=== PATIENT | male | born 1950 | race Two or more races ===

== ENCOUNTER 2020-04-14 01:00 | Inpatient (IN) | payer OTHER ==
[~2020-04-14] VITALS: Ht 172.7 cm; Wt 67.6 kg
[2020-04-14 01:05] VITALS: BP 115/76
--- NOTE | 2020-04-14 01:05 | NUR ---
ED Nurse Note: pt [facility] [address] from [facility]. Per TAMIA report pt c/o abd pain and fever for 1 day. Pt is AAOx1, nods yes/no. Breathing even and unlabored on RA sating 97-100%. Afebrile on arrival. Vital signs stable. Pt's bilateral lower extremeties contracted, abdomen appears distended. Closed tracheostomy.
--- NOTE | 2020-04-14 01:08 | Emergency Room Report ---
History of Present Illness General Chief Complaint: Flu Like Symptoms Source: Patient, EMS Present Illness HPI Patient is a 69-year-old male sent in for increased headache and generalized body aches and abdominal discomfort. Patient was noted to have fever at the facility. Was sent in from [facility]. Patient's roommate had apparently had recently developed a fever. Patient was sent in for further evaluation. Allergies: Coded Allergies: No Known Allergies (Unverified , 04/14/20) Patient History Past Medical History: see triage record Reviewed Nursing Documentation: PMH: Agreed; PSxH: Agreed Review of Systems All Other Systems: negative except mentioned in HPI Physical Exam Sp02 EP Interpretation: reviewed, normal General Appearance: alert, Chronically Ill Head: atraumatic ENT: normal ENT inspection, hearing grossly normal, normal voice Neck: normal inspection, full range of motion, supple, no bony tend Respiratory: normal inspection, lungs clear, normal breath sounds, no respiratory distress, no retraction, no wheezing Cardiovascular #1: regular rate, rhythm, no edema Gastrointestinal: normal inspection, normal bowel sounds, non tender, soft, no guarding, no hernia Genitourinary: no CVA tenderness Musculoskeletal: normal inspection, back normal, normal range of motion Neurologic: motor weakness, responsive, speech normal, aphasia Medical Decision Making Diagnostic Impression: Primary Impression: Suspected 2019 novel coronavirus infection Additional Impression: Acute febrile illness ER Course Patient presented for increased fever. Differential diagnosis includes not limited to pneumonia, coronavirus infection, hypoxia, influenza among others. Because of complexity of patient's case laboratory tests and imaging studies were ordered. Laboratory testing was ordered including specimen for coronavirus testing. Patient was noted to have roommate who is positive for coronavirus at the facility. Chest x-ray showed diffuse patchy infiltrates. Patient was noted to have some suspected coronavirus infection and patient will be admitted to the hospital for further evaluation and treatment. Dr. Zain Mac was contacted for inpatient management Labs Test 04/14/20 01:20 White Blood Count 9.3 K/UL (4.8-10.8) Red Blood Count 5.06 M/UL (4.70-6.10) Hemoglobin 15.2 G/DL (14.2-18.0) Hematocrit 45.5 % (42.0-52.0) Mean Corpuscular Volume 90 FL (80-99) Mean Corpuscular Hemoglobin 30.0 PG (27.0-31.0) Mean Corpuscular Hemoglobin Concent 33.5 G/DL (32.0-36.0) Red Cell Distribution Width 13.9 % (11.6-14.8) Platelet Count 399 K/UL (150-450) Mean Platelet Volume 6.6 FL (6.5-10.1) Neutrophils (%) (Auto) 50.3 % (45.0-75.0) Lymphocytes (%) (Auto) 36.3 % (20.0-45.0) Monocytes (%) (Auto) 10.8 % (1.0-10.0) Eosinophils (%) (Auto) 0.3 % (0.0-3.0) Basophils (%) (Auto) 2.4 % (0.0-2.0) Sodium Level 141 MMOL/L (136-145) Potassium Level 3.7 MMOL/L (3.5-5.1) Chloride Level 105 MMOL/L (98-107) Carbon Dioxide Level 30 MMOL/L (21-32) Anion Gap 6 mmol/L (5-15) Blood Urea Nitrogen 24 mg/dL (7-18) Creatinine 1.0 MG/DL (0.55-1.30) Estimat Glomerular Filtration Rate > 60 mL/min (>60) Glucose Level 102 MG/DL (74-106) Lactic Acid Level 1.40 mmol/L (0.4-2.0) Calcium Level 9.0 MG/DL (8.5-10.1) Phosphorus Level 3.2 MG/DL (2.5-4.9) Magnesium Level 2.1 MG/DL (1.8-2.4) Total Bilirubin 0.3 MG/DL (0.2-1.0) Aspartate Amino Transf (AST/SGOT) 27 U/L (15-37) Alanine Aminotransferase (ALT/SGPT) 23 U/L (12-78) Alkaline Phosphatase 150 U/L (46-116) Total Creatine Kinase 54 U/L (26-308) Creatine Kinase MB 0.7 NG/ML (0.0-3.6) Creatine Kinase MB Relative Index 1.2 Troponin I 0.000 ng/mL (0.000-0.056) Pro-B-Type Natriuretic Peptide 158 pg/mL (0-125) Total Protein 7.7 G/DL (6.4-8.2) Albumin 3.7 G/DL (3.4-5.0) Globulin 4.0 g/dL Albumin/Globulin Ratio 0.9 (1.0-2.7) Status: unchanged Disposition: ADMITTED INPATIENT Condition: Stable John Flores MD Apr 14, 2020 01:08
[2020-04-14] MEDS ORDERED: Cefepime 1gm vial ONE (04:17)
[2020-04-14 05:39] LABS: BASOPHILS % (AUTO) 2.4 % (0.0-2.0); EOSINOPHILS % (AUTO) 0.3 % (0.0-3.0); HEMATOCRIT 45.5 % (42.0-52.0); HEMOGLOBIN 15.2 G/DL (14.2-18.0); LYMPHOCYTES % (AUTO) 36.3 % (20.0-45.0); MEAN CORPUSCULAR VOLUME 90 FL (80-99); MONOCYTES % (AUTO) 10.8 % (1.0-10.0); NEUTROPHILS % (AUTO) 50.3 % (45.0-75.0); PLATELET COUNT 399 K/UL (150-450); RED BLOOD COUNT 5.06 M/UL (4.70-6.10); RED CELL DISTRIBUTION WIDTH 13.9 % (11.6-14.8); WHITE BLOOD COUNT 9.3 K/UL (4.8-10.8)
[2020-04-14 05:40] LABS: ALANINE AMINOTRANSFERASE 23 U/L (12-78); ALBUMIN 3.7 G/DL (3.4-5.0); ALBUMIN/GLOBULIN RATIO 0.9 (1.0-2.7); ALKALINE PHOSPHATASE 150 U/L (46-116); ANION GAP 6 mmol/L (5-15); ASPARTATE AMINO TRANSFERASE 27 U/L (15-37); BILIRUBIN,TOTAL 0.3 MG/DL (0.2-1.0); BLOOD UREA NITROGEN 24 mg/dL (7-18); CARBON DIOXIDE 30 MMOL/L (21-32); CHLORIDE 105 MMOL/L (98-107); CKMB 0.7 NG/ML (0.0-3.6); CREATINE KINASE 54 U/L (26-308); PHOSPHORUS 3.2 MG/DL (2.5-4.9); POTASSIUM 3.7 MMOL/L (3.5-5.1); SODIUM 141 MMOL/L (136-145)
[2020-04-14] MEDS ORDERED: TYLENOL EXTRA500 MG ORAL (06:14)
[2020-04-14] MEDS ORDERED: KEPPRA LIQ100 MG/1 M ORAL (06:14)
[2020-04-14] MEDS ORDERED: BISACODYL5 MG ORAL (06:14)
[2020-04-14] MEDS ORDERED: OMEPRAZOLE20 M2 ORAL (06:14)
[2020-04-14] MEDS ORDERED: METOPROLOL TART25 MG ORAL (06:14)
[2020-04-14] MEDS ORDERED: DOCUSATE SODIU100 MG ORAL (06:14)
[2020-04-14] MEDS ORDERED: ECONAZOLE NITRA15 GM TOPIC (06:14)
--- NOTE | 2020-04-14 07:04 | NUR ---
HAND-OFF: Report given to VELASQUEZ Andrews and VELASQUEZ Renee.
--- NOTE | 2020-04-14 07:50 | NUR ---
ED Nurse Note: Report given to VELASQUEZ Sargent on 2E.
--- NOTE | 2020-04-14 08:30 | NUR ---
NURSE NOTES: pt recieved from Juliana Naik. Pt abdomen noted pulsating and with scars. Pt nods that he is ok, does not speak. viitals as follows 97.6, 93hr, 20 resp, 112/71, 100% on RA. Monitor applied
--- NOTE | 2020-04-14 08:30 | NUR ---
TRANSFER TO FLOOR: Patient transferred to as ordered, per ED RN. Report given to Ani RN 2 East tele. Belongings sent with patient. Transfered on tele monitor with SCHOOL CURRICULUM DEVELOPER. Pt on 3 L NC, able to nod yes or no to nurse when asked questions. No signs of respiratory distress noted.
--- NOTE | 2020-04-14 09:56 | NUR ---
NURSE NOTES: Please note per Dr. Mares, DC all home meds, follow diet suggestion of ST after eval.
--- NOTE | 2020-04-14 10:08 | NUR ---
Speech Pathology Note (Bedside Dysphagia Evaluation) Admission date: 04/14/2020 around Admission DDX: COVID 19, Pneumonia, sepsis Room mate positive for COVID at [facility] Brief Note: Mr. Betancur is a 69 year old male who is a resident of [facility] home was found to have fever with flu symptoms. According to transfer summary from there vital signs are followed. The temp is 101.2, Pulse 113, RR 20, BP 115/79, Spo2 98 on room air. He is on mechanical soft diet and thin liquid at his facility. The overnight vital signs are all stable, and labs were grossly unremarkable. I do not have other information except medication review from [facility]. Findings: Mr. Betancur is alert. He was unable to state his name when I asked in Slovenian/Sami. He has tracheostomy scar. The pinhole was noted at the scar site. This is is too small for significant air leak for phonation. Oral exam revealed clear mucosa. Missing teeth is noted. Given him approximately 120cc iced water, and 50cc of apple sauce he tolerated without overt s.s of aspiration. Interpretation: 1. Grossly functional swallow 2. Hx of tracheostomy unclear etiology at this time. 3. COVID 19 Plan: 1. Pureed and thin liquid diet for now 2.3. I discussed with RN/Radiology department for possible videofluoroscopy swallow per MD order -May Hold off video for now due to COVID positive to minimize exposure Kolby Awad Addendum: 04/14/20 at 1034 by KOLBY AWAD IRONWORKER FOREMAN I discussed with radiology environmental studies department chair about video swallow. We will not perform Video swallow for COVID patient at this time.
[2020-04-14 12:00] VITALS: BP 131/78
[2020-04-14] MEDS ORDERED: Cefepime HCl 1 GM in D5W 55 ML IVPB SCH (12:00)
--- NOTE | 2020-04-14 12:03 | Consultation ---
History of Present Illness General Date patient seen: Apr 14, 2020 Time patient seen: 11:30 Chief Complaint: Flu Like Symptoms Present Illness Allergies: Coded Allergies: No Known Allergies (Unverified , 04/14/20) Medication History Scheduled Bisacodyl* (Dulcolax*), 10 MG ORAL DAILY, (Reported) Docusate Sodium* (Docusate Sodium*), 100 MG ORAL TWICE A DAY, (Reported) Econazole Nitrate (Econazole Nitrate), 1 APPLIC TOPIC DAILY, (Reported) Levetiracetam (Keppra), 5 ML ORAL TWICE A DAY, (Reported) Metoprolol Tartrate* (Metoprolol Tartrate*), 12.5 MG ORAL EVERY 12 HOURS, (Reported) Omeprazole (Omeprazole), 20 MG ORAL DAILY, (Reported) Scheduled PRN Acetaminophen* (Tylenol Extra Strength*), 500 MG ORAL Q6H PRN for Mild Pain/Temp > 100.5, (Reported) Patient History Healthcare decision maker Resuscitation status Advanced Directive on File Physical Exam Last 24 Hour Vital Signs Date Time Temp Pulse Resp B/P (MAP) Pulse Ox O2 Delivery O2 Flow Rate FiO2 04/14/20 08:30 99.2 93 22 109/62 95 Nasal Cannula 3.0 04/14/20 01:05 73 18 Room Air 04/14/20 01:05 98.0 73 18 115/76 98 Room Air 04/14/20 01:03 97.2 96 18 114/70 (85) 94 Room Air Intake and Output 04/13/20 04/14/20 19:00 07:00 Intake Total 50 ml Balance 50 ml Intake Oral 50 ml Laboratory Tests Test 04/14/20 01:20 White Blood Count 9.3 K/UL (4.8-10.8) Red Blood Count 5.06 M/UL (4.70-6.10) Hemoglobin 15.2 G/DL (14.2-18.0) Hematocrit 45.5 % (42.0-52.0) Mean Corpuscular Volume 90 FL (80-99) Mean Corpuscular Hemoglobin 30.0 PG (27.0-31.0) Mean Corpuscular Hemoglobin Concent 33.5 G/DL (32.0-36.0) Red Cell Distribution Width 13.9 % (11.6-14.8) Platelet Count 399 K/UL (150-450) Mean Platelet Volume 6.6 FL (6.5-10.1) Neutrophils (%) (Auto) 50.3 % (45.0-75.0) Lymphocytes (%) (Auto) 36.3 % (20.0-45.0) Monocytes (%) (Auto) 10.8 % (1.0-10.0) H Eosinophils (%) (Auto) 0.3 % (0.0-3.0) Basophils (%) (Auto) 2.4 % (0.0-2.0) H Sodium Level 141 MMOL/L (136-145) Potassium Level 3.7 MMOL/L (3.5-5.1) Chloride Level 105 MMOL/L (98-107) Carbon Dioxide Level 30 MMOL/L (21-32) Anion Gap 6 mmol/L (5-15) Blood Urea Nitrogen 24 mg/dL (7-18) H Creatinine 1.0 MG/DL (0.55-1.30) Estimat Glomerular Filtration Rate > 60 mL/min (>60) Glucose Level 102 MG/DL (74-106) Lactic Acid Level 1.40 mmol/L (0.4-2.0) Calcium Level 9.0 MG/DL (8.5-10.1) Phosphorus Level 3.2 MG/DL (2.5-4.9) Magnesium Level 2.1 MG/DL (1.8-2.4) Total Bilirubin 0.3 MG/DL (0.2-1.0) Aspartate Amino Transf (AST/SGOT) 27 U/L (15-37) Alanine Aminotransferase (ALT/SGPT) 23 U/L (12-78) Alkaline Phosphatase 150 U/L (46-116) H Total Creatine Kinase 54 U/L (26-308) Creatine Kinase MB 0.7 NG/ML (0.0-3.6) Creatine Kinase MB Relative Index 1.2 Troponin I 0.000 ng/mL (0.000-0.056) Pro-B-Type Natriuretic Peptide 158 pg/mL (0-125) H Total Protein 7.7 G/DL (6.4-8.2) Albumin 3.7 G/DL (3.4-5.0) Globulin 4.0 g/dL Albumin/Globulin Ratio 0.9 (1.0-2.7) L Microbiology Date/Time Source Procedure Growth Status 04/14/20 07:30 Nasopharynx SARS-CoV-2 RdRp Gene Assay - Final Complete 04/14/20 01:02 Nasal Nares - Final Complete 04/14/20 01:02 Nasal Nares - Final Complete Height (Feet): 5 Height (Inches): 10.00 Weight (Pounds): 150 Medications Current Medications Medications (Trade) Dose Ordered Sig/[place] Route PRN Reason Start Time Stop Time Status Last Admin Dose Admin Acetaminophen (Tylenol) 650 mg Q4H PRN ORAL temp > 100.4 04/14/20 09:30 05/14/20 09:29 Acetaminophen (Tylenol) 650 mg Q4H PRN ORAL pain 04/14/20 09:45 05/14/20 09:44 Cefepime HCl 1 gm/ Dextrose 55 ml @ 110 mls/hr ONCE ONCE IVPB 04/14/20 12:00 04/14/20 12:29 UNV Sodium Chloride 1,000 ml @ 60 mls/hr [id number] IV 04/14/20 09:30 05/14/20 09:29 Brett Shore Apr 14, 2020 12:03
--- NOTE | 2020-04-14 13:06 | NUR ---
CASE MANAGEMENT:REVIEW BIBA FROM [facility] CC: FLU LIKE SYMPTOMS PMH: CLOSED TRACH SITE SI: COVID INFECTION 97.1 96 18 114/70 94% ON RA BUN+24 IS:IV ROCEPHIN IV CEFEPIME IVF@60/HR CXR BLOOD CX : TO TELEMETRY
[2020-04-14] MEDS ORDERED: Omnipaque-300 100ml vial INJ PRN (14:45)
[2020-04-14 16:00] VITALS: BP 112/71
[2020-04-14 16:29] LABS: APPEARANCE,URINE SLIGHTLY CLOUDY; BILIRUBIN, URINE NEGATIVE (NEGATIVE); COLOR,URINE AMBER; GLUCOSE, URINE (UA) NEGATIVE (NEGATIVE); KETONES,URINE 1+ (NEGATIVE); LEUKOCYTE ESTERASE ,URINE NEGATIVE (NEGATIVE); NITRITE,URINE NEGATIVE (NEGATIVE); PH,URINE 5 (4.5-8.0); PROTEIN,URINE 1+ (NEGATIVE); UROBILINOGEN,URINE NORMAL MG/DL (0.0-1.0)
--- NOTE | 2020-04-14 17:30 | Consultation ---
DATE OF CONSULTATION: 04/14/2020 PULMONARY CONSULTATION CONSULTING PHYSICIAN: Radhames Jc MD REFERRING PHYSICIAN: Zain Mares MD HISTORY OF PRESENT ILLNESS: This is a 69-year-old male who was sent in from a nursing facility with headache and myalgias. Patient also reported abdominal discomfort. He was noted to be febrile at the facility. Patient was not hypoxic and there was no fever documented at [facility]. At this time, patient is unable to provide any further history. PAST MEDICAL HISTORY: Notable for half-way resident. PAST SURGICAL HISTORY: None reported. ALLERGIES: None reported. REVIEW OF SYSTEMS: Unreliable. PHYSICAL EXAMINATION: GENERAL: Reveals a 69-year-old male. HEENT: Unremarkable. LUNGS: Clear breath sounds bilaterally. ABDOMEN: Soft. EXTREMITIES: There is no edema. NEUROLOGIC: Nonfocal. VITAL SIGNS: Blood pressure is 110/60, heart rate is 74, respirations 20, O2 saturation 99% on room air. LABORATORY DATA: Lab testing shows normal CBC and BMP. Alkaline phosphatase 150. Troponin negative. IMAGING STUDIES: Unable to review. IMPRESSION: 1. COVID-19 pneumonia. 2. Normoxemia. 3. long-term resident. DISCUSSION: At this time, patient is doing very well on room air. I will hold off on additional therapy, specifically for COVID. I note that he has tested positive for COVID-19 rapid gene assay. Defer remdesivir to ID. Hold off on Decadron. We will follow carefully. Radhames Jc M.D. DR: TONO JOB#: [id number] CC:
--- NOTE | 2020-04-14 18:40 | NUR ---
NURSE HAND-OFF REPORT: Important Events on Shift:[Pt stable through shift, no skin issues noted, bilateral heel Optifoam placed prophylactically. please note that pt has poor appetite and did not eat much of his dinner. No complaint of abdominal pain, Per Dr. Cosme, abdomen is hernia related. ] Patient Status: [in bed resting, stable] Diet: [pure soft moist thin liquids] Pending Orders: [] Pending Results/Labs:[The chest Xray results have not resulted, consider asking for another image or for radiologist to review existing image] Pending MD notification:[Please confirm with Dr. Mares that he wants to DC Metoprolol, omeprazole, and Keppra.] Latest Vital Signs: Temperature 97.6 , Pulse 103 , B/P 112 /71 , Respiratory Rate 20 , O2 SAT 100 , Nasal Cannula, O2 Flow Rate 3.0 . Vital Sign Comment: [Slightly tachy otherwise stable] EKG Rhythm: Sinus Tachycardia Rhythm change?: N MD Notified?: - MD Response: Latest Martin Fall Score: 55 Fall Risk: High Risk Safety Measures: Call light Within Reach, Bed Alarm Zone 1, Side Rails Side Rails x2, Bed position Low and Locked. Fall Precautions: Yellow Socks Yellow Gown Door Sign Report given to [Pending RN assignment]. Addendum: 04/14/20 at 1922 by Rosetta Lantigua RN Report given to Rick ENG
--- NOTE | 2020-04-14 19:00 | Consultation ---
DATE OF CONSULTATION: 04/14/2020 INFECTIOUS DISEASES CONSULTATION CONSULTING PHYSICIAN: Narendra Garcia MD PRIMARY ATTENDING PHYSICIAN: Zain Mares MD REASON FOR CONSULTATION: COVID-19 with risks. HISTORY OF PRESENT ILLNESS: This is a 69-year-old white male [facility]. The patient had fever of 101.2. He had headache and abdominal pain. The patient is poor historian. PAST MEDICAL HISTORY: He has history of COPD, encephalopathy, CHF, dysphagia, and hypertension. ALLERGIES: No known drug allergies. MEDICATIONS: Tylenol and sodium chloride. SOCIAL HISTORY: group home resident. Single. Next-of-kin is the child. REVIEW OF SYSTEMS: Very limited. PHYSICAL EXAMINATION: VITAL SIGNS: Temperature 99.2, pulse 93, and blood pressure 109/62. GENERAL APPEARANCE: No acute distress. HEAD AND NECK: [place] conjunctivae. He seems to have a covered tracheostomy site. HEART: Normal rate. LUNGS: Clear. ABDOMEN: Soft. EXTREMITIES: No edema. He has muscle atrophy and contractures in leg. NEUROLOGIC: He is awake, alert, and verbal. LABORATORY AND DIAGNOSTIC DATA: WBC 9.3, hemoglobin 15.2, hematocrit 45.5, and platelet is 399,000. Sodium 141, potassium 3.7, chloride 105, bicarb 30, BUN 24, creatinine 1, and glucose 102. COVID-19 test was positive. Influenza A and B are negative. IMPRESSION: COVID-19 disease, mild or early disease. The patient does not need oxygen. He had fever in [facility]. He has history of COPD, encephalopathy, dysphagia, and hypertension. RECOMMENDATION: We will follow up the cultures. We will start the patient on ceftriaxone. At the end of my exam, I thank Dr. Mares for involving me in the care of this patient. Narendra Garcia M.D. DR: Caitlyn JOB#: [id number] CC:
--- NOTE | 2020-04-14 19:13 | Diagnostic Imaging Report ---
Indication: Shortness of breath Technique: One view of the chest Comparison: none Findings: The aorta is elongated tortuous and ectatic. The lungs and pleural spaces are clear. The heart size is normal. There are surgical clips in the upper abdomen Impression: No acute process
--- NOTE | 2020-04-14 19:30 | NUR ---
NURSE NOTES: Report received from VELASQUEZ Sargent. Patient is awake on bed, alert and oriented x 1. operator bearer systems is in place, shows sinus tachycardia with no chest pain reported. On cardiac pureed moist, thin liquids, instructed and amenable. IV site is on right AC g-20 running 1/2 NS @ 60 cc/hour that is patent and intact. Safety measures are in place, bed in lowest and locked position, side rails up x 2, call light button and bedsdie table within reach, instructed to call for any assistance needed. Will continue plan of care.
[2020-04-14 20:00] VITALS: BP 116/66
--- NOTE | 2020-04-14 21:15 | General Progress Note ---
Subjective Allergies: Coded Allergies: No Known Allergies (Unverified , 04/14/20) Objective Last 24 Hour Vital Signs Date Time Temp Pulse Resp B/P (MAP) Pulse Ox O2 Delivery O2 Flow Rate FiO2 04/14/20 20:00 114 04/14/20 16:00 103 04/14/20 16:00 97.6 93 20 112/71 (85) 100 04/14/20 12:00 102 04/14/20 12:00 97.5 111 20 131/78 (95) 100 04/14/20 10:38 Room Air 04/14/20 08:30 99.2 93 22 109/62 95 Nasal Cannula 3.0 04/14/20 01:05 73 18 Room Air 04/14/20 01:05 98.0 73 18 115/76 98 Room Air 04/14/20 01:03 97.2 96 18 114/70 (85) 94 Room Air Intake and Output 04/13/20 04/14/20 19:00 07:00 Intake Total 50 ml Balance 50 ml Intake Oral 50 ml Laboratory Tests 04/14/20 01:20: White Blood Count 9.3, Red Blood Count 5.06, Hemoglobin 15.2, Hematocrit 45.5, Mean Corpuscular Volume 90, Mean Corpuscular Hemoglobin 30.0, Mean Corpuscular Hemoglobin Concent 33.5, Red Cell Distribution Width 13.9, Platelet Count 399, Mean Platelet Volume 6.6, Neutrophils (%) (Auto) 50.3, Lymphocytes (%) (Auto) 36.3, Monocytes (%) (Auto) 10.8H, Eosinophils (%) (Auto) 0.3, Basophils (%) (Auto) 2.4H, Sodium Level 141, Potassium Level 3.7, Chloride Level 105, Carbon Dioxide Level 30, Anion Gap 6, Blood Urea Nitrogen 24H, Creatinine 1.0, Estimat Glomerular Filtration Rate > 60, Glucose Level 102, Lactic Acid Level 1.40, Calcium Level 9.0, Phosphorus Level 3.2, Magnesium Level 2.1, Total Bilirubin 0.3, Aspartate Amino Transf (AST/SGOT) 27, Alanine Aminotransferase (ALT/SGPT) 23, Alkaline Phosphatase 150H, Total Creatine Kinase 54, Creatine Kinase MB 0.7, Creatine Kinase MB Relative Index 1.2, Troponin I 0.000, Pro-B-Type Natriuretic Peptide 158H, Total Protein 7.7, Albumin 3.7, Globulin 4.0, Albumin/Globulin Ratio 0.9L 04/14/20 15:45: Urine Color Edwige, Urine Appearance Slightly cloudy, Urine pH 5, Urine Specific [place] 1.025, Urine Protein 1+H, Urine Glucose (UA) Negative, Urine Ketones 1+H , Urine Blood 4+H, Urine Nitrite Negative, Urine Bilirubin Negative, Urine Ictotest Negative, Urine Urobilinogen Normal, Urine Leukocyte Esterase Negative, Urine RBC 30-40H, Urine WBC 0-2, Urine Squamous Epithelial Cells ManyH, Urine Bacteria ModerateH, Urine Mucus ManyH Height (Feet): 5 Height (Inches): 8.00 Weight (Pounds): 149 Assessment/Plan Assessment/Plan: GI CONSULT Dictated Thank you MD Marlee Maravilla Payman MD Apr 14, 2020 21:15
--- NOTE | 2020-04-14 22:15 | History and Physical Report ---
DATE OF ADMISSION: 04/14/2020 HISTORY OF PRESENT ILLNESS: Patient comes from a longterm with a outbreak of COVID. Patient has increased headache, body ache, weakness, loss of taste, and loss of appetite. Roommate was also positive for COVID from the same longterm. Patient has shortness of breath and some cough. Denies nausea, vomiting, or diarrhea. Has poor appetite. PAST MEDICAL HISTORY: Significant for GERD as well as constipation, hypertension, seizure disorder, psychosis. PAST SURGICAL HISTORY: None. ALLERGIES: No known allergies. MEDICATIONS: Docusate, bisacodyl, Keppra, metoprolol, omeprazole. FAMILY HISTORY: Noncontributory. SOCIAL HISTORY: Has history of smoking. No history of alcohol or illicit drugs. Comes from a longterm. REVIEW OF SYSTEMS: HEENT: Denies headaches. RESPIRATORY: Reports shortness of breath and cough for a couple of days. CARDIOVASCULAR: Denies chest pain. GASTROINTESTINAL: Denies nausea, vomiting, or diarrhea. Does have poor appetite. Has loss of taste. EXTREMITIES: Denies pain in lower extremities. CENTRAL NERVOUS SYSTEM: Denies change in speech pattern. Feels very weak. PHYSICAL EXAMINATION: VITAL SIGNS: Temperature is 98, pulse 72, blood pressure 115/76. HEENT: PERRLA. CHEST: Clear to auscultation CARDIOVASCULAR: Regular rate and rhythm. No murmurs or extra sounds. GASTROINTESTINAL: Soft, nontender, nondistended. No organomegaly. EXTREMITIES: No edema. Moves all four extremities. NEUROLOGIC: Sensory intact to light touch. Reflexes in both sides. LABORATORY DATA: WBC of 9.3, hemoglobin 15.2, platelets 399. Sodium 141, potassium 3.7, BUN of 24, creatinine 1. ASSESSMENT AND PLAN: COVID positive pneumonia. No fever at the longterm. I have consulted Dr. Camacho, Dr. Radhames Jc, Dr. Narendra Garcia, Dr. Whalen for abdominal pain management as well as for the treatment of COVID positive pneumonia as well as for the management of depression and psychosis. Patient has also had some abdominal pain for 1 day. Zain Mares M.D. DR: TAYA JOB#: [id number] CC:
--- NOTE | 2020-04-14 22:30 | Consultation ---
DATE OF CONSULTATION: 04/14/2020 GASTROENTEROLOGY CONSULTATION CONSULTING PHYSICIAN: Екатерина Whalen MD CHIEF COMPLAINT: I was asked to see this patient by Dr. Zain Mares for evaluation of abdominal discomfort. HISTORY OF PRESENT ILLNESS: The patient is a 69-year-old white man from a senior living who was brought in for fever and COVID positive evaluation. The patient had complained of some abdominal discomfort earlier and had some abdominal distention per nursing staff. He is however tolerating his oral diet without any nausea or vomiting. There is no other history available and this patient is a poor historian. PAST MEDICAL HISTORY: Otherwise unavailable. FAMILY HISTORY: Unavailable. SOCIAL HISTORY: Patient is from a senior living. ALLERGIES: None reported. MEDICATIONS: Noted. PHYSICAL EXAMINATION: GENERAL: Debilitated man, seen in his room. HEENT: Normocephalic and atraumatic. Sclerae anicteric. Oropharynx clear. NECK: Supple. CHEST: Clear to auscultation. CARDIOVASCULAR: Revealed a regular rate. ABDOMEN: Soft and nontender. There is epigastric surgical scar and some wound related hernia, but without any evidence of incarceration. EXTREMITIES: Revealed no edema and some contractures in the left upper extremity. LABORATORY DATA: Noted. ASSESSMENT: This patient presents with coronavirus infection with fever. He had complained of some abdominal discomfort earlier, which can be seen with coronavirus infections. At this time, he denies any abdominal pain and he can be followed conservatively. He has some mild elevation in the alkaline phosphate level, which can be worked up there with proper imaging studies of the abdomen. However, this is not urgent and can wait until patient's condition is overall improved. RECOMMENDATIONS: Per above discussion and per orders written in the chart. Thank you for asking me to participate in the care of this patient. Екатерина Whalen M.D. DR: JEANMARIE JOB#: [id number] CC:
--- NOTE | 2020-04-14 23:16 | Psychiatry Consultation ---
Psychiatry Consultation Psychiatry Consultation Chief Complaint: Flu Like Symptoms History of Present Illness: The patient presents with anxiety, agitation, paranoid ideation, disorientation behavior. PAST PSYCHIATRIC HISTORY: Schizophrenia. PAST MEDICAL HISTORY: As above. ALLERGIES: No known drug allergies. SUBSTANCE ABUSE HISTORY: No known history of illicit drug use or alcohol. MENTAL STATUS EXAMINATION: The patient is alert and oriented times self. Mood is anxious. Affect is blunted, congruent with mood. Thought process is concrete. Thought content, there is no suicidal or homicidal ideation. Cognition is impaired. Insight and judgment is impaired. ASSESSMENT: [place] I Acute toxic encephalopathy. Psychotic disorder. [place] II Deferred. [place] III As above. [place] IV Low. [place] V 20. PLAN: 1. We will start the patient on Haldol IM. 2. Discussed with the nurse. Allergies: Coded Allergies: No Known Allergies (Unverified , 04/14/20) Medication History Scheduled Acetaminophen* (Acetaminophen 325MG Tablet*), 650 MG ORAL DAILY, (Reported) Cholecalciferol (Vitamin D3) (Vitamin D3*), 5,000 UNIT PO DAILY, (Reported) Cranberry Fruit (Cranberry), 900 MG PO BID, (Reported) Docusate Sodium* (Docusate Sodium*), 100 MG ORAL Q12HR, (Reported) Econazole Nitrate (Econazole Nitrate), 1 APPLIC TOPIC BID, (Reported) Levetiracetam (Keppra), 5 ML ORAL Q12HR, (Reported) Metoprolol Tartrate* (Metoprolol Tartrate*), 12.5 MG ORAL BID, (Reported) Multivitamin With Minerals (Multivitamins With Minerals*), 1 TAB ORAL DAILY, (Reported) Omeprazole (Omeprazole), 20 MG ORAL ACBREAKFAST, (Reported) Scheduled PRN Acetaminophen* (Tylenol Extra Strength*), 1,000 MG ORAL Q6H PRN for Moderate Pain (Pain Scale 4-6), (Reported) Acetaminophen* (Acetaminophen 325MG Tablet*), 650 MG ORAL Q6H PRN for Mild Pain (Pain Scale 1-3), (Reported) Bisacodyl (Bisacodyl), 10 MG RC Q24HR PRN for Constipation, (Reported) Magnesium Hydroxide* (Milk Of Magnesia*), 30 ML ORAL QHS PRN for Constipation, (Reported) Na Phos,M-B/Na Phos,Di-Ba* (Fleet Enema*), 133 ML RECTAL EVERY OTHER DAY PRN for Constipation, (Reported) Discontinued Medications Bisacodyl* (Dulcolax*), 10 MG ORAL DAILY, (Reported) Discontinued Reason: Prescription changed Objective Data Height (Feet): 5 Height (Inches): 8.00 Weight (Pounds): 149 Davion Camacho MD Apr 14, 2020 23:16
[2020-04-15] VITALS: BP 114/72
[2020-04-15 04:00] VITALS: BP 106/75
--- NOTE | 2020-04-15 07:18 | NUR ---
NURSE NOTES: Patient was seen in bed asleep with no signs of acute distress, the patient had SCDs on bilaterally, and was receiving 1/2 NS @ 60cc/hr. The bed was placed in the lowest position and locked, the bed alarm was set to zone 1, the side rails were placed x3 and call light was within reach.
--- NOTE | 2020-04-15 07:30 | NUR ---
NURSE HAND-OFF REPORT: Important Events on Shift: Patient has been resting well the whole shift. No SOB nor desaturation noted the whole shift. Patient Status: Patient is awake on bed in stable condition, plan of care endorsed. Diet: Regular, soft easy chew Pending Orders: none Pending Results/Labs:none Pending MD notification:none Latest Vital Signs: Temperature 98.2 , Pulse 101 , B/P 106 /75 , Respiratory Rate 24 , O2 SAT 94 , Room Air, O2 Flow Rate 3.0 . Vital Sign Comment:stable EKG Rhythm: Sinus Bradycardia Rhythm change?: N MD Notified?: - MD Response: Latest Martin Fall Score: 55 Fall Risk: High Risk Safety Measures: Call light Within Reach, Bed Alarm Zone 1, Side Rails Side Rails x2, Bed position Low and Locked. Fall Precautions: Yellow Socks Yellow Gown Door Sign Patient Fall Education Report given to VELASQUEZ Carreno.
[2020-04-15 08:00] VITALS: BP 120/75
[2020-04-15] MEDS: cefTRIAXone 1 GM in D5W 55 ML IVPB SCH (08:28)
--- NOTE | 2020-04-15 10:54 | Infectious Diseases Prog Note ---
Assessment/Plan Assessment/Plan IMPRESSION: COVID19 disease, mild or early disease. COPD, Encephalopathy, Dysphagia, Hypertension. RECOMMENDATION: We will follow up the cultures. Continue ceftriaxone. Subjective ROS Limited/Unobtainable: Yes Constitutional: Denies: fever Allergies: Coded Allergies: No Known Allergies (Unverified , 04/14/20) Objective Last 24 Hour Vital Signs Date Time Temp Pulse Resp B/P (MAP) Pulse Ox O2 Delivery O2 Flow Rate FiO2 04/15/20 09:00 Room Air 04/15/20 08:00 97.9 89 22 120/75 (90) 96 04/15/20 08:00 92 04/15/20 04:00 98.2 101 24 106/75 (85) 94 04/15/20 04:00 93 04/15/20 00:00 98.1 101 24 114/72 (86) 95 04/15/20 00:00 103 04/14/20 21:00 Room Air 04/14/20 20:00 114 04/14/20 20:00 97.2 108 20 116/66 (83) 98 04/14/20 16:00 103 04/14/20 16:00 97.6 93 20 112/71 (85) 100 04/14/20 12:00 102 04/14/20 12:00 97.5 111 20 131/78 (95) 100 Height (Feet): 5 Height (Inches): 8.00 Weight (Pounds): 149 General Appearance: no acute distress HEENT: mucous membranes moist Respiratory/Chest: lungs clear, other - room air oxygen Cardiovascular: normal rate Abdomen: soft, non tender Extremities: no edema Neurologic/Psychiatric: alert, responsive Microbiology Date/Time Source Procedure Growth Status 04/14/20 07:30 Nasopharynx SARS-CoV-2 RdRp Gene Assay - Final Complete 04/14/20 01:20 Blood Blood Culture - Preliminary NO GROWTH AFTER 24 HOURS Resulted 04/14/20 01:02 Nasal Nares - Final Complete 04/14/20 01:02 Nasal Nares - Final Complete 04/14/20 00:05 Blood Blood Culture - Preliminary NO GROWTH AFTER 24 HOURS Resulted Laboratory Tests Test 04/14/20 15:45 Urine Color Edwige Urine Appearance Slightly cloudy Urine pH 5 (4.5-8.0) Urine Specific [place] 1.025 (1.005-1.035) Urine Protein 1+ (NEGATIVE) H Urine Glucose (UA) Negative (NEGATIVE) Urine Ketones 1+ (NEGATIVE) H Urine Blood 4+ (NEGATIVE) H Urine Nitrite Negative (NEGATIVE) Urine Bilirubin Negative (NEGATIVE) Urine Ictotest Negative (NEGATIVE) Urine Urobilinogen Normal MG/DL (0.0-1.0) Urine Leukocyte Esterase Negative (NEGATIVE) Urine RBC 30-40 /HPF (0 - 0) H Urine WBC 0-2 /HPF (0 - 0) Urine Squamous Epithelial Cells Many /LPF (NONE/OCC) H Urine Bacteria Moderate /HPF (NONE) H Urine Mucus Many /LPF (NONE/OCC) H Current Medications Medications (Trade) Dose Ordered Sig/Aurora Route PRN Reason Start Time Stop Time Status Last Admin Dose Admin Acetaminophen (Tylenol) 650 mg Q4H PRN ORAL temp > 100.4 04/14/20 09:30 05/14/20 09:29 Acetaminophen (Tylenol) 650 mg Q4H PRN ORAL pain 04/14/20 09:45 05/14/20 09:44 Ceftriaxone Sodium 1 gm/ Dextrose 55 ml @ 110 mls/hr Q24H IVPB 04/15/20 09:00 04/22/20 08:59 04/15/20 08:28 Sodium Chloride 1,000 ml @ 60 mls/hr [id number] IV 04/14/20 09:30 05/14/20 09:29 04/14/20 12:23 Narendra Garcia MD Apr 15, 2020 10:54
--- NOTE | 2020-04-15 11:01 | Pulmonology Progress Note ---
Subjective ROS Limited/Unobtainable: Yes Interval Events: None new Constitutional: Reports: no symptoms; Denies: fever HEENT: Repors: no symptoms Respiratory: Reports: no symptoms Cardiovascular: Reports: no symptoms Gastrointestinal/Abdominal: Reports: no symptoms Genitourinary: Reports: no symptoms Neurologic: Reports: no symptoms Allergies: Coded Allergies: No Known Allergies (Unverified , 04/14/20) Objective Last 24 Hour Vital Signs Date Time Temp Pulse Resp B/P (MAP) Pulse Ox O2 Delivery O2 Flow Rate FiO2 04/15/20 09:00 Room Air 04/15/20 08:00 97.9 89 22 120/75 (90) 96 04/15/20 08:00 92 04/15/20 04:00 98.2 101 24 106/75 (85) 94 04/15/20 04:00 93 04/15/20 00:00 98.1 101 24 114/72 (86) 95 04/15/20 00:00 103 04/14/20 21:00 Room Air 04/14/20 20:00 114 04/14/20 20:00 97.2 108 20 116/66 (83) 98 04/14/20 16:00 103 04/14/20 16:00 97.6 93 20 112/71 (85) 100 04/14/20 12:00 102 04/14/20 12:00 97.5 111 20 131/78 (95) 100 Intake and Output 04/14/20 04/15/20 19:00 07:00 Intake Total 180 ml Output Total 150 ml Balance 30 ml Intake Oral 180 ml Output Urine Total 150 ml # Voids 2 General Appearance: no acute distress HEENT: normocephalic Respiratory: chest wall non-tender, lungs clear Cardiovascular: normal peripheral pulses Abdomen: normal bowel sounds Extremities: no cyanosis Microbiology Date/Time Source Procedure Growth Status 04/14/20 07:30 Nasopharynx SARS-CoV-2 RdRp Gene Assay - Final Complete 04/14/20 01:20 Blood Blood Culture - Preliminary NO GROWTH AFTER 24 HOURS Resulted 04/14/20 01:02 Nasal Nares - Final Complete 04/14/20 01:02 Nasal Nares - Final Complete 04/14/20 00:05 Blood Blood Culture - Preliminary NO GROWTH AFTER 24 HOURS Resulted Laboratory Tests 04/14/20 15:45: Urine Color [place], Urine Appearance Slightly cloudy, Urine pH 5, Urine Specific [place] 1.025, Urine Protein 1+H, Urine Glucose (UA) Negative, Urine Ketones 1+H , Urine Blood 4+H, Urine Nitrite Negative, Urine Bilirubin Negative, Urine Ictotest Negative, Urine Urobilinogen Normal, Urine Leukocyte Esterase Negative, Urine RBC 30-40H, Urine WBC 0-2, Urine Squamous Epithelial Cells ManyH, Urine Bacteria ModerateH, Urine Mucus ManyH Current Medications Medications (Trade) Dose Ordered Sig/[place]ora Route PRN Reason Start Time Stop Time Status Last Admin Dose Admin Acetaminophen (Tylenol) 650 mg Q4H PRN ORAL temp > 100.4 04/14/20 09:30 05/14/20 09:29 Acetaminophen (Tylenol) 650 mg Q4H PRN ORAL pain 04/14/20 09:45 05/14/20 09:44 Ceftriaxone Sodium 1 gm/ Dextrose 55 ml @ 110 mls/hr Q24H IVPB 04/15/20 09:00 04/22/20 08:59 04/15/20 08:28 Sodium Chloride 1,000 ml @ 60 mls/hr [id number] IV 04/14/20 09:30 05/14/20 09:29 04/14/20 12:23 Assessment/Plan Assessment/Plan IMPRESSION: 1. COVID-19 pneumonia. 2. Normoxemia. 3. alf resident. DISCUSSION: At this time, patient is doing very well on room air. I will hold off on additional therapy, specifically for COVID. OK to dc I will follow carefully. Kaushal Theodore Omar Syed MD Apr 15, 2020 11:01
--- NOTE | 2020-04-15 11:54 | NUR ---
CASE MANAGEMENT:REVIEW 04/15/20 SI: COVID PNA 97.9 103 24 106/75 94% ON RA IS: IV ROCEPHIN Q24 IVF@60/HR : TELEMETRY STATUS DCP; FROM [facility]
[2020-04-15 12:00] VITALS: BP 115/73
--- NOTE | 2020-04-15 14:34 | NUR ---
NURSE NOTES:WOUND CARE NOTES:Pt presented with open trachea. No secretions noted from Trachea. Peristomal area cleansed with soap and water, gently dried,and covered with Optifoam drsg. Sacrum is pink and blanchable. Bilat Foot deformitynoted . Both heels are boggy but blanchable. An area of non-Blanchable erythema noted to dorsal L Foot.(L01.5cm x (W02.5cm. No other areas of skin concerns noted. Tx.Plan: Keep Trachea cover d with Optifoam drsg or Gauze secured with Paper Tape and change PRN if soiled or wet> Apply Moisture Barrier Paste to Sacrum. Cover with Optifoam drsg. Change every 3 days and prn. Apply Cavilon Skin Barrier to dorsal L Foot and Bilat heels. Cover each site with Optifoam drsg. Change every 3 days and prn. Reposition at loeast every 2hours or as tolerated. Off-load heels with Pillow.
[2020-04-15 16:00] VITALS: BP 110/71
--- NOTE | 2020-04-15 18:51 | NUR ---
NURSE HAND-OFF REPORT: Important Events on Shift:[IV Antibiotics and IV fluids] Patient Status: [Stable, full code] Diet: [Cardiac diet puree moist] Pending Orders: [N/A] Pending Results/Labs:[MRSA/ VRE] Pending MD notification:[N/A] Latest Vital Signs: Temperature 97.5 , Pulse 93 , B/P 110 /71 , Respiratory Rate 22 , O2 SAT 95 , Room Air, O2 Flow Rate 3.0 . Vital Sign Comment: [] EKG Rhythm: Sinus Rhythm Rhythm change?: N MD Notified?: - MD Response: Latest Martin Fall Score: 55 Fall Risk: High Risk Safety Measures: Call light Within Reach, Bed Alarm Zone 1, Side Rails Side Rails x2, Bed position Low and Locked. Fall Precautions: Yellow Socks Yellow Gown Door Sign Patient Fall Education Report given to [VELASQUEZ eZlaya].
--- NOTE | 2020-04-15 19:18 | NUR ---
NURSE NOTES: Pt received from VELASQUEZ Brunson. Pt is resting comfortably in bed and shows no signs of pain. Pt is bedbound and contracted; pt is A/Ox1. Pt is on cardiac monitoring ST and asymptomatic; aware. Pt is breathing unlabored on RA and asymptomatic. Pt has RAC 20G running 1/2NS patent with skin dry and intact. Pt requires turning q2hr. Bed is locked in lowest position with call light within reach. Will continue to monitor.
[2020-04-15 20:00] VITALS: BP 107/68
[2020-04-15] MEDS ORDERED: MULTIVITAMINS1 EAC8 ORAL (20:19)
[2020-04-15] MEDS ORDERED: MILK OF MA400 MG/51 ORAL (20:19)
[2020-04-15] MEDS ORDERED: BISACODYL10 M1 RC (20:19)
[2020-04-15] MEDS ORDERED: VITAMIN D325 MC1 PO (20:19)
[2020-04-15] MEDS ORDERED: FLEET ENEMA133 ML RECTAL (20:19)
[2020-04-15] MEDS ORDERED: CRANBERRY450 M5 PO (20:19)
[2020-04-15] MEDS ORDERED: ACETAMINOPHEN325 M1 ORAL ×2 (20:19)
[2020-04-15] MEDS ORDERED: Haloperidol 5mg/ml Inj IM PRN (21:00)
--- NOTE | 2020-04-15 21:09 | General Progress Note ---
Subjective ROS Limited/Unobtainable: Yes Allergies: Coded Allergies: No Known Allergies (Unverified , 04/14/20) Objective Last 24 Hour Vital Signs Date Time Temp Pulse Resp B/P (MAP) Pulse Ox O2 Delivery O2 Flow Rate FiO2 04/15/20 16:00 97.5 96 22 110/71 (84) 95 04/15/20 16:00 93 04/15/20 12:00 89 04/15/20 12:00 97.7 87 20 115/73 (87) 95 04/15/20 09:00 Room Air 04/15/20 08:00 97.9 89 22 120/75 (90) 96 04/15/20 08:00 92 04/15/20 04:00 98.2 101 24 106/75 (85) 94 04/15/20 04:00 93 04/15/20 00:00 98.1 101 24 114/72 (86) 95 04/15/20 00:00 103 Intake and Output 04/14/20 04/15/20 19:00 07:00 Intake Total 240 ml Output Total 150 ml Balance 90 ml Intake Oral 180 ml IV Total 60 ml Output Urine Total 150 ml # Voids 2 Height (Feet): 5 Height (Inches): 8.00 Weight (Pounds): 149 Assessment/Plan Problem List: (1) Acute febrile illness ICD Codes: R50.9 - Fever, unspecified SNOMED: 821024191 (2) Suspected 2019 novel coronavirus infection ICD Codes: Z20.828 - Contact with and (suspected) exposure to other viral communicable diseases SNOMED: 155237288 Status: progressing Assessment/Plan: afebrile nac covid positive pna resp insuff prn supportive rx Zain Mares MD Apr 15, 2020 21:09
--- NOTE | 2020-04-15 23:27 | General Progress Note ---
Subjective Allergies: Coded Allergies: No Known Allergies (Unverified , 04/14/20) Subjective Above note d/w RN no events overnight Objective Last 24 Hour Vital Signs Date Time Temp Pulse Resp B/P (MAP) Pulse Ox O2 Delivery O2 Flow Rate FiO2 04/15/20 21:00 Room Air 04/15/20 20:00 99.2 109 18 107/68 (81) 94 04/15/20 16:00 97.5 96 22 110/71 (84) 95 04/15/20 16:00 93 04/15/20 12:00 89 04/15/20 12:00 97.7 87 20 115/73 (87) 95 04/15/20 09:00 Room Air 04/15/20 08:00 97.9 89 22 120/75 (90) 96 04/15/20 08:00 92 04/15/20 04:00 98.2 101 24 106/75 (85) 94 04/15/20 04:00 93 04/15/20 00:00 98.1 101 24 114/72 (86) 95 04/15/20 00:00 103 Intake and Output 04/14/20 04/15/20 19:00 07:00 Intake Total 240 ml Output Total 150 ml Balance 90 ml Intake Oral 180 ml IV Total 60 ml Output Urine Total 150 ml # Voids 2 Height (Feet): 5 Height (Inches): 8.00 Weight (Pounds): 149 Objective WDWN NCAT supple CTA RR Abd soft NT no edema Assessment/Plan Status: progressing Assessment/Plan: Assessment COVID PNA OBS mild elevated LFT, presumed COVID related resolved abd pain Recommendations - supportive care - push po - d/c planning Екатерина Whalen MD Apr 15, 2020 23:27
--- NOTE | 2020-04-15 23:30 | Consultation ---
DATE OF CONSULTATION: 04/15/2020 CONSULTING PHYSICIAN: Davion Camacho M.D. HISTORY OF PRESENT ILLNESS: This is a 69-year-old male, who is well known to me from half-way. The patient was admitted for medical stabilization. He has multiple medical history, GERD, seizure, hypertension, and psychotic disorder. He COVID-19. The patient presents with anxiety, agitation, paranoid ideation, disorientation behavior. PAST PSYCHIATRIC HISTORY: Schizophrenia. PAST MEDICAL HISTORY: As above. ALLERGIES: No known drug allergies. SUBSTANCE ABUSE HISTORY: No known history of illicit drug use or alcohol. MENTAL STATUS EXAMINATION: The patient is alert and oriented times self. Mood is anxious. Affect is blunted, congruent with mood. Thought process is concrete. Thought content, there is no suicidal or homicidal ideation. Cognition is impaired. Insight and judgment is impaired. ASSESSMENT: [place] I Acute toxic encephalopathy. Psychotic disorder. [place] II Deferred. [place] III As above. [place] IV Low. [place] V 20. PLAN: 1. We will start the patient on Haldol IM. 2. Discussed with the nurse. Davion Camacho M.D. DR: LUCAS JOB#: [id number] CC:
[2020-04-16] VITALS: BP 118/88
[2020-04-16 04:00] VITALS: BP 142/58
--- NOTE | 2020-04-16 07:22 | NUR ---
NURSE HAND-OFF REPORT: Important Events on Shift:Pt stable and denies any pain or SOB Patient Status: Stable Diet: Cardiac pureed moist Pending Orders: Pending Results/Labs: Pending MD notification: Latest Vital Signs: Temperature 98.8 , Pulse 90 , B/P 142 /58 , Respiratory Rate 20 , O2 SAT 93 , Room Air, O2 Flow Rate 3.0 . Vital Sign Comment: VSS EKG Rhythm: Sinus Rhythm Rhythm change?: N MD Notified?: - MD Response: Latest Martin Fall Score: 55 Fall Risk: High Risk Safety Measures: Call light Within Reach, Bed Alarm Zone 1, Side Rails Side Rails x2, Bed position Low and Locked. Fall Precautions: Yellow Socks Yellow Gown Door Sign Patient Fall Education Report given to VELASQUEZ Brunson.
--- NOTE | 2020-04-16 07:46 | NUR ---
NURSE NOTES: Report was received from VELASQUEZ Zelaya. The patient was seen in bed asleep in low fowlers position with no acute signs of distress. The patients bed was placed in the lowest position and locked, the bed alarm is set to zone 1, the side rails were placed x3 and call light within reach.
[2020-04-16 08:00] VITALS: BP 115/75
--- NOTE | 2020-04-16 08:54 | NUR ---
CASE MANAGEMENT:REVIEW 04/16/20 SI: COVID PNA. E COLI UTI 98.8 109 20 142/58 93% ON RA IS: IV ROCEPHIN Q24 IVF@60/HR : TELEMETRY STATUS DCP; FROM [facility]
[2020-04-16] MEDS: cefTRIAXone 1 GM in D5W 55 ML IVPB SCH (09:25)
--- NOTE | 2020-04-16 11:10 | NUR ---
NURSE NOTES: Patient received from 214-2 TELE, to 406-2. Patient non-verbal, AOx1,calm. Respirations even/unlabored on RA. IV 1/2 NS at 60ml/hr to RAC, site asymptomatic. Condom cath in place, francisco javier/clear urine in drainage bag. Closed tracheostomy site, with optifoam intact. Abdomen distended, firm. LUE and BLE contracted. Sacral optifoam removed, skin assessed, intact, mild pink, skin care provided, triad cream applied with new optifoam. Bilateral SCDs on. Bed in lowest position,will continue to monitor. Addendum: 04/16/20 at 1441 by Mary Kay Leslie RN Report received from Boy ENG.
--- NOTE | 2020-04-16 11:13 | NUR ---
NURSE NOTES: Patient transferred to VELASQUEZ Muñiz. Patient was stable with no acute signs of distress and on room air. The patients belongings list was verified and acknowledged. The patients bed was set to lowest position, side rails were placed x2, bed alarm was set to zone 1 and call light was within reach.
--- NOTE | 2020-04-16 11:39 | Infectious Diseases Prog Note ---
Assessment/Plan Assessment/Plan IMPRESSION: COVID19 disease, mild or early disease. COPD, Encephalopathy, Dysphagia, Hypertension. UTI RECOMMENDATION: We will follow up the cultures. Change ceftriaxone to Nitrofurantoin Subjective ROS Limited/Unobtainable: Yes Constitutional: Denies: fever Allergies: Coded Allergies: No Known Allergies (Unverified , 04/14/20) Objective Last 24 Hour Vital Signs Date Time Temp Pulse Resp B/P (MAP) Pulse Ox O2 Delivery O2 Flow Rate FiO2 04/16/20 09:00 Room Air 04/16/20 08:00 97.9 101 20 115/75 (88) 95 04/16/20 08:00 94 04/16/20 04:00 98.8 109 20 142/58 (86) 93 04/16/20 04:00 90 04/16/20 00:00 99.3 61 21 118/88 (98) 94 04/16/20 00:00 88 04/15/20 21:00 Room Air 04/15/20 20:00 99.2 109 18 107/68 (81) 94 04/15/20 20:00 112 04/15/20 16:00 97.5 96 22 110/71 (84) 95 04/15/20 16:00 93 04/15/20 12:00 89 04/15/20 12:00 97.7 87 20 115/73 (87) 95 Height (Feet): 5 Height (Inches): 8.00 Weight (Pounds): 149 General Appearance: no acute distress HEENT: mucous membranes moist Respiratory/Chest: lungs clear Cardiovascular: normal rate Abdomen: soft, non tender Extremities: no edema Neurologic/Psychiatric: other - sleeping Microbiology Date/Time Source Procedure Growth Status 04/14/20 15:45 Urine,Clean Catch Urine Culture - Final Escherichia Coli - Esbl Complete 04/14/20 07:30 Nasopharynx SARS-CoV-2 RdRp Gene Assay - Final Complete 04/14/20 01:20 Blood Blood Culture - Preliminary NO GROWTH AFTER 24 HOURS Resulted 04/14/20 01:02 Nasal Nares - Final Complete 04/14/20 01:02 Nasal Nares - Final Complete 04/14/20 00:10 Rectum VRE Culture - Final NO VANCOMYCIN RESISTANT ENTEROCOCCUS ... Complete 04/14/20 00:10 Nasal Nares MRSA Culture - Final NO METHICILLIN RESISTANT STAPH AUREUS... Complete 04/14/20 00:10 Nasopharynx Coronavirus COVID-19 PCR ([facility]) - Final Complete 04/14/20 00:05 Blood Blood Culture - Preliminary NO GROWTH AFTER 24 HOURS Resulted Current Medications Medications (Trade) Dose Ordered Sig/Aurora Route PRN Reason Start Time Stop Time Status Last Admin Dose Admin Acetaminophen (Tylenol) 650 mg Q4H PRN ORAL temp > 100.4 04/14/20 09:30 05/14/20 09:29 Acetaminophen (Tylenol) 650 mg Q4H PRN ORAL pain 04/14/20 09:45 05/14/20 09:44 Ceftriaxone Sodium 1 gm/ Dextrose 55 ml @ 110 mls/hr Q24H IVPB 04/15/20 09:00 04/22/20 08:59 04/16/20 09:25 Haloperidol Lactate (Haldol) 5 mg Q6H PRN IM Agitation 04/15/20 21:00 05/30/20 20:59 Sodium Chloride 1,000 ml @ 60 mls/hr [id number] IV 04/14/20 09:30 05/14/20 09:29 04/15/20 18:06 Narendra Garcia MD Apr 16, 2020 11:39
[2020-04-16 12:00] VITALS: BP 112/61
--- NOTE | 2020-04-16 12:55 | Cardiology Report ---
APPROVED REPORT EKG Measurement Heart [id number] <Conclusion> Normal sinus rhythm Left axis deviation Low voltage QRS Inferior infarct, age undetermined Abnormal ECG
--- NOTE | 2020-04-16 14:05 | NUR ---
NURSE NOTES: Patient generalized skin, warm, temperature assessed 102.0. Medicated with Tylenol PRN as ordered. Dr. Shore notified during rounds at bedside at this time. Will reassess.
--- NOTE | 2020-04-16 14:31 | Pulmonology Progress Note ---
Subjective ROS Limited/Unobtainable: Yes Interval Events: None new Constitutional: Denies: fever HEENT: Repors: no symptoms Respiratory: Reports: no symptoms Cardiovascular: Reports: no symptoms Gastrointestinal/Abdominal: Reports: no symptoms Genitourinary: Reports: no symptoms Neurologic: Reports: no symptoms Allergies: Coded Allergies: No Known Allergies (Unverified , 04/14/20) Objective Last 24 Hour Vital Signs Date Time Temp Pulse Resp B/P (MAP) Pulse Ox O2 Delivery O2 Flow Rate FiO2 04/16/20 14:00 102.0 04/16/20 12:00 98.6 102 20 112/61 (78) 95 04/16/20 09:00 Room Air 04/16/20 08:00 97.9 101 20 115/75 (88) 95 04/16/20 08:00 94 04/16/20 04:00 98.8 109 20 142/58 (86) 93 04/16/20 04:00 90 04/16/20 00:00 99.3 61 21 118/88 (98) 94 04/16/20 00:00 88 04/15/20 21:00 Room Air 04/15/20 20:00 99.2 109 18 107/68 (81) 94 04/15/20 20:00 112 04/15/20 16:00 97.5 96 22 110/71 (84) 95 04/15/20 16:00 93 Intake and Output 04/15/20 04/16/20 19:00 07:00 Intake Total 240 ml 240 ml Output Total 300 ml 500 ml Balance -60 ml -260 ml Intake Oral 240 ml IV Total 240 ml Output Urine Total 300 ml 500 ml # Voids 2 Objective 04/16/2020 Temp 102, RN gave Tylenol, recheck temp General Appearance: no acute distress HEENT: normocephalic Respiratory: chest wall non-tender, lungs clear Cardiovascular: normal peripheral pulses Abdomen: normal bowel sounds Extremities: no cyanosis Microbiology Date/Time Source Procedure Growth Status 04/14/20 15:45 Urine,Clean Catch Urine Culture - Final Escherichia Coli - Esbl Complete 04/14/20 07:30 Nasopharynx SARS-CoV-2 RdRp Gene Assay - Final Complete 04/14/20 01:20 Blood Blood Culture - Preliminary NO GROWTH AFTER 24 HOURS Resulted 04/14/20 01:02 Nasal Nares - Final Complete 04/14/20 01:02 Nasal Nares - Final Complete 04/14/20 00:10 Rectum VRE Culture - Final NO VANCOMYCIN RESISTANT ENTEROCOCCUS ... Complete 04/14/20 00:10 Nasal Nares MRSA Culture - Final NO METHICILLIN RESISTANT STAPH AUREUS... Complete 04/14/20 00:10 Nasopharynx Coronavirus COVID-19 PCR ([facility]) - Final Complete 04/14/20 00:05 Blood Blood Culture - Preliminary NO GROWTH AFTER 24 HOURS Resulted Current Medications Medications (Trade) Dose Ordered Sig/Aurora Route PRN Reason Start Time Stop Time Status Last Admin Dose Admin Acetaminophen (Tylenol) 650 mg Q4H PRN ORAL temp > 100.4 04/14/20 09:30 05/14/20 09:29 04/16/20 14:05 Acetaminophen (Tylenol) 650 mg Q4H PRN ORAL pain 04/14/20 09:45 05/14/20 09:44 Haloperidol Lactate (Haldol) 5 mg Q6H PRN IM Agitation 04/15/20 21:00 05/30/20 20:59 Nitrofurantoin (Macrobid) 100 mg EVERY 12 HOURS ORAL 04/16/20 12:30 04/23/20 12:29 04/16/20 13:36 Sodium Chloride 1,000 ml @ 60 mls/hr [id number] IV 04/14/20 09:30 05/14/20 09:29 04/15/20 18:06 Assessment/Plan Assessment/Plan 1. COVID-19 pneumonia. - doing well on RA - hold off additional therapy specifically for COVID-19 - plan dc 2. Normoxemia. - 93% on RA 3. [facility] resident. 4. UTI - s/p ceftriaxone, now on nitrofurantoin per ID The care for this patient was discussed with my supervising physician Seen and examined by Dr. Jc as well Time spent for this case was approximately 31 minutes Brett Shore Apr 16, 2020 14:31
[2020-04-16 16:00] VITALS: BP 100/57
--- NOTE | 2020-04-16 19:20 | NUR ---
NURSE HAND-OFF: Important Events on Shift:Transfer from [facility] at 1110, FEBRILE 102.0, TYLENOL GIVEN, 99.7 Patient Status: stable Diet: Cardiac Pureed Moist Thin Liquids (FEED) Pending Orders: none Pending Results/Labs:none Pending MD notification:none Latest Vital Signs: Temperature 99.7 , Pulse 104 , B/P 100 /57 , Respiratory Rate 20 , O2 SAT 95 , Room Air, O2 Flow Rate 3.0 . Vital Sign Comment: Monitor TEMP Latest Martin Fall Score: 55 Fall Risk: High Risk Safety Measures: Call light Within Reach, Bed Alarm Zone 1, Side Rails Side Rails x2, Bed position Low and Locked. Fall Precautions: Yellow Socks Yellow Gown Door Sign Patient Fall Education Report given to Tatyana ENG.
[2020-04-16 20:00] VITALS: BP 100/59
--- NOTE | 2020-04-16 20:00 | NUR ---
NURSE NOTES: RECEIVED PATIENT LYING IN BED, AWAKE, ALERT/ORIENTED TO PERSON, CONFUSED, REALITY ORIENTATION PROVIDED DURING ASSESSMENT, ORIENTATED PATIENT TO ROOM/ENVIRONMENT. ALL NEEDS ANTICIPATED AND MET BY NURSING STAFF. NO SIGNS AND SYMPTOMS OF ACUTE CARDIO RESPIRATORY DISTRESS/SHORTNESS OF BREATH, NO EDEMA NOTED. BILATERAL LOWER EXTREMITIES STIFF/FINGERS ON BILATERAL HANDS CONTRACTED. INCONTINENT OF STOOL, CARE PROVIDED, REPOSITIONED FOR COMFORT/PRESSURE RELIEF, TOLERATED WELL. SIDE RAILS UP X3/BED IN LOWEST POSITION FOR SAFETY, FREQUENT ROUNDING FOR SAFETY/NEEDS. CONTINUE WITH CURRENT PLAN OF CARE.
--- NOTE | 2020-04-16 21:41 | General Progress Note ---
Subjective ROS Limited/Unobtainable: Yes Allergies: Coded Allergies: No Known Allergies (Unverified , 04/14/20) Objective Last 24 Hour Vital Signs Date Time Temp Pulse Resp B/P (MAP) Pulse Ox O2 Delivery O2 Flow Rate FiO2 04/16/20 18:45 99.7 04/16/20 16:00 101.7 104 20 100/57 (71) 95 04/16/20 14:35 101.7 04/16/20 14:00 102.0 04/16/20 12:00 98.6 102 20 112/61 (78) 95 04/16/20 09:00 Room Air 04/16/20 08:00 97.9 101 20 115/75 (88) 95 04/16/20 08:00 94 04/16/20 04:00 98.8 109 20 142/58 (86) 93 04/16/20 04:00 90 04/16/20 00:00 99.3 61 21 118/88 (98) 94 04/16/20 00:00 88 Intake and Output 04/15/20 04/16/20 19:00 07:00 Intake Total 240 ml 240 ml Output Total 300 ml 500 ml Balance -60 ml -260 ml Intake Oral 240 ml IV Total 240 ml Output Urine Total 300 ml 500 ml # Voids 2 Height (Feet): 5 Height (Inches): 8.00 Weight (Pounds): 149 Assessment/Plan Problem List: (1) Acute febrile illness ICD Codes: R50.9 - Fever, unspecified SNOMED: 464689984 (2) Suspected 2019 novel coronavirus infection ICD Codes: Z20.828 - Contact with and (suspected) exposure to other viral communicable diseases SNOMED: 811975796 Status: progressing Assessment/Plan: poor appetitive malnutrtion abx per id covid positive pna resp insuff Zain Mares MD Apr 16, 2020 21:40
--- NOTE | 2020-04-16 23:44 | General Progress Note ---
Subjective Allergies: Coded Allergies: No Known Allergies (Unverified , 04/14/20) Subjective Above note d/w RN no events overnight Objective Last 24 Hour Vital Signs Date Time Temp Pulse Resp B/P (MAP) Pulse Ox O2 Delivery O2 Flow Rate FiO2 04/16/20 21:00 Room Air 04/16/20 20:00 98.3 89 18 100/59 (73) 96 04/16/20 18:45 99.7 04/16/20 16:00 101.7 104 20 100/57 (71) 95 04/16/20 14:35 101.7 04/16/20 14:00 102.0 04/16/20 12:00 98.6 102 20 112/61 (78) 95 04/16/20 09:00 Room Air 04/16/20 08:00 97.9 101 20 115/75 (88) 95 04/16/20 08:00 94 04/16/20 04:00 98.8 109 20 142/58 (86) 93 04/16/20 04:00 90 04/16/20 00:00 99.3 61 21 118/88 (98) 94 04/16/20 00:00 88 Intake and Output 04/15/20 04/16/20 19:00 07:00 Intake Total 240 ml 240 ml Output Total 300 ml 500 ml Balance -60 ml -260 ml Intake Oral 240 ml IV Total 240 ml Output Urine Total 300 ml 500 ml # Voids 2 Height (Feet): 5 Height (Inches): 8.00 Weight (Pounds): 149 Objective WDWN NAD NCAT supple CTA RR abd soft NT no edema Assessment/Plan Status: progressing Assessment/Plan: Assessment COVID PNA OBS mild elevated LFT, presumed COVID related resolved abd pain Recommendations - supportive care - push po - d/c planning Екатерина Whalen MD Apr 16, 2020 23:44
[2020-04-17] VITALS: BP 99/60
[2020-04-17 04:00] VITALS: BP 117/62
--- NOTE | 2020-04-17 06:51 | General Progress Note ---
Subjective ROS Limited/Unobtainable: No Allergies: Coded Allergies: No Known Allergies (Unverified , 04/14/20) Objective Last 24 Hour Vital Signs Date Time Temp Pulse Resp B/P (MAP) Pulse Ox O2 Delivery O2 Flow Rate FiO2 04/17/20 04:00 98.4 98 18 117/62 (80) 96 04/17/20 00:00 98.5 77 18 99/60 (73) 96 04/16/20 21:00 Room Air 04/16/20 20:00 98.3 89 18 100/59 (73) 96 04/16/20 18:45 99.7 04/16/20 16:00 101.7 104 20 100/57 (71) 95 04/16/20 14:35 101.7 04/16/20 14:00 102.0 04/16/20 12:00 98.6 102 20 112/61 (78) 95 04/16/20 09:00 Room Air 04/16/20 08:00 97.9 101 20 115/75 (88) 95 04/16/20 08:00 94 Intake and Output 04/16/20 04/17/20 19:00 07:00 Intake Total 1020 ml 600 ml Output Total 450 ml Balance 1020 ml 150 ml Intake Oral 480 ml IV Total 540 ml 600 ml Output Urine Total 450 ml # Voids 2 1 # Bowel Movements 1 Height (Feet): 5 Height (Inches): 8.00 Weight (Pounds): 149 General Appearance: no apparent distress EENT: PERRL/EOMI Neck: supple Cardiovascular: normal rate Respiratory/Chest: decreased breath sounds Abdomen: normal bowel sounds, non tender, soft Extremities: non-tender Assessment/Plan Status: progressing Assessment/Plan: Assessment/Plan Status: progressing Assessment/Plan: Assessment COVID PNA OBS mild elevated LFT, presumed COVID related resolved abd pain Recommendations - supportive care - push po - d/c planning Juan C Man MD Apr 17, 2020 06:51
--- NOTE | 2020-04-17 07:30 | NUR ---
NURSE NOTES: Patient is in bed awake. Nonverbal. Stable. No visible signs of distress noted. Breathing is even and unlabored. Patient appears comfortable. All safety measures provided. Patient is in bed in locked and lowest position with call light within reach and bed alarm on. Will continue to monitor.
[2020-04-17 08:00] VITALS: BP 115/75
--- NOTE | 2020-04-17 08:00 | NUR ---
NURSE HAND-OFF: Important Events on Shift:[NOTED WITH LOOSE STOOLS, FREQUENT INCONTINENT CARE] Patient Status: [STABLE] Diet: [CARDIAC PUREED MOIST-1:1 FEEDER] Pending Orders: [N/A] Pending Results/Labs:[N/A] Pending MD notification:[] Latest Vital Signs: Temperature 98.4 , Pulse 98 , B/P 117 /62 , Respiratory Rate 18 , O2 SAT 96 , Room Air, O2 Flow Rate 3.0 . Vital Sign Comment: [STABLE, AFEBRILE] Latest Martin Fall Score: 55 Fall Risk: High Risk Safety Measures: Call light Within Reach, Bed Alarm Zone 1, Side Rails Side Rails x2, Bed position Low and Locked. Fall Precautions: Yellow Socks Yellow Gown Door Sign Patient Fall Education Report given to [VELASQUEZ POWERS].
[2020-04-17] MEDS ORDERED: 1/2 NS 1000ml IV ONE (09:07)
[2020-04-17] MEDS ORDERED: Tubing IV Secondary IV ONE (09:07)
--- NOTE | 2020-04-17 09:24 | Pulmonology Progress Note ---
Subjective ROS Limited/Unobtainable: Yes Interval Events: none new reported Constitutional: Denies: fever HEENT: Repors: no symptoms Respiratory: Reports: no symptoms Cardiovascular: Reports: no symptoms Gastrointestinal/Abdominal: Reports: no symptoms Genitourinary: Reports: no symptoms Neurologic: Reports: no symptoms Allergies: Coded Allergies: No Known Allergies (Unverified , 04/14/20) Objective Last 24 Hour Vital Signs Date Time Temp Pulse Resp B/P (MAP) Pulse Ox O2 Delivery O2 Flow Rate FiO2 04/17/20 04:00 98.4 98 18 117/62 (80) 96 04/17/20 00:00 98.5 77 18 99/60 (73) 96 04/16/20 21:00 Room Air 04/16/20 20:00 98.3 89 18 100/59 (73) 96 04/16/20 18:45 99.7 04/16/20 16:00 101.7 104 20 100/57 (71) 95 04/16/20 14:35 101.7 04/16/20 14:00 102.0 04/16/20 12:00 98.6 102 20 112/61 (78) 95 Intake and Output 04/16/20 04/17/20 19:00 07:00 Intake Total 1020 ml 600 ml Output Total 450 ml Balance 1020 ml 150 ml Intake Oral 480 ml IV Total 540 ml 600 ml Output Urine Total 450 ml # Voids 2 1 # Bowel Movements 1 Objective 04/17/2020 nonverbal 04/16/2020 Temp 102, RN gave Tylenol, recheck temp General Appearance: no acute distress HEENT: normocephalic Respiratory: chest wall non-tender, lungs clear Cardiovascular: normal peripheral pulses Abdomen: normal bowel sounds Extremities: no cyanosis Microbiology Date/Time Source Procedure Growth Status 04/16/20 06:30 Stool Clostridium difficile Toxin Assay - Final Complete 04/14/20 15:45 Urine,Clean Catch Urine Culture - Final Escherichia Coli - Esbl Complete Current Medications Medications (Trade) Dose Ordered Sig/Aurora Route PRN Reason Start Time Stop Time Status Last Admin Dose Admin Acetaminophen (Tylenol) 650 mg Q4H PRN ORAL temp > 100.4 04/14/20 09:30 05/14/20 09:29 04/16/20 14:05 Acetaminophen (Tylenol) 650 mg Q4H PRN ORAL pain 04/14/20 09:45 05/14/20 09:44 Haloperidol Lactate (Haldol) 5 mg Q6H PRN IM Agitation 04/15/20 21:00 05/30/20 20:59 Nitrofurantoin (Macrobid) 100 mg EVERY 12 HOURS ORAL 04/16/20 12:30 04/23/20 12:29 04/17/20 08:42 Sodium Chloride 1,000 ml @ 60 mls/hr [id number] IV 04/14/20 09:30 05/14/20 09:29 04/17/20 03:23 Assessment/Plan Assessment/Plan 1. COVID-19 pneumonia. - doing well on RA - hold off additional therapy specifically for COVID-19 - plan dc 2. Normoxemia. - 96% on RA 3. longterm resident. 4. UTI - s/p ceftriaxone, now on nitrofurantoin per ID The care for this patient was discussed with my supervising physician Seen and examined by Dr. Jc as well Time spent for this case was approximately 31 minutes Brett Shore Apr 17, 2020 09:24
[2020-04-17 12:00] VITALS: BP 134/67
--- NOTE | 2020-04-17 14:57 | NUR ---
CASE MANAGEMENT:REVIEW SI;COVID PNEUMONIA 98.5 98 20 99/60 96% ON RA IS;MACROBID PO Q12 IVF NS @ 60 ML/HR MED SURG STATUS DCP;FROM [facility]
[2020-04-17 16:00] VITALS: BP 119/72
--- NOTE | 2020-04-17 17:03 | General Progress Note ---
Subjective ROS Limited/Unobtainable: Yes Allergies: Coded Allergies: No Known Allergies (Unverified , 04/14/20) Objective Last 24 Hour Vital Signs Date Time Temp Pulse Resp B/P (MAP) Pulse Ox O2 Delivery O2 Flow Rate FiO2 04/17/20 16:00 98.2 85 15 119/72 (88) 97 04/17/20 12:00 97.3 70 20 134/67 (89) 96 04/17/20 09:00 Room Air 04/17/20 08:00 97.3 82 18 115/75 (88) 97 04/17/20 04:00 98.4 98 18 117/62 (80) 96 04/17/20 00:00 98.5 77 18 99/60 (73) 96 04/16/20 21:00 Room Air 04/16/20 20:00 98.3 89 18 100/59 (73) 96 04/16/20 18:45 99.7 Intake and Output 04/16/20 04/17/20 19:00 07:00 Intake Total 1020 ml 600 ml Output Total 450 ml Balance 1020 ml 150 ml Intake Oral 480 ml IV Total 540 ml 600 ml Output Urine Total 450 ml # Voids 2 1 # Bowel Movements 1 Height (Feet): 5 Height (Inches): 8.00 Weight (Pounds): 149 Assessment/Plan Problem List: (1) Acute febrile illness ICD Codes: R50.9 - Fever, unspecified SNOMED: 633409364 (2) Suspected 2019 novel coronavirus infection ICD Codes: Z20.828 - Contact with and (suspected) exposure to other viral communicable diseases SNOMED: 364496636 Status: progressing Assessment/Plan: afebrile no acute events vitals stable improving covid positive pna resp Zain Boston MD Apr 17, 2020 17:03
--- NOTE | 2020-04-17 18:30 | NUR ---
NURSE NOTES: Patient had bm, patient cleaned and linen changed.
--- NOTE | 2020-04-17 18:48 | NUR ---
NURSE HAND-OFF: Important Events on Shift: bm x2, IV hydration Patient Status: stable Diet: cardiac pureed Pending Orders: n/a Pending Results/Labs:n/a Pending MD notification:n/a Latest Vital Signs: Temperature 98.2 , Pulse 85 , B/P 119 /72 , Respiratory Rate 15 , O2 SAT 97 , Room Air, O2 Flow Rate 3.0 . Vital Sign Comment: n/a Latest Martin Fall Score: 55 Fall Risk: High Risk Safety Measures: Call light Within Reach, Bed Alarm Zone 1, Side Rails Side Rails x2, Bed position Low and Locked. Fall Precautions: Yellow Socks Yellow Gown Door Sign Patient Fall Education .
--- NOTE | 2020-04-17 19:24 | NUR ---
HAND-OFF: Report given to Atiya RN.
[2020-04-17 20:00] VITALS: BP 117/75
--- NOTE | 2020-04-17 22:59 | NUR ---
NURSE NOTES: RECEIVED PATIENT FROM VELASQUEZ POWERS. PATIENT IS AWAKE, CALM, RESTING IN BED, AAOX0, NON-VERBAL, OPEN EYES SPONTANEOUSLY, RESPONSE TO EXTERNAL STIMULUS. PATIENT IS ON ROOM AIR, NO ACUTE DISTRESS NOTED. NO SEIZURE NOTED. VSS. AFEBRILE. PIV ON RIGHT AC INTACT AND PATENT, RUNNING 1/2 NS AT 60ML/HR. PREVIOUS TRACH SITE COVERED WITH OPTIFOAM, CLEAN AND DRY, NO DRAINAGE. CONDOM CATH IN PLACE, DRAINING WELL, JACKIE URINE COLOR NOTED. FALL RISK AND SEIZURE PRECAUTIONS IMPLEMENTED. COMMUNICATED WITH STAFF TO PERFORM FREQUENT ROUNDING. YELLOW SOCKS, YELLOW GOWN AND YELLOW ARMBAND IN PLACE. FALL RISK SIGN PRESENT. BED IS LOCKED AND LOW, BED ALARMS ACTIVE, SIDE RAILS UPX2 AND PADDED, CALL LIGHT IS WITHIN REACH. WILL CONTINUE TO MONITOR.
[2020-04-18] VITALS: BP 109/63
[2020-04-18 04:00] VITALS: BP 114/74
--- NOTE | 2020-04-18 06:42 | NUR ---
NURSE HAND-OFF: Important Events on Shift: Multiple loose stools, notified Dr. Mares. Still having non-productive cough. New IV inserted. Patient Status: Stable Diet: Cardiac, pureed moist Pending Orders: N/A Pending Results/Labs: N/A Pending MD notification: N/A Latest Vital Signs: Temperature 97.7 , Pulse 68 , B/P 114 /74 , Respiratory Rate 21 , O2 SAT 93 , Room Air, O2 Flow Rate 3.0 . Vital Sign Comment: Stable Latest Martin Fall Score: 55 Fall Risk: High Risk Safety Measures: Call light Within Reach, Bed Alarm Zone 1, Side Rails Side Rails x2, Bed position Low and Locked. Fall Precautions: Yellow Socks Yellow Gown Door Sign Patient Fall Education
--- NOTE | 2020-04-18 07:14 | NUR ---
HAND-OFF: Report given to VELASQUEZ Chavez. Patient is stable. Endorsed POC.
--- NOTE | 2020-04-18 07:43 | NUR ---
NURSE NOTES: Patient awake; on room air, no sing of distress and shortness of breath; patient had tracheostomy noted; no sing of chest pain; IV Right For-Arm 1/2NS 60cc running; Condom cath in place, drains dark/francisco javier urine; IV Right For-Arm 22G 1/2NS 60cc running; per PM nurse, patient had 5 times loose stool and MD Mares notified; MD Mares refered PM nurse to communicate MD Demarco Garcia, however PM nurse didn't communicated PM Demarco Garcia, will communicate MD Garcia; side rails up x2, side rails padded for seizure percussion, breaks engaged, bed at lowest position; call light within reach; will keep monitoring.
[2020-04-18 08:00] VITALS: BP 103/60
--- NOTE | 2020-04-18 08:38 | General Progress Note ---
Subjective ROS Limited/Unobtainable: No Allergies: Coded Allergies: No Known Allergies (Unverified , 04/14/20) Objective Last 24 Hour Vital Signs Date Time Temp Pulse Resp B/P (MAP) Pulse Ox O2 Delivery O2 Flow Rate FiO2 04/18/20 04:00 97.7 68 21 114/74 (87) 93 04/18/20 00:00 97.9 63 22 109/63 (78) 94 04/17/20 21:00 Room Air 04/17/20 20:00 98.1 72 22 117/75 (89) 96 04/17/20 16:00 98.2 85 15 119/72 (88) 97 04/17/20 12:00 97.3 70 20 134/67 (89) 96 04/17/20 09:00 Room Air Intake and Output 04/17/20 04/18/20 19:00 07:00 Intake Total 540 ml 660 ml Output Total 600 ml 350 ml Balance -60 ml 310 ml Intake Oral 480 ml 240 ml IV Total 60 ml 420 ml Output Urine Total 600 ml 350 ml # Voids 1 # Bowel Movements 2 6 Height (Feet): 5 Height (Inches): 8.00 Weight (Pounds): 149 General Appearance: no apparent distress EENT: PERRL/EOMI Neck: supple Cardiovascular: normal rate Respiratory/Chest: decreased breath sounds Abdomen: normal bowel sounds, non tender, soft Extremities: non-tender Assessment/Plan Status: progressing Assessment/Plan: Assessment/Plan Status: progressing Assessment/Plan: Assessment COVID PNA OBS mild elevated LFT, presumed COVID related resolved abd pain Recommendations - supportive care - push po - d/c planning Juan C Man MD Apr 18, 2020 08:38
--- NOTE | 2020-04-18 09:16 | Pulmonology Progress Note ---
Subjective ROS Limited/Unobtainable: Yes Interval Events: none new reported Constitutional: Denies: fever HEENT: Repors: no symptoms Respiratory: Reports: no symptoms Cardiovascular: Reports: no symptoms Gastrointestinal/Abdominal: Reports: no symptoms Genitourinary: Reports: no symptoms Neurologic: Reports: no symptoms Allergies: Coded Allergies: No Known Allergies (Unverified , 04/14/20) Objective Last 24 Hour Vital Signs Date Time Temp Pulse Resp B/P (MAP) Pulse Ox O2 Delivery O2 Flow Rate FiO2 04/18/20 04:00 97.7 68 21 114/74 (87) 93 04/18/20 00:00 97.9 63 22 109/63 (78) 94 04/17/20 21:00 Room Air 04/17/20 20:00 98.1 72 22 117/75 (89) 96 04/17/20 16:00 98.2 85 15 119/72 (88) 97 04/17/20 12:00 97.3 70 20 134/67 (89) 96 Intake and Output 04/17/20 04/18/20 19:00 07:00 Intake Total 540 ml 660 ml Output Total 600 ml 350 ml Balance -60 ml 310 ml Intake Oral 480 ml 240 ml IV Total 60 ml 420 ml Output Urine Total 600 ml 350 ml # Voids 1 # Bowel Movements 2 6 Objective 04/18/2020 pt sleeping; x5 loose stools pr PM RN. Dr. Mares and Dr. Garcia aware. C. diff neg 04/17/2020 nonverbal 04/16/2020 Temp 102, RN gave Tylenol, recheck temp General Appearance: no acute distress HEENT: normocephalic Respiratory: chest wall non-tender, decreased breath sounds, other - intermittent non productive cough Cardiovascular: normal peripheral pulses Abdomen: normal bowel sounds Genitourinary: other - condom cath Extremities: no cyanosis Microbiology Date/Time Source Procedure Growth Status 04/16/20 06:30 Stool Clostridium difficile Toxin Assay - Final Complete Current Medications Medications (Trade) Dose Ordered Sig/Aurora Route PRN Reason Start Time Stop Time Status Last Admin Dose Admin Acetaminophen (Tylenol) 650 mg Q4H PRN ORAL temp > 100.4 04/14/20 09:30 05/14/20 09:29 04/16/20 14:05 Acetaminophen (Tylenol) 650 mg Q4H PRN ORAL pain 04/14/20 09:45 05/14/20 09:44 Haloperidol Lactate (Haldol) 5 mg Q6H PRN IM Agitation 04/15/20 21:00 05/30/20 20:59 Nitrofurantoin (Macrobid) 100 mg EVERY 12 HOURS ORAL 04/16/20 12:30 04/23/20 12:29 04/17/20 21:26 Sodium Chloride 1,000 ml @ 60 mls/hr [id number] IV 04/14/20 09:30 05/14/20 09:29 04/17/20 21:26 Assessment/Plan Assessment/Plan 1. COVID-19 pneumonia. - doing well on RA - hold off additional therapy specifically for COVID-19 - plan dc 2. Normoxemia. - 95% on RA 3. intermediate resident. 4. UTI - s/p ceftriaxone, now on nitrofurantoin per ID 5. Diarrhea - x5 loose stools overnight per PM RN - Dr. Mares and Dr. Garcia aware. C. diff neg - No new labs since 04/14/2020 The care for this patient was discussed with my supervising physician Seen and examined by Dr. Jc as well The history of Maria Ines Betancur has been reviewed and management options for him have been examined and discussed by Radhames Jc. I have personally examined and interviewed the patient. Time spent for this case was approximately 31 minutes Brett Shore Apr 18, 2020 09:16 Radhames Jc MD Apr 18, 2020 16:50
[2020-04-18 12:00] VITALS: BP 90/60
--- NOTE | 2020-04-18 15:24 | Infectious Diseases Prog Note ---
Assessment/Plan Assessment/Plan IMPRESSION: COVID19 disease, mild or early disease. COPD, Encephalopathy, Dysphagia, Hypertension. UTI Diarrhea, C. difficile negative RECOMMENDATION: We will follow up the cultures. Continue Nitrofurantoin Subjective ROS Limited/Unobtainable: Yes Constitutional: Reports: fever, other - T=100.2 in am Gastrointestinal/Abdominal: Reports: diarrhea Allergies: Coded Allergies: No Known Allergies (Unverified , 04/14/20) Objective Last 24 Hour Vital Signs Date Time Temp Pulse Resp B/P (MAP) Pulse Ox O2 Delivery O2 Flow Rate FiO2 04/18/20 12:00 98.8 78 18 90/60 (70) 95 04/18/20 09:57 99.0 04/18/20 09:00 Room Air 04/18/20 08:00 100.2 90 18 103/60 (74) 95 04/18/20 04:00 97.7 68 21 114/74 (87) 93 04/18/20 00:00 97.9 63 22 109/63 (78) 94 04/17/20 21:00 Room Air 04/17/20 20:00 98.1 72 22 117/75 (89) 96 04/17/20 16:00 98.2 85 15 119/72 (88) 97 Height (Feet): 5 Height (Inches): 8.00 Weight (Pounds): 149 HEENT: mucous membranes moist Respiratory/Chest: lungs clear Cardiovascular: normal rate Abdomen: soft, non tender Extremities: no edema Microbiology Date/Time Source Procedure Growth Status 04/16/20 06:30 Stool Clostridium difficile Toxin Assay - Final Complete Current Medications Medications (Trade) Dose Ordered Sig/Aurora Route PRN Reason Start Time Stop Time Status Last Admin Dose Admin Acetaminophen (Tylenol) 650 mg Q4H PRN ORAL temp > 100.4 04/14/20 09:30 05/14/20 09:29 04/18/20 09:27 Acetaminophen (Tylenol) 650 mg Q4H PRN ORAL pain 04/14/20 09:45 05/14/20 09:44 Haloperidol Lactate (Haldol) 5 mg Q6H PRN IM Agitation 04/15/20 21:00 05/30/20 20:59 Nitrofurantoin (Macrobid) 100 mg EVERY 12 HOURS ORAL 04/16/20 12:30 04/23/20 12:29 12/6/20 09:26 Sodium Chloride 1,000 ml @ 60 mls/hr [id number] IV 04/14/20 09:30 05/14/20 09:29 04/18/20 13:10 Narendra Garcia MD Apr 18, 2020 15:24
[2020-04-18 16:00] VITALS: BP 104/63
--- NOTE | 2020-04-18 19:16 | NUR ---
NURSE NOTES: Report received from Kathy Alvarenga RN. Patient is awake, alert; on room air, no signs of distress nor shortness of breath; patient had previous tracheostomy, dressing cdi. IV R forearm 22 g 1/2NS 60 ml/h running; Condom cath in place, drains francisco javier urine; Bed is locked in lowest position, side rails up x2, seizure precautions, side rails padded,fall precautions, call light within reach; will continue monitoring patient.
[2020-04-18 20:00] VITALS: BP 107/70
--- NOTE | 2020-04-18 21:33 | General Progress Note ---
Subjective ROS Limited/Unobtainable: Yes Allergies: Coded Allergies: No Known Allergies (Unverified , 04/14/20) Objective Last 24 Hour Vital Signs Date Time Temp Pulse Resp B/P (MAP) Pulse Ox O2 Delivery O2 Flow Rate FiO2 04/18/20 16:00 98.6 67 18 104/63 (77) 95 04/18/20 12:00 98.8 78 18 90/60 (70) 95 04/18/20 09:57 99.0 04/18/20 09:00 Room Air 04/18/20 08:00 100.2 90 18 103/60 (74) 95 04/18/20 04:00 97.7 68 21 114/74 (87) 93 04/18/20 00:00 97.9 63 22 109/63 (78) 94 Intake and Output 04/17/20 04/18/20 19:00 07:00 Intake Total 540 ml 720 ml Output Total 600 ml 350 ml Balance -60 ml 370 ml Intake Oral 480 ml 240 ml IV Total 60 ml 480 ml Output Urine Total 600 ml 350 ml # Voids 1 # Bowel Movements 2 6 Height (Feet): 5 Height (Inches): 8.00 Weight (Pounds): 149 Assessment/Plan Problem List: (1) Acute febrile illness ICD Codes: R50.9 - Fever, unspecified SNOMED: 139795027 (2) Suspected 2019 novel coronavirus infection ICD Codes: Z20.828 - Contact with and (suspected) exposure to other viral communicable diseases SNOMED: 319009847 Status: progressing Assessment/Plan: prn supportive rx improving covid positive pna resp Zain Boston MD Apr 18, 2020 21:33
[2020-04-19] VITALS: BP 98/57
[2020-04-19 03:58] VITALS: BP 110/62
--- NOTE | 2020-04-19 07:19 | NUR ---
NURSE HAND-OFF: Important Events on Shift: initiated wound care eval protocol suspected dti on l lateral malleolus, right anterior foot, wound care process plan initiated small bm soft, weak , non-productive cough. Patient Status: Stable Diet: Cardiac, pureed moist, feed pt, aspiration precautions Pending Orders: cbc bmp Pending Results/Labs: cbc bmp Pending MD notification: sores- feet, redness buttocks bilat, blanchable possible dti- uncertain Latest Vital Signs: Temperature 97.7 , Pulse 68 , B/P 114 /74 , Respiratory Rate 21 , O2 SAT 93 , Room Air, O2 Flow Rate 3.0 . Vital Sign Comment: Stable Latest Martin Fall Score: 55 Fall Risk: High Risk Safety Measures: Call light Within Reach, Bed Alarm Zone 1, Side Rails Side Rails x2, Bed position Low and Locked. Fall Precautions: Yellow Socks Yellow Gown Door Sign Patient Fall Education Report given to Binta ENG
[2020-04-19 07:39] LABS: ALANINE AMINOTRANSFERASE 37 U/L (12-78); ALBUMIN 2.9 G/DL (3.4-5.0); ALBUMIN/GLOBULIN RATIO 0.8 (1.0-2.7); ALKALINE PHOSPHATASE 96 U/L (46-116); ANION GAP 9 mmol/L (5-15); ASPARTATE AMINO TRANSFERASE 38 U/L (15-37); BILIRUBIN,TOTAL 0.4 MG/DL (0.2-1.0); BLOOD UREA NITROGEN 8 mg/dL (7-18); CALCIUM 7.8 MG/DL (8.5-10.1); CARBON DIOXIDE 27 MMOL/L (21-32); CHLORIDE 101 MMOL/L (98-107); CREATININE 0.6 MG/DL (0.55-1.30); SODIUM 137 MMOL/L (136-145)
[2020-04-19 07:54] LABS: BASOPHILS % (AUTO) 0.5 % (0.0-2.0); HEMATOCRIT 39.4 % (42.0-52.0); HEMOGLOBIN 13.8 G/DL (14.2-18.0); LYMPHOCYTES % (AUTO) 30.7 % (20.0-45.0); MEAN CORPUSCULAR VOLUME 86 FL (80-99); MONOCYTES % (AUTO) 7.4 % (1.0-10.0); NEUTROPHILS % (AUTO) 61.5 % (45.0-75.0); PLATELET COUNT 289 K/UL (150-450); RED BLOOD COUNT 4.59 M/UL (4.70-6.10); RED CELL DISTRIBUTION WIDTH 13.5 % (11.6-14.8); WHITE BLOOD COUNT 4.7 K/UL (4.8-10.8)
[2020-04-19 08:00] VITALS: BP 105/61
--- NOTE | 2020-04-19 08:20 | Pulmonology Progress Note ---
Subjective ROS Limited/Unobtainable: Yes Interval Events: none new reported Constitutional: Denies: fever HEENT: Repors: no symptoms Respiratory: Reports: no symptoms Cardiovascular: Reports: no symptoms Gastrointestinal/Abdominal: Reports: no symptoms Genitourinary: Reports: no symptoms Neurologic: Reports: no symptoms Allergies: Coded Allergies: No Known Allergies (Unverified , 04/14/20) Objective Last 24 Hour Vital Signs Date Time Temp Pulse Resp B/P (MAP) Pulse Ox O2 Delivery O2 Flow Rate FiO2 04/19/20 03:58 98.2 87 18 110/62 (78) 95 04/19/20 00:00 98.5 97 19 98/57 (71) 96 04/18/20 21:00 Room Air 04/18/20 20:00 98.1 93 18 107/70 (82) 95 04/18/20 16:00 98.6 67 18 104/63 (77) 95 04/18/20 12:00 98.8 78 18 90/60 (70) 95 04/18/20 09:57 99.0 04/18/20 09:00 Room Air Intake and Output 04/18/20 04/19/20 19:00 07:00 Intake Total 1140 ml 600 ml Output Total 800 ml 350 ml Balance 340 ml 250 ml Intake Oral 480 ml IV Total 660 ml 600 ml Output Urine Total 800 ml 350 ml # Voids 1 # Bowel Movements 2 2 Objective 04/19/2020 pt asleep; x1 soft stool per RN 04/18/2020 pt sleeping; x5 loose stools pr PM RN. Dr. Mares and Dr. Garcia aware. C. diff neg 04/17/2020 nonverbal 04/16/2020 Temp 102, RN gave Tylenol, recheck temp General Appearance: no acute distress HEENT: normocephalic Respiratory: chest wall non-tender, decreased breath sounds, other - intermittent non productive cough Cardiovascular: normal peripheral pulses Abdomen: normal bowel sounds Genitourinary: other - condom cath Extremities: no cyanosis Laboratory Tests 04/19/20 03:00: White Blood Count 4.7L, Red Blood Count 4.59L, Hemoglobin 13.8L, Hematocrit 39.4L, Mean Corpuscular Volume 86, Mean Corpuscular Hemoglobin 30.1, Mean Corpuscular Hemoglobin Concent 35.1, Red Cell Distribution Width 13.5, Platelet Count 289, Mean Platelet Volume 5.1L, Neutrophils (%) (Auto) 61.5, Lymphocytes (%) (Auto) 30.7, Monocytes (%) (Auto) 7.4, Eosinophils (%) (Auto) 0.0, Basophils (%) (Auto) 0.5, Sodium Level 137, Potassium Level 3.0L, Chloride Level 101, Carbon Dioxide Level 27, Anion Gap 9, Blood Urea Nitrogen 8, Creatinine 0.6, Estimat Glomerular Filtration Rate > 60, Glucose Level 75, Calcium Level 7.8L, Total Bilirubin 0.4, Aspartate Amino Transf (AST/SGOT) 38H, Alanine Aminotransferase (ALT/SGPT) 37, Alkaline Phosphatase 96, Total Protein 6.6, Albumin 2.9L, Globulin 3.7, Albumin/Globulin Ratio 0.8L Current Medications Medications (Trade) Dose Ordered Sig/Aurora Route PRN Reason Start Time Stop Time Status Last Admin Dose Admin Acetaminophen (Tylenol) 650 mg Q4H PRN ORAL temp > 100.4 04/14/20 09:30 05/14/20 09:29 04/18/20 09:27 Acetaminophen (Tylenol) 650 mg Q4H PRN ORAL pain 04/14/20 09:45 05/14/20 09:44 Haloperidol Lactate (Haldol) 5 mg Q6H PRN IM Agitation 04/15/20 21:00 05/30/20 20:59 Nitrofurantoin (Macrobid) 100 mg EVERY 12 HOURS ORAL 04/16/20 12:30 04/23/20 12:29 04/18/20 20:31 Sodium Chloride 1,000 ml @ 60 mls/hr [id number] IV 04/14/20 09:30 05/14/20 09:29 04/19/20 05:18 Assessment/Plan Assessment/Plan 1. COVID-19 pneumonia. - doing well on RA - hold off additional therapy specifically for COVID-19 - plan dc 2. Normoxemia. - 93% on RA 3. senior care resident. 4. UTI - s/p ceftriaxone, now on nitrofurantoin per ID 5. Diarrhea - 04/18/2020 x5 loose stools overnight per PM RN- now improving 04/19/2020 - Dr. Mares and Dr. Rahban aware. C. diff neg - 04/19/2020 K 3.0, cont monitor K, defer management to primary MD The care for this patient was discussed with my supervising physician Seen and examined by Dr. Jc as well Time spent for this case was approximately 31 minutes Brett Shore Apr 19, 2020 08:20
--- NOTE | 2020-04-19 08:29 | NUR ---
NURSE NOTES: received patient from VELASQUEZ Shukla. patient in bed, alert to name. verbally responsive. no respiratory distress noted on room air. no facial grimacing. IV on RFA running 1/2ns@60. condom cath draining. no hematuria. old trach site noted. contact and droplet isolation d/t +COVID. bed in the lowest position and locked. call light within reach,alarm on. will continue to provide plan of care.
--- NOTE | 2020-04-19 11:49 | NUR ---
NURSE NOTES: Dr.Masoud Mohr cleared patient for discharge. no antibiotic needed upon discharge. order noted and carried out.
[2020-04-19 12:00] VITALS: BP 101/60
--- NOTE | 2020-04-19 12:16 | Infectious Diseases Prog Note ---
Assessment/Plan Assessment/Plan IMPRESSION: COVID19 disease, mild or early disease. COPD, Encephalopathy, Dysphagia, Hypertension. UTI Diarrhea, C. difficile negative RECOMMENDATION: Agree with discharge to SNF Continue Nitrofurantoin X 2 days Subjective ROS Limited/Unobtainable: Yes Constitutional: Denies: fever Allergies: Coded Allergies: No Known Allergies (Unverified , 04/14/20) Objective Last 24 Hour Vital Signs Date Time Temp Pulse Resp B/P (MAP) Pulse Ox O2 Delivery O2 Flow Rate FiO2 04/19/20 12:00 98.4 94 18 101/60 (74) 93 04/19/20 09:00 Room Air 04/19/20 08:00 98.4 94 18 105/61 (76) 99 04/19/20 03:58 98.2 87 18 110/62 (78) 95 04/19/20 00:00 98.5 97 19 98/57 (71) 96 04/18/20 21:00 Room Air 04/18/20 20:00 98.1 93 18 107/70 (82) 95 04/18/20 16:00 98.6 67 18 104/63 (77) 95 Height (Feet): 5 Height (Inches): 8.00 Weight (Pounds): 149 General Appearance: no acute distress HEENT: mucous membranes moist Respiratory/Chest: lungs clear Cardiovascular: normal rate Abdomen: soft, non tender Extremities: no edema Neurologic/Psychiatric: other - sleeping Laboratory Tests Test 04/19/20 03:00 White Blood Count 4.7 K/UL (4.8-10.8) L Red Blood Count 4.59 M/UL (4.70-6.10) L Hemoglobin 13.8 G/DL (14.2-18.0) L Hematocrit 39.4 % (42.0-52.0) L Mean Corpuscular Volume 86 FL (80-99) Mean Corpuscular Hemoglobin 30.1 PG (27.0-31.0) Mean Corpuscular Hemoglobin Concent 35.1 G/DL (32.0-36.0) Red Cell Distribution Width 13.5 % (11.6-14.8) Platelet Count 289 K/UL (150-450) Mean Platelet Volume 5.1 FL (6.5-10.1) L Neutrophils (%) (Auto) 61.5 % (45.0-75.0) Lymphocytes (%) (Auto) 30.7 % (20.0-45.0) Monocytes (%) (Auto) 7.4 % (1.0-10.0) Eosinophils (%) (Auto) 0.0 % (0.0-3.0) Basophils (%) (Auto) 0.5 % (0.0-2.0) Sodium Level 137 MMOL/L (136-145) Potassium Level 3.0 MMOL/L (3.5-5.1) L Chloride Level 101 MMOL/L (98-107) Carbon Dioxide Level 27 MMOL/L (21-32) Anion Gap 9 mmol/L (5-15) Blood Urea Nitrogen 8 mg/dL (7-18) Creatinine 0.6 MG/DL (0.55-1.30) Estimat Glomerular Filtration Rate > 60 mL/min (>60) Glucose Level 75 MG/DL (74-106) Calcium Level 7.8 MG/DL (8.5-10.1) L Total Bilirubin 0.4 MG/DL (0.2-1.0) Aspartate Amino Transf (AST/SGOT) 38 U/L (15-37) H Alanine Aminotransferase (ALT/SGPT) 37 U/L (12-78) Alkaline Phosphatase 96 U/L (46-116) Total Protein 6.6 G/DL (6.4-8.2) Albumin 2.9 G/DL (3.4-5.0) L Globulin 3.7 g/dL Albumin/Globulin Ratio 0.8 (1.0-2.7) L Current Medications Medications (Trade) Dose Ordered Sig/Aurora Route PRN Reason Start Time Stop Time Status Last Admin Dose Admin Acetaminophen (Tylenol) 650 mg Q4H PRN ORAL temp > 100.4 04/14/20 09:30 05/14/20 09:29 04/18/20 09:27 Acetaminophen (Tylenol) 650 mg Q4H PRN ORAL pain 04/14/20 09:45 05/14/20 09:44 Haloperidol Lactate (Haldol) 5 mg Q6H PRN IM Agitation 04/15/20 21:00 05/30/20 20:59 Nitrofurantoin (Macrobid) 100 mg EVERY 12 HOURS ORAL 04/16/20 12:30 04/23/20 12:29 12/7/20 09:22 Sodium Chloride 1,000 ml @ 60 mls/hr [id number] IV 04/14/20 09:30 05/14/20 09:29 04/19/20 05:18 Narendra Garcia MD Apr 19, 2020 12:16
--- NOTE | 2020-04-19 12:41 | NUR ---
RD ASSESSMENT & RECOMMENDATIONS SEE CARE ACTIVITY FOR COMPLETE ASSESSMENT DAILY ESTIMATED NEEDS: Needs based on Pulmonary/ 67.6kg 25-30 kcals/kg total kcals 1-1.5 g protein/kg 67-100 g total protein 25-30 mL/kg total fluid mLs NUTRITION DIAGNOSIS: Swallowing difficult R/T dysphagia as evidenced by pt on pureed moist texture w/ NTL as per QUALITY CONTROL INSPECTOR HEADING rec. CURRENT DIET:CARDIAC, pureed moist w/ NTL PO DIET RECOMMENDATIONS: REGULAR/ texture per QUALITY CONTROL INSPECTOR HEADING ADDITIONAL RECOMMENDATIONS: * Calibrated bedscale wt * Ensure Enlive BID w/ variable intake * Monitor lytes, replete as needed (low K)
--- NOTE | 2020-04-19 13:33 | NUR ---
*-*DISCHARGE PLANNED*-* PATIENT HAS BEEN ACCEPTED AND WILL BE DISCHARGED BACK TO: [facility] P:[phone] FOR NURSE TO NURSE REPORT ROOM# B [facility] TRANSPORTATION SET FOR 2:45PM S/W JAKI [phone] WILL CALL CALL "CALL THE CAR" TRANSPORTATION FOR ETA
--- NOTE | 2020-04-19 14:22 | NUR ---
NURSE NOTES: given patient report to [facility]. Spoke to VELASQUEZ Henderson. no family info to inform discharge.
--- NOTE | 2020-04-19 15:55 | NUR ---
NURSE NOTES: patient was discharged to [facility] via ambulance [facility] with stable condition. alert to name. non verbal. no respiratory distress noted on room air. no facial grimacing during care. checked and counted belongings. give dc packet and belongings to ambulance personnel. patient was not able to sign on document. removed IV and ID band. wound pictures were taken and uploaded. provided hygiene and wound care upon discharge. vs stable.
--- NOTE | 2020-04-19 21:18 | General Progress Note ---
Subjective Allergies: Coded Allergies: No Known Allergies (Unverified , 04/14/20) Subjective Above noted no events overnight called by RN re low K KCL supplementation ordered Objective Last 24 Hour Vital Signs Date Time Temp Pulse Resp B/P (MAP) Pulse Ox O2 Delivery O2 Flow Rate FiO2 04/19/20 12:00 98.4 94 18 101/60 (74) 93 04/19/20 09:00 Room Air 04/19/20 08:00 98.4 94 18 105/61 (76) 99 04/19/20 03:58 98.2 87 18 110/62 (78) 95 04/19/20 00:00 98.5 97 19 98/57 (71) 96 Intake and Output 04/18/20 04/19/20 19:00 07:00 Intake Total 1140 ml 600 ml Output Total 800 ml 350 ml Balance 340 ml 250 ml Intake Oral 480 ml IV Total 660 ml 600 ml Output Urine Total 800 ml 350 ml # Voids 1 # Bowel Movements 2 2 Laboratory Tests 04/19/20 03:00: White Blood Count 4.7L, Red Blood Count 4.59L, Hemoglobin 13.8L, Hematocrit 39.4L, Mean Corpuscular Volume 86, Mean Corpuscular Hemoglobin 30.1, Mean Corpuscular Hemoglobin Concent 35.1, Red Cell Distribution Width 13.5, Platelet Count 289, Mean Platelet Volume 5.1L, Neutrophils (%) (Auto) 61.5, Lymphocytes (%) (Auto) 30.7, Monocytes (%) (Auto) 7.4, Eosinophils (%) (Auto) 0.0, Basophils (%) (Auto) 0.5, Sodium Level 137, Potassium Level 3.0L, Chloride Level 101, Carbon Dioxide Level 27, Anion Gap 9, Blood Urea Nitrogen 8, Creatinine 0.6, Estimat Glomerular Filtration Rate > 60, Glucose Level 75, Calcium Level 7.8L, Total Bilirubin 0.4, Aspartate Amino Transf (AST/SGOT) 38H, Alanine Aminotransferase (ALT/SGPT) 37, Alkaline Phosphatase 96, Total Protein 6.6, Albumin 2.9L, Globulin 3.7, Albumin/Globulin Ratio 0.8L Height (Feet): 5 Height (Inches): 8.00 Weight (Pounds): 149 Objective WDWN NCAT supple CTA RR Abd soft NT no edema Assessment/Plan Status: progressing Assessment/Plan: Assessment COVID PNA OBS mild elevated LFT, presumed COVID related resolved abd pain hypokalemia Recommendations - supportive care - push po - KCL replacement - d/c planning Екатерина Whalen MD Apr 19, 2020 21:18
--- NOTE | 2020-04-20 15:46 | NUR ---
INSURANCE DC INSTRUCTIONS/CLINICALS (04/18-04/19) FAXED TO [facility] [phone] PH [phone]
--- NOTE | 2020-04-21 13:37 | Discharge Summary ---
Discharge Summary Discharge Summary _ Discharge summary DATE OF ADMISSION: 04/14/2020 DATE OF DISCHARGE: [] 04/19/2020 Dr. Quiles DISCHARGED BY: REASON FOR ADMISSION: [] 69 years old male resident of detention facility with past medical history of hypertension, congestive heart failure, peptic ulcer GERD COPD seizure disorder was sent for evaluation due to generalized body aches and abdominal discomfort. Patient was noted to have fever at the facility. Patient roommate also recently developed fever. Patient was sent for further evaluation. In emergency department patient had no fever initially laboratory work-up revealed no leukocytosis stable hemoglobin hematocrit and platelet count stable electrolytes troponin negative proBNP 158. Urinalysis revealed no pyuria moderate bacteria +1 protein chest x-ray demonstrated no acute cardiopulmonary pathology. Rapid COVID-19 was detected. In emergency department patient received empiric antibiotic and admitted for further management. CONSULTANTS: rater associate neurologist pulmonary Dr. Jc ID specialist Dr. Coley) GI specialist Dr. Sheppard customer operations manager cnc machine operator/oncologist surgery psychiatrist Dr. Jaci Manjarrez HOSPITAL COURSE: [] Patient admitted to medical surgical floor isolation room. Pulse oximetry remained stable on room air. Patient did develop fevers on 12 4 for 1 day. Fevers resolved. Blood cultures were negative. Influenza screen was negative. Covid by PCR came back positive. Rapid COVID-19 was negative. Was positive. Initially urine culture revealed E. coli ESBL with colony count 30-30 and stool for C. difficile was negative. No need for remdesivir and Potassium was replaced. Renal parameters electrolytes are closely monitor electrolytes further corrected as needed nephrotoxic's were avoided. Creatinine remained stable. Aspiration precaution maintained. Oral fluids were approved. Patient noted to have mildly elevated LFT presumed Covid related trended down. Abdominal pain resolved. Psychiatry seen and evaluated patient palpated started patient on Haldol. Patient clinically stabilized and was ready for transfer back to detention facility for continuation of care FINAL DIAGNOSES: COVID-19 infection mild/early disease UTI Diarrhea, stool C. difficile negative Encephalopathy Dysphagia Hypertension Mildly elevated LFT presumed Covid related Abdominal pain resolved Acute toxic encephalopathy DISCHARGE MEDICATIONS: See Medication Reconciliation list. DISCHARGE INSTRUCTIONS: [] Patient was discharged to the detention facility. Follow up with medical doctor at the facility. I have been assigned to dictate discharge summary for this account. I was not involved in the patient's management. Tammie Etienne ELECTRICAL PARTS RECONDITIONER Apr 21, 2020 13:37
--- NOTE | 2020-04-21 15:35 | NUR ---
INSURANCE DC SUMMARY FAXED TO [facility] [phone]
== END 2020-04-19 15:59 | DRG 137 ==
LOC: EDBD 01:00 → EMR 01:26 → EDBEDREQ 07:05 → 2E 07:26 → 4E 04-16 10:49
DX: U07.1 COVID-19 (principal); J12.89 Other viral pneumonia; G92 Toxic encephalopathy; N39.0 Urinary tract infection, site not specified; R19.7 Diarrhea, unspecified; I10 Essential (primary) hypertension; R13.10 Dysphagia, unspecified; F29 Unspecified psychosis not due to a substance or known physiological condition
CPT/HCPCS: 36415; 71045; 80053; 81001; 82550; 82553; 83605; 83735; 83880; 84100; 84484; 85025; 86710; 87040; 87081; 87086; 87181; 87324; 93005; 99285; J8499; U0002

== ENCOUNTER 2020-04-26 14:57 | Inpatient (IN) | payer OTHER ==
[~2020-04-26] VITALS: Ht 172.7 cm; Wt 59.0 kg
[~2020-04-26 14:57] MED LIST: ACETAMINOPHEN325 M1 ORAL; BISACODYL10 M1 RC; BISACODYL5 MG ORAL; CRANBERRY450 M5 PO; DOCUSATE SODIU100 MG ORAL; ECONAZOLE NITRA15 GM TOPIC; FLEET ENEMA133 ML RECTAL; KEPPRA LIQ100 MG/1 M ORAL; METOPROLOL TART25 MG ORAL; MILK OF MA400 MG/51 ORAL; MULTIVITAMINS1 EAC8 ORAL; OMEPRAZOLE20 M2 ORAL; TYLENOL EXTRA500 MG ORAL; VITAMIN D325 MC1 PO
[2020-04-26 15:13] VITALS: BP 128/72
--- NOTE | 2020-04-26 15:21 | Emergency Room Report ---
History of Present Illness General Chief Complaint: Seizure Present Illness HPI Patient is a 69-year-old male with history of seizure disorder presents for increased seizure activity. Patient recently tested positive for coronavirus infection. Had decreased oxygen saturation when checked by EMS. He was started on nonrebreather initially. He was noted to have decreased level of consciousness. Apparently had decreased oral intake. Patient is chronically debilitated history is markedly limited by patient's mental status. Patient was sent in from convalescent home. Allergies: Coded Allergies: No Known Allergies (Unverified , 04/14/20) COVID-19 Screening Contact w/high risk pt: Yes Experienced COVID-19 symptoms?: Yes COVID-19 Testing performed ENVIRONMENTAL HEALTH NURSE: Yes COVID-19 Screening: Positive COVID-19 COVID-19 Testing Source: snf Patient History Past Medical History: see triage record Reviewed Nursing Documentation: PMH: Agreed; PSxH: Agreed Nursing Documentation-PMH Hx Cardiac Problems: Yes - HF Hx Hypertension: Yes Hx COPD: Yes Hx Gastrointestinal Problems: Yes - dysphagia, peptic ulcer, gerd Hx Neurological Problems: Yes - encephalopathy, Hx Seizures: Yes Review of Systems All Other Systems: negative except mentioned in HPI Physical Exam Vital Signs Date Time Temp Pulse Resp B/P (MAP) Pulse Ox O2 Delivery O2 Flow Rate FiO2 04/26/20 14:54 97.9 120 16 128/72 (90) 92 Nasal Cannula 2.0 04/26/20 15:13 94 Sp02 EP Interpretation: reviewed, normal General Appearance: non-toxic, Chronically Ill Head: atraumatic ENT: dry mucus membranes Neck: normal inspection, supple, no bony tend, limited range of motion Respiratory: normal inspection, no respiratory distress, no retraction, no wheezing Cardiovascular #1: regular rate, rhythm Gastrointestinal: normal inspection, normal bowel sounds, non tender, soft, no guarding, no hernia Genitourinary: no CVA tenderness Musculoskeletal: normal inspection, back normal, normal range of motion Neurologic: alert, motor weakness, aphasia Psychiatric: normal inspection, depressed affect Skin: no rash Medical Decision Making Diagnostic Impression: Primary Impression: Acute febrile illness Additional Impressions: Coronavirus infection Seizure disorder ER Course Patient presented for coronavirus infection. Differential diagnosis include was not limited to pneumonia, electrolyte abnormality, breakthrough seizure, subtherapeutic anticonvulsant level among others. Because of complexity of patient's case laboratory tests and imaging studies were ordered. Patient was chronically debilitated and unable to provide any significant history at this time. Patient does not appear to be actively seizing. Had some increased cough. Was started on cannula by paramedics. He had some prior history of COPD and has previous tracheostomy.Patient was given IV fluids. He was loaded with IV Keppra. Dr. Zain Mac was contacted for inpatient management Labs Test 04/26/20 15:30 04/26/20 16:35 White Blood Count 11.2 K/UL (4.8-10.8) Red Blood Count 4.31 M/UL (4.70-6.10) Hemoglobin 13.0 G/DL (14.2-18.0) Hematocrit 36.9 % (42.0-52.0) Mean Corpuscular Volume 85 FL (80-99) Mean Corpuscular Hemoglobin 30.1 PG (27.0-31.0) Mean Corpuscular Hemoglobin Concent 35.3 G/DL (32.0-36.0) Red Cell Distribution Width 14.2 % (11.6-14.8) Platelet Count 839 K/UL (150-450) Mean Platelet Volume 5.3 FL (6.5-10.1) Neutrophils (%) (Auto) % (45.0-75.0) Lymphocytes (%) (Auto) % (20.0-45.0) Monocytes (%) (Auto) % (1.0-10.0) Eosinophils (%) (Auto) % (0.0-3.0) Basophils (%) (Auto) % (0.0-2.0) Sodium Level 143 MMOL/L (136-145) Potassium Level 3.7 MMOL/L (3.5-5.1) Chloride Level 106 MMOL/L (98-107) Carbon Dioxide Level 29 MMOL/L (21-32) Anion Gap 8 mmol/L (5-15) Blood Urea Nitrogen 27 mg/dL (7-18) Creatinine 0.9 MG/DL (0.55-1.30) Estimat Glomerular Filtration Rate > 60 mL/min (>60) Glucose Level 121 MG/DL (74-106) Calcium Level 8.7 MG/DL (8.5-10.1) Magnesium Level 2.3 MG/DL (1.8-2.4) Ferritin 563 NG/ML (8-388) Total Bilirubin 1.1 MG/DL (0.2-1.0) Direct Bilirubin 0.4 MG/DL (0.0-0.3) Aspartate Amino Transf (AST/SGOT) 33 U/L (15-37) Alanine Aminotransferase (ALT/SGPT) 24 U/L (12-78) Alkaline Phosphatase 83 U/L (46-116) Lactate Dehydrogenase 235 U/L (81-234) Total Creatine Kinase 30 U/L (26-308) Creatine Kinase MB < 0.5 NG/ML (0.0-3.6) Creatine Kinase MB Relative Index 1.6 Troponin I 0.000 ng/mL (0.000-0.056) C-Reactive Protein, Quantitative > 70.0 mg/dL (0.00-0.90) Total Protein 7.4 G/DL (6.4-8.2) Albumin 2.3 G/DL (3.4-5.0) Globulin 5.1 g/dL Albumin/Globulin Ratio 0.5 (1.0-2.7) Lipase 62 U/L (73-393) EKG Diagnostic Results Rate: tachycardiac Rhythm: NSR ST Segments: other - 100 Last Vital Signs Date Time Temp Pulse Resp B/P (MAP) Pulse Ox O2 Delivery O2 Flow Rate FiO2 04/26/20 15:13 97.9 16 128/72 92 Nasal Cannula 4.0 94 04/26/20 15:13 120 Status: unchanged Disposition: ADMITTED INPATIENT Condition: Stable John Flores MD Apr 26, 2020 15:21
[2020-04-26 16:17] LABS: HEMATOCRIT 36.9 % (42.0-52.0); MEAN CORPUSCULAR VOLUME 85 FL (80-99); PLATELET COUNT 839 K/UL (150-450); RED BLOOD COUNT 4.31 M/UL (4.70-6.10); RED CELL DISTRIBUTION WIDTH 14.2 % (11.6-14.8); WHITE BLOOD COUNT 11.2 K/UL (4.8-10.8)
[2020-04-26 16:28] LABS: ANION GAP 8 mmol/L (5-15); BLOOD UREA NITROGEN 27 mg/dL (7-18); CALCIUM 8.7 MG/DL (8.5-10.1); CARBON DIOXIDE 29 MMOL/L (21-32); CHLORIDE 106 MMOL/L (98-107); CREATININE 0.9 MG/DL (0.55-1.30); POTASSIUM 3.7 MMOL/L (3.5-5.1); SODIUM 143 MMOL/L (136-145)
--- NOTE | 2020-04-26 16:29 | Diagnostic Imaging Report ---
Indication: Shortness of breath Technique: One view of the chest Comparison: 04/14/2020 Findings: There is hazy infiltrate at the right lung base. There is dense consolidation of the left retrocardiac region. The heart size is upper limits of normal. Impression: Bilateral basilar infiltrates
[2020-04-26 16:43] LABS: ALANINE AMINOTRANSFERASE 24 U/L (12-78); ALBUMIN 2.3 G/DL (3.4-5.0); ALBUMIN/GLOBULIN RATIO 0.5 (1.0-2.7); ALKALINE PHOSPHATASE 83 U/L (46-116); ASPARTATE AMINO TRANSFERASE 33 U/L (15-37); BILIRUBIN,TOTAL 1.1 MG/DL (0.2-1.0); CKMB < 0.5 NG/ML (0.0-3.6); CREATINE KINASE 30 U/L (26-308); FERRITIN 563 NG/ML (8-388); LACTATE DEHYDROGENASE 235 U/L (81-234)
[2020-04-26 16:46] LABS: BILIRUBIN,DIRECT 0.4 MG/DL (0.0-0.3)
[2020-04-26 17:03] LABS: INR 1.1 (0.9-1.1)
[2020-04-26 19:10] VITALS: BP 112/62
[2020-04-26] MEDS ORDERED: levETIRAcetam 1,000mg/NS100ml 100 ML IVPB ONE ×2 (19:19→19:30)
[2020-04-26 21:01] LABS: APPEARANCE,URINE CLEAR; BILIRUBIN, URINE 1+ (NEGATIVE); COLOR,URINE YELLOW; GLUCOSE, URINE (UA) NEGATIVE (NEGATIVE); KETONES,URINE NEGATIVE (NEGATIVE); NITRITE,URINE NEGATIVE (NEGATIVE); PROTEIN,URINE NEGATIVE (NEGATIVE)
[2020-04-26 21:02] LABS: LEUKOCYTE ESTERASE ,URINE 1+ (NEGATIVE); UROBILINOGEN,URINE 4 MG/DL (0.0-1.0)
[2020-04-26 21:45] VITALS: BP 106/65
[2020-04-26] MEDS ORDERED: Acetaminophen 650 MG SUPP RECTAL ONE ×2 (22:58→23:00)
[2020-04-26 23:28] VITALS: BP 106/62
[2020-04-27] VITALS (21 sets, daily range): BP systolic 84–134; BP diastolic 51–80
[2020-04-27] MEDS ORDERED: Enoxaparin 60mg Inj SUBQ ONE (02:30)
[2020-04-27] MEDS ORDERED: Lidocaine 1% Plain 30 ml INJ ONE (04:28)
[2020-04-27] MEDS ORDERED: DOPamine 400mg/250ml 250 ML IV ONE (04:30)
--- NOTE | 2020-04-27 04:55 | Emergency Room Report ---
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 COVID-19 Screening: Positive COVID-19 COVID-19 Testing Source: snf Nursing Documentation-PMH Hx Cardiac Problems: Yes - HF Hx Hypertension: Yes Hx COPD: Yes Hx Gastrointestinal Problems: Yes - dysphagia, peptic ulcer, gerd Hx Neurological Problems: Yes - encephalopathy, Hx Seizures: Yes Physical Exam Vital Signs Date Time Temp Pulse Resp B/P (MAP) Pulse Ox O2 Delivery O2 Flow Rate FiO2 04/26/20 14:54 97.9 120 16 128/72 (90) 92 Nasal Cannula 2.0 04/26/20 15:13 94 Procedures Critical Care Time Critical Care Time Critical care is mandated in this patient who presented with septic shock from Covid infection. Patient require my urgent intervention to attenuate the risks of metabolic collapse which may lead to cardiovascular collapse and . Critical care time is 35 minutes excluding any reportable procedure. Critical care time included evaluation, multiple reevaluation, looking at old charts, interpreting laboratory and diagnostic data, discussing case with patient and family and consultants, and charting. Central Line Central Line : Consent: Emergent Central Line Lumen: triple Maximal Sterile Barrier Tech: yes cap, yes mask, yes sterile gown, yes sterile gloves, yes large sterile sheet, yes hand hygiene, yes chlorhexidine prep Central Line Postion: femoral (R) Anesthesia: Lidocaine cc's of anesthesia: 10 US Guided Line?: No Vessel visualized with U/S: Right Femoral Vein Complications: none Central Line Post Position: sutured, good blood return Attempts: One Patient Tolerated: Well Complications: None Medical Decision Making Diagnostic Impression: Primary Impression: Acute febrile illness Additional Impressions: Coronavirus infection Seizure disorder Septic shock ER Course This patient signed out to me. He presents with seizure and has Covid. His oxygenation and respiratory status has been stable. However, his blood pressure slowly drift down to systolic in the 80s. It did not respond to fluid boluses. I discussed the case with Dr. Cardona who is covering for Dr. Mares. He recommended patient to be on dopamine. I place a central line in the patient and started dopamine. Patient will be upgraded to ICU. Last Vital Signs Date Time Temp Pulse Resp B/P (MAP) Pulse Ox O2 Delivery O2 Flow Rate FiO2 04/27/20 02:29 101.2 76 16 90/53 98 Nasal Cannula 4.0 94 Disposition: ADMITTED INPATIENT Condition: Critical Referrals: Zain Mares MD (PCP) James Gracia MD Apr 27, 2020 04:55
--- NOTE | 2020-04-27 04:56 | Emergency Room Report ---
Sepsis Event Note Evaluation Current Stage of Sepsis: Septic Shock Possible Source: Pulmonary Focused Exam Allergies: Coded Allergies: No Known Allergies (Unverified , 04/14/20) Date Exam Occurred: Apr 27, 2020 Time Exam Occurred: 04:56 Laboratory Studies Laboratory Tests Test 04/26/20 15:30 04/26/20 16:35 04/26/20 19:18 White Blood Count 11.2 K/UL (4.8-10.8) H Red Blood Count 4.31 M/UL (4.70-6.10) L Hemoglobin 13.0 G/DL (14.2-18.0) L Hematocrit 36.9 % (42.0-52.0) L Mean Corpuscular Volume 85 FL (80-99) Mean Corpuscular Hemoglobin 30.1 PG (27.0-31.0) Mean Corpuscular Hemoglobin Concent 35.3 G/DL (32.0-36.0) Red Cell Distribution Width 14.2 % (11.6-14.8) Platelet Count 839 K/UL (150-450) H Mean Platelet Volume 5.3 FL (6.5-10.1) L Neutrophils (%) (Auto) % (45.0-75.0) Lymphocytes (%) (Auto) % (20.0-45.0) Monocytes (%) (Auto) % (1.0-10.0) Eosinophils (%) (Auto) % (0.0-3.0) Basophils (%) (Auto) % (0.0-2.0) Differential Total Cells Counted 100 Neutrophils % (Manual) 84 % (45-75) H Lymphocytes % (Manual) 9 % (20-45) L Monocytes % (Manual) 5 % (1-10) Eosinophils % (Manual) 0 % (0-3) Basophils % (Manual) 0 % (0-2) Band Neutrophils 2 % (0-8) Platelet Estimate Increased H Platelet Morphology Normal Red Blood Cell Morphology Normal Prothrombin Time 11.9 SEC (9.30-11.50) H Prothromb Time International Ratio 1.1 (0.9-1.1) Activated Partial Thromboplast Time 30 SEC (23-33) D-Dimer 1.06 mg/L FEU (0.00-0.49) H Sodium Level 143 MMOL/L (136-145) Potassium Level 3.7 MMOL/L (3.5-5.1) Chloride Level 106 MMOL/L (98-107) Carbon Dioxide Level 29 MMOL/L (21-32) Anion Gap 8 mmol/L (5-15) Blood Urea Nitrogen 27 mg/dL (7-18) H Creatinine 0.9 MG/DL (0.55-1.30) Estimat Glomerular Filtration Rate > 60 mL/min (>60) Glucose Level 121 MG/DL (74-106) H Lactic Acid Level 3.00 mmol/L (0.4-2.0) H 1.70 mmol/L (0.66-2.22) Calcium Level 8.7 MG/DL (8.5-10.1) Magnesium Level 2.3 MG/DL (1.8-2.4) Ferritin 563 NG/ML (8-388) H Total Bilirubin 1.1 MG/DL (0.2-1.0) H Direct Bilirubin 0.4 MG/DL (0.0-0.3) H Aspartate Amino Transf (AST/SGOT) 33 U/L (15-37) Alanine Aminotransferase (ALT/SGPT) 24 U/L (12-78) Alkaline Phosphatase 83 U/L (46-116) Lactate Dehydrogenase 235 U/L (81-234) H Total Creatine Kinase 30 U/L (26-308) Creatine Kinase MB < 0.5 NG/ML (0.0-3.6) Creatine Kinase MB Relative Index 1.6 Troponin I 0.000 ng/mL (0.000-0.056) C-Reactive Protein, Quantitative > 70.0 mg/dL (0.00-0.90) H Pro-B-Type Natriuretic Peptide Pending Total Protein 7.4 G/DL (6.4-8.2) Albumin 2.3 G/DL (3.4-5.0) L Globulin 5.1 g/dL Albumin/Globulin Ratio 0.5 (1.0-2.7) L Lipase 62 U/L (73-393) L Urine Color Yellow Urine Appearance Clear Urine pH 7.0 (4.5-8.0) Urine Specific [place] 1.005 (1.005-1.035) Urine Protein Negative (NEGATIVE) Urine Glucose (UA) Negative (NEGATIVE) Urine Ketones Negative (NEGATIVE) Urine Blood Negative (NEGATIVE) Urine Nitrite Negative (NEGATIVE) Urine Bilirubin 1+ (NEGATIVE) H Urine Ictotest Negative (NEGATIVE) Urine Urobilinogen 4 MG/DL (0.0-1.0) H Urine Leukocyte Esterase 1+ (NEGATIVE) H Urine RBC 0 /HPF (0 - 0) Urine WBC 0-2 /HPF (0 - 0) Urine Squamous Epithelial Cells None /LPF (NONE/OCC) Urine Bacteria Few /HPF (NONE) Vital Signs Last 24 Hour Vital Signs Date Time Temp Pulse Resp B/P (MAP) Pulse Ox O2 Delivery O2 Flow Rate FiO2 04/27/20 02:29 101.2 76 16 90/53 98 Nasal Cannula 4.0 94 04/27/20 01:30 101.2 77 16 84/51 98 Nasal Cannula 4.0 94 04/26/20 23:31 101.2 04/26/20 23:28 102.4 95 16 106/62 98 Nasal Cannula 4.0 94 04/26/20 21:45 97.9 97 16 106/65 92 Nasal Cannula 4.0 94 04/26/20 19:10 97.9 93 16 112/62 98 Nasal Cannula 4.0 94 04/26/20 15:13 97.9 16 128/72 92 Nasal Cannula 4.0 94 04/26/20 15:13 120 16 Nasal Cannula 4.0 94 04/26/20 14:54 97.9 120 16 128/72 (90) 92 Nasal Cannula 2.0 Respiratory Exam: Clear Cardiovascular Exam: RRR Capillary Refill: Less Than 2 Seconds Peripheral Pulse: Strong Pulse Location: Femoral Skin Exam: Normal Turgor James Gracia MD Apr 27, 2020 04:56
[2020-04-27] MEDS ORDERED: dexAMETHasone 10mg/ml Inj IV ONE (05:00)
[2020-04-27] MEDS: DOPamine 400mg/250ml 250 ML IV SCH (05:27)
--- NOTE | 2020-04-27 10:38 | Consultation ---
Consult Note Consult Note Asked to evaluate the patient at the request of Dr. Mac for hypotension and fluid and electrolyte management Patient seen in emergency room room 7 Patient on dopamine for low blood pressure Chief Complaint: Seizure Patient is a 69-year-old male with history of seizure disorder presents for increased seizure activity. Patient recently tested positive for coronavirus infection. Had decreased oxygen saturation when checked by EMS. He was started on nonrebreather initially. He was noted to have decreased level of consciousness. Apparently had decreased oral intake. Patient is chronically debilitated history is markedly limited by patient's mental status. Patient was sent in from convalescent home. 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 GENERAL APPEARANCE: Seems to be thin, underweight. HEAD AND NECK: Getting oxygen by nasal cannula. HEART: Normal rate. The patient has right femoral line placed in the ER. LUNGS: Clear. ABDOMEN: Soft. EXTREMITIES: No edema. Has footdrop. NEUROLOGIC: He is awake, speaks a few words. LABORATORY AND DIAGNOSTIC DATA: WBC 11.1, hemoglobin 13, hematocrit 36.9, and platelets 839. Sodium 143, potassium 3.7, chloride 106, bicarb 29, BUN 27, creatinine 0.9, glucose is 129. Total bilirubin 1.1. Lactic acid was 3 in the beginning of admission. That came down to 1.7. Chest x-ray, bilateral basilar infiltrates. . Assessment/Plan Imp: Acute febrile illness most likely benton virus infection Hypotension ( Shock) ,on dopamine Seizure disorder Sugg: Fluid challenge Monitor renal parameters Monitor electrolytes Per consultants Per orders Abhilash Clark MD Apr 27, 2020 10:37
[2020-04-27] MEDS ORDERED: NovoLOG Insulin Flexpen SUBQ STA (11:42)
[2020-04-27] MEDS ORDERED: cefTRIAXone 1 GM in NS 55 ML IVPB SCH (11:45)
--- NOTE | 2020-04-27 12:57 | Cardiac Electrophysiology PN ---
Subjective Subjective [id number] Objective Last 24 Hour Vital Signs Date Time Temp Pulse Resp B/P (MAP) Pulse Ox O2 Delivery O2 Flow Rate FiO2 04/27/20 11:00 122/68 04/27/20 11:00 77 18 122/68 100 Nasal Cannula 4.0 04/27/20 10:00 68 16 120/64 99 Nasal Cannula 4.0 04/27/20 10:00 120/64 04/27/20 09:00 112/70 04/27/20 09:00 101.2 87 20 112/70 98 Nasal Cannula 4.0 04/27/20 08:00 75 20 117/66 98 Nasal Cannula 4.0 04/27/20 08:00 117/66 04/27/20 07:00 101.2 79 16 109/59 98 Nasal Cannula 4.0 94 04/27/20 07:00 114/74 04/27/20 06:00 101.2 80 16 105/56 98 Nasal Cannula 4.0 94 04/27/20 05:57 90/50 04/27/20 05:42 111/58 04/27/20 05:27 87/54 04/27/20 04:00 101.2 70 16 96/60 98 Nasal Cannula 4.0 94 04/27/20 02:29 101.2 76 16 90/53 98 Nasal Cannula 4.0 94 04/27/20 01:30 101.2 77 16 84/51 98 Nasal Cannula 4.0 94 04/26/20 23:31 101.2 04/26/20 23:28 102.4 95 16 106/62 98 Nasal Cannula 4.0 94 04/26/20 21:45 97.9 97 16 106/65 92 Nasal Cannula 4.0 94 04/26/20 19:10 97.9 93 16 112/62 98 Nasal Cannula 4.0 94 04/26/20 15:13 97.9 16 128/72 92 Nasal Cannula 4.0 94 04/26/20 15:13 120 16 Nasal Cannula 4.0 94 04/26/20 14:54 97.9 120 16 128/72 (90) 92 Nasal Cannula 2.0 Intake and Output 04/26/20 04/27/20 19:00 07:00 Intake Total 0 ml 1000 ml Output Total 200 ml Balance 0 ml 800 ml Intake Oral 0 ml IV Total 1000 ml Output Urine Total 200 ml # Voids 2 Laboratory Tests Test 04/26/20 15:30 04/26/20 16:35 04/26/20 19:18 White Blood Count 11.2 K/UL (4.8-10.8) H Red Blood Count 4.31 M/UL (4.70-6.10) L Hemoglobin 13.0 G/DL (14.2-18.0) L Hematocrit 36.9 % (42.0-52.0) L Mean Corpuscular Volume 85 FL (80-99) Mean Corpuscular Hemoglobin 30.1 PG (27.0-31.0) Mean Corpuscular Hemoglobin Concent 35.3 G/DL (32.0-36.0) Red Cell Distribution Width 14.2 % (11.6-14.8) Platelet Count 839 K/UL (150-450) H Mean Platelet Volume 5.3 FL (6.5-10.1) L Neutrophils (%) (Auto) % (45.0-75.0) Lymphocytes (%) (Auto) % (20.0-45.0) Monocytes (%) (Auto) % (1.0-10.0) Eosinophils (%) (Auto) % (0.0-3.0) Basophils (%) (Auto) % (0.0-2.0) Differential Total Cells Counted 100 Neutrophils % (Manual) 84 % (45-75) H Lymphocytes % (Manual) 9 % (20-45) L Monocytes % (Manual) 5 % (1-10) Eosinophils % (Manual) 0 % (0-3) Basophils % (Manual) 0 % (0-2) Band Neutrophils 2 % (0-8) Platelet Estimate Increased H Platelet Morphology Normal Red Blood Cell Morphology Normal Prothrombin Time 11.9 SEC (9.30-11.50) H Prothromb Time International Ratio 1.1 (0.9-1.1) Activated Partial Thromboplast Time 30 SEC (23-33) D-Dimer 1.06 mg/L FEU (0.00-0.49) H Sodium Level 143 MMOL/L (136-145) Potassium Level 3.7 MMOL/L (3.5-5.1) Chloride Level 106 MMOL/L (98-107) Carbon Dioxide Level 29 MMOL/L (21-32) Anion Gap 8 mmol/L (5-15) Blood Urea Nitrogen 27 mg/dL (7-18) H Creatinine 0.9 MG/DL (0.55-1.30) Estimat Glomerular Filtration Rate > 60 mL/min (>60) Glucose Level 121 MG/DL (74-106) H Lactic Acid Level 3.00 mmol/L (0.4-2.0) H 1.70 mmol/L (0.66-2.22) Calcium Level 8.7 MG/DL (8.5-10.1) Magnesium Level 2.3 MG/DL (1.8-2.4) Ferritin 563 NG/ML (8-388) H Total Bilirubin 1.1 MG/DL (0.2-1.0) H Direct Bilirubin 0.4 MG/DL (0.0-0.3) H Aspartate Amino Transf (AST/SGOT) 33 U/L (15-37) Alanine Aminotransferase (ALT/SGPT) 24 U/L (12-78) Alkaline Phosphatase 83 U/L (46-116) Lactate Dehydrogenase 235 U/L (81-234) H Total Creatine Kinase 30 U/L (26-308) Creatine Kinase MB < 0.5 NG/ML (0.0-3.6) Creatine Kinase MB Relative Index 1.6 Troponin I 0.000 ng/mL (0.000-0.056) C-Reactive Protein, Quantitative > 70.0 mg/dL (0.00-0.90) H Pro-B-Type Natriuretic Peptide Pending Total Protein 7.4 G/DL (6.4-8.2) Albumin 2.3 G/DL (3.4-5.0) L Globulin 5.1 g/dL Albumin/Globulin Ratio 0.5 (1.0-2.7) L Lipase 62 U/L (73-393) L Urine Color Yellow Urine Appearance Clear Urine pH 7.0 (4.5-8.0) Urine Specific [place] 1.005 (1.005-1.035) Urine Protein Negative (NEGATIVE) Urine Glucose (UA) Negative (NEGATIVE) Urine Ketones Negative (NEGATIVE) Urine Blood Negative (NEGATIVE) Urine Nitrite Negative (NEGATIVE) Urine Bilirubin 1+ (NEGATIVE) H Urine Ictotest Negative (NEGATIVE) Urine Urobilinogen 4 MG/DL (0.0-1.0) H Urine Leukocyte Esterase 1+ (NEGATIVE) H Urine RBC 0 /HPF (0 - 0) Urine WBC 0-2 /HPF (0 - 0) Urine Squamous Epithelial Cells None /LPF (NONE/OCC) Urine Bacteria Few /HPF (NONE) Shady Sorto MD Apr 27, 2020 12:57
[2020-04-27] MEDS ORDERED: Varibar Nectar 240ml MC PRN (15:00)
[2020-04-27] MEDS ORDERED: Varibar Thin Liquid powder 148gm MC PRN (15:00)
[2020-04-27] MEDS ORDERED: Varibar Pudding 230ml MC PRN (15:00)
[2020-04-27] MEDS ORDERED: Varibar Honey 250ml MC PRN (15:00)
--- NOTE | 2020-04-27 15:15 | Consultation ---
DATE OF CONSULTATION: 04/27/2020 INFECTIOUS DISEASE CONSULT PRIMARY ATTENDING PHYSICIAN: Zain Mares MD REASON FOR CONSULT: Septic shock, pneumonia, early COVID-19 disease. HISTORY OF PRESENT ILLNESS: This is a 69-year-old male admitted yesterday from a senior care facility because of seizure activity, decrease in oxygen saturation, had altered mental level of consciousness, had fever up to 102.4, was hypotensive and started on dopamine. The patient had a recent history of admission with COVID-19. PAST MEDICAL HISTORY: COVID-19 disease. The patient was in hospital between April 14, 2020 and April 19, 2020. Has COPD, hypertension, dysphagia, CHF, encephalopathy. ALLERGIES: No known drug allergies. MEDICATIONS: Getting Keppra, Colace, Protonix, dopamine. Got a dose of dexamethasone and Tylenol. SOCIAL HISTORY: Single, originally from [facility]. No recent history of alcohol, drug abuse, or smoking. [facility] resident. REVIEW OF SYSTEMS: Limited. PHYSICAL EXAMINATION: VITAL SIGNS: Temperature 101.2, pulse 77, blood pressure is 122/68. GENERAL APPEARANCE: Seems to be thin, underweight. HEAD AND NECK: Getting oxygen by nasal cannula. HEART: Normal rate. The patient has right femoral line placed in the ER. LUNGS: Clear. ABDOMEN: Soft. EXTREMITIES: No edema. Has footdrop. NEUROLOGIC: He is awake, speaks a few words. LABORATORY AND DIAGNOSTIC DATA: WBC 11.1, hemoglobin 13, hematocrit 36.9, and platelets 839. Sodium 143, potassium 3.7, chloride 106, bicarb 29, BUN 27, creatinine 0.9, glucose is 129. Total bilirubin 1.1. Lactic acid was 3 in the beginning of admission. That came down to 1.7. Chest x-ray, bilateral basilar infiltrates. IMPRESSION: Sepsis with septic shock, seems to have pneumonia, may have aspiration pneumonia or viral pneumonia secondary to COVID-19 disease. Has history of COPD, seizure disorder, lactic acidosis, encephalopathy. RECOMMENDATIONS: We will give a dose of ceftriaxone. We will follow up the culture. Continue dexamethasone tomorrow. If he remain hypoxemic, we will consider remdesivir. At the end of my exam, I thank Dr. Mares for involving me in the care of this patient. Narendra Garcia M.D. DR: BIR JOB#: [id number] CC:
--- NOTE | 2020-04-27 15:30 | Consultation ---
DATE OF CONSULTATION: 04/27/2020 PULMONARY CONSULTATION HISTORY OF PRESENT ILLNESS: This is a 69-year-old male who was discharged from this hospital recently after being found to be COVID-19 positive. He was observed in this hospital. As he remained asymptomatic, he was discharged. He now re-presents to the hospital at this time after having seizures. The patient has a known history of seizure disorder. He was also hypoxic. He was placed on a non-rebreather mask. Over the night, the patient has been monitored carefully and currently is on nasal oxygen at 4 L, saturating 100%. He remains confused. PAST HISTORY: Recent COVID-19 pneumonia, hypertension, COPD, chronic dysphagia, peptic ulcer disease, GERD, chronic encephalopathy. CURRENT MEDICATIONS: Rocephin, Keppra. The patient received a single dose of Decadron and has been started on dopamine infusion as well. REVIEW OF SYSTEMS: Not obtainable. SURGERIES: Not known. PHYSICAL EXAMINATION: GENERAL: A 69-year-old male. HEENT: Unremarkable. LUNGS: Decreased breath sounds bilaterally. HEART: Normal heart sounds. ABDOMEN: Soft. EXTREMITIES: There is no edema. VITAL SIGNS: Blood pressure is 120/60, heart rate is 77, respirations 18, O2 sat 99% on 4 L of oxygen. LABORATORY DATA: Lab testing shows hemoglobin 11.2, white count 13. Creatinine is 0.9. Coags are negative. D-dimer 1.0. Urinalysis negative. IMAGING STUDIES: The patient underwent an x-ray of his chest, which showed bilateral infiltrates. IMPRESSION: 1. COVID-19 pneumonia diagnosed approximately on 04/14/2020. 2. Seizure disorder. 3. Hypotension. DISCUSSION: Agree with admission and care. The patient will benefit from antiepileptics, which he has been started on. He has received fluid boluses and has received dopamine. A central line has also been placed. The patient will be placed in ICU for ongoing hypotension, which over time has improved. We will follow carefully. The etiology of hypotension is unclear. Appropriate to start steroids and broad-spectrum antibiotics. Radhames Jc M.D. DR: SALVATORE JOB#: [id number] CC:
--- NOTE | 2020-04-27 16:15 | Consultation ---
DATE OF CONSULTATION: 04/27/2020 CARDIOLOGY CONSULTATION REFERRING PHYSICIAN: Zain Mares MD REASON FOR CONSULTATION: Septic shock. HISTORY OF PRESENT ILLNESS: The patient is a 69-year-old gentleman with history of hypertension and seizure disorder, who was brought to the hospital for increased seizure activity. The patient was tested positive for coronavirus and decreased oxygen saturation when checked by paramedics. The patient was started on nonrebreather oxygen. Also noted to have decreased level of consciousness. The patient is chronically debilitated. The patient was sent from a convalescent home. The patient subsequently became hypotensive with blood pressure in the 70s and started on dopamine overnight per my order. A central line was also placed by the emergency room physician. REVIEW OF SYSTEMS: Negative other than what is mentioned in history of present illness. PAST MEDICAL HISTORY: As mentioned above. FAMILY HISTORY: Noncontributory. PHYSICAL EXAMINATION: VITAL SIGNS: Blood pressure is 122/68 on dopamine, pulse 77, respirations 18, temperature was 101.2. HEAD AND NECK: No JVD. LUNGS: Coarse rhonchi. CARDIOVASCULAR: Regular S1 and S2. Mildly tachycardic. ABDOMEN: Soft. EXTREMITIES: 1+ pitting edema. LABORATORY AND DIAGNOSTIC DATA: Labs show white count of 11.2, hemoglobin 13, hematocrit 37, and platelet count 839. Sodium 142, potassium 3.7, BUN of 27, creatinine of 0.9, glucose of 121. Troponin is negative. ASSESSMENT AND PLAN: 1. Hypotension, likely due to septic shock. The patient is already on dopamine through a central line. The patient is also already on IV antibiotic. 2. COVID pneumonia, on dexamethasone and ceftriaxone. 3. Seizure disorder and altered level of consciousness. The patient is on Keppra. Echocardiogram was also ordered for further evaluation. Thank you very much for allowing me to participate in the care of this patient. Please do not hesitate to contact me for any questions regarding my evaluation. Shady Sorto M.D. DR: ANAM JOB#: [id number] CC:
[2020-04-27 16:40] LABS: HEMATOCRIT 38.1 % (42.0-52.0); HEMOGLOBIN 12.9 G/DL (14.2-18.0); MEAN CORPUSCULAR VOLUME 88 FL (80-99); PLATELET COUNT 878 K/UL (150-450); RED BLOOD COUNT 4.35 M/UL (4.70-6.10); RED CELL DISTRIBUTION WIDTH 13.7 % (11.6-14.8); WHITE BLOOD COUNT 15.7 K/UL (4.8-10.8)
[2020-04-27 16:41] LABS: BASOPHILS % (AUTO) 0.6 % (0.0-2.0); LYMPHOCYTES % (AUTO) 5.9 % (20.0-45.0); MONOCYTES % (AUTO) 2.5 % (1.0-10.0)
[2020-04-27 18:10] LABS: ALANINE AMINOTRANSFERASE 22 U/L (12-78); ALBUMIN 2.5 G/DL (3.4-5.0); ALBUMIN/GLOBULIN RATIO 0.5 (1.0-2.7); ALKALINE PHOSPHATASE 78 U/L (46-116); ANION GAP 10 mmol/L (5-15); ASPARTATE AMINO TRANSFERASE 45 U/L (15-37); BILIRUBIN,TOTAL 1.1 MG/DL (0.2-1.0); BLOOD UREA NITROGEN 9 mg/dL (7-18); CALCIUM 8.7 MG/DL (8.5-10.1); CARBON DIOXIDE 27 MMOL/L (21-32); CHLORIDE 104 MMOL/L (98-107); CREATININE 0.4 MG/DL (0.55-1.30); PHOSPHORUS 2.1 MG/DL (2.5-4.9); POTASSIUM 3.7 MMOL/L (3.5-5.1); SODIUM 141 MMOL/L (136-145)
[2020-04-27] MEDS: levETIRAcetam 500mg/5ml Liquid ORAL SCH (20:51)
--- NOTE | 2020-04-27 23:00 | History and Physical Report ---
DATE OF ADMISSION: 04/26/2020 HISTORY OF PRESENT ILLNESS: The patient came in because of hypotension via 911, also had 2 episodes of seizures, could be also chills. The patient is COVID positive pneumonia, is admitted for hypoxia due to COVID positive pneumonia, also had 2 episodes of seizure. The patient is on pressors, is going to be admitted to the ICU, however, the patient is still in the ER since there are no ICU beds. Cannot get any history from the patient. PAST MEDICAL HISTORY: COVID positive pneumonia, GERD, and seizure. PAST SURGICAL HISTORY: None known. ALLERGIES: None known. MEDICATIONS: Protonix 40 mg daily. FAMILY HISTORY: Noncontributory. SOCIAL HISTORY: No history of alcohol or illicit drugs. Has a history of smoking. Comes from a correction. REVIEW OF SYSTEMS: Again, unable to obtain, poor historian. PHYSICAL EXAMINATION: VITAL SIGNS: Temperature 97.2, pulse 78, blood pressure was 98/70. HEENT: PERRLA. CHEST: Bibasilar rhonchi. CARDIOVASCULAR: Non-tachycardic. GASTROINTESTINAL: Soft, nontender, nondistended. No organomegaly. EXTREMITIES: No edema. NEUROLOGICAL: Has generalized weakness. Cannot follow the neurological commands. ASSESSMENT AND PLAN: COVID positive pneumonia, the patient is on pressors, septic shock, pneumonia, hypoxia, possible seizures versus chills. I have consulted , Dr. Narendra Garcia, Dr. Martinez to help with the above-mentioned abnormal findings and abnormalities. Antibiotics per Dr. Palmer, who has also been consulted. Follow the patient closely and Dr. Clark has also been consulted for fluid management and septic shock management and the patient is very ill. Zain Mares M.D. DR: PIERRE JOB#: [id number] CC:
[2020-04-28] VITALS (26 sets, daily range): BP systolic 88–130; BP diastolic 55–77
[2020-04-28] MEDS: DOPamine 400mg/250ml 250 ML IV SCH (00:20)
[2020-04-28] MEDS: Docusate 100mg cap ORAL SCH ×3 (08:27→20:47)
[2020-04-28] MEDS: dexAMETHasone 10mg/ml Inj IV SCH (09:46)
[2020-04-28] MEDS: levETIRAcetam 500mg/5ml Liquid ORAL SCH (09:46)
--- NOTE | 2020-04-28 10:53 | Infectious Diseases Prog Note ---
Assessment/Plan Assessment/Plan IMPRESSION: Sepsis with septic shock, pneumonia with COVID19 Hypoxemia COPD, Seizure disorder, Lactic acidosis, Encephalopathy. RECOMMENDATIONS: Continue ceftriaxone & Dexamethasone. Add Azithromycin We will follow up the culture. Case was D/W pharmacy Remdesivir is not available now Subjective ROS Limited/Unobtainable: Yes Respiratory: Reports: dry cough Cardiovascular: Reports: other - hypotesnsine on Dopamine Allergies: Coded Allergies: No Known Allergies (Unverified , 04/14/20) Objective Last 24 Hour Vital Signs Date Time Temp Pulse Resp B/P (MAP) Pulse Ox O2 Delivery O2 Flow Rate FiO2 04/28/20 07:50 98.9 68 30 112/80 99 Nasal Cannula 4.0 04/28/20 07:25 96/61 04/28/20 06:00 98.0 72 22 128/70 98 Nasal Cannula 4.0 94 04/28/20 05:00 98.0 76 20 121/72 97 Nasal Cannula 4.0 94 04/28/20 04:00 98.0 82 24 112/67 96 Nasal Cannula 4.0 94 04/28/20 03:00 98.2 68 21 127/73 99 Nasal Cannula 4.0 94 04/28/20 02:00 98.3 72 22 123/75 99 Nasal Cannula 4.0 94 04/28/20 01:00 98.1 71 21 128/75 98 Nasal Cannula 4.0 94 04/28/20 00:20 80/55 04/28/20 00:00 98.0 70 23 124/68 98 Nasal Cannula 4.0 94 04/27/20 23:00 98.4 71 23 128/77 99 Nasal Cannula 4.0 94 04/27/20 22:27 78/55 04/27/20 22:00 98.4 73 24 123/77 99 Nasal Cannula 4.0 94 04/27/20 21:00 98.4 71 21 128/75 98 Nasal Cannula 4.0 94 04/27/20 20:00 98.4 74 25 121/73 97 Nasal Cannula 4.0 94 04/27/20 19:00 98.6 75 20 125/76 98 Nasal Cannula 4.0 04/27/20 19:00 125/76 04/27/20 18:00 128/73 04/27/20 18:00 98.2 86 16 128/73 99 Nasal Cannula 4.0 04/27/20 17:00 127/75 04/27/20 17:00 97.9 75 18 127/75 96 Nasal Cannula 4.0 04/27/20 16:00 98.2 85 16 127/80 99 Nasal Cannula 4.0 04/27/20 16:00 127/80 04/27/20 15:00 97.5 73 20 118/68 100 Nasal Cannula 4.0 04/27/20 15:00 118/68 04/27/20 14:00 97.5 82 16 124/70 97 Nasal Cannula 4.0 04/27/20 14:00 124/70 04/27/20 13:00 97.5 67 20 114/79 100 Nasal Cannula 4.0 04/27/20 13:00 114/79 04/27/20 12:00 97.5 80 19 134/77 97 Nasal Cannula 4.0 04/27/20 12:00 134/77 04/27/20 11:00 122/68 04/27/20 11:00 77 18 122/68 100 Nasal Cannula 4.0 Height (Feet): 5 Height (Inches): 8.00 Weight (Pounds): 130 HEENT: mucous membranes moist Respiratory/Chest: other - oxygen by nasal cannula Abdomen: soft, non tender Extremities: no edema Neurologic/Psychiatric: alert, responsive Microbiology Date/Time Source Procedure Growth Status 04/26/20 15:30 Nasopharynx Coronavirus COVID-19 PCR ([facility]) - Final Complete Laboratory Tests Test 04/27/20 16:00 04/28/20 04:54 04/28/20 07:23 White Blood Count 15.7 K/UL (4.8-10.8) H Red Blood Count 4.35 M/UL (4.70-6.10) L Hemoglobin 12.9 G/DL (14.2-18.0) L Hematocrit 38.1 % (42.0-52.0) L Mean Corpuscular Volume 88 FL (80-99) Mean Corpuscular Hemoglobin 29.7 PG (27.0-31.0) Mean Corpuscular Hemoglobin Concent 33.9 G/DL (32.0-36.0) Red Cell Distribution Width 13.7 % (11.6-14.8) Platelet Count 878 K/UL (150-450) H Mean Platelet Volume 5.8 FL (6.5-10.1) L Neutrophils (%) (Auto) 91.0 % (45.0-75.0) H Lymphocytes (%) (Auto) 5.9 % (20.0-45.0) L Monocytes (%) (Auto) 2.5 % (1.0-10.0) Eosinophils (%) (Auto) 0.0 % (0.0-3.0) Basophils (%) (Auto) 0.6 % (0.0-2.0) Sodium Level 141 MMOL/L (136-145) Potassium Level 3.7 MMOL/L (3.5-5.1) Chloride Level 104 MMOL/L (98-107) Carbon Dioxide Level 27 MMOL/L (21-32) Anion Gap 10 mmol/L (5-15) Blood Urea Nitrogen 9 mg/dL (7-18) Creatinine 0.4 MG/DL (0.55-1.30) #L Estimat Glomerular Filtration Rate > 60 mL/min (>60) Glucose Level 149 MG/DL (74-106) H Uric Acid 2.5 MG/DL (2.6-7.2) L Calcium Level 8.7 MG/DL (8.5-10.1) Phosphorus Level 2.1 MG/DL (2.5-4.9) L Magnesium Level 2.2 MG/DL (1.8-2.4) Total Bilirubin 1.1 MG/DL (0.2-1.0) H Direct Bilirubin 0.0 MG/DL (0.0-0.3) Aspartate Amino Transf (AST/SGOT) 45 U/L (15-37) H Alanine Aminotransferase (ALT/SGPT) 22 U/L (12-78) Alkaline Phosphatase 78 U/L (46-116) Total Protein 7.5 G/DL (6.4-8.2) Albumin 2.5 G/DL (3.4-5.0) L Globulin 5.0 g/dL Albumin/Globulin Ratio 0.5 (1.0-2.7) L Thyroid Stimulating Hormone (TSH) 0.234 uiU/mL (0.358-3.740) Troponin I 0.001 ng/mL (0.000-0.056) POC Whole Blood Glucose 165 MG/DL (74-106) H Current Medications Medications (Trade) Dose Ordered Sig/[place] Route PRN Reason Start Time Stop Time Status Last Admin Dose Admin Acetaminophen (Tylenol) 500 mg Q4HR PRN ORAL Pain Scale (3-5) 04/27/20 00:15 05/27/20 00:14 Barium Sulfate (Varibar Honey) 250 ml NOW PRN MC RAD 04/27/20 15:00 04/30/20 14:50 Barium Sulfate (Varibar [place]) 240 ml NOW PRN MC RAD 04/27/20 15:00 04/30/20 14:50 Barium Sulfate (Varibar Pudding) 230 ml NOW PRN MC RAD 04/27/20 15:00 04/30/20 14:50 Barium Sulfate (Varibar Thin Liquid powder) 148 gm NOW PRN MC RAD 04/27/20 15:00 04/30/20 14:50 Ceftriaxone Sodium 1 gm/ Dextrose 55 ml @ 110 mls/hr Q24H IVPB 04/28/20 10:45 05/05/20 10:44 UNV Dexamethasone Sodium Phosphate (Decadron 10mg/ ml Inj) 6 mg DAILY IV 04/28/20 09:00 05/06/20 09:01 04/28/20 09:46 Docusate Sodium (Colace) 100 mg Q12HR ORAL 04/27/20 21:00 05/27/20 20:59 Dopamine HCl/ Dextrose 250 ml @ 0 mls/hr Q24H IV 04/27/20 05:00 04/30/20 04:59 04/28/20 00:20 Levetiracetam (Keppra) 500 mg Q12HR ORAL 04/27/20 21:00 05/27/20 20:59 04/28/20 09:46 Pantoprazole (Protonix) 40 mg DAILY ORAL 04/27/20 11:30 05/27/20 11:29 04/27/20 11:33 Narendra Garcia MD Apr 28, 2020 10:53
--- NOTE | 2020-04-28 11:09 | Pulmonology Progress Note ---
Subjective ROS Limited/Unobtainable: Yes Interval Events: Awake and responsive Constitutional: Reports: no symptoms HEENT: Repors: no symptoms Respiratory: Reports: no symptoms Cardiovascular: Reports: no symptoms Gastrointestinal/Abdominal: Reports: no symptoms Genitourinary: Reports: no symptoms Neurologic: Reports: no symptoms Allergies: Coded Allergies: No Known Allergies (Unverified , 04/14/20) Objective Last 24 Hour Vital Signs Date Time Temp Pulse Resp B/P (MAP) Pulse Ox O2 Delivery O2 Flow Rate FiO2 04/28/20 07:50 98.9 68 30 112/80 99 Nasal Cannula 4.0 04/28/20 07:25 96/61 04/28/20 06:00 98.0 72 22 128/70 98 Nasal Cannula 4.0 94 04/28/20 05:00 98.0 76 20 121/72 97 Nasal Cannula 4.0 94 04/28/20 04:00 98.0 82 24 112/67 96 Nasal Cannula 4.0 94 04/28/20 03:00 98.2 68 21 127/73 99 Nasal Cannula 4.0 94 04/28/20 02:00 98.3 72 22 123/75 99 Nasal Cannula 4.0 94 04/28/20 01:00 98.1 71 21 128/75 98 Nasal Cannula 4.0 94 04/28/20 00:20 80/55 04/28/20 00:00 98.0 70 23 124/68 98 Nasal Cannula 4.0 94 04/27/20 23:00 98.4 71 23 128/77 99 Nasal Cannula 4.0 94 04/27/20 22:27 78/55 04/27/20 22:00 98.4 73 24 123/77 99 Nasal Cannula 4.0 94 04/27/20 21:00 98.4 71 21 128/75 98 Nasal Cannula 4.0 94 04/27/20 20:00 98.4 74 25 121/73 97 Nasal Cannula 4.0 94 04/27/20 19:00 98.6 75 20 125/76 98 Nasal Cannula 4.0 04/27/20 19:00 125/76 04/27/20 18:00 128/73 04/27/20 18:00 98.2 86 16 128/73 99 Nasal Cannula 4.0 04/27/20 17:00 127/75 12/15/20 17:00 97.9 75 18 127/75 96 Nasal Cannula 4.0 04/27/20 16:00 98.2 85 16 127/80 99 Nasal Cannula 4.0 04/27/20 16:00 127/80 04/27/20 15:00 97.5 73 20 118/68 100 Nasal Cannula 4.0 04/27/20 15:00 118/68 04/27/20 14:00 97.5 82 16 124/70 97 Nasal Cannula 4.0 04/27/20 14:00 124/70 04/27/20 13:00 97.5 67 20 114/79 100 Nasal Cannula 4.0 04/27/20 13:00 114/79 04/27/20 12:00 97.5 80 19 134/77 97 Nasal Cannula 4.0 04/27/20 12:00 134/77 Intake and Output 04/27/20 04/28/20 19:00 07:00 Intake Total 55 ml Balance 55 ml IV Total 55 ml General Appearance: no acute distress HEENT: normocephalic Respiratory: chest wall non-tender, lungs clear Cardiovascular: normal peripheral pulses Abdomen: normal bowel sounds Microbiology Date/Time Source Procedure Growth Status 04/26/20 15:30 Nasopharynx Coronavirus COVID-19 PCR ([facility]) - Final Complete Laboratory Tests 04/27/20 16:00: White Blood Count 15.7H, Red Blood Count 4.35L, Hemoglobin 12.9L, Hematocrit 38.1L, Mean Corpuscular Volume 88, Mean Corpuscular Hemoglobin 29.7, Mean Corpuscular Hemoglobin Concent 33.9, Red Cell Distribution Width 13.7, Platelet Count 878H, Mean Platelet Volume 5.8L, Neutrophils (%) (Auto) 91.0H, Lymphocytes (%) (Auto) 5.9L, Monocytes (%) (Auto) 2.5, Eosinophils (%) (Auto) 0.0, Basophils (%) (Auto) 0.6, Sodium Level 141, Potassium Level 3.7, Chloride Level 104, Carbon Dioxide Level 27, Anion Gap 10, Blood Urea Nitrogen 9, Creatinine 0.4#L, Estimat Glomerular Filtration Rate > 60, Glucose Level 149H, Uric Acid 2.5L, Calcium Level 8.7, Phosphorus Level 2.1L, Magnesium Level 2.2, Total Bilirubin 1.1H, Direct Bilirubin 0.0, Aspartate Amino Transf (AST/SGOT) 45H, Alanine Aminotransferase (ALT/SGPT) 22, Alkaline Phosphatase 78, Total Protein 7.5, Albumin 2.5L, Globulin 5.0, Albumin/Globulin Ratio 0.5L, Thyroid Stimulating Hormone (TSH) 0.234L 04/28/20 04:54: Troponin I 0.001 04/28/20 07:23: POC Whole Blood Glucose 165H Current Medications Medications (Trade) Dose Ordered Sig/[place] Route PRN Reason Start Time Stop Time Status Last Admin Dose Admin Acetaminophen (Tylenol) 500 mg Q4HR PRN ORAL Pain Scale (3-5) 04/27/20 00:15 05/27/20 00:14 Azithromycin (Zithromax) 250 mg DAILY ORAL 04/29/20 09:00 05/06/20 08:59 Azithromycin (Zithromax) 500 mg ONCE ORAL 04/28/20 13:00 04/28/20 17:00 Barium Sulfate (Varibar Honey) 250 ml NOW PRN MC RAD 04/27/20 15:00 04/30/20 14:50 Barium Sulfate (Varibar [place]) 240 ml NOW PRN MC RAD 04/27/20 15:00 04/30/20 14:50 Barium Sulfate (Varibar Pudding) 230 ml NOW PRN MC RAD 04/27/20 15:00 04/30/20 14:50 Barium Sulfate (Varibar Thin Liquid powder) 148 gm NOW PRN MC RAD 04/27/20 15:00 04/30/20 14:50 Ceftriaxone Sodium 1 gm/ Dextrose 55 ml @ 110 mls/hr Q24H IVPB 04/28/20 12:00 05/05/20 11:59 Dexamethasone Sodium Phosphate (Decadron 10mg/ ml Inj) 6 mg DAILY IV 04/28/20 09:00 05/06/20 09:01 04/28/20 09:46 Docusate Sodium (Colace) 100 mg Q12HR ORAL 04/27/20 21:00 05/27/20 20:59 Dopamine HCl/ Dextrose 250 ml @ 0 mls/hr Q24H IV 04/27/20 05:00 04/30/20 04:59 04/28/20 00:20 Levetiracetam (Keppra) 500 mg Q12HR ORAL 04/27/20 21:00 05/27/20 20:59 04/28/20 09:46 Pantoprazole (Protonix) 40 mg DAILY ORAL 04/27/20 11:30 05/27/20 11:29 04/27/20 11:33 Assessment/Plan Assessment/Plan IMPRESSION: 1. COVID-19 pneumonia diagnosed approximately on 04/14/2020. 2. Seizure disorder. 3. Hypotension. DISCUSSION: Agree with admission and care. The patient will benefit from antiepileptics, which he has been started on. He has received fluid boluses and has received dopamine. A central line has also been placed. The patient will be placed in ICU for ongoing hypotension, which over time has improved. I will follow carefully. The etiology of hypotension is unclear. Appropriate to start steroids and broad-spectrum antibiotics. Kaushal Theodore Omar Syed MD Apr 28, 2020 11:09
[2020-04-28 12:21] LABS: HEMATOCRIT 40.8 % (42.0-52.0); HEMOGLOBIN 13.8 G/DL (14.2-18.0); MEAN CORPUSCULAR VOLUME 89 FL (80-99); PLATELET COUNT 842 K/UL (150-450); RED BLOOD COUNT 4.59 M/UL (4.70-6.10); RED CELL DISTRIBUTION WIDTH 13.9 % (11.6-14.8); WHITE BLOOD COUNT 18.4 K/UL (4.8-10.8)
[2020-04-28] MEDS: cefTRIAXone 1 GM in D5W 55 ML IVPB SCH (12:22)
[2020-04-28 12:26] LABS: ALANINE AMINOTRANSFERASE 17 U/L (12-78); ALBUMIN 2.4 G/DL (3.4-5.0); ALBUMIN/GLOBULIN RATIO 0.5 (1.0-2.7); ALKALINE PHOSPHATASE 80 U/L (46-116); ANION GAP 10 mmol/L (5-15); ASPARTATE AMINO TRANSFERASE 23 U/L (15-37); BILIRUBIN,TOTAL 0.7 MG/DL (0.2-1.0); BLOOD UREA NITROGEN 16 mg/dL (7-18); CALCIUM 8.7 MG/DL (8.5-10.1); CARBON DIOXIDE 30 MMOL/L (21-32); CHLORIDE 102 MMOL/L (98-107); CREATININE 0.7 MG/DL (0.55-1.30); POTASSIUM 3.2 MMOL/L (3.5-5.1); SODIUM 142 MMOL/L (136-145)
--- NOTE | 2020-04-28 12:49 | Cardiac Electrophysiology PN ---
Assessment/Plan Assessment/Plan 1.Septic shock. The patient is already on dopamine through a central line. The patient is also already on IV antibiotic. ECho Nl EF 2. COVID pneumonia, on dexamethasone and ceftriaxone and 4 liter NC. 3. Seizure disorder and altered level of consciousness. The patient is on Keppra. 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 Subjective In Covid isolation on 4 liter NC and Dopamine 6 mcg an Abx Objective Last 24 Hour Vital Signs Date Time Temp Pulse Resp B/P (MAP) Pulse Ox O2 Delivery O2 Flow Rate FiO2 04/28/20 07:50 98.9 68 30 112/80 99 Nasal Cannula 4.0 04/28/20 07:25 96/61 04/28/20 06:00 98.0 72 22 128/70 98 Nasal Cannula 4.0 94 04/28/20 05:00 98.0 76 20 121/72 97 Nasal Cannula 4.0 94 04/28/20 04:00 98.0 82 24 112/67 96 Nasal Cannula 4.0 94 04/28/20 03:00 98.2 68 21 127/73 99 Nasal Cannula 4.0 94 04/28/20 02:00 98.3 72 22 123/75 99 Nasal Cannula 4.0 94 04/28/20 01:00 98.1 71 21 128/75 98 Nasal Cannula 4.0 94 04/28/20 00:20 80/55 04/28/20 00:00 98.0 70 23 124/68 98 Nasal Cannula 4.0 94 04/27/20 23:00 98.4 71 23 128/77 99 Nasal Cannula 4.0 94 04/27/20 22:27 78/55 04/27/20 22:00 98.4 73 24 123/77 99 Nasal Cannula 4.0 94 04/27/20 21:00 98.4 71 21 128/75 98 Nasal Cannula 4.0 94 04/27/20 20:00 98.4 74 25 121/73 97 Nasal Cannula 4.0 94 04/27/20 19:00 98.6 75 20 125/76 98 Nasal Cannula 4.0 04/27/20 19:00 125/76 04/27/20 18:00 128/73 04/27/20 18:00 98.2 86 16 128/73 99 Nasal Cannula 4.0 04/27/20 17:00 127/75 04/27/20 17:00 97.9 75 18 127/75 96 Nasal Cannula 4.0 04/27/20 16:00 98.2 85 16 127/80 99 Nasal Cannula 4.0 04/27/20 16:00 127/80 04/27/20 15:00 97.5 73 20 118/68 100 Nasal Cannula 4.0 04/27/20 15:00 118/68 04/27/20 14:00 97.5 82 16 124/70 97 Nasal Cannula 4.0 04/27/20 14:00 124/70 04/27/20 13:00 97.5 67 20 114/79 100 Nasal Cannula 4.0 04/27/20 13:00 114/79 Intake and Output 04/27/20 04/28/20 19:00 07:00 Intake Total 55 ml Balance 55 ml IV Total 55 ml Laboratory Tests Test 04/27/20 16:00 04/28/20 04:54 04/28/20 07:23 White Blood Count 15.7 K/UL (4.8-10.8) H 18.4 K/UL (4.8-10.8) H Red Blood Count 4.35 M/UL (4.70-6.10) L 4.59 M/UL (4.70-6.10) L Hemoglobin 12.9 G/DL (14.2-18.0) L 13.8 G/DL (14.2-18.0) L Hematocrit 38.1 % (42.0-52.0) L 40.8 % (42.0-52.0) L Mean Corpuscular Volume 88 FL (80-99) 89 FL (80-99) Mean Corpuscular Hemoglobin 29.7 PG (27.0-31.0) 30.0 PG (27.0-31.0) Mean Corpuscular Hemoglobin Concent 33.9 G/DL (32.0-36.0) 33.8 G/DL (32.0-36.0) Red Cell Distribution Width 13.7 % (11.6-14.8) 13.9 % (11.6-14.8) Platelet Count 878 K/UL (150-450) H 842 K/UL (150-450) H Mean Platelet Volume 5.8 FL (6.5-10.1) L 4.7 FL (6.5-10.1) L Neutrophils (%) (Auto) 91.0 % (45.0-75.0) H % (45.0-75.0) Lymphocytes (%) (Auto) 5.9 % (20.0-45.0) L % (20.0-45.0) Monocytes (%) (Auto) 2.5 % (1.0-10.0) % (1.0-10.0) Eosinophils (%) (Auto) 0.0 % (0.0-3.0) % (0.0-3.0) Basophils (%) (Auto) 0.6 % (0.0-2.0) % (0.0-2.0) Sodium Level 141 MMOL/L (136-145) 142 MMOL/L (136-145) Potassium Level 3.7 MMOL/L (3.5-5.1) 3.2 MMOL/L (3.5-5.1) L Chloride Level 104 MMOL/L (98-107) 102 MMOL/L (98-107) Carbon Dioxide Level 27 MMOL/L (21-32) 30 MMOL/L (21-32) Anion Gap 10 mmol/L (5-15) 10 mmol/L (5-15) Blood Urea Nitrogen 9 mg/dL (7-18) 16 mg/dL (7-18) Creatinine 0.4 MG/DL (0.55-1.30) #L 0.7 MG/DL (0.55-1.30) # Estimat Glomerular Filtration Rate > 60 mL/min (>60) > 60 mL/min (>60) Glucose Level 149 MG/DL (74-106) H 160 MG/DL (74-106) H Uric Acid 2.5 MG/DL (2.6-7.2) L Calcium Level 8.7 MG/DL (8.5-10.1) 8.7 MG/DL (8.5-10.1) Phosphorus Level 2.1 MG/DL (2.5-4.9) L Magnesium Level 2.2 MG/DL (1.8-2.4) Total Bilirubin 1.1 MG/DL (0.2-1.0) H 0.7 MG/DL (0.2-1.0) Direct Bilirubin 0.0 MG/DL (0.0-0.3) Aspartate Amino Transf (AST/SGOT) 45 U/L (15-37) H 23 U/L (15-37) Alanine Aminotransferase (ALT/SGPT) 22 U/L (12-78) 17 U/L (12-78) Alkaline Phosphatase 78 U/L (46-116) 80 U/L (46-116) Total Protein 7.5 G/DL (6.4-8.2) 7.4 G/DL (6.4-8.2) Albumin 2.5 G/DL (3.4-5.0) L 2.4 G/DL (3.4-5.0) L Globulin 5.0 g/dL 5.0 g/dL Albumin/Globulin Ratio 0.5 (1.0-2.7) L 0.5 (1.0-2.7) L Thyroid Stimulating Hormone (TSH) 0.234 uiU/mL (0.358-3.740) Neutrophils % (Manual) Pending Lymphocytes % (Manual) Pending Platelet Estimate Pending Platelet Morphology Pending Troponin I 0.001 ng/mL (0.000-0.056) POC Whole Blood Glucose 165 MG/DL (74-106) H Microbiology Date/Time Source Procedure Growth Status 04/26/20 15:30 Nasopharynx Coronavirus COVID-19 PCR ([facility]) - Final Complete Objective HEAD AND NECK: No JVD. LUNGS: Coarse rhonchi. CARDIOVASCULAR: Regular S1 and S2. Mildly tachycardic. ABDOMEN: Soft. EXTREMITIES: 1+ pitting edema. Shady Sorto MD Apr 28, 2020 12:49
[2020-04-28] MEDS ORDERED: Azithromycin 250mg tab ORAL SCH (13:00)
[2020-04-28] MEDS: D5NS 1,000 ML IV SCH (15:30)
--- NOTE | 2020-04-28 15:43 | Nephrology Progress Note ---
Assessment/Plan Problem List: (1) Septic shock (2) Acute febrile illness (3) Suspected 2019 novel coronavirus infection (4) Seizure disorder (5) Electrolyte imbalance Assessment Acute febrile illness most likely [place] virus infection Hypotension ( Shock) ,on dopamine Seizure disorder Plan April 28: Keppra changed to IV. POA is held until speech therapy evaluation. Potassium phosphate IV. Ordered. Discussed with Beth ENG. Remains stable from renal standpoint of view. Albumin 5% 500 cc challenge ordered. Fluid challenge Monitor renal parameters Monitor electrolytes Per consultants Per orders Subjective ROS Limited/Unobtainable: No Constitutional: Reports: malaise Objective Objective Last 24 Hour Vital Signs Date Time Temp Pulse Resp B/P (MAP) Pulse Ox O2 Delivery O2 Flow Rate FiO2 04/28/20 14:00 75 14 88/55 (66) 94 04/28/20 13:45 72 15 90/56 (67) 93 04/28/20 13:30 73 10 110/67 (81) 94 04/28/20 13:15 74 15 115/75 (88) 92 04/28/20 13:00 74 20 130/75 (93) 95 04/28/20 12:00 71 04/28/20 12:00 Nasal Cannula 4.0 04/28/20 12:00 98.6 74 20 126/76 (93) 94 04/28/20 11:00 72 18 125/72 (89) 94 04/28/20 10:00 69 19 113/69 (84) 92 04/28/20 09:00 71 22 127/77 (94) 93 04/28/20 09:00 Nasal Cannula 4.0 04/28/20 08:04 98.0 92 32 112/56 (74) 84 04/28/20 07:50 98.9 68 30 112/80 99 Nasal Cannula 4.0 04/28/20 07:25 96/61 04/28/20 06:00 98.0 72 22 128/70 98 Nasal Cannula 4.0 94 04/28/20 05:00 98.0 76 20 121/72 97 Nasal Cannula 4.0 94 04/28/20 04:00 98.0 82 24 112/67 96 Nasal Cannula 4.0 94 04/28/20 03:00 98.2 68 21 127/73 99 Nasal Cannula 4.0 94 04/28/20 02:00 98.3 72 22 123/75 99 Nasal Cannula 4.0 94 04/28/20 01:00 98.1 71 21 128/75 98 Nasal Cannula 4.0 94 04/28/20 00:20 80/55 04/28/20 00:00 98.0 70 23 124/68 98 Nasal Cannula 4.0 94 04/27/20 23:00 98.4 71 23 128/77 99 Nasal Cannula 4.0 94 04/27/20 22:27 78/55 04/27/20 22:00 98.4 73 24 123/77 99 Nasal Cannula 4.0 94 04/27/20 21:00 98.4 71 21 128/75 98 Nasal Cannula 4.0 94 04/27/20 20:00 98.4 74 25 121/73 97 Nasal Cannula 4.0 94 04/27/20 19:00 98.6 75 20 125/76 98 Nasal Cannula 4.0 04/27/20 19:00 125/76 04/27/20 18:00 128/73 04/27/20 18:00 98.2 86 16 128/73 99 Nasal Cannula 4.0 04/27/20 17:00 127/75 04/27/20 17:00 97.9 75 18 127/75 96 Nasal Cannula 4.0 04/27/20 16:00 98.2 85 16 127/80 99 Nasal Cannula 4.0 04/27/20 16:00 127/80 Intake and Output 04/27/20 04/28/20 19:00 07:00 Intake Total 55 ml Balance 55 ml IV Total 55 ml Current Medications Medications (Trade) Dose Ordered Sig/[place] Route PRN Reason Start Time Stop Time Status Last Admin Dose Admin Acetaminophen (Tylenol) 500 mg Q4HR PRN ORAL Pain Scale (3-5) 04/27/20 00:15 05/27/20 00:14 Azithromycin (Zithromax) 250 mg DAILY ORAL 04/29/20 09:00 05/06/20 08:59 Azithromycin (Zithromax) 500 mg ONCE ORAL 04/28/20 13:00 04/28/20 17:00 Barium Sulfate (Varibar Honey) 250 ml NOW PRN MC RAD 04/27/20 15:00 04/30/20 14:50 Barium Sulfate (Varibar [place]) 240 ml NOW PRN MC RAD 04/27/20 15:00 12/18/20 14:50 Barium Sulfate (Varibar Pudding) 230 ml NOW PRN RAD 04/27/20 15:00 04/30/20 14:50 Barium Sulfate (Varibar Thin Liquid powder) 148 gm NOW PRN RAD 04/27/20 15:00 04/30/20 14:50 Ceftriaxone Sodium 1 gm/ Dextrose 55 ml @ 110 mls/hr Q24H IVPB 04/28/20 12:00 05/05/20 11:59 04/28/20 12:22 Dexamethasone Sodium Phosphate (Decadron 10mg/ ml Inj) 6 mg DAILY IV 04/28/20 09:00 05/06/20 09:01 04/28/20 09:46 Dextrose/Sodium Chloride 1,000 ml @ 75 mls/hr [id number] IV 04/28/20 15:15 05/28/20 15:14 04/28/20 15:30 Docusate Sodium (Colace) 100 mg Q12HR ORAL 04/27/20 21:00 05/27/20 20:59 Dopamine HCl/ Dextrose 250 ml @ 0 mls/hr Q24H IV 04/27/20 05:00 04/30/20 04:59 04/28/20 00:20 Levetiracetam (Keppra) 500 mg Q12HR ORAL 04/27/20 21:00 05/27/20 20:59 04/28/20 09:46 Pantoprazole (Protonix) 40 mg DAILY ORAL 04/27/20 11:30 05/27/20 11:29 04/27/20 11:33 Laboratory Tests 04/27/20 16:00: White Blood Count 15.7H, Red Blood Count 4.35L, Hemoglobin 12.9L, Hematocrit 38.1L, Mean Corpuscular Volume 88, Mean Corpuscular Hemoglobin 29.7, Mean C orpuscular Hemoglobin Concent 33.9, Red Cell Distribution Width 13.7, Platelet Count 878H, Mean Platelet Volume 5.8L, Neutrophils (%) (Auto) 91.0H, Lymphocytes (%) (Auto) 5.9L, Monocytes (%) (Auto) 2.5, Eosinophils (%) (Auto) 0.0, Basophils (%) (Auto) 0.6, Sodium Level 141, Potassium Level 3.7, Chloride Level 104, Carbon Dioxide Level 27, Anion Gap 10, Blood Urea Nitrogen 9, Creatinine 0.4#L, Estimat Glomerular Filtration Rate > 60, Glucose Level 149H, Uric Acid 2.5L, Calcium Level 8.7, Phosphorus Level 2.1L, Magnesium Level 2.2, Total Bilirubin 1.1H, Direct Bilirubin 0.0, Aspartate Amino Transf (AST/SGOT) 45H, Alanine Aminotransferase (ALT/SGPT) 22, Alkaline Phosphatase 78, Total Protein 7.5, Albumin 2.5L, Globulin 5.0, Albumin/Globulin Ratio 0.5L, Thyroid Stimulating Hormone (TSH) 0.234L 04/28/20 04:54: White Blood Count 18.4H, Red Blood Count 4.59L, Hemoglobin 13.8L, Hematocrit 40.8L, Mean Corpuscular Volume 89, Mean Corpuscular Hemoglobin 30.0, Mean Corpuscular Hemoglobin Concent 33.8, Red Cell Distribution Width 13.9, Platelet Count 842H, Mean Platelet Volume 4.7L, Neutrophils (%) (Auto) , Lymphocytes (%) (Auto) , Monocytes (%) (Auto) , Eosinophils (%) (Auto) , Basophils (%) (Auto) , Sodium Level 142, Potassium Level 3.2L, Chloride Level 102, Carbon Dioxide Level 30, Anion Gap 10, Blood Urea Nitrogen 16, Creatinine 0.7#, Estimat Glomerular Filtration Rate > 60, Glucose Level 160H, Calcium Level 8.7, Total Bilirubin 0.7, Aspartate Amino Transf (AST/SGOT) 23, Alanine Aminotransferase (ALT/SGPT) 17, Alkaline Phosphatase 80, Total Protein 7.4, Albumin 2.4L, Globulin 5.0, Albumin/Globulin Ratio 0.5L, Differential Total Cells Counted 100, Neutrophils % (Manual) 86H, Lymphocytes % (Manual) 8L, Monocytes % (Manual) 6, Eosinophils % (Manual) 0, Basophils % (Manual) 0, Band Neutrophils 0, Platelet Estimate IncreasedH, Platelet Morphology Normal, Red Blood Cell Morphology Normal, Troponin I 0.001 04/28/20 07:23: POC Whole Blood Glucose 165H Height (Feet): 5 Height (Inches): 8.00 Weight (Pounds): 130 General Appearance: lethargic Cardiovascular: normal rate Respiratory/Chest: decreased breath sounds Abdomen: distended Abhilash Clark MD Apr 28, 2020 15:43
[2020-04-28] MEDS ORDERED: levETIRAcetam 500mg/NS100ml 100 ML IVPB SCH (15:44)
[2020-04-28] MEDS ORDERED: Potassium Phosphate 20 MM in NS 275 ML IV ONE (17:00)
[2020-04-28] MEDS: levETIRAcetam 500mg/NS100ml 100 ML IVPB SCH (20:38)
--- NOTE | 2020-04-28 21:36 | General Progress Note ---
Subjective ROS Limited/Unobtainable: Yes Allergies: Coded Allergies: No Known Allergies (Unverified , 04/14/20) Objective Last 24 Hour Vital Signs Date Time Temp Pulse Resp B/P (MAP) Pulse Ox O2 Delivery O2 Flow Rate FiO2 04/28/20 19:00 72 8 109/63 (78) 97 04/28/20 18:15 112/68 04/28/20 18:00 116/68 04/28/20 18:00 77 14 112/68 (83) 98 04/28/20 17:00 117/68 04/28/20 17:00 74 14 121/70 (87) 100 04/28/20 16:00 78 04/28/20 16:00 98.4 04/28/20 16:00 Nasal Cannula 4.0 04/28/20 16:00 75 19 114/64 (81) 100 04/28/20 16:00 114/64 04/28/20 15:00 76 22 121/70 (87) 100 04/28/20 15:00 104/64 04/28/20 14:00 75 14 88/55 (66) 94 04/28/20 14:00 88/55 04/28/20 13:45 72 15 90/56 (67) 93 04/28/20 13:30 73 10 110/67 (81) 94 04/28/20 13:30 115/75 04/28/20 13:15 74 15 115/75 (88) 92 04/28/20 13:00 74 20 130/75 (93) 95 04/28/20 13:00 130/75 04/28/20 12:00 71 04/28/20 12:00 Nasal Cannula 4.0 04/28/20 12:00 126/76 04/28/20 12:00 98.6 74 20 126/76 (93) 94 04/28/20 11:00 125/72 04/28/20 11:00 72 18 125/72 (89) 94 04/28/20 10:00 69 19 113/69 (84) 92 04/28/20 10:00 113/69 04/28/20 09:00 127/77 04/28/20 09:00 71 22 127/77 (94) 93 04/28/20 09:00 Nasal Cannula 4.0 04/28/20 08:04 98.0 92 32 112/56 (74) 84 04/28/20 08:00 189/86 04/28/20 07:50 98.9 68 30 112/80 99 Nasal Cannula 4.0 04/28/20 07:25 96/61 04/28/20 06:00 98.0 72 22 128/70 98 Nasal Cannula 4.0 94 04/28/20 05:00 98.0 76 20 121/72 97 Nasal Cannula 4.0 94 04/28/20 04:00 98.0 82 24 112/67 96 Nasal Cannula 4.0 94 04/28/20 03:00 98.2 68 21 127/73 99 Nasal Cannula 4.0 94 04/28/20 02:00 98.3 72 22 123/75 99 Nasal Cannula 4.0 94 04/28/20 01:00 98.1 71 21 128/75 98 Nasal Cannula 4.0 94 04/28/20 00:20 80/55 04/28/20 00:00 98.0 70 23 124/68 98 Nasal Cannula 4.0 94 04/27/20 23:00 98.4 71 23 128/77 99 Nasal Cannula 4.0 94 04/27/20 22:27 78/55 04/27/20 22:00 98.4 73 24 123/77 99 Nasal Cannula 4.0 94 Intake and Output 04/27/20 04/28/20 19:00 07:00 Intake Total 55 ml Balance 55 ml IV Total 55 ml Laboratory Tests 04/28/20 04:54: White Blood Count 18.4H, Red Blood Count 4.59L, Hemoglobin 13.8L, Hematocrit 40.8L, Mean Corpuscular Volume 89, Mean Corpuscular Hemoglobin 30.0, Mean Corpuscular Hemoglobin Concent 33.8, Red Cell Distribution Width 13.9, Platelet Count 842H, Mean Platelet Volume 4.7L, Neutrophils (%) (Auto) , Lymphocytes (%) (Auto) , Monocytes (%) (Auto) , Eosinophils (%) (Auto) , Basophils (%) (Auto) , Differential Total Cells Counted 100, Neutrophils % (Manual) 86H, Lymphocytes % (Manual) 8L, Monocytes % (Manual) 6, Eosinophils % (Manual) 0, Basophils % (Manual) 0, Band Neutrophils 0, Platelet Estimate IncreasedH, Platelet Morphology Normal, Red Blood Cell Morphology Normal, Sodium Level 142, Potassium Level 3.2L, Chloride Level 102, Carbon Dioxide Level 30, Anion Gap 10, Blood Urea Nitrogen 16, Creatinine 0.7#, Estimat Glomerular Filtration Rate > 60, Glucose Level 160H, Calcium Level 8.7, Total Bilirubin 0.7, Aspartate Amino Transf (AST/SGOT) 23, Alanine Aminotransferase (ALT/SGPT) 17, Alkaline Phosphatase 80, Troponin I 0.001, Total Protein 7.4, Albumin 2.4L, Globulin 5.0, Albumin/Globulin Ratio 0.5L 04/28/20 07:23: POC Whole Blood Glucose 165H Height (Feet): 5 Height (Inches): 8.00 Weight (Pounds): 130 Assessment/Plan Problem List: (1) Coronavirus infection ICD Codes: B34.2 - Coronavirus infection, unspecified SNOMED: 156421762 (2) Septic shock ICD Codes: A41.9 - Sepsis, unspecified organism; R65.21 - Severe sepsis with septic shock SNOMED: 38114876 (3) Seizure disorder ICD Codes: G40.909 - Epilepsy, unspecified, not intractable, without status epilepticus SNOMED: 135714247 (4) Electrolyte imbalance ICD Codes: E87.8 - Other disorders of electrolyte and fluid balance, not elsewhere classified SNOMED: 510756351 Status: unchanged Assessment/Plan: covid positive pna resp insuff lyte abnormality septic shock not improving Zain Mares MD Apr 28, 2020 21:36
[2020-04-29] VITALS (25 sets, daily range): BP systolic 87–120; BP diastolic 35–77
[2020-04-29] MEDS: D5NS 1,000 ML IV SCH ×2 (04:35→19:10)
[2020-04-29] MEDS: DOPamine 400mg/250ml 250 ML IV SCH (05:00)
[2020-04-29 05:31] LABS: HEMATOCRIT 33.5 % (42.0-52.0); HEMOGLOBIN 11.4 G/DL (14.2-18.0); MEAN CORPUSCULAR VOLUME 88 FL (80-99); PLATELET COUNT 753 K/UL (150-450); RED BLOOD COUNT 3.79 M/UL (4.70-6.10); RED CELL DISTRIBUTION WIDTH 13.9 % (11.6-14.8)
[2020-04-29 05:41] LABS: ALANINE AMINOTRANSFERASE 18 U/L (12-78); ALBUMIN 2.5 G/DL (3.4-5.0); ALBUMIN/GLOBULIN RATIO 0.7 (1.0-2.7); ALKALINE PHOSPHATASE 69 U/L (46-116); ANION GAP 6 mmol/L (5-15); ASPARTATE AMINO TRANSFERASE 18 U/L (15-37); BILIRUBIN,TOTAL 0.5 MG/DL (0.2-1.0); BLOOD UREA NITROGEN 18 mg/dL (7-18); CALCIUM 7.7 MG/DL (8.5-10.1); CARBON DIOXIDE 29 MMOL/L (21-32); CHLORIDE 109 MMOL/L (98-107); CREATININE 0.7 MG/DL (0.55-1.30); PHOSPHORUS 2.1 MG/DL (2.5-4.9); POTASSIUM 2.9 MMOL/L (3.5-5.1); SODIUM 144 MMOL/L (136-145)
--- NOTE | 2020-04-29 08:00 | Infectious Diseases Prog Note ---
Assessment/Plan Assessment/Plan IMPRESSION: Sepsis with septic shock,resolving pneumonia with COVID19 Hypoxemia COPD, Seizure disorder, Lactic acidosis, Encephalopathy. RECOMMENDATIONS: Continue ceftriaxone & Dexamethasone. Continue Azithromycin We will follow up the culture. Subjective ROS Limited/Unobtainable: Yes Constitutional: Reports: other - doing better Respiratory: Reports: other - has good )2 saturation; Denies: shortness of breath Cardiovascular: Reports: other - off of Dopamine Allergies: Coded Allergies: No Known Allergies (Unverified , 04/14/20) Objective Last 24 Hour Vital Signs Date Time Temp Pulse Resp B/P (MAP) Pulse Ox O2 Delivery O2 Flow Rate FiO2 04/29/20 07:00 58 20 100/56 (71) 99 04/29/20 06:00 61 20 96/52 (67) 99 04/29/20 05:00 60 17 98/56 (70) 97 04/29/20 05:00 108/69 04/29/20 04:45 62 22 93/50 (64) 98 04/29/20 04:00 61 04/29/20 04:00 98.2 61 15 94/60 (71) 98 04/29/20 04:00 Nasal Cannula 4.0 04/29/20 03:00 61 21 93/55 (68) 95 04/29/20 02:00 61 18 97/57 (70) 99 04/29/20 01:00 72 21 97/35 (55) 98 04/29/20 00:00 98.0 63 21 98/57 (71) 98 04/29/20 00:00 63 04/29/20 00:00 Nasal Cannula 4.0 04/28/20 23:00 67 17 99/59 (72) 100 04/28/20 22:00 69 24 100/60 (73) 97 04/28/20 21:00 71 23 105/60 (75) 99 04/28/20 20:00 Nasal Cannula 4.0 04/28/20 20:00 70 04/28/20 20:00 98.2 69 22 108/62 (77) 100 04/28/20 19:00 72 8 109/63 (78) 97 04/28/20 18:15 112/68 04/28/20 18:00 116/68 04/28/20 18:00 77 14 112/68 (83) 98 04/28/20 17:00 117/68 04/28/20 17:00 74 14 121/70 (87) 100 04/28/20 16:00 78 04/28/20 16:00 98.4 04/28/20 16:00 Nasal Cannula 4.0 04/28/20 16:00 75 19 114/64 (81) 100 04/28/20 16:00 114/64 04/28/20 15:00 76 22 121/70 (87) 100 04/28/20 15:00 104/64 04/28/20 14:00 75 14 88/55 (66) 94 04/28/20 14:00 88/55 04/28/20 13:45 72 15 90/56 (67) 93 04/28/20 13:30 73 10 110/67 (81) 94 04/28/20 13:30 115/75 04/28/20 13:15 74 15 115/75 (88) 92 04/28/20 13:00 74 20 130/75 (93) 95 04/28/20 13:00 130/75 04/28/20 12:00 71 04/28/20 12:00 Nasal Cannula 4.0 04/28/20 12:00 126/76 04/28/20 12:00 98.6 74 20 126/76 (93) 94 04/28/20 11:00 125/72 04/28/20 11:00 72 18 125/72 (89) 94 04/28/20 10:00 69 19 113/69 (84) 92 04/28/20 10:00 113/69 04/28/20 09:00 127/77 04/28/20 09:00 71 22 127/77 (94) 93 04/28/20 09:00 Nasal Cannula 4.0 04/28/20 08:04 98.0 92 32 112/56 (74) 84 04/28/20 08:00 189/86 Height (Feet): 5 Height (Inches): 8.00 Weight (Pounds): 130 HEENT: mucous membranes moist Respiratory/Chest: other - oxygen by nasal cannula Cardiovascular: bradycardia Abdomen: soft, non tender Extremities: no edema Neurologic/Psychiatric: alert, responsive Microbiology Date/Time Source Procedure Growth Status 04/26/20 15:45 Blood Blood Culture - Preliminary NO GROWTH AFTER 48 HOURS Resulted 04/26/20 15:30 Nasopharynx Coronavirus COVID-19 PCR ([facility]) - Final Complete 04/26/20 15:30 Blood Blood Culture - Preliminary NO GROWTH AFTER 48 HOURS Resulted Laboratory Tests Test 04/29/20 04:20 White Blood Count 13.0 K/UL (4.8-10.8) H Red Blood Count 3.79 M/UL (4.70-6.10) L Hemoglobin 11.4 G/DL (14.2-18.0) L Hematocrit 33.5 % (42.0-52.0) L Mean Corpuscular Volume 88 FL (80-99) Mean Corpuscular Hemoglobin 30.2 PG (27.0-31.0) Mean Corpuscular Hemoglobin Concent 34.1 G/DL (32.0-36.0) Red Cell Distribution Width 13.9 % (11.6-14.8) Platelet Count 753 K/UL (150-450) H Mean Platelet Volume 5.3 FL (6.5-10.1) L Neutrophils (%) (Auto) % (45.0-75.0) Lymphocytes (%) (Auto) % (20.0-45.0) Monocytes (%) (Auto) % (1.0-10.0) Eosinophils (%) (Auto) % (0.0-3.0) Basophils (%) (Auto) % (0.0-2.0) Sodium Level 144 MMOL/L (136-145) Potassium Level 2.9 MMOL/L (3.5-5.1) L Chloride Level 109 MMOL/L (98-107) H Carbon Dioxide Level 29 MMOL/L (21-32) Anion Gap 6 mmol/L (5-15) Blood Urea Nitrogen 18 mg/dL (7-18) Creatinine 0.7 MG/DL (0.55-1.30) Estimat Glomerular Filtration Rate > 60 mL/min (>60) Glucose Level 147 MG/DL (74-106) H Uric Acid 3.0 MG/DL (2.6-7.2) Calcium Level 7.7 MG/DL (8.5-10.1) L Phosphorus Level 2.1 MG/DL (2.5-4.9) L Magnesium Level 2.2 MG/DL (1.8-2.4) Total Bilirubin 0.5 MG/DL (0.2-1.0) Aspartate Amino Transf (AST/SGOT) 18 U/L (15-37) Alanine Aminotransferase (ALT/SGPT) 18 U/L (12-78) Alkaline Phosphatase 69 U/L (46-116) C-Reactive Protein, Quantitative 8.5 mg/dL (0.00-0.90) H Total Protein 6.1 G/DL (6.4-8.2) L Albumin 2.5 G/DL (3.4-5.0) L Globulin 3.6 g/dL Albumin/Globulin Ratio 0.7 (1.0-2.7) L Current Medications Medications (Trade) Dose Ordered Sig/[place] Route PRN Reason Start Time Stop Time Status Last Admin Dose Admin Acetaminophen (Tylenol) 500 mg Q4HR PRN ORAL Pain Scale (3-5) 04/27/20 00:15 05/27/20 00:14 Azithromycin (Zithromax) 250 mg DAILY ORAL 04/29/20 09:00 05/06/20 08:59 Barium Sulfate (Varibar Honey) 250 ml NOW PRN MC RAD 04/27/20 15:00 04/30/20 14:50 Barium Sulfate (Varibar [place]) 240 ml NOW PRN MC RAD 04/27/20 15:00 04/30/20 14:50 Barium Sulfate (Varibar Pudding) 230 ml NOW PRN MC RAD 04/27/20 15:00 04/30/20 14:50 Barium Sulfate (Varibar Thin Liquid powder) 148 gm NOW PRN MC RAD 04/27/20 15:00 04/30/20 14:50 Ceftriaxone Sodium 1 gm/ Dextrose 55 ml @ 110 mls/hr Q24H IVPB 04/28/20 12:00 05/05/20 11:59 04/28/20 12:22 Chlorhexidine Gluconate (Anjali-Hex 2%) 1 applic DAILY@2000 TOPIC 04/29/20 20:00 07/28/20 19:59 Dexamethasone Sodium Phosphate (Decadron 10mg/ ml Inj) 6 mg DAILY IV 04/28/20 09:00 05/06/20 09:01 04/28/20 09:46 Dextrose/Sodium Chloride 1,000 ml @ 75 mls/hr [id number] IV 04/28/20 15:15 05/28/20 15:14 04/29/20 04:35 Docusate Sodium (Colace) 100 mg Q12HR ORAL 04/27/20 21:00 05/27/20 20:59 Dopamine HCl/ Dextrose 250 ml @ 0 mls/hr Q24H IV 04/27/20 05:00 04/30/20 04:59 04/28/20 00:20 Levetiracetam 100 ml @ 400 mls/hr Q12HR IVPB 04/28/20 21:00 07/27/20 20:59 04/28/20 20:38 Pantoprazole (Protonix) 40 mg DAILY ORAL 04/27/20 11:30 05/27/20 11:29 04/27/20 11:33 Narendra Garcia MD Apr 29, 2020 08:00
[2020-04-29] MEDS ORDERED: Azithromycin 250mg tab ORAL SCH (09:00)
[2020-04-29] MEDS: Docusate 100mg cap ORAL SCH ×2 (09:00→21:00)
[2020-04-29] MEDS: dexAMETHasone 10mg/ml Inj IV SCH (09:50)
[2020-04-29] MEDS: levETIRAcetam 500mg/NS100ml 100 ML IVPB SCH ×2 (09:50→21:17)
[2020-04-29] MEDS: Azithromycin 250 MG in D5W 275 ML IV SCH (09:50)
[2020-04-29] MEDS: cefTRIAXone 1 GM in D5W 55 ML IVPB SCH (11:10)
--- NOTE | 2020-04-29 12:58 | Pulmonology Progress Note ---
Subjective ROS Limited/Unobtainable: Yes Interval Events: Awake and responsive Constitutional: Reports: other - doing better HEENT: Repors: no symptoms Respiratory: Reports: no symptoms Cardiovascular: Reports: no symptoms Gastrointestinal/Abdominal: Reports: no symptoms Genitourinary: Reports: no symptoms Neurologic: Reports: no symptoms Allergies: Coded Allergies: No Known Allergies (Unverified , 04/14/20) Objective Last 24 Hour Vital Signs Date Time Temp Pulse Resp B/P (MAP) Pulse Ox O2 Delivery O2 Flow Rate FiO2 04/29/20 12:00 63 04/29/20 12:00 62 14 103/58 (73) 100 04/29/20 11:00 61 15 109/60 (76) 100 04/29/20 10:00 60 18 104/59 (74) 100 04/29/20 09:00 58 18 104/59 (74) 99 04/29/20 08:00 98.4 61 23 100/56 (71) 99 04/29/20 08:00 Nasal Cannula 2.0 04/29/20 08:00 60 04/29/20 07:00 58 20 100/56 (71) 99 04/29/20 06:00 61 20 96/52 (67) 99 04/29/20 05:00 60 17 98/56 (70) 97 04/29/20 05:00 108/69 04/29/20 04:45 62 22 93/50 (64) 98 04/29/20 04:00 61 04/29/20 04:00 98.2 61 15 94/60 (71) 98 04/29/20 04:00 Nasal Cannula 4.0 04/29/20 03:00 61 21 93/55 (68) 95 04/29/20 02:00 61 18 97/57 (70) 99 04/29/20 01:00 72 21 97/35 (55) 98 04/29/20 00:00 98.0 63 21 98/57 (71) 98 04/29/20 00:00 63 04/29/20 00:00 Nasal Cannula 4.0 04/28/20 23:00 67 17 99/59 (72) 100 04/28/20 22:00 69 24 100/60 (73) 97 04/28/20 21:00 71 23 105/60 (75) 99 04/28/20 20:00 Nasal Cannula 4.0 04/28/20 20:00 70 04/28/20 20:00 98.2 69 22 108/62 (77) 100 04/28/20 19:00 72 8 109/63 (78) 97 04/28/20 18:15 112/68 04/28/20 18:00 116/68 04/28/20 18:00 77 14 112/68 (83) 98 04/28/20 17:00 117/68 04/28/20 17:00 74 14 121/70 (87) 100 04/28/20 16:00 78 04/28/20 16:00 98.4 04/28/20 16:00 Nasal Cannula 4.0 04/28/20 16:00 75 19 114/64 (81) 100 04/28/20 16:00 114/64 04/28/20 15:00 76 22 121/70 (87) 100 04/28/20 15:00 104/64 04/28/20 14:00 75 14 88/55 (66) 94 04/28/20 14:00 88/55 04/28/20 13:45 72 15 90/56 (67) 93 04/28/20 13:30 73 10 110/67 (81) 94 04/28/20 13:30 115/75 04/28/20 13:15 74 15 115/75 (88) 92 04/28/20 13:00 74 20 130/75 (93) 95 04/28/20 13:00 130/75 Intake and Output 04/28/20 04/29/20 19:00 07:00 Intake Total 921.909 ml 825 ml Output Total 75 ml 490 ml Balance 846.909 ml 335 ml IV Total 921.909 ml 825 ml Output Urine Total 75 ml 490 ml # Voids 1 General Appearance: no acute distress HEENT: normocephalic Respiratory: chest wall non-tender, lungs clear Cardiovascular: normal peripheral pulses Abdomen: normal bowel sounds Microbiology Date/Time Source Procedure Growth Status 04/26/20 15:45 Blood Blood Culture - Preliminary NO GROWTH AFTER 48 HOURS Resulted 04/26/20 15:30 Nasopharynx Coronavirus COVID-19 PCR ([facility]) - Final Complete 04/26/20 15:30 Blood Blood Culture - Preliminary NO GROWTH AFTER 48 HOURS Resulted Laboratory Tests 04/29/20 04:20: White Blood Count 13.0H, Red Blood Count 3.79L, Hemoglobin 11.4L, Hematocrit 33.5L, Mean Corpuscular Volume 88, Mean Corpuscular Hemoglobin 30.2, Mean Corpuscular Hemoglobin Concent 34.1, Red Cell Distribution Width 13.9, Platelet Count 753H, Mean Platelet Volume 5.3L, Neutrophils (%) (Auto) , Lymphocytes (%) (Auto) , Monocytes (%) (Auto) , Eosinophils (%) (Auto) , Basophils (%) (Auto) , Sodium Level 144, Potassium Level 2.9L, Chloride Level 109H, Carbon Dioxide Level 29, Anion Gap 6, Blood Urea Nitrogen 18, Creatinine 0.7, Estimat Glomerular Filtration Rate > 60, Glucose Level 147H, Uric Acid 3.0, Calcium Level 7.7L, Phosphorus Level 2.1L, Magnesium Level 2.2, Total Bilirubin 0.5, Aspartate Amino Transf (AST/SGOT) 18, Alanine Aminotransferase (ALT/SGPT) 18, Al kaline Phosphatase 69, C-Reactive Protein, Quantitative 8.5H, Total Protein 6.1L , Albumin 2.5L, Globulin 3.6, Albumin/Globulin Ratio 0.7L Current Medications Medications (Trade) Dose Ordered Sig/[place] Route PRN Reason Start Time Stop Time Status Last Admin Dose Admin Acetaminophen (Tylenol) 500 mg Q4HR PRN ORAL Pain Scale (3-5) 04/27/20 00:15 05/27/20 00:14 Azithromycin 250 mg/Dextrose 275 ml @ 275 mls/hr Q24HRS IV 04/29/20 10:00 05/04/20 09:59 04/29/20 09:50 Barium Sulfate (Varibar Honey) 250 ml NOW PRN MC RAD 04/27/20 15:00 04/30/20 14:50 Barium Sulfate (Varibar [place]) 240 ml NOW PRN RAD 04/27/20 15:00 04/30/20 14:50 Barium Sulfate (Varibar Pudding) 230 ml NOW PRN RAD 04/27/20 15:00 04/30/20 14:50 Barium Sulfate (Varibar Thin Liquid powder) 148 gm NOW PRN RAD 04/27/20 15:00 04/30/20 14:50 Ceftriaxone Sodium 1 gm/ Dextrose 55 ml @ 110 mls/hr Q24H IVPB 04/28/20 12:00 05/05/20 11:59 04/29/20 11:10 Chlorhexidine Gluconate (Anjali-Hex 2%) 1 applic DAILY@2000 TOPIC 04/29/20 20:00 07/28/20 19:59 Dexamethasone Sodium Phosphate (Decadron 10mg/ ml Inj) 6 mg DAILY IV 04/28/20 09:00 05/06/20 09:01 04/29/20 09:50 Dextrose/Sodium Chloride 1,000 ml @ 75 mls/hr [id number] IV 04/28/20 15:15 05/28/20 15:14 04/29/20 04:35 Docusate Sodium (Colace) 100 mg Q12HR ORAL 04/27/20 21:00 05/27/20 20:59 Dopamine HCl/ Dextrose 250 ml @ 0 mls/hr Q24H IV 04/27/20 05:00 04/30/20 04:59 04/28/20 00:20 Levetiracetam 100 ml @ 400 mls/hr Q12HR IVPB 04/28/20 21:00 07/27/20 20:59 04/29/20 09:50 Pantoprazole (Protonix) 40 mg DAILY ORAL 04/27/20 11:30 05/27/20 11:29 04/27/20 11:33 Potassium Phosphate 20 mm/ Sodium Chloride 281.6667 ml @ 46.944 m... ONCE ONCE IV 04/29/20 13:00 04/29/20 18:59 Assessment/Plan Assessment/Plan IMPRESSION: 1. COVID-19 pneumonia diagnosed approximately on 04/14/2020. 2. Seizure disorder. 3. Hypotension. Now resolved DISCUSSION: Agree with admission and care. The patient will benefit from antiepileptics, which he has been started on. He has received fluid boluses and has received dopamine. Now discontinued. A central line has also been placed. Appropriate to continue steroids Continue broad-spectrum antibiotics. Transfer out of ICU; tele Kaushal Theodore Omar Syed MD Apr 29, 2020 12:58
[2020-04-29] MEDS ORDERED: Potassium Phosphate 20 MM in NS 275 ML IV ONE (13:00)
--- NOTE | 2020-04-29 14:42 | Nephrology Progress Note ---
Assessment/Plan Problem List: (1) Septic shock (2) Acute febrile illness (3) Suspected 2019 novel coronavirus infection (4) Seizure disorder (5) Electrolyte imbalance Assessment Acute febrile illness most likely [place] virus infection Hypotension ( Shock) ,on dopamine Seizure disorder Plan April 29: Patient hemodynamically improved. Urine output improved. Abnormal electrolytes reviewed and addressed. Continue per consultants. April 28: Keppra changed to IV. POA is held until speech therapy evaluation. Potassium phosphate IV. Ordered. Discussed with Beth ENG. Remains stable from renal standpoint of view. Albumin 5% 500 cc challenge ordered. Fluid challenge Monitor renal parameters Monitor electrolytes Per consultants Per orders Subjective ROS Limited/Unobtainable: No Constitutional: Reports: malaise Objective Objective Last 24 Hour Vital Signs Date Time Temp Pulse Resp B/P (MAP) Pulse Ox O2 Delivery O2 Flow Rate FiO2 04/29/20 14:00 61 21 102/59 (73) 100 04/29/20 13:00 61 14 107/60 (76) 100 04/29/20 12:00 63 04/29/20 12:00 62 14 103/58 (73) 100 04/29/20 11:00 61 15 109/60 (76) 100 04/29/20 10:00 60 18 104/59 (74) 100 04/29/20 09:00 58 18 104/59 (74) 99 04/29/20 08:00 98.4 61 23 100/56 (71) 99 04/29/20 08:00 Nasal Cannula 2.0 04/29/20 08:00 60 04/29/20 07:00 58 20 100/56 (71) 99 04/29/20 06:00 61 20 96/52 (67) 99 04/29/20 05:00 60 17 98/56 (70) 97 04/29/20 05:00 108/69 04/29/20 04:45 62 22 93/50 (64) 98 04/29/20 04:00 61 04/29/20 04:00 98.2 61 15 94/60 (71) 98 04/29/20 04:00 Nasal Cannula 4.0 04/29/20 03:00 61 21 93/55 (68) 95 04/29/20 02:00 61 18 97/57 (70) 99 04/29/20 01:00 72 21 97/35 (55) 98 04/29/20 00:00 98.0 63 21 98/57 (71) 98 04/29/20 00:00 63 04/29/20 00:00 Nasal Cannula 4.0 04/28/20 23:00 67 17 99/59 (72) 100 04/28/20 22:00 69 24 100/60 (73) 97 04/28/20 21:00 71 23 105/60 (75) 99 04/28/20 20:00 Nasal Cannula 4.0 04/28/20 20:00 70 04/28/20 20:00 98.2 69 22 108/62 (77) 100 04/28/20 19:00 72 8 109/63 (78) 97 04/28/20 18:15 112/68 04/28/20 18:00 116/68 04/28/20 18:00 77 14 112/68 (83) 98 04/28/20 17:00 117/68 04/28/20 17:00 74 14 121/70 (87) 100 04/28/20 16:00 78 04/28/20 16:00 98.4 04/28/20 16:00 Nasal Cannula 4.0 04/28/20 16:00 75 19 114/64 (81) 100 04/28/20 16:00 114/64 04/28/20 15:00 76 22 121/70 (87) 100 04/28/20 15:00 104/64 Intake and Output 04/28/20 04/29/20 19:00 07:00 Intake Total 921.909 ml 825 ml Output Total 75 ml 490 ml Balance 846.909 ml 335 ml IV Total 921.909 ml 825 ml Output Urine Total 75 ml 490 ml # Voids 1 Current Medications Medications (Trade) Dose Ordered Sig/[place] Route PRN Reason Start Time Stop Time Status Last Admin Dose Admin Acetaminophen (Tylenol) 500 mg Q4HR PRN ORAL Pain Scale (3-5) 04/27/20 00:15 05/27/20 00:14 Azithromycin 250 mg/Dextrose 275 ml @ 275 mls/hr Q24HRS IV 04/29/20 10:00 05/04/20 09:59 04/29/20 09:50 Barium Sulfate (Varibar Honey) 250 ml NOW PRN MC RAD 04/27/20 15:00 04/30/20 14:50 Barium Sulfate (Varibar [place]) 240 ml NOW PRN MC RAD 04/27/20 15:00 04/30/20 14:50 Barium Sulfate (Varibar Pudding) 230 ml NOW PRN MC RAD 04/27/20 15:00 04/30/20 14:50 Barium Sulfate (Varibar Thin Liquid powder) 148 gm NOW PRN MC RAD 04/27/20 15:00 04/30/20 14:50 Ceftriaxone Sodium 1 gm/ Dextrose 55 ml @ 110 mls/hr Q24H IVPB 04/28/20 12:00 05/05/20 11:59 04/29/20 11:10 Chlorhexidine Gluconate (Anjali-Hex 2%) 1 applic DAILY@2000 TOPIC 04/29/20 20:00 07/28/20 19:59 Dexamethasone Sodium Phosphate (Decadron 10mg/ ml Inj) 6 mg DAILY IV 04/28/20 09:00 05/06/20 09:01 04/29/20 09:50 Dextrose/Sodium Chloride 1,000 ml @ 75 mls/hr Q70H70H IV 04/28/20 15:15 05/28/20 15:14 04/29/20 04:35 Docusate Sodium (Colace) 100 mg Q12HR ORAL 04/27/20 21:00 05/27/20 20:59 Dopamine HCl/ Dextrose 250 ml @ 0 mls/hr Q24H IV 04/27/20 05:00 04/30/20 04:59 04/28/20 00:20 Levetiracetam 100 ml @ 400 mls/hr Q12HR IVPB 04/28/20 21:00 07/27/20 20:59 04/29/20 09:50 Pantoprazole (Protonix) 40 mg DAILY ORAL 04/27/20 11:30 05/27/20 11:29 04/27/20 11:33 Potassium Phosphate 20 mm/ Sodium Chloride 281.6667 ml @ 46.944 m... ONCE ONCE IV 04/29/20 13:00 04/29/20 18:59 04/29/20 13:06 Laboratory Tests 04/29/20 04:20: White Blood Count 13.0H, Red Blood Count 3.79L, Hemoglobin 11.4L, Hematocrit 33.5L, Mean Corpuscular Volume 88, Mean Corpuscular Hemoglobin 30.2, Mean Corpuscular Hemoglobin Concent 34.1, Red Cell Distribution Width 13.9, Platelet Count 753H, Mean Platelet Volume 5.3L, Neutrophils (%) (Auto) , Lymphocytes (%) (Auto) , Monocytes (%) (Auto) , Eosinophils (%) (Auto) , Basophils (%) (Auto) , Sodium Level 144, Potassium Level 2.9L, Chloride Level 109H, Carbon Dioxide Level 29, Anion Gap 6, Blood Urea Nitrogen 18, Creatinine 0.7, Estimat Glomeru lar Filtration Rate > 60, Glucose Level 147H, Uric Acid 3.0, Calcium Level 7.7L, Phosphorus Level 2.1L, Magnesium Level 2.2, Total Bilirubin 0.5, Aspartate Amino Transf (AST/SGOT) 18, Alanine Aminotransferase (ALT/SGPT) 18, Alkaline Phosphatase 69, C-Reactive Protein, Quantitative 8.5H, Total Protein 6.1L, Albumin 2.5L, Globulin 3.6, Albumin/Globulin Ratio 0.7L Height (Feet): 5 Height (Inches): 8.00 Weight (Pounds): 130 General Appearance: no apparent distress, lethargic EENT: other - On oxygen by cannula Cardiovascular: normal rate Respiratory/Chest: decreased breath sounds Abdomen: distended Abhilash Clark MD Apr 29, 2020 14:42
--- NOTE | 2020-04-29 16:26 | Cardiac Electrophysiology PN ---
Assessment/Plan Assessment/Plan 1.Septic shock. The patient is already on dopamine through a central line. Already on IV antibiotic. ECho Nl EF 2. COVID pneumonia, on dexamethasone and ceftriaxone and 4 liter NC. 3. Seizure disorder and altered level of consciousness. The patient is on Keppra. [employer] Subjective Subjective In Covid isolation on 4 liter NC and off Dopamine In Sr 50s Objective Last 24 Hour Vital Signs Date Time Temp Pulse Resp B/P (MAP) Pulse Ox O2 Delivery O2 Flow Rate FiO2 04/29/20 15:00 60 18 106/57 (73) 100 04/29/20 14:00 61 21 102/59 (73) 100 04/29/20 13:00 61 14 107/60 (76) 100 04/29/20 12:00 Nasal Cannula 2.0 04/29/20 12:00 63 04/29/20 12:00 62 14 103/58 (73) 100 04/29/20 11:00 61 15 109/60 (76) 100 04/29/20 10:00 60 18 104/59 (74) 100 04/29/20 09:00 58 18 104/59 (74) 99 04/29/20 08:00 98.4 61 23 100/56 (71) 99 04/29/20 08:00 Nasal Cannula 2.0 04/29/20 08:00 60 04/29/20 07:00 58 20 100/56 (71) 99 04/29/20 06:00 61 20 96/52 (67) 99 04/29/20 05:00 60 17 98/56 (70) 97 04/29/20 05:00 108/69 04/29/20 04:45 62 22 93/50 (64) 98 04/29/20 04:00 61 04/29/20 04:00 98.2 61 15 94/60 (71) 98 04/29/20 04:00 Nasal Cannula 4.0 04/29/20 03:00 61 21 93/55 (68) 95 04/29/20 02:00 61 18 97/57 (70) 99 04/29/20 01:00 72 21 97/35 (55) 98 04/29/20 00:00 98.0 63 21 98/57 (71) 98 04/29/20 00:00 63 04/29/20 00:00 Nasal Cannula 4.0 04/28/20 23:00 67 17 99/59 (72) 100 04/28/20 22:00 69 24 100/60 (73) 97 04/28/20 21:00 71 23 105/60 (75) 99 04/28/20 20:00 Nasal Cannula 4.0 04/28/20 20:00 70 04/28/20 20:00 98.2 69 22 108/62 (77) 100 04/28/20 19:00 72 8 109/63 (78) 97 04/28/20 18:15 112/68 04/28/20 18:00 116/68 04/28/20 18:00 77 14 112/68 (83) 98 04/28/20 17:00 117/68 04/28/20 17:00 74 14 121/70 (87) 100 Intake and Output 04/28/20 04/29/20 19:00 07:00 Intake Total 921.909 ml 825 ml Output Total 75 ml 490 ml Balance 846.909 ml 335 ml IV Total 921.909 ml 825 ml Output Urine Total 75 ml 490 ml # Voids 1 Laboratory Tests Test 04/29/20 04:20 White Blood Count 13.0 K/UL (4.8-10.8) H Red Blood Count 3.79 M/UL (4.70-6.10) L Hemoglobin 11.4 G/DL (14.2-18.0) L Hematocrit 33.5 % (42.0-52.0) L Mean Corpuscular Volume 88 FL (80-99) Mean Corpuscular Hemoglobin 30.2 PG (27.0-31.0) Mean Corpuscular Hemoglobin Concent 34.1 G/DL (32.0-36.0) Red Cell Distribution Width 13.9 % (11.6-14.8) Platelet Count 753 K/UL (150-450) H Mean Platelet Volume 5.3 FL (6.5-10.1) L Neutrophils (%) (Auto) % (45.0-75.0) Lymphocytes (%) (Auto) % (20.0-45.0) Monocytes (%) (Auto) % (1.0-10.0) Eosinophils (%) (Auto) % (0.0-3.0) Basophils (%) (Auto) % (0.0-2.0) Sodium Level 144 MMOL/L (136-145) Potassium Level 2.9 MMOL/L (3.5-5.1) L Chloride Level 109 MMOL/L (98-107) H Carbon Dioxide Level 29 MMOL/L (21-32) Anion Gap 6 mmol/L (5-15) Blood Urea Nitrogen 18 mg/dL (7-18) Creatinine 0.7 MG/DL (0.55-1.30) Estimat Glomerular Filtration Rate > 60 mL/min (>60) Glucose Level 147 MG/DL (74-106) H Uric Acid 3.0 MG/DL (2.6-7.2) Calcium Level 7.7 MG/DL (8.5-10.1) L Phosphorus Level 2.1 MG/DL (2.5-4.9) L Magnesium Level 2.2 MG/DL (1.8-2.4) Total Bilirubin 0.5 MG/DL (0.2-1.0) Aspartate Amino Transf (AST/SGOT) 18 U/L (15-37) Alanine Aminotransferase (ALT/SGPT) 18 U/L (12-78) Alkaline Phosphatase 69 U/L (46-116) C-Reactive Protein, Quantitative 8.5 mg/dL (0.00-0.90) H Total Protein 6.1 G/DL (6.4-8.2) L Albumin 2.5 G/DL (3.4-5.0) L Globulin 3.6 g/dL Albumin/Globulin Ratio 0.7 (1.0-2.7) L Objective HEAD AND NECK: No JVD. LUNGS: Coarse rhonchi. CARDIOVASCULAR: Regular S1 and S2. Mildly tachycardic. ABDOMEN: Soft. EXTREMITIES: 1+ pitting edema. Shady Sorto MD Apr 29, 2020 16:26
[2020-04-29] MEDS: Dyna-Hex 2% Top Sol 2oz TOPIC SCH (19:39)
--- NOTE | 2020-04-29 21:26 | General Progress Note ---
Subjective ROS Limited/Unobtainable: Yes Allergies: Coded Allergies: No Known Allergies (Unverified , 04/14/20) Objective Last 24 Hour Vital Signs Date Time Temp Pulse Resp B/P (MAP) Pulse Ox O2 Delivery O2 Flow Rate FiO2 04/29/20 19:00 71 20 106/62 (77) 98 04/29/20 18:00 59 21 111/71 (84) 100 04/29/20 17:00 57 17 104/59 (74) 100 04/29/20 16:00 Nasal Cannula 2.0 04/29/20 16:00 98.5 04/29/20 16:00 63 04/29/20 16:00 62 28 87/56 (66) 98 04/29/20 15:00 60 18 106/57 (73) 100 04/29/20 14:00 61 21 102/59 (73) 100 04/29/20 13:00 61 14 107/60 (76) 100 04/29/20 12:00 Nasal Cannula 2.0 04/29/20 12:00 63 04/29/20 12:00 62 14 103/58 (73) 100 04/29/20 11:00 61 15 109/60 (76) 100 04/29/20 10:00 60 18 104/59 (74) 100 04/29/20 09:00 58 18 104/59 (74) 99 04/29/20 08:00 98.4 61 23 100/56 (71) 99 04/29/20 08:00 Nasal Cannula 2.0 04/29/20 08:00 60 04/29/20 07:00 58 20 100/56 (71) 99 04/29/20 06:00 61 20 96/52 (67) 99 04/29/20 05:00 60 17 98/56 (70) 97 04/29/20 05:00 108/69 04/29/20 04:45 62 22 93/50 (64) 98 04/29/20 04:00 61 04/29/20 04:00 98.2 61 15 94/60 (71) 98 04/29/20 04:00 Nasal Cannula 4.0 04/29/20 03:00 61 21 93/55 (68) 95 04/29/20 02:00 61 18 97/57 (70) 99 04/29/20 01:00 72 21 97/35 (55) 98 04/29/20 00:00 98.0 63 21 98/57 (71) 98 04/29/20 00:00 63 04/29/20 00:00 Nasal Cannula 4.0 04/28/20 23:00 67 17 99/59 (72) 100 04/28/20 22:00 69 24 100/60 (73) 97 Intake and Output 04/28/20 04/29/20 19:00 07:00 Intake Total 921.909 ml 900 ml Output Total 75 ml 490 ml Balance 846.909 ml 410 ml IV Total 921.909 ml 900 ml Output Urine Total 75 ml 490 ml # Voids 1 Laboratory Tests 04/29/20 04:20: White Blood Count 13.0H, Red Blood Count 3.79L, Hemoglobin 11.4L, Hematocrit 33.5L, Mean Corpuscular Volume 88, Mean Corpuscular Hemoglobin 30.2, Mean Corpuscular Hemoglobin Concent 34.1, Red Cell Distribution Width 13.9, Platelet Count 753H, Mean Platelet Volume 5.3L, Neutrophils (%) (Auto) , Lymphocytes (%) (Auto) , Monocytes (%) (Auto) , Eosinophils (%) (Auto) , Basophils (%) (Auto) , Sodium Level 144, Potassium Level 2.9L, Chloride Level 109H, Carbon Dioxide Level 29, Anion Gap 6, Blood Urea Nitrogen 18, Creatinine 0.7, Estimat Glomerular Filtration Rate > 60, Glucose Level 147H, Uric Acid 3.0, Calcium Level 7.7L, Phosphorus Level 2.1L, Magnesium Level 2.2, Total Bilirubin 0.5, Aspartate Amino Transf (AST/SGOT) 18, Alanine Aminotransferase (ALT/SGPT) 18, Alkaline Phosphatase 69, C-Reactive Protein, Quantitative 8.5H, Total Protein 6.1L, Albumin 2.5L, Globulin 3.6, Albumin/Globulin Ratio 0.7L Height (Feet): 5 Height (Inches): 8.00 Weight (Pounds): 130 Assessment/Plan Problem List: (1) Coronavirus infection ICD Codes: B34.2 - Coronavirus infection, unspecified SNOMED: 862573167 (2) Septic shock ICD Codes: A41.9 - Sepsis, unspecified organism; R65.21 - Severe sepsis with septic shock SNOMED: 00123013 (3) Seizure disorder ICD Codes: G40.909 - Epilepsy, unspecified, not intractable, without status epilepticus SNOMED: 800729746 (4) Electrolyte imbalance ICD Codes: E87.8 - Other disorders of electrolyte and fluid balance, not elsewhere classified SNOMED: 156690202 Status: progressing, unchanged Assessment/Plan: covid positive pna resp insuff on nasal canula clinically improvng afebrile Zain Mares MD Apr 29, 2020 21:26
[2020-04-30] VITALS (15 sets, daily range): BP systolic 99–125; BP diastolic 55–71
[2020-04-30 05:42] LABS: BASOPHILS % (AUTO) 1.8 % (0.0-2.0); HEMATOCRIT 34.3 % (42.0-52.0); HEMOGLOBIN 11.8 G/DL (14.2-18.0); LYMPHOCYTES % (AUTO) 7.4 % (20.0-45.0); MEAN CORPUSCULAR VOLUME 89 FL (80-99); MONOCYTES % (AUTO) 8.5 % (1.0-10.0); NEUTROPHILS % (AUTO) 82.3 % (45.0-75.0); PLATELET COUNT 744 K/UL (150-450); RED BLOOD COUNT 3.88 M/UL (4.70-6.10); WHITE BLOOD COUNT 14.2 K/UL (4.8-10.8)
[2020-04-30 06:10] LABS: ALANINE AMINOTRANSFERASE 24 U/L (12-78); ALBUMIN 2.2 G/DL (3.4-5.0); ALBUMIN/GLOBULIN RATIO 0.6 (1.0-2.7); ALKALINE PHOSPHATASE 68 U/L (46-116); ANION GAP 6 mmol/L (5-15); ASPARTATE AMINO TRANSFERASE 25 U/L (15-37); BILIRUBIN,TOTAL 0.4 MG/DL (0.2-1.0); BLOOD UREA NITROGEN 13 mg/dL (7-18); CALCIUM 7.1 MG/DL (8.5-10.1); CARBON DIOXIDE 27 MMOL/L (21-32); CHLORIDE 110 MMOL/L (98-107); CREATININE 0.5 MG/DL (0.55-1.30); PHOSPHORUS 2.5 MG/DL (2.5-4.9); POTASSIUM 3.1 MMOL/L (3.5-5.1); SODIUM 143 MMOL/L (136-145)
[2020-04-30] MEDS: levETIRAcetam 500mg/NS100ml 100 ML IVPB SCH ×2 (08:39→22:00)
[2020-04-30] MEDS: D5NS 1,000 ML IV SCH ×2 (08:39→22:00)
[2020-04-30] MEDS: Docusate 100mg cap ORAL SCH ×2 (08:40→21:00)
[2020-04-30] MEDS: dexAMETHasone 10mg/ml Inj IV SCH (08:45)
--- NOTE | 2020-04-30 09:40 | Pulmonology Progress Note ---
Subjective ROS Limited/Unobtainable: Yes Interval Events: Awake and responsive Constitutional: Reports: other - doing better HEENT: Repors: no symptoms Respiratory: Reports: no symptoms Cardiovascular: Reports: no symptoms Gastrointestinal/Abdominal: Reports: no symptoms Genitourinary: Reports: no symptoms Neurologic: Reports: no symptoms Allergies: Coded Allergies: No Known Allergies (Unverified , 04/14/20) Objective Last 24 Hour Vital Signs Date Time Temp Pulse Resp B/P (MAP) Pulse Ox O2 Delivery O2 Flow Rate FiO2 04/30/20 09:00 60 21 119/68 (85) 100 04/30/20 08:00 97.7 04/30/20 08:00 Nasal Cannula 2.0 04/30/20 08:00 60 04/30/20 08:00 65 21 124/63 (83) 96 04/30/20 07:00 59 17 118/65 (82) 99 04/30/20 06:00 62 20 116/63 (80) 99 04/30/20 05:00 63 21 107/62 (77) 99 04/30/20 04:00 59 04/30/20 04:00 98.4 59 12 112/62 (79) 99 04/30/20 04:00 Nasal Cannula 2.0 04/30/20 03:00 59 11 111/61 (78) 99 04/30/20 02:00 60 19 99/55 (70) 99 04/30/20 01:00 58 15 113/63 (80) 100 04/30/20 00:30 59 19 106/60 (75) 100 04/30/20 00:15 60 17 119/61 (80) 100 04/30/20 00:00 Nasal Cannula 2.0 04/30/20 00:00 98.2 58 18 110/56 (74) 100 04/29/20 23:00 59 15 106/54 (71) 100 04/29/20 22:00 67 20 99/77 (84) 100 04/29/20 21:00 56 18 120/66 (84) 100 04/29/20 20:00 Nasal Cannula 2.0 04/29/20 20:00 57 04/29/20 20:00 98.0 59 19 107/60 (76) 100 04/29/20 19:00 71 20 106/62 (77) 98 04/29/20 18:00 59 21 111/71 (84) 100 04/29/20 17:00 57 17 104/59 (74) 100 04/29/20 16:00 Nasal Cannula 2.0 04/29/20 16:00 98.5 04/29/20 16:00 63 04/29/20 16:00 62 28 87/56 (66) 98 04/29/20 15:00 60 18 106/57 (73) 100 04/29/20 14:00 61 21 102/59 (73) 100 04/29/20 13:00 61 14 107/60 (76) 100 04/29/20 12:00 Nasal Cannula 2.0 04/29/20 12:00 63 04/29/20 12:00 62 14 103/58 (73) 100 04/29/20 11:00 61 15 109/60 (76) 100 04/29/20 10:00 60 18 104/59 (74) 100 Intake and Output 04/29/20 04/30/20 19:00 07:00 Intake Total 1742.776 ml 475 ml Output Total 410 ml 520 ml Balance 1332.776 ml -45 ml IV Total 1742.776 ml 475 ml Output Urine Total 410 ml 520 ml General Appearance: no acute distress HEENT: normocephalic Respiratory: chest wall non-tender, lungs clear Cardiovascular: normal peripheral pulses Abdomen: normal bowel sounds Laboratory Tests 04/30/20 05:00: White Blood Count 14.2H, Red Blood Count 3.88L, Hemoglobin 11.8L, Hematocrit 34.3L, Mean Corpuscular Volume 89, Mean Corpuscular Hemoglobin 30.5, Mean [place] uscular Hemoglobin Concent 34.4, Red Cell Distribution Width 14.0, Platelet Count 744H, Mean Platelet Volume 5.4L, Neutrophils (%) (Auto) 82.3H, Lymphocytes (%) (Auto) 7.4L, Monocytes (%) (Auto) 8.5, Eosinophils (%) (Auto) 0.0, Basophils (%) (Auto) 1.8, Sodium Level 143, Potassium Level 3.1L, Chloride Level 110H, Carbon Dioxide Level 27, Anion Gap 6, Blood Urea Nitrogen 13, Creatinine 0.5L, Estimat Glomerular Filtration Rate > 60, Glucose Level 108H, Calcium Level 7.1L, Phosphorus Level 2.5, Magnesium Level 2.0, Total Bilirubin 0.4, Aspartate Amino Transf (AST/SGOT) 25, Alanine Aminotransferase (ALT/SGPT) 24, Alkaline Phosphatase 68, C-Reactive Protein, Quantitative 4.1H, Pro-B-Type Natriuretic Peptide [Pending], Total Protein 5.8L, Albumin 2.2L, Globulin 3.6, Albumin/Globulin Ratio 0.6L Current Medications Medications (Trade) Dose Ordered Sig/[place] Route PRN Reason Start Time Stop Time Status Last Admin Dose Admin Acetaminophen (Tylenol) 500 mg Q4HR PRN ORAL Pain Scale (3-5) 04/27/20 00:15 05/27/20 00:14 Azithromycin 250 mg/Dextrose 275 ml @ 275 mls/hr Q24HRS IV 04/29/20 10:00 05/04/20 09:59 04/29/20 09:50 Barium Sulfate (Varibar Honey) 250 ml NOW PRN MC RAD 04/27/20 15:00 04/30/20 14:50 Barium Sulfate (Varibar [place]) 240 ml NOW PRN MC RAD 04/27/20 15:00 04/30/20 14:50 Barium Sulfate (Varibar Pudding) 230 ml NOW PRN MC RAD 04/27/20 15:00 04/30/20 14:50 Barium Sulfate (Varibar Thin Liquid powder) 148 gm NOW PRN MC RAD 04/27/20 15:00 04/30/20 14:50 Ceftriaxone Sodium 1 gm/ Dextrose 55 ml @ 110 mls/hr Q24H IVPB 04/28/20 12:00 05/05/20 11:59 04/29/20 11:10 Chlorhexidine Gluconate (Anjali-Hex 2%) 1 applic DAILY@2000 TOPIC 04/29/20 20:00 07/28/20 19:59 04/29/20 19:39 Dexamethasone Sodium Phosphate (Decadron 10mg/ ml Inj) 6 mg DAILY IV 04/28/20 09:00 05/06/20 09:01 04/30/20 08:45 Dextrose/Sodium Chloride 1,000 ml @ 75 mls/hr [id number] IV 04/28/20 15:15 05/28/20 15:14 04/30/20 08:39 Docusate Sodium (Colace) 100 mg Q12HR ORAL 04/27/20 21:00 05/27/20 20:59 Levetiracetam 100 ml @ 400 mls/hr Q12HR IVPB 04/28/20 21:00 07/27/20 20:59 04/30/20 08:39 Pantoprazole (Protonix) 40 mg DAILY ORAL 04/27/20 11:30 05/27/20 11:29 04/27/20 11:33 Potassium Chloride 100 ml @ 50 mls/hr Q2H IVPB 04/30/20 09:00 04/30/20 12:59 04/30/20 09:07 Assessment/Plan Assessment/Plan IMPRESSION: 1. COVID-19 pneumonia diagnosed approximately on 04/14/2020. 2. Seizure disorder. 3. Hypotension. Now resolved DISCUSSION: Agree with admission and care. The patient will benefit from antiepileptics, which he has been started on. He has received fluid boluses and has received dopamine. Now discontinued. A central line has also been placed. Appropriate to continue steroids Continue broad-spectrum antibiotics. Transfer out of ICU; tele Kaushal Theodore Omar Syed MD Apr 30, 2020 09:40
[2020-04-30] MEDS: Azithromycin 250 MG in D5W 275 ML IV SCH (12:02)
--- NOTE | 2020-04-30 12:05 | Nephrology Progress Note ---
Assessment/Plan Problem List: (1) Septic shock (2) Acute febrile illness (3) Suspected 2019 novel coronavirus infection (4) Seizure disorder (5) Electrolyte imbalance Assessment Acute febrile illness most likely bent[place] virus infection Hypotension ( Shock) ,on dopamine Seizure disorder Plan April 30: Patient seen earlier in ICU. Abnormal electrolytes noted and addressed. Due transfer to telemetry. Continue per consultants. April 29: Patient hemodynamically improved. Urine output improved. Abnormal electrolytes reviewed and addressed. Continue per consultants. April 28: Keppra changed to IV. POA is held until speech therapy evaluation. Potassium phosphate IV. Ordered. Discussed with Beth ENG. Remains stable from renal standpoint of view. Albumin 5% 500 cc challenge ordered. Fluid challenge Monitor renal parameters Monitor electrolytes Per consultants Per orders Subjective ROS Limited/Unobtainable: No Constitutional: Reports: malaise Objective Objective Last 24 Hour Vital Signs Date Time Temp Pulse Resp B/P (MAP) Pulse Ox O2 Delivery O2 Flow Rate FiO2 04/30/20 09:00 60 21 119/68 (85) 100 04/30/20 08:00 97.7 04/30/20 08:00 Nasal Cannula 2.0 04/30/20 08:00 60 04/30/20 08:00 65 21 124/63 (83) 96 04/30/20 07:00 59 17 118/65 (82) 99 04/30/20 06:00 62 20 116/63 (80) 99 04/30/20 05:00 63 21 107/62 (77) 99 04/30/20 04:00 59 04/30/20 04:00 98.4 59 12 112/62 (79) 99 04/30/20 04:00 Nasal Cannula 2.0 04/30/20 03:00 59 11 111/61 (78) 99 04/30/20 02:00 60 19 99/55 (70) 99 04/30/20 01:00 58 15 113/63 (80) 100 04/30/20 00:30 59 19 106/60 (75) 100 04/30/20 00:15 60 17 119/61 (80) 100 04/30/20 00:00 Nasal Cannula 2.0 04/30/20 00:00 98.2 58 18 110/56 (74) 100 04/29/20 23:00 59 15 106/54 (71) 100 04/29/20 22:00 67 20 99/77 (84) 100 04/29/20 21:00 56 18 120/66 (84) 100 04/29/20 20:00 Nasal Cannula 2.0 04/29/20 20:00 57 04/29/20 20:00 98.0 59 19 107/60 (76) 100 04/29/20 19:00 71 20 106/62 (77) 98 04/29/20 18:00 59 21 111/71 (84) 100 04/29/20 17:00 57 17 104/59 (74) 100 04/29/20 16:00 Nasal Cannula 2.0 04/29/20 16:00 98.5 04/29/20 16:00 63 04/29/20 16:00 62 28 87/56 (66) 98 04/29/20 15:00 60 18 106/57 (73) 100 04/29/20 14:00 61 21 102/59 (73) 100 04/29/20 13:00 61 14 107/60 (76) 100 Intake and Output 04/29/20 04/30/20 19:00 07:00 Intake Total 1742.776 ml 475 ml Output Total 410 ml 520 ml Balance 1332.776 ml -45 ml IV Total 1742.776 ml 475 ml Output Urine Total 410 ml 520 ml Current Medications Medications (Trade) Dose Ordered Sig/[place] Route PRN Reason Start Time Stop Time Status Last Admin Dose Admin Acetaminophen (Tylenol) 500 mg Q4HR PRN ORAL Pain Scale (3-5) 04/27/20 00:15 05/27/20 00:14 Azithromycin 250 mg/Dextrose 275 ml @ 275 mls/hr Q24HRS IV 04/29/20 10:00 05/04/20 09:59 04/30/20 12:02 Ceftriaxone Sodium 1 gm/ Dextrose 55 ml @ 110 mls/hr Q24H IVPB 04/28/20 12:00 05/05/20 11:59 04/29/20 11:10 Chlorhexidine Gluconate (Anjali-Hex 2%) 1 applic DAILY@2000 TOPIC 04/29/20 20:00 07/28/20 19:59 04/29/20 19:39 Dexamethasone Sodium Phosphate (Decadron 10mg/ ml Inj) 6 mg DAILY IV 04/28/20 09:00 05/06/20 09:01 04/30/20 08:45 Dextrose/Sodium Chloride 1,000 ml @ 75 mls/hr [id number] IV 04/28/20 15:15 05/28/20 15:14 04/30/20 08:39 Docusate Sodium (Colace) 100 mg Q12HR ORAL 04/27/20 21:00 05/27/20 20:59 Levetiracetam 100 ml @ 400 mls/hr Q12HR IVPB 04/28/20 21:00 07/27/20 20:59 04/30/20 08:39 Pantoprazole (Protonix) 40 mg DAILY ORAL 04/27/20 11:30 05/27/20 11:29 04/27/20 11:33 Potassium Chloride 100 ml @ 50 mls/hr Q2H IVPB 04/30/20 09:00 04/30/20 12:59 04/30/20 09:07 Laboratory Tests 04/30/20 05:00: White Blood Count 14.2H, Red Blood Count 3.88L, Hemoglobin 11.8L, Hematocrit 34.3L, Mean Corpuscular Volume 89, Mean Corpuscular Hemoglobin 30.5, Mean Corpuscular Hemoglobin Concent 34.4, Red Cell Distribution Width 14.0, Platelet Count 744H, Mean Platelet Volume 5.4L, Neutrophils (%) (Auto) 82.3H, Lymphocytes (%) (Auto) 7.4L, Monocytes (%) (Auto) 8.5, Eosinophils (%) (Auto) 0.0, Basophils (%) (Auto) 1.8, Sodium Level 143, Potassium Level 3.1L, Chloride Level 110H, Carbon Dioxide Level 27, Anion Gap 6, Blood Urea Nitrogen 13, Creatinine 0.5L, Estimat Glomerular Filtration Rate > 60, Glucose Level 108H, Calcium Level 7.1L, Phosphorus Level 2.5, Magnesium Level 2.0, Total Bilirubin 0.4, Aspartate Amino Transf (AST/SGOT) 25, Alanine Aminotransferase (ALT/SGPT) 24, Alkaline Phosphatase 68, C-Reactive Protein, Quantitative 4.1H, Pro-B-Type Natriuretic Peptide [Pending], Total Protein 5.8L, Albumin 2.2L, Globulin 3.6, Albumin/Globulin Ratio 0.6L Height (Feet): 5 Height (Inches): 8.00 Weight (Pounds): 130 Cardiovascular: normal rate Respiratory/Chest: decreased breath sounds Abdomen: soft, distended Abhilash Clark MD Apr 30, 2020 12:05
--- NOTE | 2020-04-30 12:09 | Infectious Diseases Prog Note ---
Assessment/Plan Assessment/Plan IMPRESSION: Sepsis with septic shock,resolving pneumonia with COVID19 Hypoxemia COPD, Seizure disorder, Lactic acidosis, Encephalopathy. RECOMMENDATIONS: Continue ceftriaxone & Dexamethasone. Continue Azithromycin We will follow up the culture. Subjective ROS Limited/Unobtainable: Yes Constitutional: Reports: other - doing better , transferred from ICU to telemetry Allergies: Coded Allergies: No Known Allergies (Unverified , 04/14/20) Objective Last 24 Hour Vital Signs Date Time Temp Pulse Resp B/P (MAP) Pulse Ox O2 Delivery O2 Flow Rate FiO2 04/30/20 09:00 60 21 119/68 (85) 100 04/30/20 08:00 97.7 04/30/20 08:00 Nasal Cannula 2.0 04/30/20 08:00 60 04/30/20 08:00 65 21 124/63 (83) 96 04/30/20 07:00 59 17 118/65 (82) 99 04/30/20 06:00 62 20 116/63 (80) 99 04/30/20 05:00 63 21 107/62 (77) 99 04/30/20 04:00 59 04/30/20 04:00 98.4 59 12 112/62 (79) 99 04/30/20 04:00 Nasal Cannula 2.0 04/30/20 03:00 59 11 111/61 (78) 99 04/30/20 02:00 60 19 99/55 (70) 99 04/30/20 01:00 58 15 113/63 (80) 100 04/30/20 00:30 59 19 106/60 (75) 100 04/30/20 00:15 60 17 119/61 (80) 100 04/30/20 00:00 Nasal Cannula 2.0 04/30/20 00:00 98.2 58 18 110/56 (74) 100 04/29/20 23:00 59 15 106/54 (71) 100 04/29/20 22:00 67 20 99/77 (84) 100 04/29/20 21:00 56 18 120/66 (84) 100 04/29/20 20:00 Nasal Cannula 2.0 04/29/20 20:00 57 04/29/20 20:00 98.0 59 19 107/60 (76) 100 04/29/20 19:00 71 20 106/62 (77) 98 04/29/20 18:00 59 21 111/71 (84) 100 04/29/20 17:00 57 17 104/59 (74) 100 04/29/20 16:00 Nasal Cannula 2.0 04/29/20 16:00 98.5 04/29/20 16:00 63 04/29/20 16:00 62 28 87/56 (66) 98 04/29/20 15:00 60 18 106/57 (73) 100 04/29/20 14:00 61 21 102/59 (73) 100 04/29/20 13:00 61 14 107/60 (76) 100 Height (Feet): 5 Height (Inches): 8.00 Weight (Pounds): 130 General Appearance: no acute distress HEENT: mucous membranes moist Respiratory/Chest: other - oxygen by nasal cannula Cardiovascular: normal rate Abdomen: soft, non tender Extremities: no edema Neurologic/Psychiatric: alert, responsive Laboratory Tests Test 04/30/20 05:00 White Blood Count 14.2 K/UL (4.8-10.8) H Red Blood Count 3.88 M/UL (4.70-6.10) L Hemoglobin 11.8 G/DL (14.2-18.0) L Hematocrit 34.3 % (42.0-52.0) L Mean Corpuscular Volume 89 FL (80-99) Mean Corpuscular Hemoglobin 30.5 PG (27.0-31.0) Mean Corpuscular Hemoglobin Concent 34.4 G/DL (32.0-36.0) Red Cell Distribution Width 14.0 % (11.6-14.8) Platelet Count 744 K/UL (150-450) H Mean Platelet Volume 5.4 FL (6.5-10.1) L Neutrophils (%) (Auto) 82.3 % (45.0-75.0) H Lymphocytes (%) (Auto) 7.4 % (20.0-45.0) L Monocytes (%) (Auto) 8.5 % (1.0-10.0) Eosinophils (%) (Auto) 0.0 % (0.0-3.0) Basophils (%) (Auto) 1.8 % (0.0-2.0) Sodium Level 143 MMOL/L (136-145) Potassium Level 3.1 MMOL/L (3.5-5.1) L Chloride Level 110 MMOL/L (98-107) H Carbon Dioxide Level 27 MMOL/L (21-32) Anion Gap 6 mmol/L (5-15) Blood Urea Nitrogen 13 mg/dL (7-18) Creatinine 0.5 MG/DL (0.55-1.30) L Estimat Glomerular Filtration Rate > 60 mL/min (>60) Glucose Level 108 MG/DL (74-106) H Calcium Level 7.1 MG/DL (8.5-10.1) L Phosphorus Level 2.5 MG/DL (2.5-4.9) Magnesium Level 2.0 MG/DL (1.8-2.4) Total Bilirubin 0.4 MG/DL (0.2-1.0) Aspartate Amino Transf (AST/SGOT) 25 U/L (15-37) Alanine Aminotransferase (ALT/SGPT) 24 U/L (12-78) Alkaline Phosphatase 68 U/L (46-116) C-Reactive Protein, Quantitative 4.1 mg/dL (0.00-0.90) H Pro-B-Type Natriuretic Peptide Pending Total Protein 5.8 G/DL (6.4-8.2) L Albumin 2.2 G/DL (3.4-5.0) L Globulin 3.6 g/dL Albumin/Globulin Ratio 0.6 (1.0-2.7) L Current Medications Medications (Trade) Dose Ordered Sig/[place] Route PRN Reason Start Time Stop Time Status Last Admin Dose Admin Acetaminophen (Tylenol) 500 mg Q4HR PRN ORAL Pain Scale (3-5) 04/27/20 00:15 05/27/20 00:14 Azithromycin 250 mg/Dextrose 275 ml @ 275 mls/hr Q24HRS IV 04/29/20 10:00 05/04/20 09:59 04/30/20 12:02 Ceftriaxone Sodium 1 gm/ Dextrose 55 ml @ 110 mls/hr Q24H IVPB 04/28/20 12:00 05/05/20 11:59 04/29/20 11:10 Chlorhexidine Gluconate (Anjali-Hex 2%) 1 applic DAILY@2000 TOPIC 04/29/20 20:00 07/28/20 19:59 04/29/20 19:39 Dexamethasone Sodium Phosphate (Decadron 10mg/ ml Inj) 6 mg DAILY IV 04/28/20 09:00 05/06/20 09:01 04/30/20 08:45 Dextrose/Sodium Chloride 1,000 ml @ 75 mls/hr [id number] IV 04/28/20 15:15 05/28/20 15:14 04/30/20 08:39 Docusate Sodium (Colace) 100 mg Q12HR ORAL 04/27/20 21:00 05/27/20 20:59 Levetiracetam 100 ml @ 400 mls/hr Q12HR IVPB 04/28/20 21:00 07/27/20 20:59 04/30/20 08:39 Pantoprazole (Protonix) 40 mg DAILY ORAL 04/27/20 11:30 05/27/20 11:29 04/27/20 11:33 Potassium Chloride 100 ml @ 50 mls/hr Q2H IVPB 04/30/20 09:00 04/30/20 12:59 04/30/20 09:07 Narendra Garcia MD Apr 30, 2020 12:09
[2020-04-30] MEDS: cefTRIAXone 1 GM in D5W 55 ML IVPB SCH (13:45)
--- NOTE | 2020-04-30 13:49 | Cardiac Electrophysiology PN ---
Assessment/Plan Assessment/Plan 1. Septic shock already on dopamine through a central line. Already on IV antibiotic. Echo Nl EF 2. COVID pneumonia, on dexamethasone and ceftriaxone and 2 liter NC. 3. Seizure disorder and altered level of consciousness. The patient is on Keppra. [employer] Subjective Subjective In Covid isolation on 2 liter NC and off Dopamine Transferred out of ICU. In Sr 50s Objective Last 24 Hour Vital Signs Date Time Temp Pulse Resp B/P (MAP) Pulse Ox O2 Delivery O2 Flow Rate FiO2 04/30/20 12:00 62 04/30/20 09:00 60 21 119/68 (85) 100 04/30/20 08:00 97.7 04/30/20 08:00 Nasal Cannula 2.0 04/30/20 08:00 60 04/30/20 08:00 65 21 124/63 (83) 96 04/30/20 07:00 59 17 118/65 (82) 99 04/30/20 06:00 62 20 116/63 (80) 99 04/30/20 05:00 63 21 107/62 (77) 99 04/30/20 04:00 59 04/30/20 04:00 98.4 59 12 112/62 (79) 99 04/30/20 04:00 Nasal Cannula 2.0 04/30/20 03:00 59 11 111/61 (78) 99 04/30/20 02:00 60 19 99/55 (70) 99 04/30/20 01:00 58 15 113/63 (80) 100 04/30/20 00:30 59 19 106/60 (75) 100 04/30/20 00:15 60 17 119/61 (80) 100 04/30/20 00:00 Nasal Cannula 2.0 04/30/20 00:00 98.2 58 18 110/56 (74) 100 04/29/20 23:00 59 15 106/54 (71) 100 04/29/20 22:00 67 20 99/77 (84) 100 04/29/20 21:00 56 18 120/66 (84) 100 04/29/20 20:00 Nasal Cannula 2.0 04/29/20 20:00 57 04/29/20 20:00 98.0 59 19 107/60 (76) 100 04/29/20 19:00 71 20 106/62 (77) 98 04/29/20 18:00 59 21 111/71 (84) 100 04/29/20 17:00 57 17 104/59 (74) 100 04/29/20 16:00 Nasal Cannula 2.0 04/29/20 16:00 98.5 04/29/20 16:00 63 04/29/20 16:00 62 28 87/56 (66) 98 04/29/20 15:00 60 18 106/57 (73) 100 04/29/20 14:00 61 21 102/59 (73) 100 Intake and Output 04/29/20 04/30/20 19:00 07:00 Intake Total 1742.776 ml 475 ml Output Total 410 ml 520 ml Balance 1332.776 ml -45 ml IV Total 1742.776 ml 475 ml Output Urine Total 410 ml 520 ml Laboratory Tests Test 04/30/20 05:00 White Blood Count 14.2 K/UL (4.8-10.8) H Red Blood Count 3.88 M/UL (4.70-6.10) L Hemoglobin 11.8 G/DL (14.2-18.0) L Hematocrit 34.3 % (42.0-52.0) L Mean Corpuscular Volume 89 FL (80-99) Mean Corpuscular Hemoglobin 30.5 PG (27.0-31.0) Mean Corpuscular Hemoglobin Concent 34.4 G/DL (32.0-36.0) Red Cell Distribution Width 14.0 % (11.6-14.8) Platelet Count 744 K/UL (150-450) H Mean Platelet Volume 5.4 FL (6.5-10.1) L Neutrophils (%) (Auto) 82.3 % (45.0-75.0) H Lymphocytes (%) (Auto) 7.4 % (20.0-45.0) L Monocytes (%) (Auto) 8.5 % (1.0-10.0) Eosinophils (%) (Auto) 0.0 % (0.0-3.0) Basophils (%) (Auto) 1.8 % (0.0-2.0) Sodium Level 143 MMOL/L (136-145) Potassium Level 3.1 MMOL/L (3.5-5.1) L Chloride Level 110 MMOL/L (98-107) H Carbon Dioxide Level 27 MMOL/L (21-32) Anion Gap 6 mmol/L (5-15) Blood Urea Nitrogen 13 mg/dL (7-18) Creatinine 0.5 MG/DL (0.55-1.30) L Estimat Glomerular Filtration Rate > 60 mL/min (>60) Glucose Level 108 MG/DL (74-106) H Calcium Level 7.1 MG/DL (8.5-10.1) L Phosphorus Level 2.5 MG/DL (2.5-4.9) Magnesium Level 2.0 MG/DL (1.8-2.4) Total Bilirubin 0.4 MG/DL (0.2-1.0) Aspartate Amino Transf (AST/SGOT) 25 U/L (15-37) Alanine Aminotransferase (ALT/SGPT) 24 U/L (12-78) Alkaline Phosphatase 68 U/L (46-116) C-Reactive Protein, Quantitative 4.1 mg/dL (0.00-0.90) H Pro-B-Type Natriuretic Peptide Pending Total Protein 5.8 G/DL (6.4-8.2) L Albumin 2.2 G/DL (3.4-5.0) L Globulin 3.6 g/dL Albumin/Globulin Ratio 0.6 (1.0-2.7) L Objective HEAD AND NECK: No JVD. LUNGS: Coarse rhonchi. CARDIOVASCULAR: Regular S1 and S2. Mildly tachycardic. ABDOMEN: Soft. EXTREMITIES: 1+ pitting edema. Shady Sorto MD Apr 30, 2020 13:49
--- NOTE | 2020-04-30 15:02 | Diagnostic Imaging Report ---
Indication: Shortness of breath Technique: One view of the chest Comparison: 04/26/2020 Findings: Current exam less heavily exposed. Allowing for differences in technique, suspect interim slight improvement of bilateral basilar infiltrates. There may be a small right pleural effusion. The heart size is normal. Tubing seen in the upper portion of the image is external to the patient, per discussion with nurse Impression: Slightly improved bilateral infiltrates Possible small right pleural effusion
[2020-04-30] MEDS ORDERED: NS 275ml ONE (15:47)
--- NOTE | 2020-04-30 21:26 | General Progress Note ---
Subjective ROS Limited/Unobtainable: Yes Allergies: Coded Allergies: No Known Allergies (Unverified , 04/14/20) Objective Last 24 Hour Vital Signs Date Time Temp Pulse Resp B/P (MAP) Pulse Ox O2 Delivery O2 Flow Rate FiO2 04/30/20 16:00 62 04/30/20 16:00 97.5 64 20 125/61 (82) 98 04/30/20 12:00 62 04/30/20 09:00 60 21 119/68 (85) 100 04/30/20 08:00 97.7 04/30/20 08:00 Nasal Cannula 2.0 04/30/20 08:00 60 04/30/20 08:00 65 21 124/63 (83) 96 04/30/20 07:00 59 17 118/65 (82) 99 04/30/20 06:00 62 20 116/63 (80) 99 04/30/20 05:00 63 21 107/62 (77) 99 04/30/20 04:00 59 04/30/20 04:00 98.4 59 12 112/62 (79) 99 04/30/20 04:00 Nasal Cannula 2.0 04/30/20 03:00 59 11 111/61 (78) 99 04/30/20 02:00 60 19 99/55 (70) 99 04/30/20 01:00 58 15 113/63 (80) 100 04/30/20 00:30 59 19 106/60 (75) 100 04/30/20 00:15 60 17 119/61 (80) 100 04/30/20 00:00 Nasal Cannula 2.0 04/30/20 00:00 98.2 58 18 110/56 (74) 100 04/29/20 23:00 59 15 106/54 (71) 100 04/29/20 22:00 67 20 99/77 (84) 100 Intake and Output 04/29/20 04/30/20 19:00 07:00 Intake Total 1742.776 ml 475 ml Output Total 410 ml 520 ml Balance 1332.776 ml -45 ml IV Total 1742.776 ml 475 ml Output Urine Total 410 ml 520 ml Laboratory Tests 04/30/20 05:00: White Blood Count 14.2H, Red Blood Count 3.88L, Hemoglobin 11.8L, Hematocrit 34.3L, Mean Corpuscular Volume 89, Mean Corpuscular Hemoglobin 30.5, Mean Corpuscular Hemoglobin Concent 34.4, Red Cell Distribution Width 14.0, Platelet Count 744H, Mean Platelet Volume 5.4L, Neutrophils (%) (Auto) 82.3H, Lymphocytes (%) (Auto) 7.4L, Monocytes (%) (Auto) 8.5, Eosinophils (%) (Auto) 0.0, Basophils (%) (Auto) 1.8, Sodium Level 143, Potassium Level 3.1L, Chloride Level 110H, Carbon Dioxide Level 27, Anion Gap 6, Blood Urea Nitrogen 13, Creatinine 0.5L, Estimat Glomerular Filtration Rate > 60, Glucose Level 108H, Calcium Level 7.1L, Phosphorus Level 2.5, Magnesium Level 2.0, Total Bilirubin 0.4, Aspartate Amino Transf (AST/SGOT) 25, Alanine Aminotransferase (ALT/SGPT) 24, Alkaline Phosphatase 68, C-Reactive Protein, Quantitative 4.1H, Pro-B-Type Natriuretic Peptide [Pending], Total Protein 5.8L, Albumin 2.2L, Globulin 3.6, Albumin/Globulin Ratio 0.6L Height (Feet): 5 Height (Inches): 8.00 Weight (Pounds): 130 Assessment/Plan Problem List: (1) Coronavirus infection ICD Codes: B34.2 - Coronavirus infection, unspecified SNOMED: 085513878 (2) Septic shock ICD Codes: A41.9 - Sepsis, unspecified organism; R65.21 - Severe sepsis with septic shock SNOMED: 74544169 (3) Seizure disorder ICD Codes: G40.909 - Epilepsy, unspecified, not intractable, without status epilepticus SNOMED: 950583422 (4) Electrolyte imbalance ICD Codes: E87.8 - Other disorders of electrolyte and fluid balance, not elsewhere classified SNOMED: 038876308 Status: progressing, unchanged Assessment/Plan: covid positive pna resp insuff sepsis off drip clinically improving Zain Mares MD Apr 30, 2020 21:26
[2020-04-30] MEDS: Dyna-Hex 2% Top Sol 2oz TOPIC SCH (21:59)
[2020-05-01] VITALS: BP 100/58
[2020-05-01 04:00] VITALS: BP 113/67
[2020-05-01 08:00] VITALS: BP 100/60
[2020-05-01] MEDS: Docusate 100mg cap ORAL SCH ×3 (08:15→21:00)
[2020-05-01] MEDS: dexAMETHasone 10mg/ml Inj IV SCH (08:15)
[2020-05-01] MEDS: levETIRAcetam 500mg/NS100ml 100 ML IVPB SCH ×2 (08:16→21:42)
[2020-05-01] MEDS: Azithromycin 250 MG in D5W 275 ML IV SCH (09:51)
[2020-05-01] MEDS: D5NS 1,000 ML IV SCH ×2 (09:54)
[2020-05-01 12:00] VITALS: BP 107/68
[2020-05-01] MEDS: cefTRIAXone 1 GM in D5W 55 ML IVPB SCH (12:01)
--- NOTE | 2020-05-01 13:07 | Pulmonology Progress Note ---
Subjective ROS Limited/Unobtainable: Yes Interval Events: Awake and responsive Constitutional: Reports: other - doing better , transferred from ICU to teleme try HEENT: Repors: no symptoms Respiratory: Reports: no symptoms Cardiovascular: Reports: no symptoms Gastrointestinal/Abdominal: Reports: no symptoms Genitourinary: Reports: no symptoms Neurologic: Reports: no symptoms Allergies: Coded Allergies: No Known Allergies (Unverified , 04/14/20) Objective Last 24 Hour Vital Signs Date Time Temp Pulse Resp B/P (MAP) Pulse Ox O2 Delivery O2 Flow Rate FiO2 05/01/20 12:00 97.9 62 20 107/68 (81) 100 05/01/20 09:00 Nasal Cannula 2.0 05/01/20 08:00 66 05/01/20 08:00 97.5 60 20 100/60 (73) 98 05/01/20 04:00 97.7 58 20 113/67 (82) 100 05/01/20 04:00 66 05/01/20 00:00 58 05/01/20 00:00 97.7 70 20 100/58 (72) 95 05/01/20 00:00 62 04/30/20 21:00 Nasal Cannula 4.0 04/30/20 20:00 98.4 63 20 123/71 (88) 100 04/30/20 16:00 62 04/30/20 16:00 97.5 64 20 125/61 (82) 98 Intake and Output 04/30/20 05/01/20 19:00 07:00 Output Total 110 ml Balance -110 ml Output Urine Total 110 ml # Bowel Movements 1 Objective 05/01 saturating well on 2 lpm NC General Appearance: no acute distress HEENT: normocephalic Respiratory: chest wall non-tender, other - coarse rhonchi Cardiovascular: normal peripheral pulses Abdomen: normal bowel sounds Extremities: other - 1+ pitting edema Current Medications Medications (Trade) Dose Ordered Sig/Aurora Route PRN Reason Start Time Stop Time Status Last Admin Dose Admin Acetaminophen (Tylenol) 500 mg Q4HR PRN ORAL Pain Scale (3-5) 04/27/20 00:15 05/27/20 00:14 Azithromycin 250 mg/Dextrose 275 ml @ 275 mls/hr Q24HRS IV 04/29/20 10:00 05/04/20 09:59 05/01/20 09:51 Ceftriaxone Sodium 1 gm/ Dextrose 55 ml @ 110 mls/hr Q24H IVPB 04/28/20 12:00 05/05/20 11:59 05/01/20 12:01 Chlorhexidine Gluconate (Anjali-Hex 2%) 1 applic DAILY@2000 TOPIC 04/29/20 20:00 07/28/20 19:59 04/30/20 21:59 Dexamethasone Sodium Phosphate (Decadron 10mg/ ml Inj) 6 mg DAILY IV 04/28/20 09:00 05/06/20 09:01 05/01/20 08:15 Dextrose/Sodium Chloride 1,000 ml @ 75 mls/hr [id number] IV 04/28/20 15:15 05/28/20 15:14 05/01/20 09:54 Docusate Sodium (Colace) 100 mg Q12HR ORAL 04/27/20 21:00 05/27/20 20:59 Levetiracetam 100 ml @ 400 mls/hr Q12HR IVPB 04/28/20 21:00 07/27/20 20:59 05/01/20 08:16 Pantoprazole (Protonix) 40 mg DAILY ORAL 04/27/20 11:30 05/27/20 11:29 04/27/20 11:33 Assessment/Plan Assessment/Plan 1. COVID-19 pneumonia, diagnosed approximately on 04/14/2020. - CXR 04/30 Slightly improved bilateral infiltrates, possible small right pleural effusion - on Decadron - Cont broad-spectrum antibiotics. 2. Seizure disorder. - on antiepileptics 3. Hypotension. Now resolved DVT ppx - pending venous duplex LE US due to his Covid-19 positive status DISCUSSION: He has received fluid boluses and has received dopamine. Now discontinued. seen in tele NPO per ST eval recommendation The care for this patient was discussed with my supervising physician Time spent for this case was approximately 31 minutes Brett Shore May 01, 2020 13:07 Radhames Jc MD May 01, 2020 16:37
--- NOTE | 2020-05-01 13:28 | Nephrology Progress Note ---
Assessment/Plan Problem List: (1) Septic shock (2) Acute febrile illness (3) Suspected 2019 novel coronavirus infection (4) Seizure disorder (5) Electrolyte imbalance Assessment Acute febrile illness most likely benton virus infection Hypotension ( Shock) ,on dopamine Seizure disorder Plan May 01: No labs drawn today. Stable from renal standpoint of view. We will continue to monitor renal parameters and electrolytes. April 30: Patient seen earlier in ICU. Abnormal electrolytes noted and addressed. Due transfer to telemetry. Continue per consultants. April 29: Patient hemodynamically improved. Urine output improved. Abnormal electrolytes reviewed and addressed. Continue per consultants. April 28: Keppra changed to IV. POA is held until speech therapy evaluation. Potassium phosphate IV. Ordered. Discussed with Beth ENG. Remains stable from renal standpoint of view. Albumin 5% 500 cc challenge ordered. Fluid challenge Monitor renal parameters Monitor electrolytes Per consultants Per orders Subjective ROS Limited/Unobtainable: No Constitutional: Reports: malaise Objective Objective Last 24 Hour Vital Signs Date Time Temp Pulse Resp B/P (MAP) Pulse Ox O2 Delivery O2 Flow Rate FiO2 05/01/20 12:00 97.9 62 20 107/68 (81) 100 05/01/20 09:00 Nasal Cannula 2.0 05/01/20 08:00 66 05/01/20 08:00 97.5 60 20 100/60 (73) 98 05/01/20 04:00 97.7 58 20 113/67 (82) 100 05/01/20 04:00 66 05/01/20 00:00 58 05/01/20 00:00 97.7 70 20 100/58 (72) 95 05/01/20 00:00 62 04/30/20 21:00 Nasal Cannula 4.0 04/30/20 20:00 98.4 63 20 123/71 (88) 100 04/30/20 16:00 62 04/30/20 16:00 97.5 64 20 125/61 (82) 98 Intake and Output 04/30/20 05/01/20 19:00 07:00 Output Total 110 ml Balance -110 ml Output Urine Total 110 ml # Bowel Movements 1 No labs drawn today Height (Feet): 5 Height (Inches): 8.00 Weight (Pounds): 130 General Appearance: no apparent distress Cardiovascular: normal rate Respiratory/Chest: lungs clear Abdomen: soft Objective No change Abhilash Clark MD May 01, 2020 13:28
[2020-05-01] MEDS ORDERED: Varibar Pudding 230ml MC PRN (15:45)
[2020-05-01] MEDS ORDERED: Varibar Thin Liquid powder 148gm MC PRN (15:45)
[2020-05-01] MEDS ORDERED: Varibar Honey 250ml MC PRN (15:45)
[2020-05-01] MEDS ORDERED: Varibar Nectar 240ml MC PRN (15:45)
[2020-05-01 16:00] VITALS: BP 96/59
--- NOTE | 2020-05-01 17:12 | Cardiac Electrophysiology PN ---
Assessment/Plan Assessment/Plan 1. S/P Septic shock. Now off dopamine and on IV antibiotic. Echo Nl EF 2. COVID pneumonia, on dexamethasone and ceftriaxone and 2 liter NC. 3. Seizure disorder and altered level of consciousness. The patient is on Keppra. RUDY RN Subjective Subjective In Covid isolation on 2 liter NC out of ICU. In Sr 50s Objective Last 24 Hour Vital Signs Date Time Temp Pulse Resp B/P (MAP) Pulse Ox O2 Delivery O2 Flow Rate FiO2 05/01/20 16:00 97.9 64 20 96/59 (71) 98 05/01/20 16:00 65 05/01/20 12:00 63 05/01/20 12:00 97.9 62 20 107/68 (81) 100 05/01/20 09:00 Nasal Cannula 2.0 05/01/20 08:00 66 05/01/20 08:00 97.5 60 20 100/60 (73) 98 05/01/20 04:00 97.7 58 20 113/67 (82) 100 05/01/20 04:00 66 05/01/20 00:00 58 05/01/20 00:00 97.7 70 20 100/58 (72) 95 05/01/20 00:00 62 04/30/20 21:00 Nasal Cannula 4.0 04/30/20 20:00 98.4 63 20 123/71 (88) 100 Intake and Output 04/30/20 05/01/20 19:00 07:00 Output Total 110 ml Balance -110 ml Output Urine Total 110 ml # Bowel Movements 1 Objective HEAD AND NECK: No JVD. LUNGS: Coarse rhonchi. CARDIOVASCULAR: Regular S1 and S2. Mildly tachycardic. ABDOMEN: Soft. EXTREMITIES: 1+ pitting edema. Shady Sorto MD May 01, 2020 17:12
[2020-05-01 20:00] VITALS: BP 108/60
--- NOTE | 2020-05-01 21:15 | General Progress Note ---
Subjective ROS Limited/Unobtainable: Yes Allergies: Coded Allergies: No Known Allergies (Unverified , 04/14/20) Objective Last 24 Hour Vital Signs Date Time Temp Pulse Resp B/P (MAP) Pulse Ox O2 Delivery O2 Flow Rate FiO2 05/01/20 16:00 97.9 64 20 96/59 (71) 98 05/01/20 16:00 65 05/01/20 12:00 63 05/01/20 12:00 97.9 62 20 107/68 (81) 100 05/01/20 09:00 Nasal Cannula 2.0 05/01/20 08:00 66 05/01/20 08:00 97.5 60 20 100/60 (73) 98 05/01/20 04:00 97.7 58 20 113/67 (82) 100 05/01/20 04:00 66 05/01/20 00:00 58 05/01/20 00:00 97.7 70 20 100/58 (72) 95 05/01/20 00:00 62 Intake and Output 04/30/20 05/01/20 19:00 07:00 Output Total 110 ml Balance -110 ml Output Urine Total 110 ml # Bowel Movements 1 Height (Feet): 5 Height (Inches): 8.00 Weight (Pounds): 130 Assessment/Plan Problem List: (1) Coronavirus infection ICD Codes: B34.2 - Coronavirus infection, unspecified SNOMED: 306460447 (2) Septic shock ICD Codes: A41.9 - Sepsis, unspecified organism; R65.21 - Severe sepsis with septic shock SNOMED: 26736563 (3) Seizure disorder ICD Codes: G40.909 - Epilepsy, unspecified, not intractable, without status epilepticus SNOMED: 351224961 (4) Electrolyte imbalance ICD Codes: E87.8 - Other disorders of electrolyte and fluid balance, not elsewhere classified SNOMED: 324330117 Status: progressing, unchanged Assessment/Plan: covid positive pna resp insuff sepsis refusing meds afebrile no acute events Zain Mares MD May 01, 2020 21:15
[2020-05-01] MEDS: Dyna-Hex 2% Top Sol 2oz TOPIC SCH (21:43)
[2020-05-02] VITALS: BP 98/66
[2020-05-02 04:00] VITALS: BP 105/67
[2020-05-02 08:00] VITALS: BP 101/72
[2020-05-02 08:03] LABS: BASOPHILS % (AUTO) 0.4 % (0.0-2.0); HEMATOCRIT 38.6 % (42.0-52.0); HEMOGLOBIN 12.9 G/DL (14.2-18.0); MEAN CORPUSCULAR VOLUME 90 FL (80-99); MONOCYTES % (AUTO) 5.5 % (1.0-10.0); NEUTROPHILS % (AUTO) 75.1 % (45.0-75.0); PLATELET COUNT 679 K/UL (150-450); RED BLOOD COUNT 4.27 M/UL (4.70-6.10); RED CELL DISTRIBUTION WIDTH 14.5 % (11.6-14.8); WHITE BLOOD COUNT 15.6 K/UL (4.8-10.8)
[2020-05-02 08:18] LABS: ALANINE AMINOTRANSFERASE 36 U/L (12-78); ALBUMIN 2.3 G/DL (3.4-5.0); ALBUMIN/GLOBULIN RATIO 0.6 (1.0-2.7); ALKALINE PHOSPHATASE 67 U/L (46-116); ANION GAP 6 mmol/L (5-15); ASPARTATE AMINO TRANSFERASE 25 U/L (15-37); BILIRUBIN,TOTAL 0.4 MG/DL (0.2-1.0); BLOOD UREA NITROGEN 10 mg/dL (7-18); CALCIUM 8.2 MG/DL (8.5-10.1); CARBON DIOXIDE 29 MMOL/L (21-32); CHLORIDE 107 MMOL/L (98-107); CREATININE 0.7 MG/DL (0.55-1.30); PHOSPHORUS 2.3 MG/DL (2.5-4.9); POTASSIUM 3.1 MMOL/L (3.5-5.1); SODIUM 142 MMOL/L (136-145)
[2020-05-02] MEDS: Docusate 100mg cap ORAL SCH ×2 (09:00→20:50)
[2020-05-02] MEDS ORDERED: Potassium Phosphate 20 MM in NS 275 ML IV ONE (10:15)
[2020-05-02] MEDS: dexAMETHasone 10mg/ml Inj IV SCH (11:03)
[2020-05-02] MEDS: levETIRAcetam 500mg/NS100ml 100 ML IVPB SCH ×2 (11:04→20:55)
[2020-05-02] MEDS: Azithromycin 250 MG in D5W 275 ML IV SCH (11:05)
[2020-05-02 12:00] VITALS: BP 99/65
[2020-05-02] MEDS: cefTRIAXone 1 GM in D5W 55 ML IVPB SCH (13:26)
[2020-05-02] MEDS: D5NS 1,000 ML IV SCH (13:27)
[2020-05-02] MEDS ORDERED: D5 1/2NS 1000ml IV ONE (14:03)
--- NOTE | 2020-05-02 14:29 | Pulmonology Progress Note ---
Subjective ROS Limited/Unobtainable: Yes Interval Events: Awake and responsive HEENT: Repors: no symptoms Respiratory: Reports: no symptoms Cardiovascular: Reports: no symptoms Gastrointestinal/Abdominal: Reports: no symptoms Genitourinary: Reports: no symptoms Neurologic: Reports: no symptoms Allergies: Coded Allergies: No Known Allergies (Unverified , 04/14/20) Objective Last 24 Hour Vital Signs Date Time Temp Pulse Resp B/P (MAP) Pulse Ox O2 Delivery O2 Flow Rate FiO2 05/02/20 04:00 97.6 62 20 105/67 (80) 100 05/02/20 00:00 97.9 60 20 98/66 (77) 99 05/01/20 21:30 Nasal Cannula 2.0 05/01/20 20:00 97.4 63 20 108/60 (76) 100 05/01/20 16:00 97.9 64 20 96/59 (71) 98 05/01/20 16:00 65 Intake and Output 05/01/20 05/02/20 19:00 07:00 Intake Total 700 ml Output Total 900 ml Balance -900 ml 700 ml IV Total 700 ml Output Urine Total 900 ml # Voids 2 Objective 05/02 saturating 93% on 2 lpm NC 05/01 saturating well on 2 lpm NC General Appearance: no acute distress HEENT: normocephalic Respiratory: chest wall non-tender, other - coarse rhonchi Cardiovascular: normal peripheral pulses Abdomen: normal bowel sounds Extremities: other - 1+ pitting edema Laboratory Tests 05/02/20 06:00: White Blood Count 15.6H, Red Blood Count 4.27L, Hemoglobin 12.9L, Hematocrit 38.6L, Mean Corpuscular Volume 90, Mean Corpuscular Hemoglobin 30.2, Mean Corpuscular Hemoglobin Concent 33.4, Red Cell Distribution Width 14.5, Platelet Count 679H, Mean Platelet Volume 5.7L, Neutrophils (%) (Auto) 75.1H, Lymphocytes (%) (Auto) 19.0L, Monocytes (%) (Auto) 5.5, Eosinophils (%) (Auto) 0.0, Basophils (%) (Auto) 0.4, Sodium Level 142, Potassium Level 3.1L, Chloride Level 107, Carbon Dioxide Level 29, Anion Gap 6, Blood Urea Nitrogen 10, Creatinine 0.7, Estimat Glomerular Filtration Rate > 60, Glucose Level 93, Calcium Level 8.2L, Phosphorus Level 2.3L, Magnesium Level 2.0, Total Bilirubin 0.4, Aspartate Amino Transf (AST/SGOT) 25, Alanine Aminotransferase (ALT/SGPT) 36, Alkaline Phosphatase 67, Total Protein 6.0L, Albumin 2.3L, Globulin 3.7, Albumin/Globulin Ratio 0.6L Current Medications Medications (Trade) Dose Ordered Sig/Aurora Route PRN Reason Start Time Stop Time Status Last Admin Dose Admin Acetaminophen (Tylenol) 500 mg Q4HR PRN ORAL Pain Scale (3-5) 04/27/20 00:15 05/27/20 00:14 Azithromycin 250 mg/Dextrose 275 ml @ 275 mls/hr Q24HRS IV 04/29/20 10:00 05/04/20 09:59 05/02/20 11:05 Barium Sulfate (Varibar Honey) 250 ml NOW PRN RAD 05/01/20 15:45 05/04/20 15:30 Barium Sulfate (Varibar [place]) 240 ml NOW PRN RAD 05/01/20 15:45 05/04/20 15:30 Barium Sulfate (Varibar Pudding) 230 ml NOW PRN RAD 05/01/20 15:45 05/04/20 15:30 Barium Sulfate (Varibar Thin Liquid powder) 148 gm NOW PRN RAD 05/01/20 15:45 05/04/20 15:30 Ceftriaxone Sodium 1 gm/ Dextrose 55 ml @ 110 mls/hr Q24H IVPB 04/28/20 12:00 05/05/20 11:59 05/02/20 13:26 Chlorhexidine Gluconate (Anjali-Hex 2%) 1 applic DAILY@2000 TOPIC 04/29/20 20:00 07/28/20 19:59 05/01/20 21:43 Dexamethasone Sodium Phosphate (Decadron 10mg/ ml Inj) 6 mg DAILY IV 04/28/20 09:00 05/06/20 09:01 05/02/20 11:03 Dextrose/Sodium Chloride 1,000 ml @ 75 mls/hr [id number] IV 04/28/20 15:15 05/28/20 15:14 05/02/20 13:27 Docusate Sodium (Colace) 100 mg Q12HR ORAL 04/27/20 21:00 05/27/20 20:59 Levetiracetam 100 ml @ 400 mls/hr Q12HR IVPB 04/28/20 21:00 07/27/20 20:59 05/02/20 11:04 Pantoprazole (Protonix) 40 mg DAILY ORAL 04/27/20 11:30 05/27/20 11:29 04/27/20 11:33 Potassium Phosphate 20 mm/ Sodium Chloride 281.6667 ml @ 46.944 m... ONCE ONCE IV 05/02/20 10:15 05/02/20 16:14 05/02/20 13:27 Assessment/Plan Assessment/Plan 1. COVID-19 pneumonia, diagnosed approximately on 04/14/2020. - CXR 04/30 Slightly improved bilateral infiltrates, possible small right pleural effusion - on Decadron - Cont broad-spectrum antibiotics. 2. Seizure disorder. - on antiepileptics 3. Hypotension. Now resolved DVT ppx - pending venous duplex LE US due to his Covid-19 positive status DISCUSSION: He has received fluid boluses and has received dopamine. Now discontinued. seen in tele NPO per ST eval recommendation The care for this patient was discussed with my supervising physician Time spent for this case was approximately 31 minutes Brett Shore May 02, 2020 14:29
--- NOTE | 2020-05-02 15:25 | Nephrology Progress Note ---
Assessment/Plan Problem List: (1) Septic shock (2) Acute febrile illness (3) Suspected 2019 novel coronavirus infection (4) Seizure disorder (5) Electrolyte imbalance Assessment Acute febrile illness most likely benton virus infection Hypotension ( Shock) ,on dopamine Seizure disorder Plan May 02: Labs reviewed. Potassium and phosphorus were replaced. Continue per consultants. May 01: No labs drawn today. Stable from renal standpoint of view. We will continue to monitor renal parameters and electrolytes. April 30: Patient seen earlier in ICU. Abnormal electrolytes noted and addressed. Due transfer to telemetry. Continue per consultants. April 29: Patient hemodynamically improved. Urine output improved. Abnormal electrolytes reviewed and addressed. Continue per consultants. April 28: Keppra changed to IV. POA is held until speech therapy evaluation. Potassium phosphate IV. Ordered. Discussed with Beth ENG. Remains stable from renal standpoint of view. Albumin 5% 500 cc challenge ordered. Fluid challenge Monitor renal parameters Monitor electrolytes Per consultants Per orders Subjective Constitutional: Reports: malaise Objective Objective Last 24 Hour Vital Signs Date Time Temp Pulse Resp B/P (MAP) Pulse Ox O2 Delivery O2 Flow Rate FiO2 05/02/20 04:00 97.6 62 20 105/67 (80) 100 05/02/20 00:00 97.9 60 20 98/66 (77) 99 05/01/20 21:30 Nasal Cannula 2.0 05/01/20 20:00 97.4 63 20 108/60 (76) 100 05/01/20 16:00 97.9 64 20 96/59 (71) 98 05/01/20 16:00 65 Intake and Output 05/01/20 05/02/20 19:00 07:00 Intake Total 700 ml Output Total 900 ml Balance -900 ml 700 ml IV Total 700 ml Output Urine Total 900 ml # Voids 2 Current Medications Medications (Trade) Dose Ordered Sig/Aurora Route PRN Reason Start Time Stop Time Status Last Admin Dose Admin Acetaminophen (Tylenol) 500 mg Q4HR PRN ORAL Pain Scale (3-5) 04/27/20 00:15 05/27/20 00:14 Azithromycin 250 mg/Dextrose 275 ml @ 275 mls/hr Q24HRS IV 04/29/20 10:00 05/04/20 09:59 05/02/20 11:05 Barium Sulfate (Varibar Honey) 250 ml NOW PRN MC RAD 05/01/20 15:45 05/04/20 15:30 Barium Sulfate (Varibar [place]) 240 ml NOW PRN RAD 05/01/20 15:45 05/04/20 15:30 Barium Sulfate (Varibar Pudding) 230 ml NOW PRN RAD 05/01/20 15:45 05/04/20 15:30 Barium Sulfate (Varibar Thin Liquid powder) 148 gm NOW PRN RAD 05/01/20 15:45 05/04/20 15:30 Ceftriaxone Sodium 1 gm/ Dextrose 55 ml @ 110 mls/hr Q24H IVPB 04/28/20 12:00 05/05/20 11:59 05/02/20 13:26 Chlorhexidine Gluconate (Anjali-Hex 2%) 1 applic DAILY@2000 TOPIC 04/29/20 20:00 07/28/20 19:59 05/01/20 21:43 Dexamethasone Sodium Phosphate (Decadron 10mg/ ml Inj) 6 mg DAILY IV 04/28/20 09:00 05/06/20 09:01 05/02/20 11:03 Dextrose/Sodium Chloride 1,000 ml @ 75 mls/hr [id number] IV 04/28/20 15:15 05/28/20 15:14 05/02/20 13:27 Docusate Sodium (Colace) 100 mg Q12HR ORAL 04/27/20 21:00 05/27/20 20:59 Levetiracetam 100 ml @ 400 mls/hr Q12HR IVPB 04/28/20 21:00 07/27/20 20:59 05/02/20 11:04 Pantoprazole (Protonix) 40 mg DAILY ORAL 04/27/20 11:30 05/27/20 11:29 04/27/20 11:33 Potassium Phosphate 20 mm/ Sodium Chloride 281.6667 ml @ 46.944 m... ONCE ONCE IV 05/02/20 10:15 05/02/20 16:14 05/02/20 13:27 Laboratory Tests 05/02/20 06:00: White Blood Count 15.6H, Red Blood Count 4.27L, Hemoglobin 12.9L, Hematocrit 38.6L, Mean Corpuscular Volume 90, Mean Corpuscular Hemoglobin 30.2, Mean Corpuscular Hemoglobin Concent 33.4, Red Cell Distribution Width 14.5, Platelet Count 679H, Mean Platelet Volume 5.7L, Neutrophils (%) (Auto) 75.1H, Lymphocytes (%) (Auto) 19.0L, Monocytes (%) (Auto) 5.5, Eosinophils (%) (Auto) 0.0, Basophils (%) (Auto) 0.4, Sodium Level 142, Potassium Level 3.1L, Chloride Level 107, Carbon Dioxide Level 29, Anion Gap 6, Blood Urea Nitrogen 10, Creatinine 0.7, Estimat Glomerular Filtration Rate > 60, Glucose Level 93, Calcium Level 8.2L, Phosphorus Level 2.3L, Magnesium Level 2.0, Total Bilirubin 0.4, Aspartate Amino Transf (AST/SGOT) 25, Alanine Aminotransferase (ALT/SGPT) 36, Alkaline Phosphatase 67, Total Protein 6.0L, Albumin 2.3L, Globulin 3.7, Albumin/Globulin Ratio 0.6L Height (Feet): 5 Height (Inches): 8.00 Weight (Pounds): 130 General Appearance: no apparent distress Cardiovascular: normal rate Respiratory/Chest: decreased breath sounds Abdomen: soft Objective No change Abhilash Clark MD May 02, 2020 15:25
[2020-05-02 16:00] VITALS: BP 91/59
--- NOTE | 2020-05-02 16:13 | Infectious Diseases Prog Note ---
Assessment/Plan Assessment/Plan IMPRESSION: Sepsis with septic shock,resolving pneumonia with COVID19 Hypoxemia COPD, Seizure disorder, Lactic acidosis, Encephalopathy. RECOMMENDATIONS: Continue ceftriaxone, Dexamethasone & Azithromycin Subjective ROS Limited/Unobtainable: Yes Allergies: Coded Allergies: No Known Allergies (Unverified , 04/14/20) Objective Last 24 Hour Vital Signs Date Time Temp Pulse Resp B/P (MAP) Pulse Ox O2 Delivery O2 Flow Rate FiO2 05/02/20 04:00 97.6 62 20 105/67 (80) 100 05/02/20 00:00 97.9 60 20 98/66 (77) 99 05/01/20 21:30 Nasal Cannula 2.0 05/01/20 20:00 97.4 63 20 108/60 (76) 100 Height (Feet): 5 Height (Inches): 8.00 Weight (Pounds): 130 General Appearance: no acute distress HEENT: mucous membranes moist Respiratory/Chest: other - oxygen by nasal cannula Cardiovascular: normal rate Abdomen: soft, non tender Extremities: no edema Neurologic/Psychiatric: other - sleeping Laboratory Tests Test 05/02/20 06:00 White Blood Count 15.6 K/UL (4.8-10.8) H Red Blood Count 4.27 M/UL (4.70-6.10) L Hemoglobin 12.9 G/DL (14.2-18.0) L Hematocrit 38.6 % (42.0-52.0) L Mean Corpuscular Volume 90 FL (80-99) Mean Corpuscular Hemoglobin 30.2 PG (27.0-31.0) Mean Corpuscular Hemoglobin Concent 33.4 G/DL (32.0-36.0) Red Cell Distribution Width 14.5 % (11.6-14.8) Platelet Count 679 K/UL (150-450) H Mean Platelet Volume 5.7 FL (6.5-10.1) L Neutrophils (%) (Auto) 75.1 % (45.0-75.0) H Lymphocytes (%) (Auto) 19.0 % (20.0-45.0) L Monocytes (%) (Auto) 5.5 % (1.0-10.0) Eosinophils (%) (Auto) 0.0 % (0.0-3.0) Basophils (%) (Auto) 0.4 % (0.0-2.0) Sodium Level 142 MMOL/L (136-145) Potassium Level 3.1 MMOL/L (3.5-5.1) L Chloride Level 107 MMOL/L (98-107) Carbon Dioxide Level 29 MMOL/L (21-32) Anion Gap 6 mmol/L (5-15) Blood Urea Nitrogen 10 mg/dL (7-18) Creatinine 0.7 MG/DL (0.55-1.30) Estimat Glomerular Filtration Rate > 60 mL/min (>60) Glucose Level 93 MG/DL (74-106) Calcium Level 8.2 MG/DL (8.5-10.1) L Phosphorus Level 2.3 MG/DL (2.5-4.9) L Magnesium Level 2.0 MG/DL (1.8-2.4) Total Bilirubin 0.4 MG/DL (0.2-1.0) Aspartate Amino Transf (AST/SGOT) 25 U/L (15-37) Alanine Aminotransferase (ALT/SGPT) 36 U/L (12-78) Alkaline Phosphatase 67 U/L (46-116) Total Protein 6.0 G/DL (6.4-8.2) L Albumin 2.3 G/DL (3.4-5.0) L Globulin 3.7 g/dL Albumin/Globulin Ratio 0.6 (1.0-2.7) L Current Medications Medications (Trade) Dose Ordered Sig/Aurora Route PRN Reason Start Time Stop Time Status Last Admin Dose Admin Acetaminophen (Tylenol) 500 mg Q4HR PRN ORAL Pain Scale (3-5) 04/27/20 00:15 05/27/20 00:14 Azithromycin 250 mg/Dextrose 275 ml @ 275 mls/hr Q24HRS IV 04/29/20 10:00 05/04/20 09:59 05/02/20 11:05 Barium Sulfate (Varibar Honey) 250 ml NOW PRN RAD 05/01/20 15:45 05/04/20 15:30 Barium Sulfate (Varibar [place]) 240 ml NOW PRN RAD 05/01/20 15:45 05/04/20 15:30 Barium Sulfate (Varibar Pudding) 230 ml NOW PRN RAD 05/01/20 15:45 05/04/20 15:30 Barium Sulfate (Varibar Thin Liquid powder) 148 gm NOW PRN MC RAD 05/01/20 15:45 05/04/20 15:30 Ceftriaxone Sodium 1 gm/ Dextrose 55 ml @ 110 mls/hr Q24H IVPB 04/28/20 12:00 05/05/20 11:59 05/02/20 13:26 Chlorhexidine Gluconate (Anjali-Hex 2%) 1 applic DAILY@2000 TOPIC 04/29/20 20:00 07/28/20 19:59 05/01/20 21:43 Dexamethasone Sodium Phosphate (Decadron 10mg/ ml Inj) 6 mg DAILY IV 04/28/20 09:00 05/06/20 09:01 05/02/20 11:03 Dextrose/Sodium Chloride 1,000 ml @ 75 mls/hr [id number] IV 04/28/20 15:15 05/28/20 15:14 05/02/20 13:27 Docusate Sodium (Colace) 100 mg Q12HR ORAL 04/27/20 21:00 05/27/20 20:59 Levetiracetam 100 ml @ 400 mls/hr Q12HR IVPB 04/28/20 21:00 07/27/20 20:59 05/02/20 11:04 Pantoprazole (Protonix) 40 mg DAILY ORAL 04/27/20 11:30 05/27/20 11:29 04/27/20 11:33 Potassium Phosphate 20 mm/ Sodium Chloride 281.6667 ml @ 46.944 m... ONCE ONCE IV 05/02/20 10:15 05/02/20 16:14 05/02/20 13:27 Narendra Garcia MD May 02, 2020 16:13
[2020-05-02 20:00] VITALS: BP 106/68
--- NOTE | 2020-05-02 20:18 | General Progress Note ---
Subjective ROS Limited/Unobtainable: Yes Allergies: Coded Allergies: No Known Allergies (Unverified , 04/14/20) Objective Last 24 Hour Vital Signs Date Time Temp Pulse Resp B/P (MAP) Pulse Ox O2 Delivery O2 Flow Rate FiO2 05/02/20 16:00 97.5 61 18 91/59 (70) 94 05/02/20 12:00 97.5 66 20 99/65 (76) 94 05/02/20 09:00 Nasal Cannula 2.0 05/02/20 08:00 97.8 89 20 101/72 (82) 92 05/02/20 04:00 97.6 62 20 105/67 (80) 100 05/02/20 00:00 97.9 60 20 98/66 (77) 99 05/01/20 21:30 Nasal Cannula 2.0 Intake and Output 05/01/20 05/02/20 19:00 07:00 Intake Total 775 ml Output Total 900 ml Balance -900 ml 775 ml IV Total 775 ml Output Urine Total 900 ml # Voids 2 Laboratory Tests 05/02/20 06:00: White Blood Count 15.6H, Red Blood Count 4.27L, Hemoglobin 12.9L, Hematocrit 38.6L, Mean Corpuscular Volume 90, Mean Corpuscular Hemoglobin 30.2, Mean Corpuscular Hemoglobin Concent 33.4, Red Cell Distribution Width 14.5, Platelet Count 679H, Mean Platelet Volume 5.7L, Neutrophils (%) (Auto) 75.1H, Lymphocytes (%) (Auto) 19.0L, Monocytes (%) (Auto) 5.5, Eosinophils (%) (Auto) 0.0, Basophils (%) (Auto) 0.4, Sodium Level 142, Potassium Level 3.1L, Chloride Level 107, Carbon Dioxide Level 29, Anion Gap 6, Blood Urea Nitrogen 10, Creatinine 0.7, Estimat Glomerular Filtration Rate > 60, Glucose Level 93, Calcium Level 8.2L, Phosphorus Level 2.3L, Magnesium Level 2.0, Total Bilirubin 0.4, Aspartate Amino Transf (AST/SGOT) 25, Alanine Aminotransferase (ALT/SGPT) 36, Alkaline Phosphatase 67, Total Protein 6.0L, Albumin 2.3L, Globulin 3.7, Albumin/Globulin Ratio 0.6L Height (Feet): 5 Height (Inches): 8.00 Weight (Pounds): 130 Assessment/Plan Problem List: (1) Coronavirus infection ICD Codes: B34.2 - Coronavirus infection, unspecified SNOMED: 026699644 (2) Septic shock ICD Codes: A41.9 - Sepsis, unspecified organism; R65.21 - Severe sepsis with septic shock SNOMED: 20640537 (3) Seizure disorder ICD Codes: G40.909 - Epilepsy, unspecified, not intractable, without status epilepticus SNOMED: 189266536 (4) Electrolyte imbalance ICD Codes: E87.8 - Other disorders of electrolyte and fluid balance, not elsewhere classified SNOMED: 960523643 Status: progressing, unchanged Assessment/Plan: covid positive pna resp insuff sepsis check lytes afebril no seizure Zain Mares MD May 02, 2020 20:18
[2020-05-02] MEDS: Dyna-Hex 2% Top Sol 2oz TOPIC SCH (20:55)
[2020-05-03] VITALS: BP 98/63
[2020-05-03] MEDS: D5NS 1,000 ML IV SCH ×2 (03:56→16:41)
[2020-05-03 04:00] VITALS: BP 117/68
[2020-05-03 07:48] LABS: BASOPHILS % (AUTO) 0.3 % (0.0-2.0); HEMATOCRIT 37.2 % (42.0-52.0); HEMOGLOBIN 12.6 G/DL (14.2-18.0); LYMPHOCYTES % (AUTO) 16.8 % (20.0-45.0); MEAN CORPUSCULAR VOLUME 89 FL (80-99); MONOCYTES % (AUTO) 5.6 % (1.0-10.0); NEUTROPHILS % (AUTO) 77.3 % (45.0-75.0); PLATELET COUNT 604 K/UL (150-450)
[2020-05-03 07:58] LABS: ALANINE AMINOTRANSFERASE 38 U/L (12-78); ALBUMIN 2.3 G/DL (3.4-5.0); ALBUMIN/GLOBULIN RATIO 0.6 (1.0-2.7); ALKALINE PHOSPHATASE 70 U/L (46-116); ANION GAP 6 mmol/L (5-15); ASPARTATE AMINO TRANSFERASE 25 U/L (15-37); BILIRUBIN,TOTAL 0.4 MG/DL (0.2-1.0); BLOOD UREA NITROGEN 8 mg/dL (7-18); CALCIUM 7.9 MG/DL (8.5-10.1); CARBON DIOXIDE 29 MMOL/L (21-32); CHLORIDE 107 MMOL/L (98-107); CREATININE 0.6 MG/DL (0.55-1.30); PHOSPHORUS 2.7 MG/DL (2.5-4.9); POTASSIUM 3.4 MMOL/L (3.5-5.1); SODIUM 141 MMOL/L (136-145)
[2020-05-03 08:00] VITALS: BP 100/68
[2020-05-03] MEDS: dexAMETHasone 10mg/ml Inj IV SCH (08:52)
[2020-05-03] MEDS: Docusate 100mg cap ORAL SCH ×2 (08:53→21:00)
[2020-05-03] MEDS: levETIRAcetam 500mg/NS100ml 100 ML IVPB SCH ×2 (08:57→21:44)
--- NOTE | 2020-05-03 09:33 | Pulmonology Progress Note ---
Subjective ROS Limited/Unobtainable: Yes Interval Events: Awake and responsive HEENT: Repors: no symptoms Respiratory: Reports: no symptoms Cardiovascular: Reports: no symptoms Gastrointestinal/Abdominal: Reports: no symptoms Genitourinary: Reports: no symptoms Neurologic: Reports: no symptoms Allergies: Coded Allergies: No Known Allergies (Unverified , 04/14/20) Objective Last 24 Hour Vital Signs Date Time Temp Pulse Resp B/P (MAP) Pulse Ox O2 Delivery O2 Flow Rate FiO2 05/03/20 04:00 97.0 68 20 117/68 (84) 93 05/03/20 00:00 96.8 66 22 98/63 (75) 93 05/02/20 21:00 Nasal Cannula 2.0 05/02/20 20:00 97.5 85 23 106/68 (81) 94 05/02/20 16:00 97.5 61 18 91/59 (70) 94 05/02/20 12:00 97.5 66 20 99/65 (76) 94 Intake and Output 05/02/20 05/03/20 19:00 07:00 Intake Total 1164.720 ml 1000 ml Output Total 600 ml 450 ml Balance 564.720 ml 550 ml IV Total 1164.720 ml 1000 ml Output Urine Total 600 ml 450 ml # Voids 1 Objective 05/03 no change; PICC line 05/02 saturating 93% on 2 lpm NC 05/01 saturating well on 2 lpm NC General Appearance: no acute distress HEENT: normocephalic Respiratory: chest wall non-tender, other - coarse rhonchi Cardiovascular: normal peripheral pulses Abdomen: normal bowel sounds Extremities: other - 1+ pitting edema Laboratory Tests 05/03/20 04:10: Sodium Level 141, Potassium Level 3.4L, Chloride Level 107, Carbon Dioxide Level 29, Anion Gap 6, Blood Urea Nitrogen 8, Creatinine 0.6, Estimat Glomerular Filtration Rate > 60, Glucose Level 100, Calcium Level 7.9L, Phosphorus Level 2.7, Magnesium Level 2.1, Total Bilirubin 0.4, Aspartate Amino Transf (AST/SGOT) 25, Alanine Aminotransferase (ALT/SGPT) 38, Alkaline Phosphatase 70, Total Protein 5.9L, Albumin 2.3L, Globulin 3.6, Albumin/Globulin Ratio 0.6L 05/03/20 05:10: White Blood Count 13.0H, Red Blood Count 4.20L, Hemoglobin 12.6L, Hematocrit 37.2L, Mean Corpuscular Volume 89, Mean Corpuscular Hemoglobin 30.1, Mean Corpuscular Hemoglobin Concent 34.0, Red Cell Distribution Width 14.0, Platelet Count 604H, Mean Platelet Volume 5.5L, Neutrophils (%) (Auto) 77.3H, Lymphocytes (%) (Auto) 16.8L, Monocytes (%) (Auto) 5.6, Eosinophils (%) (Auto) 0.0, Basophils (%) (Auto) 0.3 Current Medications Medications (Trade) Dose Ordered Sig/Aurora Route PRN Reason Start Time Stop Time Status Last Admin Dose Admin Acetaminophen (Tylenol) 500 mg Q4HR PRN ORAL Pain Scale (3-5) 04/27/20 00:15 05/27/20 00:14 Azithromycin 250 mg/Dextrose 275 ml @ 275 mls/hr Q24HRS IV 04/29/20 10:00 05/04/20 09:59 05/02/20 11:05 Barium Sulfate (Varibar Honey) 250 ml NOW PRN RAD 05/01/20 15:45 05/04/20 15:30 Barium Sulfate (Varibar [place]) 240 ml NOW PRN RAD 05/01/20 15:45 05/04/20 15:30 Barium Sulfate (Varibar Pudding) 230 ml NOW PRN RAD 05/01/20 15:45 05/04/20 15:30 Barium Sulfate (Varibar Thin Liquid powder) 148 gm NOW PRN RAD 05/01/20 15:45 05/04/20 15:30 Ceftriaxone Sodium 1 gm/ Dextrose 55 ml @ 110 mls/hr Q24H IVPB 04/28/20 12:00 05/05/20 11:59 05/02/20 13:26 Chlorhexidine Gluconate (Anjali-Hex 2%) 1 applic DAILY@2000 TOPIC 04/29/20 20:00 07/28/20 19:59 05/02/20 20:55 Dexamethasone Sodium Phosphate (Decadron 10mg/ ml Inj) 6 mg DAILY IV 04/28/20 09:00 05/06/20 09:01 05/03/20 08:52 Dextrose/Sodium Chloride 1,000 ml @ 75 mls/hr [id number] IV 04/28/20 15:15 05/28/20 15:14 05/03/20 03:56 Docusate Sodium (Colace) 100 mg Q12HR ORAL 04/27/20 21:00 05/27/20 20:59 Levetiracetam 100 ml @ 400 mls/hr Q12HR IVPB 04/28/20 21:00 07/27/20 20:59 05/03/20 08:57 Pantoprazole (Protonix) 40 mg DAILY ORAL 04/27/20 11:30 05/27/20 11:29 04/27/20 11:33 Assessment/Plan Assessment/Plan 1. COVID-19 pneumonia, diagnosed approximately on 04/14/2020. - CXR 04/30 Slightly improved bilateral infiltrates, possible small right pleural effusion - on Decadron - on broad-spectrum antibiotics. - currently saturating at 93% on 2L NC 2. Seizure disorder. - on antiepileptics 3. Hypotension. Now resolved DVT ppx - pending venous duplex LE US due to his Covid-19 positive status DISCUSSION: He has received fluid boluses and has received dopamine. Now discontinued. seen in tele NPO per ST eval recommendation PEG recommended by speech therapy The care for this patient was discussed with my supervising physician Time spent for this case was approximately 31 minutes Brett Shore May 03, 2020 09:33 Radhames Jc MD May 03, 2020 17:47
[2020-05-03] MEDS: Azithromycin 250 MG in D5W 275 ML IV SCH (10:34)
--- NOTE | 2020-05-03 11:26 | Nephrology Progress Note ---
Assessment/Plan Problem List: (1) Septic shock (2) Acute febrile illness (3) Suspected 2019 novel coronavirus infection (4) Seizure disorder (5) Electrolyte imbalance Assessment Acute febrile illness most likely [place] virus infection Hypotension ( Shock) ,on dopamine Seizure disorder Plan May 03: Labs reviewed. Potassium replaced. Continue per consultants. May 02: Labs reviewed. Potassium and phosphorus were replaced. Continue per consultants. May 01: No labs drawn today. Stable from renal standpoint of view. We will continue to monitor renal parameters and electrolytes. April 30: Patient seen earlier in ICU. Abnormal electrolytes noted and addressed. Due transfer to telemetry. Continue per consultants. April 29: Patient hemodynamically improved. Urine output improved. Abnormal electrolytes reviewed and addressed. Continue per consultants. April 28: Keppra changed to IV. POA is held until speech therapy evaluation. Potassium phosphate IV. Ordered. Discussed with Beth ENG. Remains stable from renal standpoint of view. Albumin 5% 500 cc challenge ordered. Fluid challenge Monitor renal parameters Monitor electrolytes Per consultants Per orders Subjective ROS Limited/Unobtainable: No Constitutional: Reports: weakness Objective Objective Last 24 Hour Vital Signs Date Time Temp Pulse Resp B/P (MAP) Pulse Ox O2 Delivery O2 Flow Rate FiO2 05/03/20 09:00 Nasal Cannula 2.0 05/03/20 08:00 97.3 69 20 100/68 (79) 92 05/03/20 04:00 97.0 68 20 117/68 (84) 93 05/03/20 00:00 96.8 66 22 98/63 (75) 93 05/02/20 21:00 Nasal Cannula 2.0 05/02/20 20:00 97.5 85 23 106/68 (81) 94 05/02/20 16:00 97.5 61 18 91/59 (70) 94 05/02/20 12:00 97.5 66 20 99/65 (76) 94 Intake and Output 05/02/20 05/03/20 19:00 07:00 Intake Total 1164.720 ml 1000 ml Output Total 600 ml 450 ml Balance 564.720 ml 550 ml IV Total 1164.720 ml 1000 ml Output Urine Total 600 ml 450 ml # Voids 1 Current Medications Medications (Trade) Dose Ordered Sig/Aurora Route PRN Reason Start Time Stop Time Status Last Admin Dose Admin Acetaminophen (Tylenol) 500 mg Q4HR PRN ORAL Pain Scale (3-5) 04/27/20 00:15 05/27/20 00:14 Azithromycin 250 mg/Dextrose 275 ml @ 275 mls/hr Q24HRS IV 04/29/20 10:00 05/04/20 09:59 05/03/20 10:34 Barium Sulfate (Varibar Honey) 250 ml NOW PRN RAD 05/01/20 15:45 05/04/20 15:30 Barium Sulfate (Varibar [place]) 240 ml NOW PRN RAD 05/01/20 15:45 05/04/20 15:30 Barium Sulfate (Varibar Pudding) 230 ml NOW PRN RAD 05/01/20 15:45 05/04/20 15:30 Barium Sulfate (Varibar Thin Liquid powder) 148 gm NOW PRN RAD 05/01/20 15:45 05/04/20 15:30 Ceftriaxone Sodium 1 gm/ Dextrose 55 ml @ 110 mls/hr Q24H IVPB 04/28/20 12:00 05/05/20 11:59 05/02/20 13:26 Chlorhexidine Gluconate (Anjali-Hex 2%) 1 applic DAILY@2000 TOPIC 04/29/20 20:00 07/28/20 19:59 05/02/20 20:55 Dexamethasone Sodium Phosphate (Decadron 10mg/ ml Inj) 6 mg DAILY IV 04/28/20 09:00 05/06/20 09:01 05/03/20 08:52 Dextrose/Sodium Chloride 1,000 ml @ 75 mls/hr [id number] IV 04/28/20 15:15 05/28/20 15:14 05/03/20 03:56 Docusate Sodium (Colace) 100 mg Q12HR ORAL 04/27/20 21:00 05/27/20 20:59 Levetiracetam 100 ml @ 400 mls/hr Q12HR IVPB 04/28/20 21:00 07/27/20 20:59 05/03/20 08:57 Pantoprazole (Protonix) 40 mg DAILY ORAL 04/27/20 11:30 05/27/20 11:29 04/27/20 11:33 Laboratory Tests 05/03/20 04:10: Sodium Level 141, Potassium Level 3.4L, Chloride Level 107, Carbon Dioxide Level 29, Anion Gap 6, Blood Urea Nitrogen 8, Creatinine 0.6, Estimat Glomerular Filtration Rate > 60, Glucose Level 100, Calcium Level 7.9L, Phosphorus Level 2.7, Magnesium Level 2.1, Total Bilirubin 0.4, Aspartate Amino Transf (AST/SGOT) 25, Alanine Aminotransferase (ALT/SGPT) 38, Alkaline Phosphatase 70, Total Protein 5.9L, Albumin 2.3L, Globulin 3.6, Albumin/Globulin Ratio 0.6L 05/03/20 05:10: White Blood Count 13.0H, Red Blood Count 4.20L, Hemoglobin 12.6L, Hematocrit 37.2L, Mean Corpuscular Volume 89, Mean Corpuscular Hemoglobin 30.1, Mean Corpuscular Hemoglobin Concent 34.0, Red Cell Distribution Width 14.0, Platelet Count 604H, Mean Platelet Volume 5.5L, Neutrophils (%) (Auto) 77.3H, Lymphocytes (%) (Auto) 16.8L, Monocytes (%) (Auto) 5.6, Eosinophils (%) (Auto) 0.0, Basophils (%) (Auto) 0.3 Height (Feet): 5 Height (Inches): 8.00 Weight (Pounds): 130 General Appearance: no apparent distress, lethargic Cardiovascular: normal rate Respiratory/Chest: decreased breath sounds Abdomen: distended Objective No change Abhilash Clark MD May 03, 2020 11:26
--- NOTE | 2020-05-03 11:59 | General Progress Note ---
Subjective ROS Limited/Unobtainable: Yes Allergies: Coded Allergies: No Known Allergies (Unverified , 04/14/20) Objective Last 24 Hour Vital Signs Date Time Temp Pulse Resp B/P (MAP) Pulse Ox O2 Delivery O2 Flow Rate FiO2 05/03/20 09:00 Nasal Cannula 2.0 05/03/20 08:00 97.3 69 20 100/68 (79) 92 05/03/20 04:00 97.0 68 20 117/68 (84) 93 05/03/20 00:00 96.8 66 22 98/63 (75) 93 05/02/20 21:00 Nasal Cannula 2.0 05/02/20 20:00 97.5 85 23 106/68 (81) 94 05/02/20 16:00 97.5 61 18 91/59 (70) 94 05/02/20 12:00 97.5 66 20 99/65 (76) 94 Intake and Output 05/02/20 05/03/20 19:00 07:00 Intake Total 1164.720 ml 1000 ml Output Total 600 ml 450 ml Balance 564.720 ml 550 ml IV Total 1164.720 ml 1000 ml Output Urine Total 600 ml 450 ml # Voids 1 Laboratory Tests 05/03/20 04:10: Sodium Level 141, Potassium Level 3.4L, Chloride Level 107, Carbon Dioxide Level 29, Anion Gap 6, Blood Urea Nitrogen 8, Creatinine 0.6, Estimat Glomerular Filtration Rate > 60, Glucose Level 100, Calcium Level 7.9L, Phosphorus Level 2.7, Magnesium Level 2.1, Total Bilirubin 0.4, Aspartate Amino Transf (AST/SGOT) 25, Alanine Aminotransferase (ALT/SGPT) 38, Alkaline Phosphatase 70, Total Protein 5.9L, Albumin 2.3L, Globulin 3.6, Albumin/Globulin Ratio 0.6L 05/03/20 05:10: White Blood Count 13.0H, Red Blood Count 4.20L, Hemoglobin 12.6L, Hematocrit 37.2L, Mean Corpuscular Volume 89, Mean Corpuscular Hemoglobin 30.1, Mean Corpuscular Hemoglobin Concent 34.0, Red Cell Distribution Width 14.0, Platelet Count 604H, Mean Platelet Volume 5.5L, Neutrophils (%) (Auto) 77.3H, Lymphocytes (%) (Auto) 16.8L, Monocytes (%) (Auto) 5.6, Eosinophils (%) (Auto) 0.0, Basophils (%) (Auto) 0.3 Height (Feet): 5 Height (Inches): 8.00 Weight (Pounds): 130 Assessment/Plan Problem List: (1) Coronavirus infection ICD Codes: B34.2 - Coronavirus infection, unspecified SNOMED: 378245377 (2) Septic shock ICD Codes: A41.9 - Sepsis, unspecified organism; R65.21 - Severe sepsis with septic shock SNOMED: 37280663 (3) Seizure disorder ICD Codes: G40.909 - Epilepsy, unspecified, not intractable, without status epilepticus SNOMED: 777522677 (4) Electrolyte imbalance ICD Codes: E87.8 - Other disorders of electrolyte and fluid balance, not elsewhere classified SNOMED: 851663693 Status: progressing, unchanged Assessment/Plan: covid positive pna resp insuff sepsis resp insuff supportive rx Zain Mares MD May 03, 2020 11:59
[2020-05-03 12:00] VITALS: BP 108/65
[2020-05-03] MEDS: cefTRIAXone 1 GM in D5W 55 ML IVPB SCH (12:00)
--- NOTE | 2020-05-03 12:04 | Cardiac Electrophysiology PN ---
Assessment/Plan Assessment/Plan 1. S/P Septic shock. On IV antibiotic. Echo Nl EF 2. COVID pneumonia, on dexamethasone and ceftriaxone and 2 liter NC. 3. Seizure disorder and altered level of consciousness on Keppra. RUDY RN Subjective Subjective In Covid isolation on 2 liter NC off tele now Objective Last 24 Hour Vital Signs Date Time Temp Pulse Resp B/P (MAP) Pulse Ox O2 Delivery O2 Flow Rate FiO2 05/03/20 09:00 Nasal Cannula 2.0 05/03/20 08:00 97.3 69 20 100/68 (79) 92 05/03/20 04:00 97.0 68 20 117/68 (84) 93 05/03/20 00:00 96.8 66 22 98/63 (75) 93 05/02/20 21:00 Nasal Cannula 2.0 05/02/20 20:00 97.5 85 23 106/68 (81) 94 05/02/20 16:00 97.5 61 18 91/59 (70) 94 Intake and Output 05/02/20 05/03/20 19:00 07:00 Intake Total 1164.720 ml 1000 ml Output Total 600 ml 450 ml Balance 564.720 ml 550 ml IV Total 1164.720 ml 1000 ml Output Urine Total 600 ml 450 ml # Voids 1 Laboratory Tests Test 05/03/20 04:10 05/03/20 05:10 Sodium Level 141 MMOL/L (136-145) Potassium Level 3.4 MMOL/L (3.5-5.1) L Chloride Level 107 MMOL/L (98-107) Carbon Dioxide Level 29 MMOL/L (21-32) Anion Gap 6 mmol/L (5-15) Blood Urea Nitrogen 8 mg/dL (7-18) Creatinine 0.6 MG/DL (0.55-1.30) Estimat Glomerular Filtration Rate > 60 mL/min (>60) Glucose Level 100 MG/DL (74-106) Calcium Level 7.9 MG/DL (8.5-10.1) L Phosphorus Level 2.7 MG/DL (2.5-4.9) Magnesium Level 2.1 MG/DL (1.8-2.4) Total Bilirubin 0.4 MG/DL (0.2-1.0) Aspartate Amino Transf (AST/SGOT) 25 U/L (15-37) Alanine Aminotransferase (ALT/SGPT) 38 U/L (12-78) Alkaline Phosphatase 70 U/L (46-116) Total Protein 5.9 G/DL (6.4-8.2) L Albumin 2.3 G/DL (3.4-5.0) L Globulin 3.6 g/dL Albumin/Globulin Ratio 0.6 (1.0-2.7) L White Blood Count 13.0 K/UL (4.8-10.8) H Red Blood Count 4.20 M/UL (4.70-6.10) L Hemoglobin 12.6 G/DL (14.2-18.0) L Hematocrit 37.2 % (42.0-52.0) L Mean Corpuscular Volume 89 FL (80-99) Mean Corpuscular Hemoglobin 30.1 PG (27.0-31.0) Mean Corpuscular Hemoglobin Concent 34.0 G/DL (32.0-36.0) Red Cell Distribution Width 14.0 % (11.6-14.8) Platelet Count 604 K/UL (150-450) H Mean Platelet Volume 5.5 FL (6.5-10.1) L Neutrophils (%) (Auto) 77.3 % (45.0-75.0) H Lymphocytes (%) (Auto) 16.8 % (20.0-45.0) L Monocytes (%) (Auto) 5.6 % (1.0-10.0) Eosinophils (%) (Auto) 0.0 % (0.0-3.0) Basophils (%) (Auto) 0.3 % (0.0-2.0) Objective HEAD AND NECK: No JVD. LUNGS: Coarse rhonchi. CARDIOVASCULAR: Regular S1 and S2. Mildly tachycardic. ABDOMEN: Soft. EXTREMITIES: 1+ pitting edema. Shady Sorto MD May 03, 2020 12:04
--- NOTE | 2020-05-03 12:29 | Infectious Diseases Prog Note ---
Assessment/Plan Assessment/Plan IMPRESSION: Sepsis with septic shock,resolving pneumonia with COVID19 Hypoxemia COPD, Seizure disorder, Lactic acidosis, Encephalopathy. RECOMMENDATIONS: Continue ceftriaxone, Dexamethasone May discontinue Azithromycin Subjective ROS Limited/Unobtainable: Yes Allergies: Coded Allergies: No Known Allergies (Unverified , 04/14/20) Objective Last 24 Hour Vital Signs Date Time Temp Pulse Resp B/P (MAP) Pulse Ox O2 Delivery O2 Flow Rate FiO2 05/03/20 09:00 Nasal Cannula 2.0 05/03/20 08:00 97.3 69 20 100/68 (79) 92 05/03/20 04:00 97.0 68 20 117/68 (84) 93 05/03/20 00:00 96.8 66 22 98/63 (75) 93 05/02/20 21:00 Nasal Cannula 2.0 05/02/20 20:00 97.5 85 23 106/68 (81) 94 05/02/20 16:00 97.5 61 18 91/59 (70) 94 Height (Feet): 5 Height (Inches): 8.00 Weight (Pounds): 130 General Appearance: no acute distress HEENT: mucous membranes moist Respiratory/Chest: other - oxygen by nasal cannula Cardiovascular: normal rate Abdomen: soft, non tender Extremities: no edema Neurologic/Psychiatric: other - sleeping Laboratory Tests Test 05/03/20 04:10 05/03/20 05:10 Sodium Level 141 MMOL/L (136-145) Potassium Level 3.4 MMOL/L (3.5-5.1) L Chloride Level 107 MMOL/L (98-107) Carbon Dioxide Level 29 MMOL/L (21-32) Anion Gap 6 mmol/L (5-15) Blood Urea Nitrogen 8 mg/dL (7-18) Creatinine 0.6 MG/DL (0.55-1.30) Estimat Glomerular Filtration Rate > 60 mL/min (>60) Glucose Level 100 MG/DL (74-106) Calcium Level 7.9 MG/DL (8.5-10.1) L Phosphorus Level 2.7 MG/DL (2.5-4.9) Magnesium Level 2.1 MG/DL (1.8-2.4) Total Bilirubin 0.4 MG/DL (0.2-1.0) Aspartate Amino Transf (AST/SGOT) 25 U/L (15-37) Alanine Aminotransferase (ALT/SGPT) 38 U/L (12-78) Alkaline Phosphatase 70 U/L (46-116) Total Protein 5.9 G/DL (6.4-8.2) L Albumin 2.3 G/DL (3.4-5.0) L Globulin 3.6 g/dL Albumin/Globulin Ratio 0.6 (1.0-2.7) L White Blood Count 13.0 K/UL (4.8-10.8) H Red Blood Count 4.20 M/UL (4.70-6.10) L Hemoglobin 12.6 G/DL (14.2-18.0) L Hematocrit 37.2 % (42.0-52.0) L Mean Corpuscular Volume 89 FL (80-99) Mean Corpuscular Hemoglobin 30.1 PG (27.0-31.0) Mean Corpuscular Hemoglobin Concent 34.0 G/DL (32.0-36.0) Red Cell Distribution Width 14.0 % (11.6-14.8) Platelet Count 604 K/UL (150-450) H Mean Platelet Volume 5.5 FL (6.5-10.1) L Neutrophils (%) (Auto) 77.3 % (45.0-75.0) H Lymphocytes (%) (Auto) 16.8 % (20.0-45.0) L Monocytes (%) (Auto) 5.6 % (1.0-10.0) Eosinophils (%) (Auto) 0.0 % (0.0-3.0) Basophils (%) (Auto) 0.3 % (0.0-2.0) Current Medications Medications (Trade) Dose Ordered Sig/Aurora Route PRN Reason Start Time Stop Time Status Last Admin Dose Admin Acetaminophen (Tylenol) 500 mg Q4HR PRN ORAL Pain Scale (3-5) 04/27/20 00:15 05/27/20 00:14 Azithromycin 250 mg/Dextrose 275 ml @ 275 mls/hr Q24HRS IV 04/29/20 10:00 05/04/20 09:59 05/03/20 10:34 Barium Sulfate (Varibar Honey) 250 ml NOW PRN MC RAD 05/01/20 15:45 05/04/20 15:30 Barium Sulfate (Varibar [place]) 240 ml NOW PRN RAD 05/01/20 15:45 05/04/20 15:30 Barium Sulfate (Varibar Pudding) 230 ml NOW PRN RAD 05/01/20 15:45 05/04/20 15:30 Barium Sulfate (Varibar Thin Liquid powder) 148 gm NOW PRN MC RAD 05/01/20 15:45 05/04/20 15:30 Ceftriaxone Sodium 1 gm/ Dextrose 55 ml @ 110 mls/hr Q24H IVPB 04/28/20 12:00 05/05/20 11:59 05/02/20 13:26 Chlorhexidine Gluconate (Anjali-Hex 2%) 1 applic DAILY@2000 TOPIC 04/29/20 20:00 07/28/20 19:59 05/02/20 20:55 Dexamethasone Sodium Phosphate (Decadron 10mg/ ml Inj) 6 mg DAILY IV 04/28/20 09:00 05/06/20 09:01 05/03/20 08:52 Dextrose/Sodium Chloride 1,000 ml @ 75 mls/hr [id number] IV 04/28/20 15:15 05/28/20 15:14 05/03/20 03:56 Docusate Sodium (Colace) 100 mg Q12HR ORAL 04/27/20 21:00 05/27/20 20:59 Levetiracetam 100 ml @ 400 mls/hr Q12HR IVPB 04/28/20 21:00 07/27/20 20:59 05/03/20 08:57 Pantoprazole (Protonix) 40 mg DAILY ORAL 04/27/20 11:30 05/27/20 11:29 04/27/20 11:33 Potassium Chloride 100 ml @ 50 mls/hr ONCE ONCE IVPB 05/03/20 12:00 05/03/20 13:59 Narendra Garcia MD May 03, 2020 12:29
[2020-05-03 16:00] VITALS: BP 100/69
[2020-05-03] MEDS ORDERED: Tubing IV Secondary IV ONE (17:05)
[2020-05-03] MEDS ORDERED: D5NS 1000ml IV ONE (17:05)
[2020-05-03 20:00] VITALS: BP 98/65
[2020-05-03] MEDS: Dyna-Hex 2% Top Sol 2oz TOPIC SCH (21:44)
[2020-05-04] VITALS: BP 99/65
[2020-05-04 04:00] VITALS: BP 122/83
[2020-05-04] MEDS: D5NS 1,000 ML IV SCH ×3 (05:15→21:10)
[2020-05-04 08:00] VITALS: BP 91/58
[2020-05-04] MEDS: Docusate 100mg cap ORAL SCH ×2 (09:00→21:00)
--- NOTE | 2020-05-04 09:11 | Pulmonology Progress Note ---
Subjective ROS Limited/Unobtainable: Yes Interval Events: none major reported per nursing HEENT: Repors: no symptoms Respiratory: Reports: no symptoms Cardiovascular: Reports: no symptoms Gastrointestinal/Abdominal: Reports: no symptoms Genitourinary: Reports: no symptoms Neurologic: Reports: no symptoms Allergies: Coded Allergies: No Known Allergies (Unverified , 04/14/20) Objective Last 24 Hour Vital Signs Date Time Temp Pulse Resp B/P (MAP) Pulse Ox O2 Delivery O2 Flow Rate FiO2 05/04/20 08:00 98.1 63 18 91/58 (69) 91 05/04/20 04:00 97.6 73 20 122/83 (96) 100 05/04/20 00:00 98.6 85 22 99/65 (76) 93 05/03/20 21:00 Nasal Cannula 2.0 05/03/20 20:00 98.3 70 22 98/65 (76) 96 05/03/20 16:00 98.4 74 20 100/69 (79) 94 05/03/20 12:00 98.6 72 20 108/65 (79) 94 Intake and Output 05/03/20 05/04/20 19:00 07:00 Intake Total 1410 ml 925 ml Output Total 1400 ml 700 ml Balance 10 ml 225 ml IV Total 1410 ml 925 ml Output Urine Total 1400 ml 700 ml # Bowel Movements 1 Objective 05/04 saturations stable with 2L NC 05/03 no change; PICC line 05/02 saturating 93% on 2 lpm NC 05/01 saturating well on 2 lpm NC General Appearance: no acute distress HEENT: normocephalic Respiratory: chest wall non-tender, other - coarse rhonchi Cardiovascular: normal peripheral pulses Abdomen: normal bowel sounds Extremities: other - 1+ pitting edema Current Medications Medications (Trade) Dose Ordered Sig/Aurora Route PRN Reason Start Time Stop Time Status Last Admin Dose Admin Acetaminophen (Tylenol) 500 mg Q4HR PRN ORAL Pain Scale (3-5) 04/27/20 00:15 05/27/20 00:14 Barium Sulfate (Varibar Honey) 250 ml NOW PRN MC RAD 05/01/20 15:45 05/04/20 15:30 Barium Sulfate (Varibar [place]) 240 ml NOW PRN MC RAD 05/01/20 15:45 05/04/20 15:30 Barium Sulfate (Varibar Pudding) 230 ml NOW PRN MC RAD 05/01/20 15:45 05/04/20 15:30 Barium Sulfate (Varibar Thin Liquid powder) 148 gm NOW PRN MC RAD 05/01/20 15:45 05/04/20 15:30 Ceftriaxone Sodium 1 gm/ Dextrose 55 ml @ 110 mls/hr Q24H IVPB 04/28/20 12:00 05/05/20 11:59 05/03/20 12:00 Chlorhexidine Gluconate (Anjali-Hex 2%) 1 applic DAILY@2000 TOPIC 04/29/20 20:00 07/28/20 19:59 05/03/20 21:44 Dexamethasone Sodium Phosphate (Decadron 10mg/ ml Inj) 6 mg DAILY IV 04/28/20 09:00 05/06/20 09:01 05/03/20 08:52 Dextrose/Sodium Chloride 1,000 ml @ 75 mls/hr [id number] IV 04/28/20 15:15 05/28/20 15:14 05/04/20 05:15 Docusate Sodium (Colace) 100 mg Q12HR ORAL 04/27/20 21:00 05/27/20 20:59 Levetiracetam 100 ml @ 400 mls/hr Q12HR IVPB 04/28/20 21:00 07/27/20 20:59 05/03/20 21:44 Pantoprazole (Protonix) 40 mg DAILY ORAL 04/27/20 11:30 05/27/20 11:29 04/27/20 11:33 Assessment/Plan Assessment/Plan 1. COVID-19 pneumonia, diagnosed approximately on 04/14/2020. - CXR 04/30 Slightly improved bilateral infiltrates, possible small right pleural effusion - on Decadron - on ceftriaxone per ID - now off azithromycin per ID - currently saturating well on 2L NC 2. Seizure disorder. - on antiepileptics 3. Hypotension. Now resolved DVT ppx - pending venous duplex LE US due to his Covid-19 positive status DISCUSSION: He has received fluid boluses and has received dopamine. Now discontinued. seen in tele NPO per ST danisha recommendation PEG recommended by speech therapy The care for this patient was discussed with my supervising physician Time spent for this case was approximately 31 minutes Brett Shore May 04, 2020 09:11 Radhames Jc MD May 04, 2020 15:35
[2020-05-04] MEDS: levETIRAcetam 500mg/NS100ml 100 ML IVPB SCH ×2 (09:31→21:09)
[2020-05-04] MEDS: dexAMETHasone 10mg/ml Inj IV SCH (09:31)
--- NOTE | 2020-05-04 11:28 | Cardiac Electrophysiology PN ---
Assessment/Plan Assessment/Plan 1. S/P Septic shock.BP still in 90s. On IV antibiotic. Echo Nl EF 2. COVID pneumonia, on dexamethasone and ceftriaxone and 2 liter NC. 3. Seizure disorder and altered level of consciousness on Keppra. 4. NPO as failed swallow eval on iv fluid DW RN Subjective Subjective In Covid isolation on 2 liter NC off tele now. Failed swallow eval. on D5 NS. BP 90s Objective Last 24 Hour Vital Signs Date Time Temp Pulse Resp B/P (MAP) Pulse Ox O2 Delivery O2 Flow Rate FiO2 05/04/20 08:00 98.1 63 18 91/58 (69) 91 05/04/20 04:00 97.6 73 20 122/83 (96) 100 05/04/20 00:00 98.6 85 22 99/65 (76) 93 05/03/20 21:00 Nasal Cannula 2.0 05/03/20 20:00 98.3 70 22 98/65 (76) 96 05/03/20 16:00 98.4 74 20 100/69 (79) 94 05/03/20 12:00 98.6 72 20 108/65 (79) 94 Intake and Output 05/03/20 05/04/20 19:00 07:00 Intake Total 1410 ml 925 ml Output Total 1400 ml 700 ml Balance 10 ml 225 ml IV Total 1410 ml 925 ml Output Urine Total 1400 ml 700 ml # Bowel Movements 1 Objective HEAD AND NECK: No JVD. LUNGS: Coarse rhonchi. CARDIOVASCULAR: Regular S1 and S2. Mildly tachycardic. ABDOMEN: Soft. EXTREMITIES: 1+ pitting edema. Shady Sorto MD May 04, 2020 11:28
[2020-05-04 12:00] VITALS: BP 110/69
[2020-05-04] MEDS: cefTRIAXone 1 GM in D5W 55 ML IVPB SCH (12:02)
--- NOTE | 2020-05-04 13:03 | Infectious Diseases Prog Note ---
Assessment/Plan Assessment/Plan IMPRESSION: Sepsis with septic shock,resolving pneumonia with COVID19 Hypoxemia COPD, Seizure disorder, Lactic acidosis, Encephalopathy. RECOMMENDATIONS: Discontinue ceftriaxone, continue Dexamethasone Subjective ROS Limited/Unobtainable: Yes Constitutional: Denies: fever Allergies: Coded Allergies: No Known Allergies (Unverified , 04/14/20) Objective Last 24 Hour Vital Signs Date Time Temp Pulse Resp B/P (MAP) Pulse Ox O2 Delivery O2 Flow Rate FiO2 05/04/20 08:00 98.1 63 18 91/58 (69) 91 05/04/20 04:00 97.6 73 20 122/83 (96) 100 05/04/20 00:00 98.6 85 22 99/65 (76) 93 05/03/20 21:00 Nasal Cannula 2.0 05/03/20 20:00 98.3 70 22 98/65 (76) 96 05/03/20 16:00 98.4 74 20 100/69 (79) 94 Height (Feet): 5 Height (Inches): 8.00 Weight (Pounds): 130 General Appearance: no acute distress HEENT: mucous membranes moist Respiratory/Chest: other - oxygen by nasal cannula Cardiovascular: normal rate Abdomen: soft, non tender Extremities: no edema Neurologic/Psychiatric: other - drowsy Current Medications Medications (Trade) Dose Ordered Sig/Aurora Route PRN Reason Start Time Stop Time Status Last Admin Dose Admin Acetaminophen (Tylenol) 500 mg Q4HR PRN ORAL Pain Scale (3-5) 04/27/20 00:15 05/27/20 00:14 Barium Sulfate (Varibar Honey) 250 ml NOW PRN RAD 05/01/20 15:45 05/04/20 15:30 Barium Sulfate (Varibar [place]) 240 ml NOW PRN MC RAD 05/01/20 15:45 05/04/20 15:30 Barium Sulfate (Varibar Pudding) 230 ml NOW PRN RAD 05/01/20 15:45 05/04/20 15:30 Barium Sulfate (Varibar Thin Liquid powder) 148 gm NOW PRN RAD 05/01/20 15:45 05/04/20 15:30 Ceftriaxone Sodium 1 gm/ Dextrose 55 ml @ 110 mls/hr Q24H IVPB 04/28/20 12:00 05/11/20 23:59 05/04/20 12:02 Chlorhexidine Gluconate (Anjali-Hex 2%) 1 applic DAILY@2000 TOPIC 04/29/20 20:00 07/28/20 19:59 05/03/20 21:44 Dexamethasone Sodium Phosphate (Decadron 10mg/ ml Inj) 6 mg DAILY IV 04/28/20 09:00 05/06/20 09:01 05/04/20 09:31 Dextrose/Sodium Chloride 1,000 ml @ 75 mls/hr [id number] IV 04/28/20 15:15 05/28/20 15:14 05/04/20 05:15 Docusate Sodium (Colace) 100 mg Q12HR ORAL 04/27/20 21:00 05/27/20 20:59 Levetiracetam 100 ml @ 400 mls/hr Q12HR IVPB 04/28/20 21:00 07/27/20 20:59 05/04/20 09:31 Pantoprazole (Protonix) 40 mg DAILY ORAL 04/27/20 11:30 05/27/20 11:29 04/27/20 11:33 Narendra Garcia MD May 04, 2020 13:03
--- NOTE | 2020-05-04 13:24 | Nephrology Progress Note ---
Assessment/Plan Problem List: (1) Septic shock (2) Acute febrile illness (3) Suspected 2019 novel coronavirus infection (4) Seizure disorder (5) Electrolyte imbalance Assessment Acute febrile illness most likely bent[place] virus infection Hypotension ( Shock) ,on dopamine Seizure disorder Plan May 04: No labs drawn today. Stable from renal standpoint of view. Medication list reviewed. Started on midodrine for low blood pressure. Patient on tube feeding. May 03: Labs reviewed. Potassium replaced. Continue per consultants. May 02: Labs reviewed. Potassium and phosphorus were replaced. Continue per consultants. May 01: No labs drawn today. Stable from renal standpoint of view. We will continue to monitor renal parameters and electrolytes. April 30: Patient seen earlier in ICU. Abnormal electrolytes noted and addressed. Due transfer to telemetry. Continue per consultants. April 29: Patient hemodynamically improved. Urine output improved. Abnormal electrolytes reviewed and addressed. Continue per consultants. April 28: Keppra changed to IV. POA is held until speech therapy evaluation. Potassium phosphate IV. Ordered. Discussed with Beth ENG. Remains stable from renal standpoint of view. Albumin 5% 500 cc challenge ordered. Fluid challenge Monitor renal parameters Monitor electrolytes Per consultants Per orders Subjective ROS Limited/Unobtainable: No Constitutional: Reports: malaise Objective Objective Last 24 Hour Vital Signs Date Time Temp Pulse Resp B/P (MAP) Pulse Ox O2 Delivery O2 Flow Rate FiO2 05/04/20 08:00 98.1 63 18 91/58 (69) 91 05/04/20 04:00 97.6 73 20 122/83 (96) 100 05/04/20 00:00 98.6 85 22 99/65 (76) 93 05/03/20 21:00 Nasal Cannula 2.0 05/03/20 20:00 98.3 70 22 98/65 (76) 96 05/03/20 16:00 98.4 74 20 100/69 (79) 94 Intake and Output 05/03/20 05/04/20 19:00 07:00 Intake Total 1410 ml 925 ml Output Total 1400 ml 700 ml Balance 10 ml 225 ml IV Total 1410 ml 925 ml Output Urine Total 1400 ml 700 ml # Bowel Movements 1 No labs drawn today Height (Feet): 5 Height (Inches): 8.00 Weight (Pounds): 130 Cardiovascular: normal rate Respiratory/Chest: decreased breath sounds Abdomen: distended Objective No change Abhilash Clark MD May 04, 2020 13:24
--- NOTE | 2020-05-04 13:45 | Consultation ---
DATE OF CONSULTATION: 05/04/2020 GASTROENTEROLOGY CONSULTATION CONSULTING PHYSICIAN: Juan C Man MD. CHIEF COMPLAINT: Dysphagia. HISTORY OF PRESENT ILLNESS: Most of history per chart. A 69-year-old male admitted to the hospital with mainly diagnosis of seizure, was found to have COVID. This hospital admission has been complicated. Now, he has failed a swallow evaluation and GI consult requested for possible feeding. PAST MEDICAL HISTORY: 1. History of seizure disorder. 2. Hypertension. 3. New diagnosis of COVID. 4. History of COPD. 5. CHF. 6. GERD. ALLERGIES: No known drug allergies. MEDICATIONS: Please see medication reconciliation list. SOCIAL HISTORY: There is no history of tobacco, alcohol, or drug abuse. FAMILY HISTORY: Noncontributory. REVIEW OF SYSTEMS: Limited. PHYSICAL EXAMINATION: VITAL SIGNS: Temperature is 98.1, pulse 60, respirations 18, blood pressure 91/58. HEENT: Normocephalic and atraumatic. Sclerae are anicteric. NECK: Supple. No evidence of obvious lymphadenopathy. CARDIOVASCULAR: Regular rate and rhythm. Plus S1-S2. LUNGS: Decreased breath sounds bilaterally based on the supine exam. ABDOMEN: Soft, nontender. No rebound. No guarding. No peritoneal sign. EXTREMITIES: No cyanosis, no clubbing, no edema. LABORATORY DATA: White count is 13, hemoglobin 12, hematocrit 37, platelet count 604,000. ASSESSMENT AND PLAN: This is a 69-year-old male with COVID positive pneumonia, seizure disorder, history of swallow evaluation, has been NPO for a few days now. Plan for now is to place an NG tube and start NG tube feeding. Consider doing PEG down the road if the patient needs it. Repeat labs for tomorrow. COVID care by financial representative and ID. Juan C Man M.D. DR: JESSICA JOB#: [id number] CC:
[2020-05-04] MEDS: Midodrine 10mg tab GT SCH ×2 (14:00→22:00)
[2020-05-04 16:00] VITALS: BP 121/78
[2020-05-04 20:00] VITALS: BP 93/60
[2020-05-04] MEDS: Dyna-Hex 2% Top Sol 2oz TOPIC SCH (21:09)
--- NOTE | 2020-05-04 21:48 | General Progress Note ---
Subjective ROS Limited/Unobtainable: Yes Allergies: Coded Allergies: No Known Allergies (Unverified , 04/14/20) Objective Last 24 Hour Vital Signs Date Time Temp Pulse Resp B/P (MAP) Pulse Ox O2 Delivery O2 Flow Rate FiO2 05/04/20 20:00 97.6 79 20 93/60 (71) 94 05/04/20 16:00 97.7 67 18 121/78 (92) 99 05/04/20 12:00 97.0 60 18 110/69 (83) 100 05/04/20 09:00 Nasal Cannula 2.0 05/04/20 08:00 98.1 63 18 91/58 (69) 91 05/04/20 04:00 97.6 73 20 122/83 (96) 100 05/04/20 00:00 98.6 85 22 99/65 (76) 93 Intake and Output 05/03/20 05/04/20 19:00 07:00 Intake Total 1410 ml 1000 ml Output Total 1400 ml 700 ml Balance 10 ml 300 ml IV Total 1410 ml 1000 ml Output Urine Total 1400 ml 700 ml # Bowel Movements 1 Height (Feet): 5 Height (Inches): 8.00 Weight (Pounds): 130 Assessment/Plan Problem List: (1) Coronavirus infection ICD Codes: B34.2 - Coronavirus infection, unspecified SNOMED: 014560016 (2) Septic shock ICD Codes: A41.9 - Sepsis, unspecified organism; R65.21 - Severe sepsis with septic shock SNOMED: 31959574 (3) Seizure disorder ICD Codes: G40.909 - Epilepsy, unspecified, not intractable, without status epilepticus SNOMED: 305481319 (4) Electrolyte imbalance ICD Codes: E87.8 - Other disorders of electrolyte and fluid balance, not elsewhere classified SNOMED: 192769542 Status: progressing, unchanged Assessment/Plan: covid positive pna malnutrtion afebrile no seizure sepsis resp insuff supportive rx Zain Mares MD May 04, 2020 21:48
[2020-05-05] VITALS: BP 98/64
[2020-05-05 04:00] VITALS: BP 113/67
[2020-05-05] MEDS: Midodrine 10mg tab GT SCH ×3 (06:00→22:00)
[2020-05-05] MEDS ORDERED: fentaNYL 100 mcg/2 mL IV PRN (07:15)
[2020-05-05] MEDS ORDERED: DiphenhydrAMINE 50mg/ml Inj IVP PRN (07:15)
[2020-05-05] MEDS ORDERED: Midazolam 2mg/2ml Inj IVP PRN (07:15)
[2020-05-05] MEDS ORDERED: Atropine Inj 1mg/10ml Syr IVP PRN (07:15)
--- NOTE | 2020-05-05 07:15 | Anethesia Preoperative Eval ---
Anesthesia Pre-op PMH/ROS General Date of Evaluation: May 05, 2020 Time of Evaluation: 07:12 Anesthesiologist: yordan ASA Score: ASA 4 Mallampati Score Class I : Soft palate, uvula, fauces, pillars visible Class II: Soft palate, uvula, fauces visible Class III: Soft palate, base of uvula visible Class IV: Only hard plate visible Surgeon: moy Diagnosis: dysphagia Surgical Procedure: egd/peg placement Allergies: Coded Allergies: No Known Allergies (Unverified , 04/14/20) Medications: see eMAR Patient NPO?: Yes Past Medical History Cardiovascular: Reports: HTN, other - chf Pulmonary: Reports: COPD, other - hypoxia, covid-19 detected, Gastrointestinal/Genitourinary: Reports: other - dysphagia, pud Neurologic/Psychiatric: Reports: other - seizures, encephalopathy, dysphasia Hematology/Immune: Reports: other - ptic shock Anesthesia Pre-op Phys. Exam Physician Exam Last Vital Signs Date Time Temp Pulse Resp B/P (MAP) Pulse Ox O2 Delivery O2 Flow Rate FiO2 05/05/20 04:00 96.8 63 20 113/67 (82) 96 05/04/20 21:00 Nasal Cannula 2.0 04/28/20 06:00 94 Anesthesia Pre-op A/P Labs Chemistry Test 05/05/20 04:00 Sodium Level Pending Potassium Level Pending Chloride Level Pending Carbon Dioxide Level Pending Blood Urea Nitrogen Pending Creatinine Pending Estimat Glomerular Filtration Rate Pending Glucose Level Pending Calcium Level Pending Phosphorus Level Pending Magnesium Level Pending Total Bilirubin Pending Aspartate Amino Transf (AST/SGOT) Pending Alanine Aminotransferase (ALT/SGPT) Pending Alkaline Phosphatase Pending Total Protein Pending Albumin Pending Globulin Pending Risk Assessment & Plan Assessment: [email or web address] Plan: Lilian Adams MD May 05, 2020 07:15
[2020-05-05 07:16] LABS: ALANINE AMINOTRANSFERASE 44 U/L (12-78); ALBUMIN 2.4 G/DL (3.4-5.0); ALBUMIN/GLOBULIN RATIO 0.7 (1.0-2.7); ALKALINE PHOSPHATASE 81 U/L (46-116); ANION GAP 4 mmol/L (5-15); ASPARTATE AMINO TRANSFERASE 28 U/L (15-37); BILIRUBIN,TOTAL 0.5 MG/DL (0.2-1.0); BLOOD UREA NITROGEN 13 mg/dL (7-18); CARBON DIOXIDE 29 MMOL/L (21-32); CHLORIDE 107 MMOL/L (98-107); CREATININE 0.6 MG/DL (0.55-1.30); PHOSPHORUS 2.5 MG/DL (2.5-4.9); POTASSIUM 3.4 MMOL/L (3.5-5.1); SODIUM 140 MMOL/L (136-145)
[2020-05-05 08:00] VITALS: BP 114/70
--- NOTE | 2020-05-05 08:26 | General Progress Note ---
Subjective ROS Limited/Unobtainable: No Allergies: Coded Allergies: No Known Allergies (Unverified , 04/14/20) Objective Last 24 Hour Vital Signs Date Time Temp Pulse Resp B/P (MAP) Pulse Ox O2 Delivery O2 Flow Rate FiO2 05/05/20 04:00 96.8 63 20 113/67 (82) 96 05/05/20 00:00 96.8 68 20 98/64 (75) 94 05/04/20 21:00 Nasal Cannula 2.0 05/04/20 20:00 97.6 79 20 93/60 (71) 94 05/04/20 16:00 97.7 67 18 121/78 (92) 99 05/04/20 12:00 97.0 60 18 110/69 (83) 100 05/04/20 09:00 Nasal Cannula 2.0 Intake and Output 05/04/20 05/05/20 19:00 07:00 Intake Total 905 ml 925 ml Output Total 1700 ml 200 ml Balance -795 ml 725 ml IV Total 905 ml 925 ml Output Urine Total 1700 ml 200 ml Laboratory Tests 05/05/20 04:00: Sodium Level 140, Potassium Level 3.4L, Chloride Level 107, Carbon Dioxide Level 29, Anion Gap 4L, Blood Urea Nitrogen 13, Creatinine 0.6, Estimat Glomerular Filtration Rate > 60, Glucose Level 86, Calcium Level 8.0L, Phosphorus Level 2.5, Magnesium Level 2.1, Total Bilirubin 0.5, Aspartate Amino Transf (AST/SGOT) 28, Alanine Aminotransferase (ALT/SGPT) 44, Alkaline Phosphatase 81, Total Prot ein 5.9L, Albumin 2.4L, Globulin 3.5, Albumin/Globulin Ratio 0.7L Height (Feet): 5 Height (Inches): 8.00 Weight (Pounds): 130 General Appearance: no apparent distress EENT: PERRL/EOMI Neck: supple Cardiovascular: normal rate Respiratory/Chest: decreased breath sounds Abdomen: normal bowel sounds, non tender, soft Extremities: non-tender Assessment/Plan Status: progressing, unchanged Assessment/Plan: 1. History of seizure disorder. 2. Hypertension. 3. New diagnosis of COVID. 4. History of COPD. 5. CHF. 6. GERD. needs enteral feeding unable to get hold of family for PEG plan NGT placement and NGTF Juan C Man MD May 05, 2020 08:26
[2020-05-05] MEDS: levETIRAcetam 500mg/NS100ml 100 ML IVPB SCH ×2 (08:48→23:19)
[2020-05-05] MEDS: dexAMETHasone 10mg/ml Inj IV SCH (08:48)
[2020-05-05] MEDS: Docusate 100mg cap ORAL SCH ×2 (08:49→21:00)
--- NOTE | 2020-05-05 09:38 | Pulmonology Progress Note ---
Subjective ROS Limited/Unobtainable: Yes Interval Events: NGT placement today Constitutional: Denies: fever HEENT: Repors: no symptoms Respiratory: Reports: no symptoms Cardiovascular: Reports: no symptoms Gastrointestinal/Abdominal: Reports: no symptoms Genitourinary: Reports: no symptoms Neurologic: Reports: no symptoms Allergies: Coded Allergies: No Known Allergies (Unverified , 04/14/20) Objective Last 24 Hour Vital Signs Date Time Temp Pulse Resp B/P (MAP) Pulse Ox O2 Delivery O2 Flow Rate FiO2 05/05/20 04:00 96.8 63 20 113/67 (82) 96 05/05/20 00:00 96.8 68 20 98/64 (75) 94 05/04/20 21:00 Nasal Cannula 2.0 05/04/20 20:00 97.6 79 20 93/60 (71) 94 05/04/20 16:00 97.7 67 18 121/78 (92) 99 05/04/20 12:00 97.0 60 18 110/69 (83) 100 Intake and Output 05/04/20 05/05/20 19:00 07:00 Intake Total 905 ml 925 ml Output Total 1700 ml 200 ml Balance -795 ml 725 ml IV Total 905 ml 925 ml Output Urine Total 1700 ml 200 ml Objective 05/05 no change 05/04 saturations stable with 2L NC 05/03 no change; PICC line 05/02 saturating 93% on 2 lpm NC 05/01 saturating well on 2 lpm NC General Appearance: no acute distress HEENT: normocephalic Respiratory: chest wall non-tender, other - coarse rhonchi Cardiovascular: normal peripheral pulses Abdomen: normal bowel sounds Extremities: other - 1+ pitting edema Laboratory Tests 05/05/20 04:00: Sodium Level 140, Potassium Level 3.4L, Chloride Level 107, Carbon Dioxide Level 29, Anion Gap 4L, Blood Urea Nitrogen 13, Creatinine 0.6, Estimat Glomerular Filtration Rate > 60, Glucose Level 86, Calcium Level 8.0L, Phosphorus Level 2.5, Magnesium Level 2.1, Total Bilirubin 0.5, Aspartate Amino Transf (AST/SGOT) 28, Alanine Aminotransferase (ALT/SGPT) 44, Alkaline Phosphatase 81, Total Protein 5.9L, Albumin 2.4L, Globulin 3.5, Albumin/Globulin Ratio 0.7L Current Medications Medications (Trade) Dose Ordered Sig/Aurora Route PRN Reason Start Time Stop Time Status Last Admin Dose Admin Acetaminophen (Tylenol) 500 mg Q4HR PRN ORAL Pain Scale (3-5) 04/27/20 00:15 05/27/20 00:14 Acetaminophen (Tylenol) 650 mg Q4H PRN ORAL Mild Pain (Pain Scale 1-3) 05/05/20 07:15 05/05/20 14:00 Al Hydroxide/Mg Hydroxide (Mylanta) 15 ml Q1H PRN ORAL gi upset 05/05/20 07:15 05/05/20 14:00 Atropine Sulfate (Atropine) 0.5 mg Q5M PRN IVP bpm less than 45 05/05/20 07:15 05/05/20 14:00 Chlorhexidine Gluconate (Anjali-Hex 2%) 1 applic DAILY@2000 TOPIC 04/29/20 20:00 07/28/20 19:59 05/04/20 21:09 Dexamethasone Sodium Phosphate (Decadron 10mg/ ml Inj) 6 mg DAILY IV 04/28/20 09:00 05/06/20 09:01 05/05/20 08:48 Dextrose/Sodium Chloride 1,000 ml @ 75 mls/hr [id number] IV 05/04/20 14:30 06/03/20 14:29 05/04/20 21:10 Diphenhydramine HCl (Benadryl) 25 mg Q15M PRN IVP Itching 05/05/20 07:15 05/05/20 14:00 Docusate Sodium (Colace) 100 mg Q12HR ORAL 04/27/20 21:00 05/27/20 20:59 Famotidine (Pepcid) 20 mg BID GT 05/04/20 18:00 08/02/20 17:59 Fentanyl Citrate (Sublimaze 100 mcg/2 mL) 25 mcg Q10M PRN IV Moderate Pain (Pain Scale 4-6) 05/05/20 07:15 05/05/20 14:00 Hydralazine HCl (Apresoline) 5 mg Q30M PRN IV SBP>160 /DBP>90 05/05/20 07:15 05/05/20 14:00 Levetiracetam 100 ml @ 400 mls/hr Q12HR IVPB 12/16/20 21:00 07/27/20 20:59 05/05/20 08:48 Midazolam HCl (Versed 2mg/2ml vial) 1 mg Q15M PRN IVP For Anxiety 05/05/20 07:15 05/05/20 14:00 Midodrine (Pro-Amatine) 10 mg Q8HR GT 05/04/20 14:00 08/02/20 13:59 Ondansetron HCl (Zofran) 4 mg Q1H PRN IVP Nausea & Vomiting 05/05/20 07:15 05/05/20 14:00 Assessment/Plan Assessment/Plan 1. COVID-19 pneumonia, diagnosed approximately on 04/14/2020. - CXR 04/30 Slightly improved bilateral infiltrates, possible small right pleural effusion - on Decadron - now off ceftriaxone and azithromycin per ID - currently saturating well on 2L NC 2. Seizure disorder. - on antiepileptics 3. Hypotension. Now resolved DVT ppx - pending venous duplex LE US due to his Covid-19 positive status DISCUSSION: He has received fluid boluses and has received dopamine. Now discontinued. seen in tele PEG recommended by speech therapy NGT placement and feeding today as family unable to be reached The care for this patient was discussed with my supervising physician Time spent for this case was approximately 31 minutes Brett Shore May 05, 2020 09:38
--- NOTE | 2020-05-05 11:21 | Diagnostic Imaging Report ---
Indication: Post nasogastric tube placement Technique: Supine view of the abdomen Comparison: none Findings: There is a nasogastric tube in place, tip of which projects at the level gastric fundus, but the proximal sidehole projects at the level of the distal esophagus. The bowel gas pattern is unremarkable. Numerous surgical clips are seen in the upper abdomen. There is an inferior vena cava filter in place. There is moderate rectal distention by feces. There is a right groin central venous catheter Impression: High position of nasogastric tube, proximal sidehole in the distal esophagus. Recommend advancement. Patient's nurse notified at the time of interpretation Possible mild rectal fecal impaction Other findings as noted
[2020-05-05 12:00] VITALS: BP 116/68
--- NOTE | 2020-05-05 12:30 | Infectious Diseases Prog Note ---
Assessment/Plan Assessment/Plan antibiotics : none A 1. COVID 19 pneumonia on 2 liters, 99 % saturation 2. COPD, 3. Seizure disorder P 1. continue dexamethasone day 9 2. continue isolation Subjective Constitutional: Denies: fever, chills Respiratory: Denies: shortness of breath, dry cough Gastrointestinal/Abdominal: Denies: nausea, vomiting, diarrhea Musculoskeletal: Denies: pain Allergies: Coded Allergies: No Known Allergies (Unverified , 04/14/20) Objective Last 24 Hour Vital Signs Date Time Temp Pulse Resp B/P (MAP) Pulse Ox O2 Delivery O2 Flow Rate FiO2 05/05/20 12:00 97.0 75 18 116/68 (84) 94 05/05/20 09:00 Nasal Cannula 2.0 05/05/20 08:00 97.3 63 19 114/70 (85) 95 05/05/20 04:00 96.8 63 20 113/67 (82) 96 05/05/20 00:00 96.8 68 20 98/64 (75) 94 05/04/20 21:00 Nasal Cannula 2.0 05/04/20 20:00 97.6 79 20 93/60 (71) 94 05/04/20 16:00 97.7 67 18 121/78 (92) 99 Height (Feet): 5 Height (Inches): 8.00 Weight (Pounds): 130 Laboratory Tests Test 05/05/20 04:00 Sodium Level 140 MMOL/L (136-145) Potassium Level 3.4 MMOL/L (3.5-5.1) L Chloride Level 107 MMOL/L (98-107) Carbon Dioxide Level 29 MMOL/L (21-32) Anion Gap 4 mmol/L (5-15) L Blood Urea Nitrogen 13 mg/dL (7-18) Creatinine 0.6 MG/DL (0.55-1.30) Estimat Glomerular Filtration Rate > 60 mL/min (>60) Glucose Level 86 MG/DL (74-106) Calcium Level 8.0 MG/DL (8.5-10.1) L Phosphorus Level 2.5 MG/DL (2.5-4.9) Magnesium Level 2.1 MG/DL (1.8-2.4) Total Bilirubin 0.5 MG/DL (0.2-1.0) Aspartate Amino Transf (AST/SGOT) 28 U/L (15-37) Alanine Aminotransferase (ALT/SGPT) 44 U/L (12-78) Alkaline Phosphatase 81 U/L (46-116) Total Protein 5.9 G/DL (6.4-8.2) L Albumin 2.4 G/DL (3.4-5.0) L Globulin 3.5 g/dL Albumin/Globulin Ratio 0.7 (1.0-2.7) L Current Medications Medications (Trade) Dose Ordered Sig/Aurora Route PRN Reason Start Time Stop Time Status Last Admin Dose Admin Acetaminophen (Tylenol) 500 mg Q4HR PRN ORAL Pain Scale (3-5) 04/27/20 00:15 05/27/20 00:14 Acetaminophen (Tylenol) 650 mg Q4H PRN ORAL Mild Pain (Pain Scale 1-3) 05/05/20 07:15 05/05/20 14:00 Al Hydroxide/Mg Hydroxide (Mylanta) 15 ml Q1H PRN ORAL gi upset 05/05/20 07:15 05/05/20 14:00 Atropine Sulfate (Atropine) 0.5 mg Q5M PRN IVP bpm less than 45 05/05/20 07:15 05/05/20 14:00 Chlorhexidine Gluconate (Anjali-Hex 2%) 1 applic DAILY@2000 TOPIC 04/29/20 20:00 07/28/20 19:59 05/04/20 21:09 Dexamethasone Sodium Phosphate (Decadron 10mg/ ml Inj) 6 mg DAILY IV 04/28/20 09:00 05/06/20 09:01 05/05/20 08:48 Dextrose/Sodium Chloride 1,000 ml @ 75 mls/hr [id number] IV 05/04/20 14:30 06/03/20 14:29 05/04/20 21:10 Diphenhydramine HCl (Benadryl) 25 mg Q15M PRN IVP Itching 05/05/20 07:15 05/05/20 14:00 Docusate Sodium (Colace) 100 mg Q12HR ORAL 04/27/20 21:00 05/27/20 20:59 Famotidine (Pepcid) 20 mg BID GT 05/04/20 18:00 08/02/20 17:59 Fentanyl Citrate (Sublimaze 100 mcg/2 mL) 25 mcg Q10M PRN IV Moderate Pain (Pain Scale 4-6) 05/05/20 07:15 05/05/20 14:00 Hydralazine HCl (Apresoline) 5 mg Q30M PRN IV SBP>160 /DBP>90 05/05/20 07:15 05/05/20 14:00 Levetiracetam 100 ml @ 400 mls/hr Q12HR IVPB 04/28/20 21:00 07/27/20 20:59 05/05/20 08:48 Midazolam HCl (Versed 2mg/2ml vial) 1 mg Q15M PRN IVP For Anxiety 05/05/20 07:15 05/05/20 14:00 Midodrine (Pro-Amatine) 10 mg Q8HR GT 05/04/20 14:00 08/02/20 13:59 Ondansetron HCl (Zofran) 4 mg Q1H PRN IVP Nausea & Vomiting 05/05/20 07:15 05/05/20 14:00 Lizette Mcmullen MD May 05, 2020 12:30
--- NOTE | 2020-05-05 12:32 | Nephrology Progress Note ---
Assessment/Plan Problem List: (1) Septic shock (2) Acute febrile illness (3) Suspected 2019 novel coronavirus infection (4) Seizure disorder (5) Electrolyte imbalance Assessment Acute febrile illness most likely benton virus infection Hypotension ( Shock) ,on dopamine Seizure disorder Plan May 05: Labs reviewed. Stable renal parameters. Continue per consultants. May 04: No labs drawn today. Stable from renal standpoint of view. Medication list reviewed. Started on midodrine for low blood pressure. Patient on tube feeding. May 03: Labs reviewed. Potassium replaced. Continue per consultants. May 02: Labs reviewed. Potassium and phosphorus were replaced. Continue per consultants. May 01: No labs drawn today. Stable from renal standpoint of view. We will continue to monitor renal parameters and electrolytes. April 30: Patient seen earlier in ICU. Abnormal electrolytes noted and addressed. Due transfer to telemetry. Continue per consultants. April 29: Patient hemodynamically improved. Urine output improved. Abnormal electrolytes reviewed and addressed. Continue per consultants. April 28: Keppra changed to IV. POA is held until speech therapy evaluation. Potassium phosphate IV. Ordered. Discussed with Beth ENG. Remains stable from renal standpoint of view. Albumin 5% 500 cc challenge ordered. Fluid challenge Monitor renal parameters Monitor electrolytes Per consultants Per orders Subjective ROS Limited/Unobtainable: No Constitutional: Reports: malaise Objective Objective Last 24 Hour Vital Signs Date Time Temp Pulse Resp B/P (MAP) Pulse Ox O2 Delivery O2 Flow Rate FiO2 05/05/20 12:00 97.0 75 18 116/68 (84) 94 05/05/20 09:00 Nasal Cannula 2.0 05/05/20 08:00 97.3 63 19 114/70 (85) 95 05/05/20 04:00 96.8 63 20 113/67 (82) 96 05/05/20 00:00 96.8 68 20 98/64 (75) 94 05/04/20 21:00 Nasal Cannula 2.0 05/04/20 20:00 97.6 79 20 93/60 (71) 94 05/04/20 16:00 97.7 67 18 121/78 (92) 99 Intake and Output 05/04/20 05/05/20 19:00 07:00 Intake Total 905 ml 925 ml Output Total 1700 ml 200 ml Balance -795 ml 725 ml IV Total 905 ml 925 ml Output Urine Total 1700 ml 200 ml Laboratory Tests 05/05/20 04:00: Sodium Level 140, Potassium Level 3.4L, Chloride Level 107, Carbon Dioxide Level 29, Anion Gap 4L, Blood Urea Nitrogen 13, Creatinine 0.6, Estimat Glomerular Filtration Rate > 60, Glucose Level 86, Calcium Level 8.0L, Phosphorus Level 2.5, Magnesium Level 2.1, Total Bilirubin 0.5, Aspartate Amino Transf (AST/SGOT) 28, Alanine Aminotransferase (ALT/SGPT) 44, Alkaline Phosphatase 81, Total Protein 5.9L, Albumin 2.4L, Globulin 3.5, Albumin/Globulin Ratio 0.7L Height (Feet): 5 Height (Inches): 8.00 Weight (Pounds): 130 General Appearance: no apparent distress Cardiovascular: normal rate Respiratory/Chest: decreased breath sounds Abdomen: soft Objective No change Abhilash Clark MD May 05, 2020 12:32
--- NOTE | 2020-05-05 13:37 | Cardiac Electrophysiology PN ---
Assessment/Plan Assessment/Plan 1. S/P Septic shoc. On IV antibiotic. Echo Nl EF 2. COVID pneumonia, on dexamethasone and ceftriaxone and 2 liter NC. 3. Seizure disorder and altered level of consciousness on Keppra. 4. NPO as failed swallow eval on iv fluid DW RN Subjective Subjective In Covid isolation on 2 liter NC. Failed swallow eval. on D5 NS. BP 90s Objective Last 24 Hour Vital Signs Date Time Temp Pulse Resp B/P (MAP) Pulse Ox O2 Delivery O2 Flow Rate FiO2 05/05/20 12:00 97.0 75 18 116/68 (84) 94 05/05/20 09:00 Nasal Cannula 2.0 05/05/20 08:00 97.3 63 19 114/70 (85) 95 05/05/20 04:00 96.8 63 20 113/67 (82) 96 05/05/20 00:00 96.8 68 20 98/64 (75) 94 05/04/20 21:00 Nasal Cannula 2.0 05/04/20 20:00 97.6 79 20 93/60 (71) 94 05/04/20 16:00 97.7 67 18 121/78 (92) 99 Intake and Output 05/04/20 05/05/20 19:00 07:00 Intake Total 905 ml 925 ml Output Total 1700 ml 200 ml Balance -795 ml 725 ml IV Total 905 ml 925 ml Output Urine Total 1700 ml 200 ml Laboratory Tests Test 05/05/20 04:00 Sodium Level 140 MMOL/L (136-145) Potassium Level 3.4 MMOL/L (3.5-5.1) L Chloride Level 107 MMOL/L (98-107) Carbon Dioxide Level 29 MMOL/L (21-32) Anion Gap 4 mmol/L (5-15) L Blood Urea Nitrogen 13 mg/dL (7-18) Creatinine 0.6 MG/DL (0.55-1.30) Estimat Glomerular Filtration Rate > 60 mL/min (>60) Glucose Level 86 MG/DL (74-106) Calcium Level 8.0 MG/DL (8.5-10.1) L Phosphorus Level 2.5 MG/DL (2.5-4.9) Magnesium Level 2.1 MG/DL (1.8-2.4) Total Bilirubin 0.5 MG/DL (0.2-1.0) Aspartate Amino Transf (AST/SGOT) 28 U/L (15-37) Alanine Aminotransferase (ALT/SGPT) 44 U/L (12-78) Alkaline Phosphatase 81 U/L (46-116) Total Protein 5.9 G/DL (6.4-8.2) L Albumin 2.4 G/DL (3.4-5.0) L Globulin 3.5 g/dL Albumin/Globulin Ratio 0.7 (1.0-2.7) L Objective HEAD AND NECK: No JVD. LUNGS: Coarse rhonchi. CARDIOVASCULAR: Regular S1 and S2. Mildly tachycardic. ABDOMEN: Soft. EXTREMITIES: 1+ pitting edema. Shady Sorto MD May 05, 2020 13:37
--- NOTE | 2020-05-05 14:22 | Diagnostic Imaging Report ---
Indication: Status post repositioning of nasogastric tube Technique: Supine view of the abdomen Comparison: 3 hours earlier Findings: Improved and now satisfactory position of nasogastric tube, tip projected at the level of the gastric body. Other findings are unchanged Impression: . Nasogastric intubation Patient's nurse notified at the time of interpretation
[2020-05-05 16:00] VITALS: BP 125/73
[2020-05-05] MEDS: D5NS 1,000 ML IV SCH (17:26)
[2020-05-05 20:00] VITALS: BP 118/63
--- NOTE | 2020-05-05 20:33 | General Progress Note ---
Subjective ROS Limited/Unobtainable: Yes Allergies: Coded Allergies: No Known Allergies (Unverified , 04/14/20) Objective Last 24 Hour Vital Signs Date Time Temp Pulse Resp B/P (MAP) Pulse Ox O2 Delivery O2 Flow Rate FiO2 05/05/20 16:00 97.5 73 19 125/73 (90) 95 05/05/20 14:34 Nasal Cannula 2.0 05/05/20 12:00 97.0 75 18 116/68 (84) 94 05/05/20 09:00 Nasal Cannula 2.0 05/05/20 08:00 97.3 63 19 114/70 (85) 95 05/05/20 04:00 96.8 63 20 113/67 (82) 96 05/05/20 00:00 96.8 68 20 98/64 (75) 94 05/04/20 21:00 Nasal Cannula 2.0 Intake and Output 05/04/20 05/05/20 19:00 07:00 Intake Total 905 ml 925 ml Output Total 1700 ml 200 ml Balance -795 ml 725 ml IV Total 905 ml 925 ml Output Urine Total 1700 ml 200 ml Laboratory Tests 05/05/20 04:00: Sodium Level 140, Potassium Level 3.4L, Chloride Level 107, Carbon Dioxide Level 29, Anion Gap 4L, Blood Urea Nitrogen 13, Creatinine 0.6, Estimat Glomerular Filtration Rate > 60, Glucose Level 86, Calcium Level 8.0L, Phosphorus Level 2 .5, Magnesium Level 2.1, Total Bilirubin 0.5, Aspartate Amino Transf (AST/SGOT) 28, Alanine Aminotransferase (ALT/SGPT) 44, Alkaline Phosphatase 81, Total Protein 5.9L, Albumin 2.4L, Globulin 3.5, Albumin/Globulin Ratio 0.7L Height (Feet): 5 Height (Inches): 8.00 Weight (Pounds): 130 Assessment/Plan Problem List: (1) Coronavirus infection ICD Codes: B34.2 - Coronavirus infection, unspecified SNOMED: 126781751 (2) Septic shock ICD Codes: A41.9 - Sepsis, unspecified organism; R65.21 - Severe sepsis with septic shock SNOMED: 87980234 (3) Seizure disorder ICD Codes: G40.909 - Epilepsy, unspecified, not intractable, without status epilepticus SNOMED: 048944834 (4) Electrolyte imbalance ICD Codes: E87.8 - Other disorders of electrolyte and fluid balance, not elsewhere classified SNOMED: 075233005 Status: progressing, unchanged Assessment/Plan: covid positive pna no seizure sepsis resp insuff ng tube per gi dr malnutrtion afebrile Zain Mares MD May 05, 2020 20:33
[2020-05-05] MEDS: Dyna-Hex 2% Top Sol 2oz TOPIC SCH (23:19)
[2020-05-06] VITALS: BP 112/67
[2020-05-06 04:00] VITALS: BP 96/60
[2020-05-06] MEDS: Midodrine 10mg tab GT SCH ×3 (06:39→21:02)
[2020-05-06] MEDS: D5NS 1,000 ML IV SCH ×2 (06:41→18:45)
[2020-05-06 08:00] VITALS: BP 89/52
[2020-05-06] MEDS: Docusate 100mg cap ORAL SCH ×2 (09:00→21:02)
[2020-05-06] MEDS: dexAMETHasone 10mg/ml Inj IV SCH (09:00)
--- NOTE | 2020-05-06 09:24 | Pulmonology Progress Note ---
Subjective ROS Limited/Unobtainable: Yes Interval Events: s/p NGT Constitutional: Denies: fever, chills HEENT: Repors: no symptoms Respiratory: Reports: no symptoms Cardiovascular: Reports: no symptoms Gastrointestinal/Abdominal: Denies: nausea, vomiting, diarrhea Genitourinary: Reports: no symptoms Neurologic: Reports: no symptoms Musculoskeletal: Denies: pain Allergies: Coded Allergies: No Known Allergies (Unverified , 04/14/20) Objective Last 24 Hour Vital Signs Date Time Temp Pulse Resp B/P (MAP) Pulse Ox O2 Delivery O2 Flow Rate FiO2 05/06/20 04:00 98.6 67 20 96/60 (72) 93 05/06/20 00:00 Nasal Cannula 2.0 05/06/20 00:00 97.9 67 22 112/67 (82) 93 05/05/20 21:00 Nasal Cannula 2.0 05/05/20 20:00 97.7 72 22 118/63 (81) 92 05/05/20 16:00 97.5 73 19 125/73 (90) 95 05/05/20 14:34 Nasal Cannula 2.0 05/05/20 12:00 97.0 75 18 116/68 (84) 94 Intake and Output 05/05/20 05/06/20 19:00 07:00 Intake Total 130 ml 390 ml Output Total 2500 ml 400 ml Balance -2370 ml -10 ml Tube Feeding 130 ml 390 ml Output Urine Total 2500 ml 400 ml # Bowel Movements 1 Objective 05/06 s/p NGT; saturating 93% on 2L NC 05/05 no change 05/04 saturations stable with 2L NC 05/03 no change; PICC line 05/02 saturating 93% on 2 lpm NC 05/01 saturating well on 2 lpm NC General Appearance: no acute distress HEENT: normocephalic Respiratory: chest wall non-tender, other - coarse rhonchi Cardiovascular: normal peripheral pulses Abdomen: normal bowel sounds Extremities: other - 1+ pitting edema Current Medications Medications (Trade) Dose Ordered Sig/Aurora Route PRN Reason Start Time Stop Time Status Last Admin Dose Admin Acetaminophen (Tylenol) 500 mg Q4HR PRN ORAL Pain Scale (3-5) 04/27/20 00:15 05/27/20 00:14 Chlorhexidine Gluconate (Anjali-Hex 2%) 1 applic DAILY@1999 TOPIC 04/29/20 20:00 07/28/20 19:59 05/05/20 23:19 Dextrose/Sodium Chloride 1,000 ml @ 75 mls/hr [id number] IV 05/04/20 14:30 06/03/20 14:29 05/06/20 06:41 Docusate Sodium (Colace) 100 mg Q12HR ORAL 04/27/20 21:00 05/27/20 20:59 Famotidine (Pepcid) 20 mg BID GT 05/04/20 18:00 08/02/20 17:59 05/05/20 17:26 Levetiracetam 100 ml @ 400 mls/hr Q12HR IVPB 04/28/20 21:00 07/27/20 20:59 05/05/20 23:19 Midodrine (Pro-Amatine) 10 mg Q8HR GT 05/04/20 14:00 08/02/20 13:59 05/06/20 06:39 Assessment/Plan Assessment/Plan 1. COVID-19 pneumonia, diagnosed approximately on 04/14/2020. - CXR 04/30 Slightly improved bilateral infiltrates, possible small right pleural effusion - now completed Decadron - s/p ceftriaxone and azithromycin per ID - currently saturating well on 2L NC 2. Seizure disorder. - on antiepileptics 3. Hypotension. Now resolved DVT ppx - on SCD s/p NG tube off fluid boluses and dopamine seen in tele The care for this patient was discussed with my supervising physician Time spent for this case was approximately 31 minutes Brett Shore May 06, 2020 09:24 Radhames Jc MD May 07, 2020 11:18
[2020-05-06] MEDS: levETIRAcetam 500mg/NS100ml 100 ML IVPB SCH ×2 (10:56→21:02)
[2020-05-06] MEDS ORDERED: dexAMETHasone 10mg/ml Inj IV SCH (11:15)
[2020-05-06 12:00] VITALS: BP 101/61
--- NOTE | 2020-05-06 13:02 | Cardiac Electrophysiology PN ---
Assessment/Plan Assessment/Plan 1. S/P Septic shock on IV antibiotic. Echo Nl EF 2. COVID pneumonia, on dexamethasone and ceftriaxone and 2 liter NC. 3. Seizure disorder and altered level of consciousness on Keppra. 4. NPO as failed swallow eval on iv fluid needs enteral feeding, unable to get hold of family for PEG plan NGT placement and NGTF DW RN Subjective Subjective In Covid isolation on 2 liter NC and on D5 NS. Objective Last 24 Hour Vital Signs Date Time Temp Pulse Resp B/P (MAP) Pulse Ox O2 Delivery O2 Flow Rate FiO2 05/06/20 04:00 98.6 67 20 96/60 (72) 93 05/06/20 00:00 Nasal Cannula 2.0 05/06/20 00:00 97.9 67 22 112/67 (82) 93 05/05/20 21:00 Nasal Cannula 2.0 05/05/20 20:00 97.7 72 22 118/63 (81) 92 05/05/20 16:00 97.5 73 19 125/73 (90) 95 05/05/20 14:34 Nasal Cannula 2.0 Intake and Output 05/05/20 05/06/20 18:59 06:59 Intake Total 130 ml 390 ml Output Total 2500 ml 400 ml Balance -2370 ml -10 ml Tube Feeding 130 ml 390 ml Output Urine Total 2500 ml 400 ml # Bowel Movements 1 Objective HEAD AND NECK: No JVD. LUNGS: Coarse rhonchi. CARDIOVASCULAR: Regular S1 and S2. Mildly tachycardic. ABDOMEN: Soft. EXTREMITIES: 1+ pitting edema. Shady Sorto MD May 06, 2020 13:02
--- NOTE | 2020-05-06 13:16 | General Progress Note ---
Subjective ROS Limited/Unobtainable: Yes Allergies: Coded Allergies: No Known Allergies (Unverified , 04/14/20) Objective Last 24 Hour Vital Signs Date Time Temp Pulse Resp B/P (MAP) Pulse Ox O2 Delivery O2 Flow Rate FiO2 05/06/20 04:00 98.6 67 20 96/60 (72) 93 05/06/20 00:00 Nasal Cannula 2.0 05/06/20 00:00 97.9 67 22 112/67 (82) 93 05/05/20 21:00 Nasal Cannula 2.0 05/05/20 20:00 97.7 72 22 118/63 (81) 92 05/05/20 16:00 97.5 73 19 125/73 (90) 95 05/05/20 14:34 Nasal Cannula 2.0 Intake and Output 05/05/20 05/06/20 19:00 07:00 Intake Total 130 ml 390 ml Output Total 2500 ml 400 ml Balance -2370 ml -10 ml Tube Feeding 130 ml 390 ml Output Urine Total 2500 ml 400 ml # Bowel Movements 1 Height (Feet): 5 Height (Inches): 8.00 Weight (Pounds): 130 Assessment/Plan Problem List: (1) Coronavirus infection ICD Codes: B34.2 - Coronavirus infection, unspecified SNOMED: 164924240 (2) Septic shock ICD Codes: A41.9 - Sepsis, unspecified organism; R65.21 - Severe sepsis with septic shock SNOMED: 31720366 (3) Seizure disorder ICD Codes: G40.909 - Epilepsy, unspecified, not intractable, without status epilepticus SNOMED: 918323615 (4) Electrolyte imbalance ICD Codes: E87.8 - Other disorders of electrolyte and fluid balance, not elsewhere classified SNOMED: 836400771 Status: progressing, unchanged Assessment/Plan: covid positive pna no seizure resp insuff ng tube per gi dr no acute events s/p septic shock Zain Mares MD May 06, 2020 13:16
--- NOTE | 2020-05-06 13:18 | Nephrology Progress Note ---
Assessment/Plan Problem List: (1) Septic shock (2) Acute febrile illness (3) Suspected 2019 novel coronavirus infection (4) Seizure disorder (5) Electrolyte imbalance Assessment Acute febrile illness most likely benton virus infection Hypotension ( Shock) ,on dopamine Seizure disorder Plan May 06: No labs drawn today. Continue per consultants. Check labs in a.m. May 05: Labs reviewed. Stable renal parameters. Continue per consultants. May 04: No labs drawn today. Stable from renal standpoint of view. Medication list reviewed. Started on midodrine for low blood pressure. Patient on tube feeding. May 03: Labs reviewed. Potassium replaced. Continue per consultants. May 02: Labs reviewed. Potassium and phosphorus were replaced. Continue per consultants. May 01: No labs drawn today. Stable from renal standpoint of view. We will continue to monitor renal parameters and electrolytes. April 30: Patient seen earlier in ICU. Abnormal electrolytes noted and addressed. Due transfer to telemetry. Continue per consultants. April 29: Patient hemodynamically improved. Urine output improved. Abnormal electrolytes reviewed and addressed. Continue per consultants. April 28: Keppra changed to IV. POA is held until speech therapy evaluation. Potassium phosphate IV. Ordered. Discussed with Beth ENG. Remains stable from renal standpoint of view. Albumin 5% 500 cc challenge ordered. Fluid challenge Monitor renal parameters Monitor electrolytes Per consultants Per orders Subjective ROS Limited/Unobtainable: Yes Objective Objective Last 24 Hour Vital Signs Date Time Temp Pulse Resp B/P (MAP) Pulse Ox O2 Delivery O2 Flow Rate FiO2 05/06/20 04:00 98.6 67 20 96/60 (72) 93 05/06/20 00:00 Nasal Cannula 2.0 05/06/20 00:00 97.9 67 22 112/67 (82) 93 05/05/20 21:00 Nasal Cannula 2.0 05/05/20 20:00 97.7 72 22 118/63 (81) 92 05/05/20 16:00 97.5 73 19 125/73 (90) 95 05/05/20 14:34 Nasal Cannula 2.0 Intake and Output 05/05/20 05/06/20 19:00 07:00 Intake Total 130 ml 390 ml Output Total 2500 ml 400 ml Balance -2370 ml -10 ml Tube Feeding 130 ml 390 ml Output Urine Total 2500 ml 400 ml # Bowel Movements 1 Height (Feet): 5 Height (Inches): 8.00 Weight (Pounds): 130 General Appearance: no apparent distress Cardiovascular: normal rate Respiratory/Chest: lungs clear Objective No change Abhilash Clark MD May 06, 2020 13:18
[2020-05-06 16:00] VITALS: BP 98/61
[2020-05-06 20:00] VITALS: BP 105/68
--- NOTE | 2020-05-06 20:10 | General Progress Note ---
Subjective Allergies: Coded Allergies: No Known Allergies (Unverified , 04/14/20) Subjective Above noted awake, minimally interactive tolerating NGT feeds Objective Last 24 Hour Vital Signs Date Time Temp Pulse Resp B/P (MAP) Pulse Ox O2 Delivery O2 Flow Rate FiO2 05/06/20 16:00 97.9 88 17 98/61 (73) 93 05/06/20 12:00 96.9 75 18 101/61 (74) 96 05/06/20 09:00 Nasal Cannula 2.0 05/06/20 08:00 97.7 87 18 89/52 (64) 95 05/06/20 04:00 98.6 67 20 96/60 (72) 93 05/06/20 00:00 Nasal Cannula 2.0 05/06/20 00:00 97.9 67 22 112/67 (82) 93 05/05/20 21:00 Nasal Cannula 2.0 Intake and Output 05/05/20 05/06/20 19:00 07:00 Intake Total 130 ml 430 ml Output Total 2500 ml 400 ml Balance -2370 ml 30 ml Tube Feeding 130 ml 430 ml Output Urine Total 2500 ml 400 ml # Bowel Movements 1 Height (Feet): 5 Height (Inches): 8.00 Weight (Pounds): 130 Objective Elderly man NCAT supple Coarse BS RR abd soft flat no edema Assessment/Plan Status: progressing, unchanged Assessment/Plan: Assessment Seizure d/o HTN Dysphagia, s/p NGT COVID (+) CHF GERD Recommendations Continue NGT feeds Elevate HOB follow labs and exam need to locate family Екатерина Whalen MD May 06, 2020 20:10
[2020-05-06] MEDS: Dyna-Hex 2% Top Sol 2oz TOPIC SCH (21:02)
[2020-05-07] VITALS: BP 102/61
[2020-05-07 04:00] VITALS: BP 107/67
[2020-05-07 04:53] LABS: HEMATOCRIT 33.5 % (42.0-52.0); HEMOGLOBIN 12.3 G/DL (14.2-18.0); MEAN CORPUSCULAR VOLUME 83 FL (80-99); PLATELET COUNT 446 K/UL (150-450); RED BLOOD COUNT 4.02 M/UL (4.70-6.10); RED CELL DISTRIBUTION WIDTH 15.3 % (11.6-14.8); WHITE BLOOD COUNT 20.8 K/UL (4.8-10.8)
[2020-05-07 04:55] LABS: ALANINE AMINOTRANSFERASE 31 U/L (12-78); ALBUMIN/GLOBULIN RATIO 0.6 (1.0-2.7); ALKALINE PHOSPHATASE 82 U/L (46-116); ANION GAP 3 mmol/L (5-15); ASPARTATE AMINO TRANSFERASE 17 U/L (15-37); BILIRUBIN,TOTAL 0.7 MG/DL (0.2-1.0); BLOOD UREA NITROGEN 17 mg/dL (7-18); CALCIUM 7.7 MG/DL (8.5-10.1); CARBON DIOXIDE 29 MMOL/L (21-32); CHLORIDE 108 MMOL/L (98-107); CREATININE 0.5 MG/DL (0.55-1.30); PHOSPHORUS 1.9 MG/DL (2.5-4.9); POTASSIUM 3.2 MMOL/L (3.5-5.1); SODIUM 140 MMOL/L (136-145)
[2020-05-07] MEDS: Midodrine 10mg tab GT SCH ×3 (05:34→21:04)
--- NOTE | 2020-05-07 07:12 | Cardiac Electrophysiology PN ---
Assessment/Plan Assessment/Plan 1. S/P Septic shock on IV antibiotic. Echo Nl EF 2. COVID pneumonia, on dexamethasone and ceftriaxone and 2 liter NC. 3. Seizure disorder and altered level of consciousness on Keppra. 4. NPO as failed swallow eval on iv fluid NGT is in. Unable to get hold of family for PEG DW RN Subjective Subjective In Covid isolation on 2 liter NC and on D5 NS. WBC up to 20K on Decadron. Has NG tube in Objective Last 24 Hour Vital Signs Date Time Temp Pulse Resp B/P (MAP) Pulse Ox O2 Delivery O2 Flow Rate FiO2 05/07/20 04:00 98.9 87 17 107/67 (80) 94 05/07/20 00:00 98.9 95 17 102/61 (75) 94 05/06/20 21:48 Nasal Cannula 2.0 05/06/20 20:00 98.9 94 17 105/68 (80) 94 05/06/20 16:00 97.9 88 17 98/61 (73) 93 05/06/20 12:00 96.9 75 18 101/61 (74) 96 05/06/20 09:00 Nasal Cannula 2.0 05/06/20 08:00 97.7 87 18 89/52 (64) 95 Intake and Output 05/06/20 05/07/20 19:00 07:00 Intake Total 2220 ml Output Total 300 ml Balance 2220 ml -300 ml Free Water 300 ml Tube Feeding 620 ml Other 1300 ml Output Urine Total 300 ml # Voids 1 # Bowel Movements 1 2 Laboratory Tests Test 05/07/20 04:00 White Blood Count 20.8 K/UL (4.8-10.8) H Red Blood Count 4.02 M/UL (4.70-6.10) L Hemoglobin 12.3 G/DL (14.2-18.0) L Hematocrit 33.5 % (42.0-52.0) L Mean Corpuscular Volume 83 FL (80-99) Mean Corpuscular Hemoglobin 30.6 PG (27.0-31.0) Mean Corpuscular Hemoglobin Concent 36.7 G/DL (32.0-36.0) H Red Cell Distribution Width 15.3 % (11.6-14.8) H Platelet Count 446 K/UL (150-450) Mean Platelet Volume 5.9 FL (6.5-10.1) L Neutrophils (%) (Auto) % (45.0-75.0) Lymphocytes (%) (Auto) % (20.0-45.0) Monocytes (%) (Auto) % (1.0-10.0) Eosinophils (%) (Auto) % (0.0-3.0) Basophils (%) (Auto) % (0.0-2.0) Neutrophils % (Manual) Pending Lymphocytes % (Manual) Pending Platelet Estimate Pending Platelet Morphology Pending Sodium Level 140 MMOL/L (136-145) Potassium Level 3.2 MMOL/L (3.5-5.1) L Chloride Level 108 MMOL/L (98-107) H Carbon Dioxide Level 29 MMOL/L (21-32) Anion Gap 3 mmol/L (5-15) L Blood Urea Nitrogen 17 mg/dL (7-18) Creatinine 0.5 MG/DL (0.55-1.30) L Estimat Glomerular Filtration Rate > 60 mL/min (>60) Glucose Level 122 MG/DL (74-106) H Uric Acid 2.3 MG/DL (2.6-7.2) L Calcium Level 7.7 MG/DL (8.5-10.1) L Phosphorus Level 1.9 MG/DL (2.5-4.9) L Magnesium Level 1.9 MG/DL (1.8-2.4) Total Bilirubin 0.7 MG/DL (0.2-1.0) Aspartate Amino Transf (AST/SGOT) 17 U/L (15-37) Alanine Aminotransferase (ALT/SGPT) 31 U/L (12-78) Alkaline Phosphatase 82 U/L (46-116) C-Reactive Protein, Quantitative 18.2 mg/dL (0.00-0.90) H Pro-B-Type Natriuretic Peptide 521 pg/mL (0-125) H Total Protein 5.5 G/DL (6.4-8.2) L Albumin 2.0 G/DL (3.4-5.0) L Globulin 3.5 g/dL Albumin/Globulin Ratio 0.6 (1.0-2.7) L Objective HEAD AND NECK: No JVD.NG tube is in LUNGS: Coarse rhonchi. CARDIOVASCULAR: Regular S1 and S2. Mildly tachycardic. ABDOMEN: Soft. EXTREMITIES: 1+ pitting edema. Shady Sorto MD May 07, 2020 07:12
[2020-05-07 08:00] VITALS: BP 112/68
[2020-05-07] MEDS: Docusate 100mg cap ORAL SCH ×2 (09:00→21:03)
--- NOTE | 2020-05-07 09:09 | Pulmonology Progress Note ---
Subjective ROS Limited/Unobtainable: Yes Interval Events: s/p NGT Constitutional: Denies: fever, chills HEENT: Repors: no symptoms Respiratory: Reports: no symptoms Cardiovascular: Reports: no symptoms Gastrointestinal/Abdominal: Denies: nausea, vomiting, diarrhea Genitourinary: Reports: no symptoms Neurologic: Reports: no symptoms Musculoskeletal: Denies: pain Allergies: Coded Allergies: No Known Allergies (Unverified , 04/14/20) Objective Last 24 Hour Vital Signs Date Time Temp Pulse Resp B/P (MAP) Pulse Ox O2 Delivery O2 Flow Rate FiO2 05/07/20 04:00 98.9 87 17 107/67 (80) 94 05/07/20 00:00 98.9 95 17 102/61 (75) 94 05/06/20 21:48 Nasal Cannula 2.0 05/06/20 20:00 98.9 94 17 105/68 (80) 94 05/06/20 16:00 97.9 88 17 98/61 (73) 93 05/06/20 12:00 96.9 75 18 101/61 (74) 96 Intake and Output 05/06/20 05/07/20 19:00 07:00 Intake Total 2220 ml Output Total 300 ml Balance 2220 ml -300 ml Free Water 300 ml Tube Feeding 620 ml Other 1300 ml Output Urine Total 300 ml # Voids 1 # Bowel Movements 1 2 Objective 05/07 no change 05/06 s/p NGT; saturating 93% on 2L NC 05/05 no change 05/04 saturations stable with 2L NC 05/03 no change; PICC line 05/02 saturating 93% on 2 lpm NC 05/01 saturating well on 2 lpm NC General Appearance: no acute distress HEENT: normocephalic Respiratory: chest wall non-tender, other - coarse rhonchi Cardiovascular: normal peripheral pulses Abdomen: normal bowel sounds Extremities: other - 1+ pitting edema Laboratory Tests 05/07/20 04:00: White Blood Count 20.8H, Red Blood Count 4.02L, Hemoglobin 12.3L, Hematocrit 33.5L, Mean Corpuscular Volume 83, Mean Corpuscular Hemoglobin 30.6, Mean Corpuscular Hemoglobin Concent 36.7H, Red Cell Distribution Width 15.3H, Platelet Count 446, Mean Platelet Volume 5.9L, Neutrophils (%) (Auto) , Lymphocytes (%) (Auto) , Monocytes (%) (Auto) , Eosinophils (%) (Auto) , Basophils (%) (Auto) , Neutrophils % (Manual) [Pending], Lymphocytes % (Manual) [Pending], Platelet Estimate [Pending], Platelet Morphology [Pending], Sodium Level 140, Potassium Level 3.2L, Chloride Level 108H, Carbon Dioxide Level 29, Anion Gap 3L, Blood Urea Nitrogen 17, Creatinine 0.5L, Estimat Glomerular Filtration Rate > 60, Glucose Level 122H, Uric Acid 2.3L, Calcium Level 7.7L, Phosphorus Level 1.9L, Magnesium Level 1.9, Total Bilirubin 0.7, Aspartate Amino Transf (AST/SGOT) 17, Alanine Aminotransferase (ALT/SGPT) 31, Alkaline Phosphatase 82, C-Reactive Protein, Quantitative 18.2H, Pro-B-Type Natriuretic Peptide 521H, Total Protein 5.5L, Albumin 2.0L, Globulin 3.5, Albumin/Globulin Ratio 0.6L Current Medications Medications (Trade) Dose Ordered Sig/Aurora Route PRN Reason Start Time Stop Time Status Last Admin Dose Admin Acetaminophen (Tylenol) 500 mg Q4HR PRN ORAL Pain Scale (3-5) 04/27/20 00:15 05/27/20 00:14 Chlorhexidine Gluconate (Anjali-Hex 2%) 1 applic DAILY@2000 TOPIC 04/29/20 20:00 07/28/20 19:59 05/06/20 21:02 Dextrose/Sodium Chloride 1,000 ml @ 75 mls/hr [id number] IV 05/04/20 14:30 06/03/20 14:29 05/06/20 18:45 Docusate Sodium (Colace) 100 mg Q12HR ORAL 04/27/20 21:00 05/27/20 20:59 05/06/20 21:02 Famotidine (Pepcid) 20 mg BID GT 05/04/20 18:00 08/02/20 17:59 05/06/20 18:40 Levetiracetam 100 ml @ 400 mls/hr Q12HR IVPB 04/28/20 21:00 07/27/20 20:59 05/06/20 21:02 Midodrine (Pro-Amatine) 10 mg Q8HR GT 05/04/20 14:00 08/02/20 13:59 05/07/20 05:34 Assessment/Plan Assessment/Plan 1. COVID-19 pneumonia, diagnosed approximately on 04/14/2020. - CXR 04/30 Slightly improved bilateral infiltrates, possible small right pleural effusion - s/p completed Decadron - s/p ceftriaxone and azithromycin per ID - currently saturating well on 2L NC 2. Seizure disorder. - on antiepileptics 3. Hypotension. Now resolved DVT ppx - on SCD s/p NG tube off fluid boluses and dopamine seen in tele The care for this patient was discussed with my supervising physician Time spent for this case was approximately 31 minutes Brett Shore May 07, 2020 09:09 Radhames Jc MD May 07, 2020 11:18
[2020-05-07] MEDS: levETIRAcetam 500mg/NS100ml 100 ML IVPB SCH ×2 (09:56→21:03)
[2020-05-07] MEDS: D5NS 1,000 ML IV SCH ×2 (09:59→22:21)
[2020-05-07 12:00] VITALS: BP 111/63
--- NOTE | 2020-05-07 14:23 | Nephrology Progress Note ---
Assessment/Plan Problem List: (1) Septic shock (2) Acute febrile illness (3) Suspected 2019 novel coronavirus infection (4) Seizure disorder (5) Electrolyte imbalance Assessment Acute febrile illness most likely benton virus infection Hypotension ( Shock) ,on dopamine Seizure disorder Plan May 07: Labs reviewed. Potassium phosphorus replaced. White blood cells up to 20,000. Continue per consultants. May 06: No labs drawn today. Continue per consultants. Check labs in a.m. May 05: Labs reviewed. Stable renal parameters. Continue per consultants. May 04: No labs drawn today. Stable from renal standpoint of view. Medication list reviewed. Started on midodrine for low blood pressure. Patient on tube feeding. May 03: Labs reviewed. Potassium replaced. Continue per consultants. May 02: Labs reviewed. Potassium and phosphorus were replaced. Continue per consultants. May 01: No labs drawn today. Stable from renal standpoint of view. We will continue to monitor renal parameters and electrolytes. April 30: Patient seen earlier in ICU. Abnormal electrolytes noted and addressed. Due transfer to telemetry. Continue per consultants. April 29: Patient hemodynamically improved. Urine output improved. Abnormal electrolytes reviewed and addressed. Continue per consultants. April 28: Keppra changed to IV. POA is held until speech therapy evaluation. Potassium phosphate IV. Ordered. Discussed with Beth ENG. Remains stable from renal standpoint of view. Albumin 5% 500 cc challenge ordered. Fluid challenge Monitor renal parameters Monitor electrolytes Per consultants Per orders Subjective ROS Limited/Unobtainable: Yes Objective Objective Last 24 Hour Vital Signs Date Time Temp Pulse Resp B/P (MAP) Pulse Ox O2 Delivery O2 Flow Rate FiO2 05/07/20 08:00 97.3 90 20 112/68 (83) 94 05/07/20 04:00 98.9 87 17 107/67 (80) 94 05/07/20 00:00 98.9 95 17 102/61 (75) 94 05/06/20 21:48 Nasal Cannula 2.0 05/06/20 20:00 98.9 94 17 105/68 (80) 94 05/06/20 16:00 97.9 88 17 98/61 (73) 93 Intake and Output 05/06/20 05/07/20 19:00 07:00 Intake Total 2220 ml Output Total 300 ml Balance 2220 ml -300 ml Free Water 300 ml Tube Feeding 620 ml Other 1300 ml Output Urine Total 300 ml # Voids 1 # Bowel Movements 1 2 Laboratory Tests 05/07/20 04:00: White Blood Count 20.8H, Red Blood Count 4.02L, Hemoglobin 12.3L, Hematocrit 33.5L, Mean Corpuscular Volume 83, Mean Corpuscular Hemoglobin 30.6, Mean Corpuscular Hemoglobin Concent 36.7H, Red Cell Distribution Width 15.3H, Plat elet Count 446, Mean Platelet Volume 5.9L, Neutrophils (%) (Auto) , Lymphocytes (%) (Auto) , Monocytes (%) (Auto) , Eosinophils (%) (Auto) , Basophils (%) (Auto) , Differential Total Cells Counted 100, Neutrophils % (Manual) 85H, Lymphocytes % (Manual) 9L, Monocytes % (Manual) 6, Eosinophils % (Manual) 0, Basophils % (Manual) 0, Band Neutrophils 0, Platelet Estimate Adequate, Platelet Morphology Normal, Anisocytosis 1+, Sodium Level 140, Potassium Level 3.2L, Chloride Level 108H, Carbon Dioxide Level 29, Anion Gap 3L, Blood Urea Nitrogen 17, Creatinine 0.5L, Estimat Glomerular Filtration Rate > 60, Glucose Level 122H , Uric Acid 2.3L, Calcium Level 7.7L, Phosphorus Level 1.9L, Magnesium Level 1.9, Total Bilirubin 0.7, Aspartate Amino Transf (AST/SGOT) 17, Alanine Aminotransferase (ALT/SGPT) 31, Alkaline Phosphatase 82, C-Reactive Protein, Quantitative 18.2H, Pro-B-Type Natriuretic Peptide 521H, Total Protein 5.5L, Albumin 2.0L, Globulin 3.5, Albumin/Globulin Ratio 0.6L Height (Feet): 5 Height (Inches): 8.00 Weight (Pounds): 130 General Appearance: lethargic EENT: other Cardiovascular: tachycardia Respiratory/Chest: decreased breath sounds Abdomen: distended Objective No change Abhilash Clark MD May 07, 2020 14:22
[2020-05-07] MEDS: Potassium Phosphate 15mm/250ml 250 ML IVPB SCH ×2 (14:34→18:58)
[2020-05-07 16:00] VITALS: BP 129/82
--- NOTE | 2020-05-07 16:44 | Infectious Diseases Prog Note ---
Assessment/Plan Assessment/Plan IMPRESSION: Leukocytosis, ? streoid related pneumonia with COVID19 Hypoxemia COPD, Seizure disorder, Lactic acidosis, Encephalopathy. RECOMMENDATIONS: Finished Dexamethasone course Repeat CXR f/u CBC Subjective ROS Limited/Unobtainable: Yes Neurologic: Reports: confusion, other - on restraint Allergies: Coded Allergies: No Known Allergies (Unverified , 04/14/20) Objective Last 24 Hour Vital Signs Date Time Temp Pulse Resp B/P (MAP) Pulse Ox O2 Delivery O2 Flow Rate FiO2 05/07/20 08:00 97.3 90 20 112/68 (83) 94 05/07/20 04:00 98.9 87 17 107/67 (80) 94 05/07/20 00:00 98.9 95 17 102/61 (75) 94 05/06/20 21:48 Nasal Cannula 2.0 05/06/20 20:00 98.9 94 17 105/68 (80) 94 Height (Feet): 5 Height (Inches): 8.00 Weight (Pounds): 130 HEENT: mucous membranes moist Respiratory/Chest: other - oxygen by nasal cannula Cardiovascular: normal rate Abdomen: soft, non tender, other - NG tube Extremities: no edema Laboratory Tests Test 05/07/20 04:00 White Blood Count 20.8 K/UL (4.8-10.8) H Red Blood Count 4.02 M/UL (4.70-6.10) L Hemoglobin 12.3 G/DL (14.2-18.0) L Hematocrit 33.5 % (42.0-52.0) L Mean Corpuscular Volume 83 FL (80-99) Mean Corpuscular Hemoglobin 30.6 PG (27.0-31.0) Mean Corpuscular Hemoglobin Concent 36.7 G/DL (32.0-36.0) H Red Cell Distribution Width 15.3 % (11.6-14.8) H Platelet Count 446 K/UL (150-450) Mean Platelet Volume 5.9 FL (6.5-10.1) L Neutrophils (%) (Auto) % (45.0-75.0) Lymphocytes (%) (Auto) % (20.0-45.0) Monocytes (%) (Auto) % (1.0-10.0) Eosinophils (%) (Auto) % (0.0-3.0) Basophils (%) (Auto) % (0.0-2.0) Differential Total Cells Counted 100 Neutrophils % (Manual) 85 % (45-75) H Lymphocytes % (Manual) 9 % (20-45) L Monocytes % (Manual) 6 % (1-10) Eosinophils % (Manual) 0 % (0-3) Basophils % (Manual) 0 % (0-2) Band Neutrophils 0 % (0-8) Platelet Estimate Adequate Platelet Morphology Normal Anisocytosis 1+ Sodium Level 140 MMOL/L (136-145) Potassium Level 3.2 MMOL/L (3.5-5.1) L Chloride Level 108 MMOL/L (98-107) H Carbon Dioxide Level 29 MMOL/L (21-32) Anion Gap 3 mmol/L (5-15) L Blood Urea Nitrogen 17 mg/dL (7-18) Creatinine 0.5 MG/DL (0.55-1.30) L Estimat Glomerular Filtration Rate > 60 mL/min (>60) Glucose Level 122 MG/DL (74-106) H Uric Acid 2.3 MG/DL (2.6-7.2) L Calcium Level 7.7 MG/DL (8.5-10.1) L Phosphorus Level 1.9 MG/DL (2.5-4.9) L Magnesium Level 1.9 MG/DL (1.8-2.4) Total Bilirubin 0.7 MG/DL (0.2-1.0) Aspartate Amino Transf (AST/SGOT) 17 U/L (15-37) Alanine Aminotransferase (ALT/SGPT) 31 U/L (12-78) Alkaline Phosphatase 82 U/L (46-116) C-Reactive Protein, Quantitative 18.2 mg/dL (0.00-0.90) H Pro-B-Type Natriuretic Peptide 521 pg/mL (0-125) H Total Protein 5.5 G/DL (6.4-8.2) L Albumin 2.0 G/DL (3.4-5.0) L Globulin 3.5 g/dL Albumin/Globulin Ratio 0.6 (1.0-2.7) L Current Medications Medications (Trade) Dose Ordered Sig/Aurora Route PRN Reason Start Time Stop Time Status Last Admin Dose Admin Acetaminophen (Tylenol) 500 mg Q4HR PRN ORAL Pain Scale (3-5) 04/27/20 00:15 05/27/20 00:14 Chlorhexidine Gluconate (Anjali-Hex 2%) 1 applic DAILY@2000 TOPIC 04/29/20 20:00 07/28/20 19:59 05/06/20 21:02 Dextrose/Sodium Chloride 1,000 ml @ 75 mls/hr [id number] IV 05/04/20 14:30 06/03/20 14:29 05/07/20 09:59 Docusate Sodium (Colace) 100 mg Q12HR ORAL 04/27/20 21:00 05/27/20 20:59 05/06/20 21:02 Famotidine (Pepcid) 20 mg BID GT 05/04/20 18:00 08/02/20 17:59 05/07/20 09:56 Levetiracetam 100 ml @ 400 mls/hr Q12HR IVPB 04/28/20 21:00 07/27/20 20:59 05/07/20 09:56 Midodrine (Pro-Amatine) 10 mg Q8HR GT 05/04/20 14:00 08/02/20 13:59 05/07/20 14:36 Potassium Phosphate 250 ml @ 62.5 mls/hr Q4H IVPB 05/07/20 14:00 05/07/20 21:59 05/07/20 14:34 Narendra Garcia MD May 07, 2020 16:44
--- NOTE | 2020-05-07 16:48 | General Progress Note ---
Subjective Allergies: Coded Allergies: No Known Allergies (Unverified , 04/14/20) Subjective Above noted awake, minimally interactive tolerating NGT feeds Objective Last 24 Hour Vital Signs Date Time Temp Pulse Resp B/P (MAP) Pulse Ox O2 Delivery O2 Flow Rate FiO2 05/07/20 08:00 97.3 90 20 112/68 (83) 94 05/07/20 04:00 98.9 87 17 107/67 (80) 94 05/07/20 00:00 98.9 95 17 102/61 (75) 94 05/06/20 21:48 Nasal Cannula 2.0 05/06/20 20:00 98.9 94 17 105/68 (80) 94 Intake and Output 05/06/20 05/07/20 19:00 07:00 Intake Total 2220 ml Output Total 300 ml Balance 2220 ml -300 ml Free Water 300 ml Tube Feeding 620 ml Other 1300 ml Output Urine Total 300 ml # Voids 1 # Bowel Movements 1 2 Laboratory Tests 05/07/20 04:00: White Blood Count 20.8H, Red Blood Count 4.02L, Hemoglobin 12.3L, Hematocrit 33.5L, Mean Corpuscular Volume 83, Mean Corpuscular Hemoglobin 30.6, Mean Corpuscular Hemoglobin Concent 36.7H, Red Cell Distribution Width 15.3H, Platelet Count 446, Mean Platelet Volume 5.9L, Neutrophils (%) (Auto) , Lymphocytes (%) (Auto) , Monocytes (%) (Auto) , Eosinophils (%) (Auto) , Basophils (%) (Auto) , Differential Total Cells Counted 100, Neutrophils % (Man ual) 85H, Lymphocytes % (Manual) 9L, Monocytes % (Manual) 6, Eosinophils % (Manual) 0, Basophils % (Manual) 0, Band Neutrophils 0, Platelet Estimate Adequate, Platelet Morphology Normal, Anisocytosis 1+, Sodium Level 140, Potassium Level 3.2L, Chloride Level 108H, Carbon Dioxide Level 29, Anion Gap 3L , Blood Urea Nitrogen 17, Creatinine 0.5L, Estimat Glomerular Filtration Rate > 60, Glucose Level 122H, Uric Acid 2.3L, Calcium Level 7.7L, Phosphorus Level 1.9L, Magnesium Level 1.9, Total Bilirubin 0.7, Aspartate Amino Transf (AST/SGOT) 17, Alanine Aminotransferase (ALT/SGPT) 31, Alkaline Phosphatase 82, C-Reactive Protein, Quantitative 18.2H, Pro-B-Type Natriuretic Peptide 521H, Total Protein 5.5L, Albumin 2.0L, Globulin 3.5, Albumin/Globulin Ratio 0.6L Height (Feet): 5 Height (Inches): 8.00 Weight (Pounds): 130 Objective Elderly man NCAT supple Coarse BS RR abd soft flat no edema Assessment/Plan Status: progressing, unchanged Assessment/Plan: Assessment Seizure d/o HTN Dysphagia, s/p NGT COVID (+) CHF GERD Recommendations Continue NGT feeds Elevate HOB follow labs and exam need to locate family Екатерина Whalen MD May 07, 2020 16:48
--- NOTE | 2020-05-07 17:25 | Diagnostic Imaging Report ---
EXAM: XR Chest, 1 View CLINICAL HISTORY: Possible infection. TECHNIQUE: Frontal view of the chest. COMPARISON: 04/30/2020. FINDINGS: Lungs: Patchy airspace disease in the mid lower lung zones bilaterally. Pleural space: Small left pleural effusion. No pneumothorax. Heart: Cardiomediastinal silhouette unremarkable. Mediastinum: See above. Bones/joints: Osteopenia. Tubes, lines and devices: NG tube is noted in place with its tip below the diaphragm. Upper abdomen: Postsurgical changes about the stomach. IMPRESSION: 1. NG tube is noted in place with its tip below the diaphragm in good position. 2. Bilateral patchy airspace disease raising concern for Covid-19 pneumonia.
[2020-05-07 20:00] VITALS: BP 119/75
[2020-05-07] MEDS: Dyna-Hex 2% Top Sol 2oz TOPIC SCH (21:03)
[2020-05-07] MEDS: Acetaminophen 500mg (ES) tab ORAL PRN (21:04)
--- NOTE | 2020-05-07 22:48 | General Progress Note ---
Subjective ROS Limited/Unobtainable: Yes Allergies: Coded Allergies: No Known Allergies (Unverified , 04/14/20) Objective Last 24 Hour Vital Signs Date Time Temp Pulse Resp B/P (MAP) Pulse Ox O2 Delivery O2 Flow Rate FiO2 05/07/20 21:34 99.6 05/07/20 20:00 99.6 109 20 119/75 (90) 96 05/07/20 16:00 99.5 115 20 129/82 (98) 94 05/07/20 12:00 98.8 97 20 111/63 (79) 93 05/07/20 09:00 Room Air 05/07/20 08:00 97.3 90 20 112/68 (83) 94 05/07/20 04:00 98.9 87 17 107/67 (80) 94 05/07/20 00:00 98.9 95 17 102/61 (75) 94 Intake and Output 05/06/20 05/07/20 19:00 07:00 Intake Total 2220 ml 115 ml Output Total 300 ml Balance 2220 ml -185 ml Free Water 300 ml IV Total 75 ml Tube Feeding 620 ml 40 ml Other 1300 ml Output Urine Total 300 ml # Voids 1 # Bowel Movements 1 2 Laboratory Tests 05/07/20 04:00: White Blood Count 20.8H, Red Blood Count 4.02L, Hemoglobin 12.3L, Hematocrit 33.5L, Mean Corpuscular Volume 83, Mean Corpuscular Hemoglobin 30.6, Mean Co rpuscular Hemoglobin Concent 36.7H, Red Cell Distribution Width 15.3H, Platelet Count 446, Mean Platelet Volume 5.9L, Neutrophils (%) (Auto) , Lymphocytes (%) (Auto) , Monocytes (%) (Auto) , Eosinophils (%) (Auto) , Basophils (%) (Auto) , Differential Total Cells Counted 100, Neutrophils % (Manual) 85H, Lymphocytes % (Manual) 9L, Monocytes % (Manual) 6, Eosinophils % (Manual) 0, Basophils % (Manual) 0, Band Neutrophils 0, Platelet Estimate Adequate, Platelet Morphology Normal, Anisocytosis 1+, Sodium Level 140, Potassium Level 3.2L, Chloride Level 108H, Carbon Dioxide Level 29, Anion Gap 3L, Blood Urea Nitrogen 17, Creatinine 0.5L, Estimat Glomerular Filtration Rate > 60, Glucose Level 122H, Uric Acid 2.3L, Calcium Level 7.7L, Phosphorus Level 1.9L, Magnesium Level 1.9, Total Bilirubin 0.7, Aspartate Amino Transf (AST/SGOT) 17, Alanine Aminotransferase (ALT/SGPT) 31, Alkaline Phosphatase 82, C-Reactive Protein, Quantitative 18.2H, Pro-B-Type Natriuretic Peptide 521H, Total Protein 5.5L, Albumin 2.0L, Globulin 3.5, Albumin/Globulin Ratio 0.6L Height (Feet): 5 Height (Inches): 8.00 Weight (Pounds): 130 Assessment/Plan Problem List: (1) Coronavirus infection ICD Codes: B34.2 - Coronavirus infection, unspecified SNOMED: 134493304 (2) Septic shock ICD Codes: A41.9 - Sepsis, unspecified organism; R65.21 - Severe sepsis with septic shock SNOMED: 21010115 (3) Seizure disorder ICD Codes: G40.909 - Epilepsy, unspecified, not intractable, without status epilepticus SNOMED: 014630938 (4) Electrolyte imbalance ICD Codes: E87.8 - Other disorders of electrolyte and fluid balance, not elsewhere classified SNOMED: 472655755 Status: progressing, unchanged Assessment/Plan: covid positive pna ng tube sepsis improving no seizure afebrile Zain Mares MD May 07, 2020 22:48
[2020-05-08] VITALS: BP 109/62
[2020-05-08 04:00] VITALS: BP 115/61
[2020-05-08] MEDS: Midodrine 10mg tab GT SCH ×3 (05:16→21:39)
[2020-05-08 05:25] LABS: BASOPHILS % (AUTO) 1.1 % (0.0-2.0); EOSINOPHILS % (AUTO) 0.1 % (0.0-3.0); HEMATOCRIT 34.3 % (42.0-52.0); HEMOGLOBIN 11.9 G/DL (14.2-18.0); LYMPHOCYTES % (AUTO) 15.7 % (20.0-45.0); MEAN CORPUSCULAR VOLUME 86 FL (80-99); MONOCYTES % (AUTO) 7.1 % (1.0-10.0); PLATELET COUNT 439 K/UL (150-450); RED BLOOD COUNT 3.97 M/UL (4.70-6.10); RED CELL DISTRIBUTION WIDTH 14.6 % (11.6-14.8); WHITE BLOOD COUNT 16.2 K/UL (4.8-10.8)
[2020-05-08 05:44] LABS: ALANINE AMINOTRANSFERASE 29 U/L (12-78); ALBUMIN 1.9 G/DL (3.4-5.0); ALBUMIN/GLOBULIN RATIO 0.5 (1.0-2.7); ALKALINE PHOSPHATASE 85 U/L (46-116); ANION GAP 6 mmol/L (5-15); ASPARTATE AMINO TRANSFERASE 17 U/L (15-37); BILIRUBIN,TOTAL 0.9 MG/DL (0.2-1.0); BLOOD UREA NITROGEN 9 mg/dL (7-18); CALCIUM 7.8 MG/DL (8.5-10.1); CARBON DIOXIDE 29 MMOL/L (21-32); CHLORIDE 107 MMOL/L (98-107); CREATININE 0.6 MG/DL (0.55-1.30); PHOSPHORUS 2.7 MG/DL (2.5-4.9); POTASSIUM 3.6 MMOL/L (3.5-5.1); SODIUM 141 MMOL/L (136-145)
[2020-05-08 08:00] VITALS: BP 117/73
[2020-05-08] MEDS: Docusate 100mg cap ORAL SCH ×2 (09:00→21:39)
--- NOTE | 2020-05-08 09:08 | Pulmonology Progress Note ---
Subjective ROS Limited/Unobtainable: Yes Interval Events: s/p NGT Constitutional: Denies: fever, chills HEENT: Repors: no symptoms Respiratory: Reports: no symptoms Cardiovascular: Reports: no symptoms Gastrointestinal/Abdominal: Denies: nausea, vomiting, diarrhea Genitourinary: Reports: no symptoms Neurologic: Reports: no symptoms Musculoskeletal: Denies: pain Allergies: Coded Allergies: No Known Allergies (Unverified , 04/14/20) Objective Last 24 Hour Vital Signs Date Time Temp Pulse Resp B/P (MAP) Pulse Ox O2 Delivery O2 Flow Rate FiO2 05/08/20 04:00 98.2 94 20 115/61 (79) 99 05/08/20 00:00 98.4 86 20 109/62 (78) 97 05/07/20 21:34 99.6 05/07/20 21:00 Nasal Cannula 2.0 05/07/20 20:00 99.6 109 20 119/75 (90) 96 05/07/20 16:00 99.5 115 20 129/82 (98) 94 05/07/20 12:00 98.8 97 20 111/63 (79) 93 Intake and Output 05/07/20 05/08/20 19:00 07:00 Intake Total 1475 ml Output Total 1650 ml 1600 ml Balance -175 ml -1600 ml Free Water 300 ml IV Total 825 ml Tube Feeding 350 ml Output Urine Total 1650 ml 1600 ml # Bowel Movements 3 2 General Appearance: no acute distress HEENT: normocephalic Respiratory: chest wall non-tender, other - coarse rhonchi Cardiovascular: normal peripheral pulses Abdomen: normal bowel sounds Extremities: other - 1+ pitting edema Laboratory Tests 05/08/20 05:00: White Blood Count 16.2H, Red Blood Count 3.97L, Hemoglobin 11.9L, Hematocrit 34.3L, Mean Corpuscular Volume 86, Mean Corpuscular Hemoglobin 30.0, Mean Corpuscular Hemoglobin Concent 34.8, Red Cell Distribution Width 14.6, Platelet Count 439, Mean Platelet Volume 6.0L, Neutrophils (%) (Auto) 76.0H, Lymphocytes (%) (Auto) 15.7L, Monocytes (%) (Auto) 7.1, Eosinophils (%) (Auto) 0.1, Basophils (%) (Auto) 1.1, Sodium Level 141, Potassium Level 3.6, Chloride Level 107, Carbon Dioxide Level 29, Anion Gap 6, Blood Urea Nitrogen 9, Creatinine 0.6, Estimat Glomerular Filtration Rate > 60, Glucose Level 103, Calcium Level 7.8L, Phosphorus Level 2.7, Total Bilirubin 0.9, Aspartate Amino Transf (AST/SGOT) 17, Alanine Aminotransferase (ALT/SGPT) 29, Alkaline Phosphatase 85, C-Reactive Protein, Quantitative 18.3H, Total Protein 5.4L, Albumin 1.9L, Globulin 3.5, Albumin/Globulin Ratio 0.5L Current Medications Medications (Trade) Dose Ordered Sig/Aurora Route PRN Reason Start Time Stop Time Status Last Admin Dose Admin Acetaminophen (Tylenol) 500 mg Q4HR PRN ORAL Pain Scale (3-5) 04/27/20 00:15 05/27/20 00:14 05/07/20 21:04 Chlorhexidine Gluconate (Anjali-Hex 2%) 1 applic DAILY@2000 TOPIC 04/29/20 20:00 07/28/20 19:59 05/07/20 21:03 Dextrose/Sodium Chloride 1,000 ml @ 75 mls/hr [id number] IV 05/04/20 14:30 06/03/20 14:29 05/07/20 22:21 Docusate Sodium (Colace) 100 mg Q12HR ORAL 04/27/20 21:00 05/27/20 20:59 05/07/20 21:03 Famotidine (Pepcid) 20 mg BID GT 05/04/20 18:00 08/02/20 17:59 05/07/20 18:24 Levetiracetam 100 ml @ 400 mls/hr Q12HR IVPB 04/28/20 21:00 07/27/20 20:59 05/07/20 21:03 Midodrine (Pro-Amatine) 10 mg Q8HR GT 05/04/20 14:00 08/02/20 13:59 05/08/20 05:16 Assessment/Plan Assessment/Plan 1. COVID-19 pneumonia, diagnosed approximately on 04/14/2020. - CXR 04/30 Slightly improved bilateral infiltrates, possible small right pleural effusion - on Decadron - Cont broad-spectrum antibiotics. - Saturating well on 2L/min 2. Seizure disorder. - on antiepileptics 3. Hypotension. Now resolved DVT ppx - pending venous duplex LE US due to his Covid-19 positive status DISCUSSION: He has received fluid boluses and has received dopamine. Now discontinued. seen in tele NPO per [facility] recommendation Radhames Jc MD May 08, 2020 09:08
[2020-05-08] MEDS: levETIRAcetam 500mg/NS100ml 100 ML IVPB SCH ×2 (09:44→21:57)
--- NOTE | 2020-05-08 11:34 | Nephrology Progress Note ---
Assessment/Plan Problem List: (1) Septic shock (2) Acute febrile illness (3) Suspected 2019 novel coronavirus infection (4) Seizure disorder (5) Electrolyte imbalance Assessment Acute febrile illness most likely benton virus infection Hypotension ( Shock) ,on dopamine Seizure disorder Plan May 08: Labs reviewed. Abnormal electrolytes addressed. Leukocytosis down from 20,000-16,000. Continue per consultants. May 07: Labs reviewed. Potassium phosphorus replaced. White blood cells up to 20,000. Continue per consultants. May 06: No labs drawn today. Continue per consultants. Check labs in a.m. May 05: Labs reviewed. Stable renal parameters. Continue per consultants. May 04: No labs drawn today. Stable from renal standpoint of view. Medication list reviewed. Started on midodrine for low blood pressure. Patient on tube feeding. May 03: Labs reviewed. Potassium replaced. Continue per consultants. May 02: Labs reviewed. Potassium and phosphorus were replaced. Continue per consultants. May 01: No labs drawn today. Stable from renal standpoint of view. We will continue to monitor renal parameters and electrolytes. April 30: Patient seen earlier in ICU. Abnormal electrolytes noted and addressed. Due transfer to telemetry. Continue per consultants. April 29: Patient hemodynamically improved. Urine output improved. Abnormal electrolytes reviewed and addressed. Continue per consultants. April 28: Keppra changed to IV. POA is held until speech therapy evaluation. Potassium phosphate IV. Ordered. Discussed with Beth ENG. Remains stable from renal standpoint of view. Albumin 5% 500 cc challenge ordered. Fluid challenge Monitor renal parameters Monitor electrolytes Per consultants Per orders Subjective ROS Limited/Unobtainable: Yes Objective Objective Last 24 Hour Vital Signs Date Time Temp Pulse Resp B/P (MAP) Pulse Ox O2 Delivery O2 Flow Rate FiO2 05/08/20 04:00 98.2 94 20 115/61 (79) 99 05/08/20 00:00 98.4 86 20 109/62 (78) 97 05/07/20 21:34 99.6 05/07/20 21:00 Nasal Cannula 2.0 05/07/20 20:00 99.6 109 20 119/75 (90) 96 05/07/20 16:00 99.5 115 20 129/82 (98) 94 05/07/20 12:00 98.8 97 20 111/63 (79) 93 Intake and Output 05/07/20 05/08/20 19:00 07:00 Intake Total 1475 ml Output Total 1650 ml 1600 ml Balance -175 ml -1600 ml Free Water 300 ml IV Total 825 ml Tube Feeding 350 ml Output Urine Total 1650 ml 1600 ml # Bowel Movements 3 2 Current Medications Medications (Trade) Dose Ordered Sig/Aurora Route PRN Reason Start Time Stop Time Status Last Admin Dose Admin Acetaminophen (Tylenol) 500 mg Q4HR PRN ORAL Pain Scale (3-5) 04/27/20 00:15 05/27/20 00:14 05/07/20 21:04 Chlorhexidine Gluconate (Anjali-Hex 2%) 1 applic DAILY@2000 TOPIC 04/29/20 20:00 07/28/20 19:59 05/07/20 21:03 Dextrose/Sodium Chloride 1,000 ml @ 75 mls/hr [id number] IV 05/04/20 14:30 06/03/20 14:29 05/07/20 22:21 Docusate Sodium (Colace) 100 mg Q12HR ORAL 04/27/20 21:00 05/27/20 20:59 05/07/20 21:03 Famotidine (Pepcid) 20 mg BID GT 05/04/20 18:00 08/02/20 17:59 05/08/20 09:44 Levetiracetam 100 ml @ 400 mls/hr Q12HR IVPB 04/28/20 21:00 07/27/20 20:59 05/08/20 09:44 Midodrine (Pro-Amatine) 10 mg Q8HR GT 05/04/20 14:00 08/02/20 13:59 05/08/20 05:16 Laboratory Tests 05/08/20 05:00: White Blood Count 16.2H, Red Blood Count 3.97L, Hemoglobin 11.9L, Hematocrit 34.3L, Mean Corpuscular Volume 86, Mean Corpuscular Hemoglobin 30.0, Mean Corpuscular Hemoglobin Concent 34.8, Red Cell Distribution Width 14.6, Platelet Count 439, Mean Platelet Volume 6.0L, Neutrophils (%) (Auto) 76.0H, Lymphocytes (%) (Auto) 15.7L, Monocytes (%) (Auto) 7.1, Eosinophils (%) (Auto) 0.1, Basophils (%) (Auto) 1.1, Sodium Level 141, Potassium Level 3.6, Chloride Level 107, Carbon Dioxide Level 29, Anion Gap 6, Blood Urea Nitrogen 9, Creatinine 0.6, Estimat Glomerular Filtration Rate > 60, Glucose Level 103, Calcium Level 7.8L, Phosphorus Level 2.7, Total Bilirubin 0.9, Aspartate Amino Transf (AST/SGOT) 17, Alanine Aminotransferase (ALT/SGPT) 29, Alkaline Phosphatase 85, C-Reactive Protein, Quantitative 18.3H, Total Protein 5.4L, Albumin 1.9L, Globulin 3.5, Albumin/Globulin Ratio 0.5L Height (Feet): 5 Height (Inches): 8.00 Weight (Pounds): 130 General Appearance: no apparent distress Cardiovascular: tachycardia Respiratory/Chest: decreased breath sounds Abdomen: distended Objective No change Abhilash Clark MD May 08, 2020 11:34
[2020-05-08] MEDS: D5NS 1,000 ML IV SCH (11:50)
[2020-05-08 12:00] VITALS: BP 112/77
--- NOTE | 2020-05-08 14:35 | Infectious Diseases Prog Note ---
Assessment/Plan Assessment/Plan IMPRESSION: Leukocytosis,improving, ? streoid related pneumonia with COVID19 Hypoxemia COPD, Seizure disorder, Lactic acidosis, Encephalopathy. RECOMMENDATIONS: Finished Dexamethasone course f/u CBC Subjective ROS Limited/Unobtainable: Yes Neurologic: Reports: other - on restraint Allergies: Coded Allergies: No Known Allergies (Unverified , 04/14/20) Objective Last 24 Hour Vital Signs Date Time Temp Pulse Resp B/P (MAP) Pulse Ox O2 Delivery O2 Flow Rate FiO2 05/08/20 04:00 98.2 94 20 115/61 (79) 99 05/08/20 00:00 98.4 86 20 109/62 (78) 97 05/07/20 21:34 99.6 05/07/20 21:00 Nasal Cannula 2.0 05/07/20 20:00 99.6 109 20 119/75 (90) 96 05/07/20 16:00 99.5 115 20 129/82 (98) 94 Height (Feet): 5 Height (Inches): 8.00 Weight (Pounds): 130 HEENT: mucous membranes moist Respiratory/Chest: other - oxygen by nasal cannula Cardiovascular: normal rate Abdomen: soft, non tender Extremities: no edema Neurologic/Psychiatric: other - lethargic Laboratory Tests Test 05/08/20 05:00 White Blood Count 16.2 K/UL (4.8-10.8) H Red Blood Count 3.97 M/UL (4.70-6.10) L Hemoglobin 11.9 G/DL (14.2-18.0) L Hematocrit 34.3 % (42.0-52.0) L Mean Corpuscular Volume 86 FL (80-99) Mean Corpuscular Hemoglobin 30.0 PG (27.0-31.0) Mean Corpuscular Hemoglobin Concent 34.8 G/DL (32.0-36.0) Red Cell Distribution Width 14.6 % (11.6-14.8) Platelet Count 439 K/UL (150-450) Mean Platelet Volume 6.0 FL (6.5-10.1) L Neutrophils (%) (Auto) 76.0 % (45.0-75.0) H Lymphocytes (%) (Auto) 15.7 % (20.0-45.0) L Monocytes (%) (Auto) 7.1 % (1.0-10.0) Eosinophils (%) (Auto) 0.1 % (0.0-3.0) Basophils (%) (Auto) 1.1 % (0.0-2.0) Sodium Level 141 MMOL/L (136-145) Potassium Level 3.6 MMOL/L (3.5-5.1) Chloride Level 107 MMOL/L (98-107) Carbon Dioxide Level 29 MMOL/L (21-32) Anion Gap 6 mmol/L (5-15) Blood Urea Nitrogen 9 mg/dL (7-18) Creatinine 0.6 MG/DL (0.55-1.30) Estimat Glomerular Filtration Rate > 60 mL/min (>60) Glucose Level 103 MG/DL (74-106) Calcium Level 7.8 MG/DL (8.5-10.1) L Phosphorus Level 2.7 MG/DL (2.5-4.9) Total Bilirubin 0.9 MG/DL (0.2-1.0) Aspartate Amino Transf (AST/SGOT) 17 U/L (15-37) Alanine Aminotransferase (ALT/SGPT) 29 U/L (12-78) Alkaline Phosphatase 85 U/L (46-116) C-Reactive Protein, Quantitative 18.3 mg/dL (0.00-0.90) H Total Protein 5.4 G/DL (6.4-8.2) L Albumin 1.9 G/DL (3.4-5.0) L Globulin 3.5 g/dL Albumin/Globulin Ratio 0.5 (1.0-2.7) L Current Medications Medications (Trade) Dose Ordered Sig/Aurora Route PRN Reason Start Time Stop Time Status Last Admin Dose Admin Acetaminophen (Tylenol) 500 mg Q4HR PRN ORAL Pain Scale (3-5) 04/27/20 00:15 05/27/20 00:14 05/07/20 21:04 Chlorhexidine Gluconate (Anjali-Hex 2%) 1 applic DAILY@1999 TOPIC 04/29/20 20:00 07/28/20 19:59 05/07/20 21:03 Dextrose/Sodium Chloride 1,000 ml @ 75 mls/hr [id number] IV 05/04/20 14:30 06/03/20 14:29 05/07/20 22:21 Docusate Sodium (Colace) 100 mg Q12HR ORAL 04/27/20 21:00 05/27/20 20:59 05/07/20 21:03 Famotidine (Pepcid) 20 mg BID GT 05/04/20 18:00 08/02/20 17:59 05/08/20 09:44 Levetiracetam 100 ml @ 400 mls/hr Q12HR IVPB 04/28/20 21:00 07/27/20 20:59 05/08/20 09:44 Midodrine (Pro-Amatine) 10 mg Q8HR GT 05/04/20 14:00 08/02/20 13:59 05/08/20 05:16 Narendra Garcia MD May 08, 2020 14:35
[2020-05-08 16:00] VITALS: BP 129/80
[2020-05-08] MEDS: Acetaminophen 500mg (ES) tab ORAL PRN (16:58)
--- NOTE | 2020-05-08 17:13 | Diagnostic Imaging Report ---
EXAM: XR Chest, 1 View CLINICAL HISTORY: VOMITING TECHNIQUE: Frontal view of the chest. COMPARISON: Chest radiograph on 05/07/2020 FINDINGS: Hardware: Enteric tube courses past the diaphragm and out of the field- of-view. Lungs/pleura: Patchy opacities in the mid and lower lungs, slightly decreased compared to prior exam. No pleural effusion or pneumothorax. Heart/mediastinum: Normal. No cardiomegaly. Soft tissues: Unremarkable. Bones: No acute fracture. Degenerative changes of the spine. Upper abdomen: Multiple surgical clips in the left upper quadrant. IMPRESSION: 1. Enteric tube courses past the diaphragm and out of the [id number]. 2. Patchy opacities in the mid and lower lungs, slightly decreased compared to prior exam.
--- NOTE | 2020-05-08 19:11 | Diagnostic Imaging Report ---
EXAM: XR Abdomen, 2 Views CLINICAL HISTORY: NGT TECHNIQUE: Frontal view of the abdomen/pelvis with upright view of the abdomen. COMPARISON: Abdomen radiograph on 05/05/2020 FINDINGS: Hardware: Enteric tube terminates in the region of the proximal stomach. Right femoral central venous catheter terminating to the right of the L4-L5 level. IVC filter noted. Abdomen: Nonobstructive bowel gas pattern. Large amount of stool in the rectum is concerning for fecal impaction. No free air. Bones: Degenerative changes of the hips and spine. Osteopenia. Soft tissues: Normal. Other: Multiple surgical clips in the right upper quadrant may be related to prior cholecystectomy. Multiple surgical clips in the left upper quadrant as well. IMPRESSION: 1. Enteric tube terminates in the region of the proximal stomach. Right femoral central venous catheter terminating to the right of the L4-L5 level. 2. Nonobstructive bowel gas pattern. Large amount of stool in the rectum is concerning for fecal impaction.
[2020-05-08 20:00] VITALS: BP 106/66
[2020-05-08] MEDS: Dyna-Hex 2% Top Sol 2oz TOPIC SCH (21:39)
--- NOTE | 2020-05-08 21:46 | Cardiac Electrophysiology PN ---
Assessment/Plan Assessment/Plan 1. S/P Septic shock on IV antibiotic. Echo Nl EF 2. COVID pneumonia, on dexamethasone and ceftriaxone and 2 liter NC. 3. Seizure disorder and altered level of consciousness on Keppra. 4. NPO as failed swallow eval on iv fluid NGT is in. Unable to get hold of family for PEG DW RN Subjective Subjective In Covid isolation on 2 liter NC and on D5 NS. WBC up to 20K on Decadron. Has NG tube in Objective Last 24 Hour Vital Signs Date Time Temp Pulse Resp B/P (MAP) Pulse Ox O2 Delivery O2 Flow Rate FiO2 05/08/20 17:28 99.9 05/08/20 16:00 101.8 114 20 129/80 (96) 99 05/08/20 12:00 99.1 118 20 112/77 (89) 94 05/08/20 09:00 Nasal Cannula 2.0 05/08/20 08:00 99.5 121 20 117/73 (88) 93 05/08/20 04:00 98.2 94 20 115/61 (79) 99 05/08/20 00:00 98.4 86 20 109/62 (78) 97 Intake and Output 05/07/20 05/08/20 19:00 07:00 Intake Total 1475 ml Output Total 1650 ml 1600 ml Balance -175 ml -1600 ml Free Water 300 ml IV Total 825 ml Tube Feeding 350 ml Output Urine Total 1650 ml 1600 ml # Bowel Movements 3 2 Laboratory Tests Test 05/08/20 05:00 White Blood Count 16.2 K/UL (4.8-10.8) H Red Blood Count 3.97 M/UL (4.70-6.10) L Hemoglobin 11.9 G/DL (14.2-18.0) L Hematocrit 34.3 % (42.0-52.0) L Mean Corpuscular Volume 86 FL (80-99) Mean Corpuscular Hemoglobin 30.0 PG (27.0-31.0) Mean Corpuscular Hemoglobin Concent 34.8 G/DL (32.0-36.0) Red Cell Distribution Width 14.6 % (11.6-14.8) Platelet Count 439 K/UL (150-450) Mean Platelet Volume 6.0 FL (6.5-10.1) L Neutrophils (%) (Auto) 76.0 % (45.0-75.0) H Lymphocytes (%) (Auto) 15.7 % (20.0-45.0) L Monocytes (%) (Auto) 7.1 % (1.0-10.0) Eosinophils (%) (Auto) 0.1 % (0.0-3.0) Basophils (%) (Auto) 1.1 % (0.0-2.0) Sodium Level 141 MMOL/L (136-145) Potassium Level 3.6 MMOL/L (3.5-5.1) Chloride Level 107 MMOL/L (98-107) Carbon Dioxide Level 29 MMOL/L (21-32) Anion Gap 6 mmol/L (5-15) Blood Urea Nitrogen 9 mg/dL (7-18) Creatinine 0.6 MG/DL (0.55-1.30) Estimat Glomerular Filtration Rate > 60 mL/min (>60) Glucose Level 103 MG/DL (74-106) Calcium Level 7.8 MG/DL (8.5-10.1) L Phosphorus Level 2.7 MG/DL (2.5-4.9) Total Bilirubin 0.9 MG/DL (0.2-1.0) Aspartate Amino Transf (AST/SGOT) 17 U/L (15-37) Alanine Aminotransferase (ALT/SGPT) 29 U/L (12-78) Alkaline Phosphatase 85 U/L (46-116) C-Reactive Protein, Quantitative 18.3 mg/dL (0.00-0.90) H Total Protein 5.4 G/DL (6.4-8.2) L Albumin 1.9 G/DL (3.4-5.0) L Globulin 3.5 g/dL Albumin/Globulin Ratio 0.5 (1.0-2.7) L Objective HEAD AND NECK: No JVD.NG tube is in LUNGS: Coarse rhonchi. CARDIOVASCULAR: Regular S1 and S2. Mildly tachycardic. ABDOMEN: Soft. EXTREMITIES: 1+ pitting edema. Shady Sorto MD May 08, 2020 21:46
--- NOTE | 2020-05-08 21:56 | General Progress Note ---
Subjective ROS Limited/Unobtainable: Yes Allergies: Coded Allergies: No Known Allergies (Unverified , 04/14/20) Objective Last 24 Hour Vital Signs Date Time Temp Pulse Resp B/P (MAP) Pulse Ox O2 Delivery O2 Flow Rate FiO2 05/08/20 17:28 99.9 05/08/20 16:00 101.8 114 20 129/80 (96) 99 05/08/20 12:00 99.1 118 20 112/77 (89) 94 05/08/20 09:00 Nasal Cannula 2.0 05/08/20 08:00 99.5 121 20 117/73 (88) 93 05/08/20 04:00 98.2 94 20 115/61 (79) 99 05/08/20 00:00 98.4 86 20 109/62 (78) 97 Intake and Output 05/07/20 05/08/20 19:00 07:00 Intake Total 1475 ml Output Total 1650 ml 1600 ml Balance -175 ml -1600 ml Free Water 300 ml IV Total 825 ml Tube Feeding 350 ml Output Urine Total 1650 ml 1600 ml # Bowel Movements 3 2 Laboratory Tests 05/08/20 05:00: White Blood Count 16.2H, Red Blood Count 3.97L, Hemoglobin 11.9L, Hematocrit 34.3L, Mean Corpuscular Volume 86, Mean Corpuscular Hemoglobin 30.0, Mean Corpuscular Hemoglobin Concent 34.8, Red Cell Distribution Width 14.6, Platelet Count 439, Mean Platelet Volume 6.0L, Neutrophils (%) (Auto) 76.0H, Lymphocytes (%) (Auto) 15.7L, Monocytes (%) (Auto) 7.1, Eosinophils (%) (Auto) 0.1, Basophils (%) (Auto) 1.1, Sodium Level 141, Potassium Level 3.6, Chloride Level 107, Carbon Dioxide Level 29, Anion Gap 6, Blood Urea Nitrogen 9, Creatinine 0.6, Estimat Glomerular Filtration Rate > 60, Glucose Level 103, Calcium Level 7.8L, Phosphorus Level 2.7, Total Bilirubin 0.9, Aspartate Amino Transf (AST/SGOT) 17, Alanine Aminotransferase (ALT/SGPT) 29, Alkaline Phosphatase 85, C-Reactive Protein, Quantitative 18.3H, Total Protein 5.4L, Albumin 1.9L, Globulin 3.5, Albumin/Globulin Ratio 0.5L Height (Feet): 5 Height (Inches): 8.00 Weight (Pounds): 130 Assessment/Plan Problem List: (1) Coronavirus infection ICD Codes: B34.2 - Coronavirus infection, unspecified SNOMED: 718976457 (2) Septic shock ICD Codes: A41.9 - Sepsis, unspecified organism; R65.21 - Severe sepsis with septic shock SNOMED: 65085818 (3) Seizure disorder ICD Codes: G40.909 - Epilepsy, unspecified, not intractable, without status epilepticus SNOMED: 216771511 (4) Electrolyte imbalance ICD Codes: E87.8 - Other disorders of electrolyte and fluid balance, not elsewhere classified SNOMED: 594230615 Status: progressing, unchanged Assessment/Plan: covid positive pna placement of tube per dr mei not eating malnutrtion sepsis improving no seizure afebrile Zain Mares MD May 08, 2020 21:56
[2020-05-09] VITALS: BP 115/75
[2020-05-09] MEDS: D5NS 1,000 ML IV SCH ×2 (01:10→13:11)
[2020-05-09 04:00] VITALS: BP 133/78
[2020-05-09] MEDS: Midodrine 10mg tab GT SCH ×3 (06:34→22:17)
[2020-05-09 08:00] VITALS: BP 110/64
[2020-05-09] MEDS: Docusate 100mg cap ORAL SCH ×2 (09:13→22:17)
[2020-05-09] MEDS: levETIRAcetam 500mg/NS100ml 100 ML IVPB SCH ×2 (09:14→22:19)
[2020-05-09] MEDS: Acetaminophen 500mg (ES) tab ORAL PRN (10:35)
--- NOTE | 2020-05-09 10:49 | Pulmonology Progress Note ---
Subjective ROS Limited/Unobtainable: Yes Interval Events: s/p NGT Constitutional: Denies: fever, chills HEENT: Repors: no symptoms Respiratory: Reports: no symptoms Cardiovascular: Reports: no symptoms Gastrointestinal/Abdominal: Denies: nausea, vomiting, diarrhea Genitourinary: Reports: no symptoms Neurologic: Reports: no symptoms Musculoskeletal: Denies: pain Allergies: Coded Allergies: No Known Allergies (Unverified , 04/14/20) Objective Last 24 Hour Vital Signs Date Time Temp Pulse Resp B/P (MAP) Pulse Ox O2 Delivery O2 Flow Rate FiO2 05/09/20 09:00 Nasal Cannula 2.0 05/09/20 08:00 102.2 109 22 110/64 (79) 97 05/09/20 04:00 98.2 108 22 133/78 (96) 96 05/09/20 00:00 98.4 98 22 115/75 (88) 94 05/08/20 21:00 Nasal Cannula 2.0 05/08/20 20:00 98.6 82 20 106/66 (79) 96 05/08/20 17:28 99.9 05/08/20 16:00 101.8 114 20 129/80 (96) 99 05/08/20 12:00 99.1 118 20 112/77 (89) 94 Intake and Output 05/08/20 05/09/20 19:00 07:00 Intake Total 195 ml 850 ml Output Total 1900 ml 1800 ml Balance -1705 ml -950 ml IV Total 75 ml 850 ml Tube Feeding 120 ml Output Urine Total 1900 ml 1800 ml # Bowel Movements 1 1 General Appearance: no acute distress HEENT: normocephalic Respiratory: chest wall non-tender, other - coarse rhonchi Cardiovascular: normal peripheral pulses Abdomen: normal bowel sounds Extremities: other - 1+ pitting edema Current Medications Medications (Trade) Dose Ordered Sig/Aurora Route PRN Reason Start Time Stop Time Status Last Admin Dose Admin Acetaminophen (Tylenol) 500 mg Q4HR PRN ORAL Pain Scale (3-5) 04/27/20 00:15 05/27/20 00:14 05/09/20 10:35 Chlorhexidine Gluconate (Anjali-Hex 2%) 1 applic DAILY@1999 TOPIC 04/29/20 20:00 07/28/20 19:59 05/08/20 21:39 Dextrose/Sodium Chloride 1,000 ml @ 75 mls/hr [id number] IV 05/04/20 14:30 06/03/20 14:29 05/08/20 11:50 Docusate Sodium (Colace) 100 mg Q12HR ORAL 04/27/20 21:00 05/27/20 20:59 05/09/20 09:13 Famotidine (Pepcid) 20 mg BID GT 05/04/20 18:00 08/02/20 17:59 05/09/20 09:13 Levetiracetam 100 ml @ 400 mls/hr Q12HR IVPB 04/28/20 21:00 07/27/20 20:59 05/09/20 09:14 Midodrine (Pro-Amatine) 10 mg Q8HR GT 05/04/20 14:00 08/02/20 13:59 05/09/20 06:34 Assessment/Plan Assessment/Plan Assessment/Plan 1. COVID-19 pneumonia, diagnosed approximately on 04/14/2020. - CXR 05/08 Slightly improved bilateral infiltrates - on Decadron - Cont broad-spectrum antibiotics. - Saturating 97% at 15 liters/ min NRBM 2. Seizure disorder. - on antiepileptics 3. Hypotension. Now resolved DVT ppx - pending venous duplex LE US due to his Covid-19 positive status DISCUSSION: He has received fluid boluses and has received dopamine. Now discontinued. NPO per ST eval recommendation we will closely monitor. Anai Evans FIELD SPEC May 09, 2020 10:49
[2020-05-09 12:00] VITALS: BP 108/64
--- NOTE | 2020-05-09 15:04 | Nephrology Progress Note ---
Assessment/Plan Problem List: (1) Septic shock (2) Acute febrile illness (3) Suspected 2019 novel coronavirus infection (4) Seizure disorder (5) Electrolyte imbalance Assessment Acute febrile illness most likely benton virus infection Hypotension ( Shock) ,on dopamine Seizure disorder Plan May 09: No labs drawn today. Remains stable from renal standpoint review. Continue to monitor her electrolytes and renal parameters. Continue per consultants. May 08: Labs reviewed. Abnormal electrolytes addressed. Leukocytosis down from 20,000-16,000. Continue per consultants. May 07: Labs reviewed. Potassium phosphorus replaced. White blood cells up to 20,000. Continue per consultants. May 06: No labs drawn today. Continue per consultants. Check labs in a.m. May 05: Labs reviewed. Stable renal parameters. Continue per consultants. May 04: No labs drawn today. Stable from renal standpoint of view. Medi cation list reviewed. Started on midodrine for low blood pressure. Patient on tube feeding. May 03: Labs reviewed. Potassium replaced. Continue per consultants. May 02: Labs reviewed. Potassium and phosphorus were replaced. Continue per consultants. May 01: No labs drawn today. Stable from renal standpoint of view. We will continue to monitor renal parameters and electrolytes. April 30: Patient seen earlier in ICU. Abnormal electrolytes noted and addressed. Due transfer to telemetry. Continue per consultants. April 29: Patient hemodynamically improved. Urine output improved. Abnormal electrolytes reviewed and addressed. Continue per consultants. April 28: Keppra changed to IV. POA is held until speech therapy evaluation. Potassium phosphate IV. Ordered. Discussed with Beth ENG. Remains stable from renal standpoint of view. Albumin 5% 500 cc challenge ordered. Fluid challenge Monitor renal parameters Monitor electrolytes Per consultants Per orders Subjective ROS Limited/Unobtainable: No Constitutional: Reports: malaise Objective Objective Last 24 Hour Vital Signs Date Time Temp Pulse Resp B/P (MAP) Pulse Ox O2 Delivery O2 Flow Rate FiO2 05/09/20 12:00 98.4 102 19 108/64 (79) 98 05/09/20 11:05 99.0 05/09/20 09:00 Nasal Cannula 2.0 05/09/20 08:00 102.2 109 22 110/64 (79) 97 05/09/20 04:00 98.2 108 22 133/78 (96) 96 05/09/20 00:00 98.4 98 22 115/75 (88) 94 05/08/20 21:00 Nasal Cannula 2.0 05/08/20 20:00 98.6 82 20 106/66 (79) 96 05/08/20 17:28 99.9 05/08/20 16:00 101.8 114 20 129/80 (96) 99 Intake and Output 05/08/20 05/09/20 18:59 06:59 Intake Total 120 ml 850 ml Output Total 1900 ml 1800 ml Balance -1780 ml -950 ml IV Total 850 ml Tube Feeding 120 ml Output Urine Total 1900 ml 1800 ml # Bowel Movements 1 1 Height (Feet): 5 Height (Inches): 8.00 Weight (Pounds): 130 General Appearance: no apparent distress Cardiovascular: tachycardia Respiratory/Chest: decreased breath sounds Abdomen: distended Objective No change Abhilash Clark MD May 09, 2020 15:04
[2020-05-09] MEDS ORDERED: NS 500ML ONE (15:42)
[2020-05-09] MEDS ORDERED: Tubing IV Secondary IV ONE (15:42)
[2020-05-09] MEDS ORDERED: D5NS 1000ml IV ONE (15:42)
[2020-05-09 16:00] VITALS: BP 100/58
[2020-05-09 20:00] VITALS: BP 113/69
[2020-05-09] MEDS: Dyna-Hex 2% Top Sol 2oz TOPIC SCH (22:17)
--- NOTE | 2020-05-09 22:24 | General Progress Note ---
Subjective ROS Limited/Unobtainable: Yes Allergies: Coded Allergies: No Known Allergies (Unverified , 04/14/20) Objective Last 24 Hour Vital Signs Date Time Temp Pulse Resp B/P (MAP) Pulse Ox O2 Delivery O2 Flow Rate FiO2 05/09/20 16:00 97.7 73 19 100/58 (72) 99 05/09/20 12:00 98.4 102 19 108/64 (79) 98 05/09/20 11:05 99.0 05/09/20 09:00 Nasal Cannula 2.0 05/09/20 08:00 102.2 109 22 110/64 (79) 97 05/09/20 04:00 98.2 108 22 133/78 (96) 96 05/09/20 00:00 98.4 98 22 115/75 (88) 94 Intake and Output 05/08/20 05/09/20 19:00 07:00 Intake Total 195 ml 850 ml Output Total 1900 ml 1800 ml Balance -1705 ml -950 ml IV Total 75 ml 850 ml Tube Feeding 120 ml Output Urine Total 1900 ml 1800 ml # Bowel Movements 1 1 Height (Feet): 5 Height (Inches): 8.00 Weight (Pounds): 130 Assessment/Plan Problem List: (1) Coronavirus infection ICD Codes: B34.2 - Coronavirus infection, unspecified SNOMED: 084007683 (2) Septic shock ICD Codes: A41.9 - Sepsis, unspecified organism; R65.21 - Severe sepsis with septic shock SNOMED: 42248797 (3) Seizure disorder ICD Codes: G40.909 - Epilepsy, unspecified, not intractable, without status epilepticus SNOMED: 996361802 (4) Electrolyte imbalance ICD Codes: E87.8 - Other disorders of electrolyte and fluid balance, not elsewhere classified SNOMED: 996431632 Status: progressing, unchanged Assessment/Plan: covid positive pna supportive rx no change weak malnutrtion sepsis improving Zain Mares MD May 09, 2020 22:24
[2020-05-10] VITALS (7 sets, daily range): BP systolic 99–117; BP diastolic 59–78
--- NOTE | 2020-05-10 00:44 | Psychiatry Consultation ---
Psychiatry Consultation Psychiatry Consultation Chief Complaint: Seizure History of Present Illness: history of GERD, hypertension, organic brain syndrome who is confused, disoriented. Has waxing and waning consciousness. Not able to be engaged. Has episodes of agitation. Patient attempts to pull out lines and her oxygen mask. PAST PSYCHIATRIC HISTORY: Dementia. PAST MEDICAL HISTORY: Significant for pneumonia, renal insufficiency. ALLERGIES: No known drug allergies. SUBSTANCE ABUSE HISTORY: No known history of illicit drug use or alcohol. MENTAL STATUS EXAMINATION: Patient is having waxing and waning consciousness. Mood is anxious. Affect is blunted, congruent with mood. Thought process is concrete. Thought content, no suicidal or homicidal ideation. Cognition is impaired. Insight and judgment is impaired. ASSESSMENT: Silsbee I Acute metabolic encephalopathy. Dementia. Silsbee II Deferred. Silsbee III As above. Sils[place] IV Low. Silsbee V 20. PLAN: 1. We will start patient on Haldol p.r.n. 2. Bilateral soft restraints. Allergies: Coded Allergies: No Known Allergies (Unverified , 04/14/20) Medication History Scheduled Acetaminophen* (Acetaminophen 325MG Tablet*), 650 MG ORAL DAILY, (Reported) Cholecalciferol (Vitamin D3) (Vitamin D3*), 5,000 UNIT PO DAILY, (Reported) Cranberry Fruit (Cranberry), 900 MG PO BID, (Reported) Docusate Sodium* (Docusate Sodium*), 100 MG ORAL Q12HR, (Reported) Econazole Nitrate (Econazole Nitrate), 1 APPLIC TOPIC BID, (Reported) Levetiracetam (Keppra), 5 ML ORAL Q12HR, (Reported) Metoprolol Tartrate* (Metoprolol Tartrate*), 12.5 MG ORAL BID, (Reported) Multivitamin With Minerals (Multivitamins With Minerals*), 1 TAB ORAL DAILY, (Reported) Omeprazole (Omeprazole), 20 MG ORAL ACBREAKFAST, (Reported) Scheduled PRN Acetaminophen* (Tylenol Extra Strength*), 1,000 MG ORAL Q6H PRN for Moderate Pain (Pain Scale 4-6), (Reported) Acetaminophen* (Acetaminophen 325MG Tablet*), 650 MG ORAL Q6H PRN for Mild Pain (Pain Scale 1-3), (Reported) Bisacodyl (Bisacodyl), 10 MG RC Q24HR PRN for Constipation, (Reported) Magnesium Hydroxide* (Milk Of Magnesia*), 30 ML ORAL QHS PRN for Constipation, (Reported) Na Phos,M-B/Na Phos,Di-Ba* (Fleet Enema*), 133 ML RECTAL EVERY OTHER DAY PRN for Constipation, (Reported) Objective Data Height (Feet): 5 Height (Inches): 8.00 Weight (Pounds): 130 Davion Camacho MD May 10, 2020 00:44
[2020-05-10] MEDS: D5NS 1,000 ML IV SCH ×2 (02:20→16:51)
[2020-05-10] MEDS: Acetaminophen 500mg (ES) tab ORAL PRN ×2 (02:20→16:51)
[2020-05-10] MEDS: Midodrine 10mg tab GT SCH ×3 (06:00→22:00)
--- NOTE | 2020-05-10 10:00 | Pulmonology Progress Note ---
Subjective ROS Limited/Unobtainable: Yes Interval Events: none major reported per nursing Constitutional: Denies: fever, chills HEENT: Repors: no symptoms Respiratory: Reports: no symptoms Cardiovascular: Reports: no symptoms Gastrointestinal/Abdominal: Denies: nausea, vomiting, diarrhea Genitourinary: Reports: no symptoms Neurologic: Reports: no symptoms Musculoskeletal: Denies: pain Allergies: Coded Allergies: No Known Allergies (Unverified , 04/14/20) Objective Last 24 Hour Vital Signs Date Time Temp Pulse Resp B/P (MAP) Pulse Ox O2 Delivery O2 Flow Rate FiO2 05/10/20 08:00 97.7 86 24 102/61 (75) 95 05/10/20 04:00 98.8 99 24 99/59 (72) 95 05/10/20 02:50 98.8 05/10/20 00:00 101.7 101 24 117/65 (82) 94 05/09/20 21:00 Non-Rebreather 15.0 05/09/20 20:00 99.9 99 19 113/69 (84) 96 05/09/20 16:00 97.7 73 19 100/58 (72) 99 05/09/20 12:00 98.4 102 19 108/64 (79) 98 05/09/20 11:05 99.0 Intake and Output 05/09/20 05/10/20 19:00 07:00 Intake Total 1075 ml 1000 ml Output Total 700 ml 600 ml Balance 375 ml 400 ml IV Total 1075 ml 1000 ml Output Urine Total 700 ml 600 ml # Bowel Movements 2 1 Objective 05/10 saturating 95% on 15L NRB 05/07 no change 05/06 s/p NGT; saturating 93% on 2L NC 05/05 no change 05/04 saturations stable with 2L NC 05/03 no change; PICC line 05/02 saturating 93% on 2 lpm NC 05/01 saturating well on 2 lpm NC General Appearance: no acute distress HEENT: normocephalic Respiratory: chest wall non-tender, other - coarse rhonchi Cardiovascular: normal peripheral pulses Abdomen: normal bowel sounds Extremities: other - 1+ pitting edema Current Medications Medications (Trade) Dose Ordered Sig/Aurora Route PRN Reason Start Time Stop Time Status Last Admin Dose Admin Acetaminophen (Tylenol) 500 mg Q4HR PRN ORAL Temp >100.5 04/27/20 00:15 05/27/20 00:14 05/10/20 02:20 Chlorhexidine Gluconate (Anjali-Hex 2%) 1 applic DAILY@2000 TOPIC 04/29/20 20:00 07/28/20 19:59 05/09/20 22:17 Dextrose/Sodium Chloride 1,000 ml @ 75 mls/hr [id number] IV 05/04/20 14:30 06/03/20 14:29 05/10/20 02:20 Docusate Sodium (Colace) 100 mg Q12HR ORAL 04/27/20 21:00 05/27/20 20:59 05/09/20 22:17 Famotidine (Pepcid) 20 mg BID GT 05/04/20 18:00 08/02/20 17:59 05/09/20 17:15 Levetiracetam 100 ml @ 400 mls/hr Q12HR IVPB 04/28/20 21:00 07/27/20 20:59 05/09/20 22:19 Midodrine (Pro-Amatine) 10 mg Q8HR GT 05/04/20 14:00 08/02/20 13:59 05/10/20 06:00 Assessment/Plan Assessment/Plan 1. COVID-19 pneumonia, diagnosed approximately on 04/14/2020. - CXR 04/30 Slightly improved bilateral infiltrates, possible small right pleural effusion - CXR 05/08 improving - s/p completed Decadron - s/p ceftriaxone and azithromycin per ID - currently saturating well on 15L NRB 2. Seizure disorder. - on antiepileptics 3. Hypotension. Now resolved 4. possible aspiration - ST eval pending DVT ppx - on SCD s/p NG tube placement off fluid boluses and dopamine seen in tele The care for this patient was discussed with my supervising physician Time spent for this case was approximately 31 minutes Brett Shore May 10, 2020 10:00
[2020-05-10] MEDS: Docusate 100mg cap ORAL SCH ×2 (10:10→20:37)
[2020-05-10] MEDS: levETIRAcetam 500mg/NS100ml 100 ML IVPB SCH ×2 (10:10→20:37)
--- NOTE | 2020-05-10 13:11 | Infectious Diseases Prog Note ---
Assessment/Plan Assessment/Plan IMPRESSION: Leukocytosis,improving, ? streoid related pneumonia with COVID19 Hypoxemia COPD, Seizure disorder, Lactic acidosis, Encephalopathy. New fever RECOMMENDATIONS: Finished Dexamethasone course Start on Cefepime Subjective ROS Limited/Unobtainable: Yes Constitutional: Reports: fever, other - Yglv=831.7 Neurologic: Reports: confusion, other - on restraint Allergies: Coded Allergies: No Known Allergies (Unverified , 04/14/20) Objective Last 24 Hour Vital Signs Date Time Temp Pulse Resp B/P (MAP) Pulse Ox O2 Delivery O2 Flow Rate FiO2 05/10/20 08:00 97.7 86 24 102/61 (75) 95 05/10/20 04:00 98.8 99 24 99/59 (72) 95 05/10/20 02:50 98.8 05/10/20 00:00 101.7 101 24 117/65 (82) 94 05/09/20 21:00 Non-Rebreather 15.0 05/09/20 20:00 99.9 99 19 113/69 (84) 96 05/09/20 16:00 97.7 73 19 100/58 (72) 99 Height (Feet): 5 Height (Inches): 8.00 Weight (Pounds): 130 HEENT: mucous membranes moist Respiratory/Chest: other - oxygen by NRB mask Cardiovascular: normal rate Abdomen: soft, non tender, other - NG tube Extremities: no edema Neurologic/Psychiatric: other - sleeping Current Medications Medications (Trade) Dose Ordered Sig/Aurora Route PRN Reason Start Time Stop Time Status Last Admin Dose Admin Acetaminophen (Tylenol) 500 mg Q4HR PRN ORAL Temp >100.5 04/27/20 00:15 05/27/20 00:14 05/10/20 02:20 Chlorhexidine Gluconate (Anjali-Hex 2%) 1 applic DAILY@1999 TOPIC 04/29/20 20:00 07/28/20 19:59 05/09/20 22:17 Dextrose/Sodium Chloride 1,000 ml @ 75 mls/hr [id number] IV 05/04/20 14:30 06/03/20 14:29 05/10/20 02:20 Docusate Sodium (Colace) 100 mg Q12HR ORAL 04/27/20 21:00 05/27/20 20:59 05/10/20 10:10 Famotidine (Pepcid) 20 mg BID GT 05/04/20 18:00 08/02/20 17:59 05/10/20 10:10 Levetiracetam 100 ml @ 400 mls/hr Q12HR IVPB 04/28/20 21:00 07/27/20 20:59 05/10/20 10:10 Midodrine (Pro-Amatine) 10 mg Q8HR GT 05/04/20 14:00 08/02/20 13:59 05/10/20 06:00 Narendra Garcia MD May 10, 2020 13:11
--- NOTE | 2020-05-10 13:42 | Nephrology Progress Note ---
Assessment/Plan Problem List: (1) Septic shock (2) Acute febrile illness (3) Suspected 2019 novel coronavirus infection (4) Seizure disorder (5) Electrolyte imbalance Assessment Acute febrile illness most likely benton virus infection Hypotension ( Shock) ,on dopamine Seizure disorder Plan May 10: No labs drawn today. Will check lab tomorrow. Continue per consultants. May 09: No labs drawn today. Remains stable from renal standpoint review. Continue to monitor her electrolytes and renal parameters. Continue per consultants. May 08: Labs reviewed. Abnormal electrolytes addressed. Leukocytosis down from 20,000-16,000. Continue per consultants. May 07: Labs reviewed. Potassium phosphorus replaced. White blood cells up to 20,000. Continue per consultants. May 06: No labs drawn today. Continue per consultants. Check labs in a.m. May 05: Labs reviewed. Stable renal parameters. Continue per consultants. May 04: No labs drawn today. Stable from renal standpoint of view. Medication list reviewed. Started on midodrine for low blood pressure. Patient on tube feeding. May 03: Labs reviewed. Potassium replaced. Continue per consultants. May 02: Labs reviewed. Potassium and phosphorus were replaced. Continue per consultants. May 01: No labs drawn today. Stable from renal standpoint of view. We will continue to monitor renal parameters and electrolytes. April 30: Patient seen earlier in ICU. Abnormal electrolytes noted and addressed. Due transfer to telemetry. Continue per consultants. April 29: Patient hemodynamically improved. Urine output improved. Abnormal electrolytes reviewed and addressed. Continue per consultants. April 28: Keppra changed to IV. POA is held until speech therapy evaluation. Potassium phosphate IV. Ordered. Discussed with Beth ENG. Remains stable from renal standpoint of view. Albumin 5% 500 cc challenge ordered. Fluid challenge Monitor renal parameters Monitor electrolytes Per consultants Per orders Subjective ROS Limited/Unobtainable: No Objective Objective Last 24 Hour Vital Signs Date Time Temp Pulse Resp B/P (MAP) Pulse Ox O2 Delivery O2 Flow Rate FiO2 05/10/20 08:00 97.7 86 24 102/61 (75) 95 05/10/20 04:00 98.8 99 24 99/59 (72) 95 05/10/20 02:50 98.8 05/10/20 00:00 101.7 101 24 117/65 (82) 94 05/09/20 21:00 Non-Rebreather 15.0 05/09/20 20:00 99.9 99 19 113/69 (84) 96 05/09/20 16:00 97.7 73 19 100/58 (72) 99 Intake and Output 05/09/20 05/10/20 19:00 07:00 Intake Total 1075 ml 1000 ml Output Total 700 ml 600 ml Balance 375 ml 400 ml IV Total 1075 ml 1000 ml Output Urine Total 700 ml 600 ml # Bowel Movements 2 1 Height (Feet): 5 Height (Inches): 8.00 Weight (Pounds): 130 General Appearance: no apparent distress, lethargic Cardiovascular: tachycardia Respiratory/Chest: decreased breath sounds Abdomen: distended Objective No change Abhilash Clark MD May 10, 2020 13:42
--- NOTE | 2020-05-10 13:46 | Cardiac Electrophysiology PN ---
Assessment/Plan Assessment/Plan 1. S/P Septic shock on IV antibiotic. Echo Nl EF 2. COVID pneumonia, on dexamethasone and ceftriaxone and 2 liter NC. 3. Seizure disorder and altered level of consciousness on Keppra. 4. NPO as failed swallow eval on iv fluid NGT is in. Consent pending for PEG DW RN Subjective Subjective In Covid isolation on 2 liter NC and on D5 NS. WBC up to 20K on Decadron. Has NG tube in. PEG is pending consent Objective Last 24 Hour Vital Signs Date Time Temp Pulse Resp B/P (MAP) Pulse Ox O2 Delivery O2 Flow Rate FiO2 05/10/20 08:00 97.7 86 24 102/61 (75) 95 05/10/20 04:00 98.8 99 24 99/59 (72) 95 05/10/20 02:50 98.8 05/10/20 00:00 101.7 101 24 117/65 (82) 94 05/09/20 21:00 Non-Rebreather 15.0 05/09/20 20:00 99.9 99 19 113/69 (84) 96 05/09/20 16:00 97.7 73 19 100/58 (72) 99 Intake and Output 05/09/20 05/10/20 19:00 07:00 Intake Total 1075 ml 1000 ml Output Total 700 ml 600 ml Balance 375 ml 400 ml IV Total 1075 ml 1000 ml Output Urine Total 700 ml 600 ml # Bowel Movements 2 1 Objective HEAD AND NECK: No JVD.NG tube is in LUNGS: Coarse rhonchi. CARDIOVASCULAR: Regular S1 and S2. Mildly tachycardic. ABDOMEN: Soft. EXTREMITIES: 1+ pitting edema. Shady Sorto MD May 10, 2020 13:46
[2020-05-10] MEDS: Cefepime HCl 1 GM in D5W 55 ML IVPB SCH ×2 (14:40→20:37)
[2020-05-10] MEDS: Dyna-Hex 2% Top Sol 2oz TOPIC SCH (20:00)
--- NOTE | 2020-05-10 21:37 | General Progress Note ---
Subjective ROS Limited/Unobtainable: Yes Allergies: Coded Allergies: No Known Allergies (Unverified , 04/14/20) Objective Last 24 Hour Vital Signs Date Time Temp Pulse Resp B/P (MAP) Pulse Ox O2 Delivery O2 Flow Rate FiO2 05/10/20 18:52 101.1 05/10/20 16:00 100.6 110 24 107/78 (88) 94 05/10/20 12:00 98.1 95 24 109/64 (79) 94 05/10/20 09:00 Non-Rebreather 15.0 05/10/20 08:00 97.7 86 24 102/61 (75) 95 05/10/20 04:00 98.8 99 24 99/59 (72) 95 05/10/20 02:50 98.8 05/10/20 00:00 101.7 101 24 117/65 (82) 94 Intake and Output 05/09/20 05/10/20 19:00 07:00 Intake Total 1075 ml 1000 ml Output Total 700 ml 600 ml Balance 375 ml 400 ml IV Total 1075 ml 1000 ml Output Urine Total 700 ml 600 ml # Bowel Movements 2 1 Height (Feet): 5 Height (Inches): 8.00 Weight (Pounds): 130 Assessment/Plan Problem List: (1) Coronavirus infection ICD Codes: B34.2 - Coronavirus infection, unspecified SNOMED: 870968201 (2) Septic shock ICD Codes: A41.9 - Sepsis, unspecified organism; R65.21 - Severe sepsis with septic shock SNOMED: 97653086 (3) Seizure disorder ICD Codes: G40.909 - Epilepsy, unspecified, not intractable, without status epilepticus SNOMED: 876568127 (4) Electrolyte imbalance ICD Codes: E87.8 - Other disorders of electrolyte and fluid balance, not elsewhere classified SNOMED: 847860699 Status: progressing, unchanged Assessment/Plan: covid positive pna malnutrtion lytes abnormalty improving sepsis Zain Mares MD May 10, 2020 21:37
--- NOTE | 2020-05-10 22:43 | General Progress Note ---
Subjective Allergies: Coded Allergies: No Known Allergies (Unverified , 04/14/20) Subjective Above noted awake, minimally interactive tolerating NGT feeds Objective Last 24 Hour Vital Signs Date Time Temp Pulse Resp B/P (MAP) Pulse Ox O2 Delivery O2 Flow Rate FiO2 05/10/20 22:28 97.9 109 20 103/68 (80) 94 05/10/20 22:10 Non-Rebreather 15.0 05/10/20 20:00 97.9 109 20 103/65 (78) 94 05/10/20 18:52 101.1 05/10/20 16:00 100.6 110 24 107/78 (88) 94 05/10/20 12:00 98.1 95 24 109/64 (79) 94 05/10/20 09:00 Non-Rebreather 15.0 05/10/20 08:00 97.7 86 24 102/61 (75) 95 05/10/20 04:00 98.8 99 24 99/59 (72) 95 05/10/20 02:50 98.8 05/10/20 00:00 101.7 101 24 117/65 (82) 94 Intake and Output 05/09/20 05/10/20 19:00 07:00 Intake Total 1075 ml 1000 ml Output Total 700 ml 600 ml Balance 375 ml 400 ml IV Total 1075 ml 1000 ml Output Urine Total 700 ml 600 ml # Bowel Movements 2 1 Height (Feet): 5 Height (Inches): 8.00 Weight (Pounds): 130 Objective Elderly man, on O2 FM NCAT supple Coarse BS RR abd soft flat no edema Assessment/Plan Status: progressing, unchanged Assessment/Plan: Assessment Seizure d/o HTN Dysphagia, s/p NGT COVID (+) CHF GERD Recommendations Continue NGT feeds Elevate HOB follow labs and exam not stable for endoscopy need to locate family Екатерина Whalen MD May 10, 2020 22:43
--- NOTE | 2020-05-10 22:59 | Psychiatric Progress Note ---
Psychiatry Progress Note Psychiatry Progress Note Medications Current Medications Medications (Trade) Dose Ordered Sig/Aurora Route PRN Reason Start Time Stop Time Status Last Admin Dose Admin Acetaminophen (Tylenol) 500 mg Q4HR PRN ORAL Temp >100.5 04/27/20 00:15 05/27/20 00:14 05/10/20 16:51 Cefepime HCl 1 gm/ Dextrose 55 ml @ 110 mls/hr EVERY 12 HOURS IVPB 05/10/20 13:15 05/17/20 13:14 05/10/20 20:37 Chlorhexidine Gluconate (Anjali-Hex 2%) 1 applic DAILY@2000 TOPIC 04/29/20 20:00 07/28/20 19:59 05/10/20 20:00 Dextrose/Sodium Chloride 1,000 ml @ 75 mls/hr [id number] IV 05/04/20 14:30 06/03/20 14:29 05/10/20 16:51 Docusate Sodium (Colace) 100 mg Q12HR ORAL 04/27/20 21:00 05/27/20 20:59 05/10/20 20:37 Famotidine (Pepcid) 20 mg BID GT 05/04/20 18:00 08/02/20 17:59 05/10/20 16:51 Levetiracetam 100 ml @ 400 mls/hr Q12HR IVPB 04/28/20 21:00 07/27/20 20:59 05/10/20 20:37 Midodrine (Pro-Amatine) 10 mg Q8HR GT 05/04/20 14:00 08/02/20 13:59 05/10/20 22:00 Allergies: Coded Allergies: No Known Allergies (Unverified , 04/14/20) Objective Data Height (Feet): 5 Height (Inches): 8.00 Weight (Pounds): 130 General Appearance: no apparent distress, agitated Assessment/Plan Status: progressing, unchanged Davion Camacho MD May 10, 2020 22:59
[2020-05-11] VITALS: BP 109/66
[2020-05-11] MEDS: Acetaminophen 500mg (ES) tab ORAL PRN ×2 (01:11→13:00)
[2020-05-11 04:00] VITALS: BP 106/76
[2020-05-11] MEDS: D5NS 1,000 ML IV SCH ×2 (06:14→20:34)
[2020-05-11] MEDS: Midodrine 10mg tab GT SCH ×3 (06:14→21:14)
[2020-05-11 08:00] VITALS: BP 124/69
[2020-05-11] MEDS ORDERED: Tubing IV Secondary IV ONE (08:57)
[2020-05-11] MEDS: Docusate 100mg cap ORAL SCH ×2 (09:08→20:35)
[2020-05-11] MEDS: Cefepime HCl 1 GM in D5W 55 ML IVPB SCH ×2 (09:08→21:09)
[2020-05-11] MEDS: levETIRAcetam 500mg/NS100ml 100 ML IVPB SCH ×2 (09:08→21:12)
--- NOTE | 2020-05-11 09:28 | Pulmonology Progress Note ---
Subjective ROS Limited/Unobtainable: Yes Interval Events: fever overnight Constitutional: Reports: fever, other - Afgx=847.1 HEENT: Repors: no symptoms Respiratory: Reports: no symptoms Cardiovascular: Reports: no symptoms Gastrointestinal/Abdominal: Denies: nausea, vomiting, diarrhea Genitourinary: Reports: no symptoms Neurologic: Reports: no symptoms Musculoskeletal: Denies: pain Allergies: Coded Allergies: No Known Allergies (Unverified , 04/14/20) Objective Last 24 Hour Vital Signs Date Time Temp Pulse Resp B/P (MAP) Pulse Ox O2 Delivery O2 Flow Rate FiO2 05/11/20 04:00 99.7 106 22 106/76 (86) 95 05/11/20 01:41 99.0 05/11/20 00:00 101.1 105 20 109/66 (80) 94 05/10/20 22:28 97.9 109 20 103/68 (80) 94 05/10/20 22:10 Non-Rebreather 15.0 05/10/20 20:00 97.9 109 20 103/65 (78) 94 05/10/20 18:52 101.1 05/10/20 16:00 100.6 110 24 107/78 (88) 94 05/10/20 12:00 98.1 95 24 109/64 (79) 94 Intake and Output 05/10/20 05/11/20 19:00 07:00 Output Total 400 ml 200 ml Balance -400 ml -200 ml Output Urine Total 400 ml 200 ml Objective 05/11 remains on 15L NRB 05/10 saturating 95% on 15L NRB 05/07 no change 05/06 s/p NGT; saturating 93% on 2L NC 05/05 no change 05/04 saturations stable with 2L NC 05/03 no change; PICC line 05/02 saturating 93% on 2 lpm NC 05/01 saturating well on 2 lpm NC General Appearance: no acute distress HEENT: normocephalic, other - NGT Respiratory: chest wall non-tender, other - coarse rhonchi Cardiovascular: normal peripheral pulses Abdomen: normal bowel sounds Extremities: other - 1+ pitting edema Current Medications Medications (Trade) Dose Ordered Sig/Aurora Route PRN Reason Start Time Stop Time Status Last Admin Dose Admin Acetaminophen (Tylenol) 500 mg Q4HR PRN ORAL Temp >100.5 04/27/20 00:15 05/27/20 00:14 05/11/20 01:11 Cefepime HCl 1 gm/ Dextrose 55 ml @ 110 mls/hr EVERY 12 HOURS IVPB 05/10/20 13:15 05/17/20 13:14 05/11/20 09:08 Chlorhexidine Gluconate (Anjali-Hex 2%) 1 applic DAILY@2000 TOPIC 04/29/20 20:00 07/28/20 19:59 05/10/20 20:00 Dextrose/Sodium Chloride 1,000 ml @ 75 mls/hr [id number] IV 05/04/20 14:30 06/03/20 14:29 05/10/20 16:51 Docusate Sodium (Colace) 100 mg Q12HR ORAL 04/27/20 21:00 05/27/20 20:59 05/11/20 09:08 Famotidine (Pepcid) 20 mg BID GT 05/04/20 18:00 08/02/20 17:59 05/11/20 09:08 Levetiracetam 100 ml @ 400 mls/hr Q12HR IVPB 04/28/20 21:00 07/27/20 20:59 05/11/20 09:08 Midodrine (Pro-Amatine) 10 mg Q8HR GT 05/04/20 14:00 08/02/20 13:59 05/11/20 06:14 Assessment/Plan Assessment/Plan 1. COVID-19 pneumonia, diagnosed approximately on 04/14/2020. - CXR 04/30 Slightly improved bilateral infiltrates, possible small right pleural effusion - CXR 05/08 improving - s/p completed Decadron - s/p ceftriaxone and azithromycin per ID - currently saturating well on 15L NRB 2. Seizure disorder. - on antiepileptics 3. Hypotension. Now resolved 4. possible aspiration pneumonia with new onset fever (Tmax 101.1) - CXR shows left lung infiltrates - on Cefepime per ID DVT ppx - on SCD s/p NG tube placement off fluid boluses and dopamine seen in tele The care for this patient was discussed with my supervising physician Time spent for this case was approximately 31 minutes Brett Shore May 11, 2020 09:28
--- NOTE | 2020-05-11 11:28 | Nephrology Progress Note ---
Assessment/Plan Problem List: (1) Septic shock (2) Acute febrile illness (3) Suspected 2019 novel coronavirus infection (4) Seizure disorder (5) Electrolyte imbalance Assessment Acute febrile illness most likely benton virus infection Hypotension ( Shock) ,on dopamine Seizure disorder Plan May 11: Today's labs not drawn. Will check labs tomorrow. Continue per consultants May 10: No labs drawn today. Will check lab tomorrow. Continue per consultants. May 09: No labs drawn today. Remains stable from renal standpoint review. Continue to monitor her electrolytes and renal parameters. Continue per consultants. May 08: Labs reviewed. Abnormal electrolytes addressed. Leukocytosis down from 20,000-16,000. Continue per consultants. May 07: Labs reviewed. Potassium phosphorus replaced. White blood cells up to 20,000. Continue per consultants. May 06: No labs drawn today. Continue per consultants. Check labs in a.m. May 05: Labs reviewed. Stable renal parameters. Continue per consultants. May 04: No labs drawn today. Stable from renal standpoint of view. Medication list reviewed. Started on midodrine for low blood pressure. Patient on tube feeding. May 03: Labs reviewed. Potassium replaced. Continue per consultants. May 02: Labs reviewed. Potassium and phosphorus were replaced. Continue per consultants. May 01: No labs drawn today. Stable from renal standpoint of view. We will continue to monitor renal parameters and electrolytes. April 30: Patient seen earlier in ICU. Abnormal electrolytes noted and addressed. Due transfer to telemetry. Continue per consultants. April 29: Patient hemodynamically improved. Urine output improved. Abnormal electrolytes reviewed and addressed. Continue per consultants. April 28: Keppra changed to IV. POA is held until speech therapy evaluation. Potassium phosphate IV. Ordered. Discussed with Beth ENG. Remains stable from renal standpoint of view. Albumin 5% 500 cc challenge ordered. Fluid challenge Monitor renal parameters Monitor electrolytes Per consultants Per orders Subjective ROS Limited/Unobtainable: No Constitutional: Reports: malaise Objective Objective Last 24 Hour Vital Signs Date Time Temp Pulse Resp B/P (MAP) Pulse Ox O2 Delivery O2 Flow Rate FiO2 05/11/20 09:00 Non-Rebreather 15.0 05/11/20 08:00 99.9 98 19 124/69 (87) 96 05/11/20 04:00 99.7 106 22 106/76 (86) 95 05/11/20 01:41 99.0 05/11/20 00:00 101.1 105 20 109/66 (80) 94 05/10/20 22:28 97.9 109 20 103/68 (80) 94 05/10/20 22:10 Non-Rebreather 15.0 05/10/20 20:00 97.9 109 20 103/65 (78) 94 05/10/20 18:52 101.1 05/10/20 16:00 100.6 110 24 107/78 (88) 94 05/10/20 12:00 98.1 95 24 109/64 (79) 94 Intake and Output 05/10/20 05/11/20 19:00 07:00 Output Total 400 ml 200 ml Balance -400 ml -200 ml Output Urine Total 400 ml 200 ml No labs drawn today Height (Feet): 5 Height (Inches): 8.00 Weight (Pounds): 130 General Appearance: lethargic EENT: other - On nonrebreather mask Cardiovascular: tachycardia Abdomen: distended Objective No change Abhilash Clark MD May 11, 2020 11:28
[2020-05-11 12:00] VITALS: BP 118/71
--- NOTE | 2020-05-11 12:37 | Cardiac Electrophysiology PN ---
Assessment/Plan Assessment/Plan 1. S/P Septic shock on IV antibiotic. Echo Nl EF 2. COVID pneumonia, on dexamethasone and ceftriaxone and 2 liter NC. 3. Seizure disorder and altered level of consciousness on Keppra. 4. NPO as failed swallow eval on iv fluid NGT is in. Consent pending for PEG DW RN Subjective Subjective In Covid isolation on 2 liter NC on D5 NS. WBC 20K but on Decadron. Has NG tube in. PEG is pending consent Objective Last 24 Hour Vital Signs Date Time Temp Pulse Resp B/P (MAP) Pulse Ox O2 Delivery O2 Flow Rate FiO2 05/11/20 12:00 100.9 98 24 118/71 (87) 98 05/11/20 09:00 Non-Rebreather 15.0 05/11/20 08:00 99.9 98 19 124/69 (87) 96 05/11/20 04:00 99.7 106 22 106/76 (86) 95 05/11/20 01:41 99.0 05/11/20 00:00 101.1 105 20 109/66 (80) 94 05/10/20 22:28 97.9 109 20 103/68 (80) 94 05/10/20 22:10 Non-Rebreather 15.0 05/10/20 20:00 97.9 109 20 103/65 (78) 94 05/10/20 18:52 101.1 05/10/20 16:00 100.6 110 24 107/78 (88) 94 Intake and Output 05/10/20 05/11/20 19:00 07:00 Output Total 400 ml 200 ml Balance -400 ml -200 ml Output Urine Total 400 ml 200 ml Objective HEAD AND NECK: No JVD.NG tube is in LUNGS: Coarse rhonchi. CARDIOVASCULAR: Regular S1 and S2. Mildly tachycardic. ABDOMEN: Soft. EXTREMITIES: 1+ pitting edema. Shady Sorto MD May 11, 2020 12:37
--- NOTE | 2020-05-11 13:05 | Infectious Diseases Prog Note ---
Assessment/Plan Assessment/Plan IMPRESSION: Sepsis pneumonia with COVID19 Hypoxemia COPD, Seizure disorder, Lactic acidosis, Encephalopathy. RECOMMENDATIONS: Finished Dexamethasone course Continue Cefepime CXR Consider bronchodilator Case was D/W pulmonary team Discontinue isolation ,COVID19 positive since04/14 Subjective ROS Limited/Unobtainable: Yes Constitutional: Reports: fever, other - Gjf=434.1 Allergies: Coded Allergies: No Known Allergies (Unverified , 04/14/20) Objective Last 24 Hour Vital Signs Date Time Temp Pulse Resp B/P (MAP) Pulse Ox O2 Delivery O2 Flow Rate FiO2 05/11/20 12:00 100.9 98 24 118/71 (87) 98 05/11/20 09:00 Non-Rebreather 15.0 05/11/20 08:00 99.9 98 19 124/69 (87) 96 05/11/20 04:00 99.7 106 22 106/76 (86) 95 05/11/20 01:41 99.0 05/11/20 00:00 101.1 105 20 109/66 (80) 94 05/10/20 22:28 97.9 109 20 103/68 (80) 94 05/10/20 22:10 Non-Rebreather 15.0 05/10/20 20:00 97.9 109 20 103/65 (78) 94 05/10/20 18:52 101.1 05/10/20 16:00 100.6 110 24 107/78 (88) 94 Height (Feet): 5 Height (Inches): 8.00 Weight (Pounds): 130 HEENT: mucous membranes moist Respiratory/Chest: rhonchi - bilaterally, other - on oxygen by NRB mask, 15 lit Cardiovascular: normal rate Abdomen: soft, non tender Extremities: no edema Neurologic/Psychiatric: unresponsiveness Musculoskeletal: atrophy Current Medications Medications (Trade) Dose Ordered Sig/Aurora Route PRN Reason Start Time Stop Time Status Last Admin Dose Admin Acetaminophen (Tylenol) 500 mg Q4HR PRN ORAL Temp >100.5 04/27/20 00:15 05/27/20 00:14 05/11/20 01:11 Cefepime HCl 1 gm/ Dextrose 55 ml @ 110 mls/hr EVERY 12 HOURS IVPB 05/10/20 13:15 05/17/20 13:14 05/11/20 09:08 Chlorhexidine Gluconate (Anjali-Hex 2%) 1 applic DAILY@2000 TOPIC 04/29/20 20:00 07/28/20 19:59 05/10/20 20:00 Dextrose/Sodium Chloride 1,000 ml @ 75 mls/hr [id number] IV 05/04/20 14:30 06/03/20 14:29 05/10/20 16:51 Docusate Sodium (Colace) 100 mg Q12HR ORAL 04/27/20 21:00 05/27/20 20:59 05/11/20 09:08 Famotidine (Pepcid) 20 mg BID GT 05/04/20 18:00 08/02/20 17:59 05/11/20 09:08 Levetiracetam 100 ml @ 400 mls/hr Q12HR IVPB 04/28/20 21:00 07/27/20 20:59 05/11/20 09:08 Midodrine (Pro-Amatine) 10 mg Q8HR GT 05/04/20 14:00 08/02/20 13:59 05/11/20 06:14 Narendra Garcia MD May 11, 2020 13:05
--- NOTE | 2020-05-11 14:25 | Diagnostic Imaging Report ---
Indication: Shortness of breath Technique: XRAY Chest 1v Comparison: 05/08/2020 Findings: Significant interval worsening aeration with increasing opacities bilaterally but particularly in the left lung with areas confluent opacities involving nearly the entire left lung. There are hazy opacities in the right lung which are also increased. Heart size grossly stable however heart borders are obscured. Enteric tube remains in place. No pneumothorax. Osseous structures stable. Impression: Significant interval worsening aeration compared to the prior exam with extensive confluent infiltrate throughout nearly the entire left lung. As well as increased right basilar infiltrates. Findings suggest worsening multifocal pneumonia. Associated layering bilateral pleural effusions also suggested.
[2020-05-11 16:00] VITALS: BP 103/66
[2020-05-11 20:00] VITALS: BP 114/76
[2020-05-11] MEDS: Dyna-Hex 2% Top Sol 2oz TOPIC SCH (20:34)
--- NOTE | 2020-05-11 20:57 | General Progress Note ---
Subjective Allergies: Coded Allergies: No Known Allergies (Unverified , 04/14/20) Subjective Above noted awake, minimally interactive on NRB mask d/w RN re TF orders Objective Last 24 Hour Vital Signs Date Time Temp Pulse Resp B/P (MAP) Pulse Ox O2 Delivery O2 Flow Rate FiO2 05/11/20 16:00 99.0 95 19 103/66 (78) 96 05/11/20 13:30 99.8 05/11/20 12:00 100.9 98 24 118/71 (87) 98 05/11/20 09:00 Non-Rebreather 15.0 05/11/20 08:00 99.9 98 19 124/69 (87) 96 05/11/20 04:00 99.7 106 22 106/76 (86) 95 05/11/20 01:41 99.0 05/11/20 00:00 101.1 105 20 109/66 (80) 94 05/10/20 22:28 97.9 109 20 103/68 (80) 94 05/10/20 22:10 Non-Rebreather 15.0 Intake and Output 05/10/20 05/11/20 19:00 07:00 Output Total 400 ml 200 ml Balance -400 ml -200 ml Output Urine Total 400 ml 200 ml Height (Feet): 5 Height (Inches): 8.00 Weight (Pounds): 130 Objective Elderly man, on O2 FM NCAT supple Coarse BS RR abd soft flat no edema Assessment/Plan Status: progressing, unchanged Assessment/Plan: Assessment Resp failure, higher anesthesia risk Seizure d/o HTN Dysphagia, s/p NGT COVID (+) CHF GERD Recommendations Continue NGT feeds Elevate HOB follow labs and exam not stable for endoscopy need to locate family Екатерина Whalen MD May 11, 2020 20:57
--- NOTE | 2020-05-11 21:18 | General Progress Note ---
Subjective ROS Limited/Unobtainable: Yes Allergies: Coded Allergies: No Known Allergies (Unverified , 04/14/20) Objective Last 24 Hour Vital Signs Date Time Temp Pulse Resp B/P (MAP) Pulse Ox O2 Delivery O2 Flow Rate FiO2 05/11/20 16:00 99.0 95 19 103/66 (78) 96 05/11/20 13:30 99.8 05/11/20 12:00 100.9 98 24 118/71 (87) 98 05/11/20 09:00 Non-Rebreather 15.0 05/11/20 08:00 99.9 98 19 124/69 (87) 96 05/11/20 04:00 99.7 106 22 106/76 (86) 95 05/11/20 01:41 99.0 05/11/20 00:00 101.1 105 20 109/66 (80) 94 05/10/20 22:28 97.9 109 20 103/68 (80) 94 05/10/20 22:10 Non-Rebreather 15.0 Intake and Output 05/10/20 05/11/20 19:00 07:00 Output Total 400 ml 200 ml Balance -400 ml -200 ml Output Urine Total 400 ml 200 ml Height (Feet): 5 Height (Inches): 8.00 Weight (Pounds): 130 Assessment/Plan Problem List: (1) Coronavirus infection ICD Codes: B34.2 - Coronavirus infection, unspecified SNOMED: 593908607 (2) Septic shock ICD Codes: A41.9 - Sepsis, unspecified organism; R65.21 - Severe sepsis with se ptic shock SNOMED: 42966251 (3) Seizure disorder ICD Codes: G40.909 - Epilepsy, unspecified, not intractable, without status epilepticus SNOMED: 980695706 (4) Electrolyte imbalance ICD Codes: E87.8 - Other disorders of electrolyte and fluid balance, not elsewhere classified SNOMED: 603132564 Status: progressing, unchanged Assessment/Plan: covid positive pna prn supportive care check lytes afebrile obs sepsis Zain Mares MD May 11, 2020 21:18
[2020-05-12] VITALS (8 sets, daily range): BP systolic 97–120; BP diastolic 56–73
[2020-05-12] MEDS: Midodrine 10mg tab GT SCH ×3 (05:27→20:46)
[2020-05-12 07:24] LABS: ALBUMIN 1.3 G/DL (3.4-5.0); ALBUMIN/GLOBULIN RATIO 0.3 (1.0-2.7); ALKALINE PHOSPHATASE 123 U/L (46-116); ANION GAP 1 mmol/L (5-15); ASPARTATE AMINO TRANSFERASE 31 U/L (15-37); BILIRUBIN,TOTAL 0.8 MG/DL (0.2-1.0); BLOOD UREA NITROGEN 15 mg/dL (7-18); CALCIUM 8.1 MG/DL (8.5-10.1); CARBON DIOXIDE 33 MMOL/L (21-32); CHLORIDE 104 MMOL/L (98-107); CREATININE 0.6 MG/DL (0.55-1.30); PHOSPHORUS 1.7 MG/DL (2.5-4.9); SODIUM 138 MMOL/L (136-145)
[2020-05-12] MEDS: D5NS 1,000 ML IV SCH ×2 (08:06→20:47)
[2020-05-12] MEDS: Cefepime HCl 1 GM in D5W 55 ML IVPB SCH ×2 (08:07→20:46)
[2020-05-12] MEDS: Docusate 100mg cap ORAL SCH ×2 (08:07→20:46)
[2020-05-12] MEDS: levETIRAcetam 500mg/NS100ml 100 ML IVPB SCH ×2 (08:07→20:46)
[2020-05-12 08:36] LABS: ALANINE AMINOTRANSFERASE 17 U/L (12-78)
--- NOTE | 2020-05-12 09:01 | Pulmonology Progress Note ---
Subjective ROS Limited/Unobtainable: Yes Interval Events: fever overnight Constitutional: Reports: fever - Krub=431.0 HEENT: Repors: no symptoms Respiratory: Reports: no symptoms Cardiovascular: Reports: no symptoms Gastrointestinal/Abdominal: Denies: nausea, vomiting, diarrhea Genitourinary: Reports: no symptoms Neurologic: Reports: no symptoms Musculoskeletal: Denies: pain Allergies: Coded Allergies: No Known Allergies (Unverified , 04/14/20) Objective Last 24 Hour Vital Signs Date Time Temp Pulse Resp B/P (MAP) Pulse Ox O2 Delivery O2 Flow Rate FiO2 05/12/20 04:00 98.9 115 17 120/73 (89) 95 05/12/20 00:00 100.0 116 25 115/73 (87) 93 05/11/20 21:00 Non-Rebreather 15.0 05/11/20 20:00 97.8 115 26 114/76 (89) 92 05/11/20 16:00 99.0 95 19 103/66 (78) 96 05/11/20 13:30 99.8 05/11/20 12:00 100.9 98 24 118/71 (87) 98 05/11/20 09:00 Non-Rebreather 15.0 Intake and Output 0 05/11/20 05/12/20 19:00 07:00 Intake Total 90 ml 1580 ml Output Total 700 ml 300 ml Balance -610 ml 1280 ml Free Water 220 ml IV Total 830 ml Tube Feeding 90 ml 530 ml Output Urine Total 700 ml 300 ml # Voids 1 Objective 05/12 no change 05/11 remains on 15L NRB 05/10 saturating 95% on 15L NRB 05/07 no change 05/06 s/p NGT; saturating 93% on 2L NC 05/05 no change 05/04 saturations stable with 2L NC 05/03 no change; PICC line 05/02 saturating 93% on 2 lpm NC 05/01 saturating well on 2 lpm NC General Appearance: no acute distress HEENT: normocephalic, other - NGT Respiratory: chest wall non-tender, other - coarse rhonchi Cardiovascular: normal peripheral pulses Abdomen: normal bowel sounds Extremities: other - 1+ pitting edema Laboratory Tests 05/12/20 04:00: Sodium Level 138, Potassium Level 3.0L, Chloride Level 104, Carbon Dioxide Level 33H, Anion Gap 1L, Blood Urea Nitrogen 15, Creatinine 0.6, Estimat Glomerular Filtration Rate > 60, Glucose Level 132H, Calcium Level 8.1L, Phosphorus Level 1.7L, Magnesium Level 2.0, Total Bilirubin 0.8, Aspartate Amino Transf (AST/SGOT) 31, Alanine Aminotransferase (ALT/SGPT) 17, Alkaline Phosphatase 123H , Total Protein 5.3L, Albumin 1.3L, Globulin 4.0, Albumin/Globulin Ratio 0.3L Current Medications Medications (Trade) Dose Ordered Sig/Aurora Route PRN Reason Start Time Stop Time Status Last Admin Dose Admin Acetaminophen (Tylenol) 500 mg Q4HR PRN ORAL Temp >100.5 04/27/20 00:15 05/27/20 00:14 05/11/20 13:00 Cefepime HCl 1 gm/ Dextrose 55 ml @ 110 mls/hr EVERY 12 HOURS IVPB 05/10/20 13:15 05/17/20 13:14 05/12/20 08:07 Chlorhexidine Gluconate (Anjali-Hex 2%) 1 applic DAILY@2000 TOPIC 04/29/20 20:00 07/28/20 19:59 05/11/20 20:34 Dextrose/Sodium Chloride 1,000 ml @ 75 mls/hr [id number] IV 05/04/20 14:30 06/03/20 14:29 05/12/20 08:06 Docusate Sodium (Colace) 100 mg Q12HR ORAL 04/27/20 21:00 05/27/20 20:59 05/12/20 08:07 Famotidine (Pepcid) 20 mg BID GT 05/04/20 18:00 08/02/20 17:59 05/12/20 08:07 Levetiracetam 100 ml @ 400 mls/hr Q12HR IVPB 04/28/20 21:00 07/27/20 20:59 05/12/20 08:07 Midodrine (Pro-Amatine) 10 mg Q8HR GT 05/04/20 14:00 08/02/20 13:59 05/12/20 05:27 Assessment/Plan Assessment/Plan 1. COVID-19 pneumonia, diagnosed approximately on 04/14/2020. - CXR 04/30 Slightly improved bilateral infiltrates, possible small right pleural effusion - CXR 05/08 improving - CXR 05/11 worsening - s/p completed Decadron - s/p ceftriaxone and azithromycin per ID - currently saturating at 95% on 15L NRB; continue supplemental oxygen and keep SaO2 >94% - now off isolation 2. Seizure disorder. - on antiepileptics 3. Hypotension. Now resolved 4. possible aspiration pneumonia with new onset fever (Tmax 101.1) - CXR shows left lung infiltrates - on Cefepime per ID - d/w ID DVT ppx - on SCD s/p NG tube placement off fluid boluses and dopamine seen in tele The care for this patient was discussed with my supervising physician Time spent for this case was approximately 31 minutes Brett Shore May 12, 2020 09:01
--- NOTE | 2020-05-12 11:57 | Infectious Diseases Prog Note ---
Assessment/Plan Assessment/Plan antibiotics : cefepime A 1. COVID 19 pneumonia on 15 liters, 98 % saturation 2. COPD, 3. Seizure disorder P 1. continue cefepime 2. continue isolation Subjective ROS Limited/Unobtainable: Yes Allergies: Coded Allergies: No Known Allergies (Unverified , 04/14/20) Objective Last 24 Hour Vital Signs Date Time Temp Pulse Resp B/P (MAP) Pulse Ox O2 Delivery O2 Flow Rate FiO2 05/12/20 10:50 99.5 115 26 106/56 (73) 75 05/12/20 09:00 Non-Rebreather 15.0 05/12/20 08:00 99.8 110 17 115/73 (87) 92 05/12/20 04:00 98.9 115 17 120/73 (89) 95 05/12/20 00:00 100.0 116 25 115/73 (87) 93 05/11/20 21:00 Non-Rebreather 15.0 05/11/20 20:00 97.8 115 26 114/76 (89) 92 05/11/20 16:00 99.0 95 19 103/66 (78) 96 05/11/20 13:30 99.8 05/11/20 12:00 100.9 98 24 118/71 (87) 98 Height (Feet): 5 Height (Inches): 8.00 Weight (Pounds): 130 Laboratory Tests Test 05/12/20 04:00 05/12/20 11:05 Sodium Level 138 MMOL/L (136-145) Potassium Level 3.0 MMOL/L (3.5-5.1) L Chloride Level 104 MMOL/L (98-107) Carbon Dioxide Level 33 MMOL/L (21-32) H Anion Gap 1 mmol/L (5-15) L Blood Urea Nitrogen 15 mg/dL (7-18) Creatinine 0.6 MG/DL (0.55-1.30) Estimat Glomerular Filtration Rate > 60 mL/min (>60) Glucose Level 132 MG/DL (74-106) H Calcium Level 8.1 MG/DL (8.5-10.1) L Phosphorus Level 1.7 MG/DL (2.5-4.9) L Magnesium Level 2.0 MG/DL (1.8-2.4) Total Bilirubin 0.8 MG/DL (0.2-1.0) Aspartate Amino Transf (AST/SGOT) 31 U/L (15-37) Alanine Aminotransferase (ALT/SGPT) 17 U/L (12-78) Alkaline Phosphatase 123 U/L (46-116) H Total Protein 5.3 G/DL (6.4-8.2) L Albumin 1.3 G/DL (3.4-5.0) L Globulin 4.0 g/dL Albumin/Globulin Ratio 0.3 (1.0-2.7) L Arterial Blood pH 7.431 (7.350-7.450) Arterial Blood Partial Pressure CO2 47.5 mmHg (35.0-45.0) H Arterial Blood Partial Pressure O2 35.9 mmHg (75.0-100.0) Arterial Blood HCO3 30.9 mmol/L (22.0-26.0) H Arterial Blood Oxygen Saturation 75.2 % (95-100) *L Arterial Blood Base Excess 5.7 (-2-2) H Kobi Test Positive Current Medications Medications (Trade) Dose Ordered Sig/Aurora Route PRN Reason Start Time Stop Time Status Last Admin Dose Admin Acetaminophen (Tylenol) 500 mg Q4HR PRN ORAL Temp >100.5 04/27/20 00:15 05/27/20 00:14 05/11/20 13:00 Cefepime HCl 1 gm/ Dextrose 55 ml @ 110 mls/hr EVERY 12 HOURS IVPB 05/10/20 13:15 05/17/20 13:14 05/12/20 08:07 Chlorhexidine Gluconate (Anjali-Hex 2%) 1 applic DAILY@2000 TOPIC 04/29/20 20:00 07/28/20 19:59 05/11/20 20:34 Dextrose/Sodium Chloride 1,000 ml @ 75 mls/hr [id number] IV 05/04/20 14:30 06/03/20 14:29 05/12/20 08:06 Docusate Sodium (Colace) 100 mg Q12HR ORAL 04/27/20 21:00 05/27/20 20:59 05/12/20 08:07 Famotidine (Pepcid) 20 mg BID GT 05/04/20 18:00 08/02/20 17:59 05/12/20 08:07 Levetiracetam 100 ml @ 400 mls/hr Q12HR IVPB 04/28/20 21:00 07/27/20 20:59 05/12/20 08:07 Midodrine (Pro-Amatine) 10 mg Q8HR GT 05/04/20 14:00 08/02/20 13:59 05/12/20 05:27 Potassium Phosphate 250 ml @ 62.5 mls/hr Q4H IVPB 05/12/20 12:00 05/12/20 19:59 Lizette Mcmullen MD May 12, 2020 11:57
[2020-05-12] MEDS: Potassium Phosphate 15mm/250ml 250 ML IVPB SCH ×2 (12:58→16:50)
--- NOTE | 2020-05-12 13:55 | Diagnostic Imaging Report ---
Indication: Shortness of breath Technique: One view of the chest Comparison: . 01/02/2020 Findings: Extremely dense consolidation opacifies the entire left lung, slightly worse than on the prior exam. There is some hazy opacity at the right lung base which appears similar to the prior exam. There may be a small amount of pleural fluid on the right. Stable satisfactory position of nasogastric tube. Impression: Dense consolidation of the left lung, slightly increased since the previous day's exam. Other stable findings as described
--- NOTE | 2020-05-12 15:27 | Cardiac Electrophysiology PN ---
Assessment/Plan Assessment/Plan 1. S/P Septic shock on IV antibiotic. Echo Nl EF 2. COVID pneumonia, on dexamethasone and ceftriaxone and now desaturating BIPAP pending 3. Seizure disorder and altered level of consciousness on Keppra. 4. NPO as failed swallow eval on iv fluid NGT is in. Consent pending for PEG DW RN Subjective Subjective In Covid isolation . Transferred to SDU for desaturation and likely needs BIPAP. Has NG tube in. PEG is pending consent Objective Last 24 Hour Vital Signs Date Time Temp Pulse Resp B/P (MAP) Pulse Ox O2 Delivery O2 Flow Rate FiO2 05/12/20 12:48 101.8 152 34 105/56 (72) 86 05/12/20 12:00 99.6 130 26 105/56 (72) 81 05/12/20 10:50 99.5 115 26 106/56 (73) 75 05/12/20 09:00 Non-Rebreather 15.0 05/12/20 08:00 99.8 110 17 115/73 (87) 92 05/12/20 04:00 98.9 115 17 120/73 (89) 95 05/12/20 00:00 100.0 116 25 115/73 (87) 93 05/11/20 21:00 Non-Rebreather 15.0 05/11/20 20:00 97.8 115 26 114/76 (89) 92 05/11/20 16:00 99.0 95 19 103/66 (78) 96 Intake and Output 05/11/20 05/12/20 19:00 07:00 Intake Total 90 ml 1580 ml Output Total 700 ml 300 ml Balance -610 ml 1280 ml Free Water 220 ml IV Total 830 ml Tube Feeding 90 ml 530 ml Output Urine Total 700 ml 300 ml # Voids 1 Laboratory Tests Test 05/12/20 04:00 05/12/20 11:05 Sodium Level 138 MMOL/L (136-145) Potassium Level 3.0 MMOL/L (3.5-5.1) L Chloride Level 104 MMOL/L (98-107) Carbon Dioxide Level 33 MMOL/L (21-32) H Anion Gap 1 mmol/L (5-15) L Blood Urea Nitrogen 15 mg/dL (7-18) Creatinine 0.6 MG/DL (0.55-1.30) Estimat Glomerular Filtration Rate > 60 mL/min (>60) Glucose Level 132 MG/DL (74-106) H Calcium Level 8.1 MG/DL (8.5-10.1) L Phosphorus Level 1.7 MG/DL (2.5-4.9) L Magnesium Level 2.0 MG/DL (1.8-2.4) Total Bilirubin 0.8 MG/DL (0.2-1.0) Aspartate Amino Transf (AST/SGOT) 31 U/L (15-37) Alanine Aminotransferase (ALT/SGPT) 17 U/L (12-78) Alkaline Phosphatase 123 U/L (46-116) H Total Protein 5.3 G/DL (6.4-8.2) L Albumin 1.3 G/DL (3.4-5.0) L Globulin 4.0 g/dL Albumin/Globulin Ratio 0.3 (1.0-2.7) L Arterial Blood pH 7.431 (7.350-7.450) Arterial Blood Partial Pressure CO2 47.5 mmHg (35.0-45.0) H Arterial Blood Partial Pressure O2 35.9 mmHg (75.0-100.0) Arterial Blood HCO3 30.9 mmol/L (22.0-26.0) H Arterial Blood Oxygen Saturation 75.2 % (95-100) *L Arterial Blood Base Excess 5.7 (-2-2) H Kobi Test Positive Objective HEAD AND NECK: No JVD.NG tube is in LUNGS: Coarse rhonchi. CARDIOVASCULAR: Regular S1 and S2. Mildly tachycardic. ABDOMEN: Soft. EXTREMITIES: 1+ pitting edema. Shady Sorto MD May 12, 2020 15:27
[2020-05-12] MEDS: Acetaminophen 500mg (ES) tab ORAL PRN (15:40)
--- NOTE | 2020-05-12 16:04 | Nephrology Progress Note ---
Assessment/Plan Problem List: (1) Septic shock (2) Acute febrile illness (3) Suspected 2019 novel coronavirus infection (4) Seizure disorder (5) Electrolyte imbalance Assessment Acute febrile illness most likely benton virus infection Hypotension ( Shock) ,on dopamine Seizure disorder Plan May 12: When seen earlier patient had respiratory distress. At this time the patient is transferred to [facility]. In Covid isolation . Transferred to SDU for desaturation and likely needs BIPAP. Has NG tube in. PEG is pending consent Labs reviewed. K-Phos replacement ordered. Continue to monitor renal parameters. May 11: Today's labs not drawn. Will check labs tomorrow. Continue per consultants May 10: No labs drawn today. Will check lab tomorrow. Continue per consultants. May 09: No labs drawn today. Remains stable from renal standpoint review. Continue to monitor her electrolytes and renal parameters. Continue per consult ants. May 08: Labs reviewed. Abnormal electrolytes addressed. Leukocytosis down from 20,000-16,000. Continue per consultants. May 07: Labs reviewed. Potassium phosphorus replaced. White blood cells up to 20,000. Continue per consultants. May 06: No labs drawn today. Continue per consultants. Check labs in a.m. May 05: Labs reviewed. Stable renal parameters. Continue per consultants. May 04: No labs drawn today. Stable from renal standpoint of view. Medication list reviewed. Started on midodrine for low blood pressure. Patient on tube feeding. May 03: Labs reviewed. Potassium replaced. Continue per consultants. May 02: Labs reviewed. Potassium and phosphorus were replaced. Continue per consultants. May 01: No labs drawn today. Stable from renal standpoint of view. We will continue to monitor renal parameters and electrolytes. April 30: Patient seen earlier in ICU. Abnormal electrolytes noted and addressed. Due transfer to telemetry. Continue per consultants. April 29: Patient hemodynamically improved. Urine output improved. Abnormal electrolytes reviewed and addressed. Continue per consultants. April 28: Keppra changed to IV. POA is held until speech therapy evaluation. Potassium phosphate IV. Ordered. Discussed with Beth ENG. Remains stable from renal standpoint of view. Albumin 5% 500 cc challenge ordered. Fluid challenge Monitor renal parameters Monitor electrolytes Per consultants Per orders Subjective ROS Limited/Unobtainable: Yes Objective Objective Last 24 Hour Vital Signs Date Time Temp Pulse Resp B/P (MAP) Pulse Ox O2 Delivery O2 Flow Rate FiO2 05/12/20 12:48 101.8 152 34 105/56 (72) 86 05/12/20 12:00 99.6 130 26 105/56 (72) 81 05/12/20 10:50 99.5 115 26 106/56 (73) 75 05/12/20 09:00 Non-Rebreather 15.0 05/12/20 08:00 99.8 110 17 115/73 (87) 92 05/12/20 04:00 98.9 115 17 120/73 (89) 95 05/12/20 00:00 100.0 116 25 115/73 (87) 93 05/11/20 21:00 Non-Rebreather 15.0 05/11/20 20:00 97.8 115 26 114/76 (89) 92 Intake and Output 05/11/20 05/12/20 19:00 07:00 Intake Total 90 ml 1580 ml Output Total 700 ml 300 ml Balance -610 ml 1280 ml Free Water 220 ml IV Total 830 ml Tube Feeding 90 ml 530 ml Output Urine Total 700 ml 300 ml # Voids 1 Laboratory Tests 05/12/20 04:00: Sodium Level 138, Potassium Level 3.0L, Chloride Level 104, Carbon Dioxide Level 33H, Anion Gap 1L, Blood Urea Nitrogen 15, Creatinine 0.6, Estimat Glomerular Filtration Rate > 60, Glucose Level 132H, Calcium Level 8.1L, Phosphorus Level 1.7L, Magnesium Level 2.0, Total Bilirubin 0.8, Aspartate Amino Transf (AST/SGOT) 31, Alanine Aminotransferase (ALT/SGPT) 17, Alkaline Phosphatase 123H , Total Protein 5.3L, Albumin 1.3L, Globulin 4.0, Albumin/Globulin Ratio 0.3L 05/12/20 11:05: Arterial Blood pH 7.431, Arterial Blood Partial Pressure CO2 47.5H, Arterial Bl ood Partial Pressure O2 35.9*L, Arterial Blood HCO3 30.9H, Arterial Blood Oxygen Saturation 75.2*L, Arterial Blood Base Excess 5.7H, Kobi Test Positive Height (Feet): 5 Height (Inches): 8.00 Weight (Pounds): 130 Cardiovascular: tachycardia Respiratory/Chest: decreased breath sounds, rhonchi - bilaterally Abdomen: distended Objective No change Abhilash Clark MD 30, 2020 16:04
--- NOTE | 2020-05-12 18:40 | General Progress Note ---
Subjective Allergies: Coded Allergies: No Known Allergies (Unverified , 04/14/20) Subjective Above noted awake, minimally interactive on NRB mask doing poorly Objective Last 24 Hour Vital Signs Date Time Temp Pulse Resp B/P (MAP) Pulse Ox O2 Delivery O2 Flow Rate FiO2 05/12/20 16:10 101.4 05/12/20 16:00 101.6 125 34 97/57 (70) 92 05/12/20 16:00 15.0 100 05/12/20 16:00 129 05/12/20 16:00 Non-Rebreather 15.0 Non-Rebreather 05/12/20 12:48 101.8 152 34 105/56 (72) 86 05/12/20 12:00 99.6 130 26 105/56 (72) 81 05/12/20 10:50 99.5 115 26 106/56 (73) 75 05/12/20 09:00 Non-Rebreather 15.0 05/12/20 08:00 99.8 110 17 115/73 (87) 92 05/12/20 04:00 98.9 115 17 120/73 (89) 95 05/12/20 00:00 100.0 116 25 115/73 (87) 93 05/11/20 21:00 Non-Rebreather 15.0 05/11/20 20:00 97.8 115 26 114/76 (89) 92 Intake and Output 05/11/20 05/12/20 19:00 07:00 Intake Total 90 ml 1580 ml Output Total 700 ml 300 ml Balance -610 ml 1280 ml Free Water 220 ml IV Total 830 ml Tube Feeding 90 ml 530 ml Output Urine Total 700 ml 300 ml # Voids 1 Laboratory Tests 05/12/20 04:00: Sodium Level 138, Potassium Level 3.0L, Chloride Level 104, Carbon Dioxide Level 33H, Anion Gap 1L, Blood Urea Nitrogen 15, Creatinine 0.6, Estimat Glomerular Filtration Rate > 60, Glucose Level 132H, Calcium Level 8.1L, Phosphorus Level 1.7L, Magnesium Level 2.0, Total Bilirubin 0.8, Aspartate Amino Transf (AST/S GOT) 31, Alanine Aminotransferase (ALT/SGPT) 17, Alkaline Phosphatase 123H, Total Protein 5.3L, Albumin 1.3L, Globulin 4.0, Albumin/Globulin Ratio 0.3L 05/12/20 11:05: Arterial Blood pH 7.431, Arterial Blood Partial Pressure CO2 47.5H, Arterial Blood Partial Pressure O2 35.9*L, Arterial Blood HCO3 30.9H, Arterial Blood Oxygen Saturation 75.2*L, Arterial Blood Base Excess 5.7H, Kobi Test Positive Height (Feet): 5 Height (Inches): 8.00 Weight (Pounds): 130 Objective Elderly man, on O2 FM NCAT supple Coarse BS RR abd soft flat no edema Assessment/Plan Status: progressing, unchanged Assessment/Plan: Assessment Resp failure, higher anesthesia risk Seizure d/o HTN Dysphagia, s/p NGT COVID (+) CHF GERD poor prognosis Recommendations Continue NGT feeds Elevate HOB follow labs and exam not stable for endoscopy need to locate family - 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
[2020-05-12] MEDS: Dyna-Hex 2% Top Sol 2oz TOPIC SCH (20:46)
--- NOTE | 2020-05-12 22:03 | General Progress Note ---
Subjective ROS Limited/Unobtainable: Yes Allergies: Coded Allergies: No Known Allergies (Unverified , 04/14/20) Objective Last 24 Hour Vital Signs Date Time Temp Pulse Resp B/P (MAP) Pulse Ox O2 Delivery O2 Flow Rate FiO2 05/12/20 20:21 Non-Rebreather 15.0 Non-Rebreather 15.0 05/12/20 20:00 15.0 100 05/12/20 20:00 99.4 102 26 102/64 (77) 91 05/12/20 20:00 102 05/12/20 16:10 101.4 05/12/20 16:00 101.6 125 34 97/57 (70) 92 05/12/20 16:00 15.0 100 05/12/20 16:00 129 05/12/20 16:00 Non-Rebreather 15.0 Non-Rebreather 05/12/20 12:48 101.8 152 34 105/56 (72) 86 05/12/20 12:00 99.6 130 26 105/56 (72) 81 05/12/20 10:50 99.5 115 26 106/56 (73) 75 05/12/20 09:00 Non-Rebreather 15.0 05/12/20 08:00 99.8 110 17 115/73 (87) 92 05/12/20 04:00 98.9 115 17 120/73 (89) 95 05/12/20 00:00 100.0 116 25 115/73 (87) 93 Intake and Output 05/11/20 05/12/20 19:00 07:00 Intake Total 90 ml 1580 ml Output Total 700 ml 300 ml Balance -610 ml 1280 ml Free Water 220 ml IV Total 830 ml Tube Feeding 90 ml 530 ml Output Urine Total 700 ml 300 ml # Voids 1 Laboratory Tests 05/12/20 04:00: Sodium Level 138, Potassium Level 3.0L, Chloride Level 104, Carbon Dioxide Level 33H, Anion Gap 1L, Blood Urea Nitrogen 15, Creatinine 0.6, Estimat Glomerular Filtration Rate > 60, Glucose Level 132H, Calcium Level 8.1L, Phosphorus Level 1.7L, Magnesium Level 2.0, Total Bilirubin 0.8, Aspartate Amino Transf (AST/SGOT) 31, Alanine Aminotransferase (ALT/SGPT) 17, Alkaline Phosphatase 123H , Total Protein 5.3L, Albumin 1.3L, Globulin 4.0, Albumin/Globulin Ratio 0.3L 05/12/20 11:05: Arterial Blood pH 7.431, Arterial Blood Partial Pressure CO2 47.5H, Arterial Blood Partial Pressure O2 35.9*L, Arterial Blood HCO3 30.9H, Arterial Blood Oxygen Saturation 75.2*L, Arterial Blood Base Excess 5.7H, Kobi Test Positive Height (Feet): 5 Height (Inches): 8.00 Weight (Pounds): 130 Assessment/Plan Problem List: (1) Coronavirus infection ICD Codes: B34.2 - Coronavirus infection, unspecified SNOMED: 826533986 (2) Septic shock ICD Codes: A41.9 - Sepsis, unspecified organism; R65.21 - Severe sepsis with septic shock SNOMED: 40068990 (3) Seizure disorder ICD Codes: G40.909 - Epilepsy, unspecified, not intractable, without status epilepticus SNOMED: 129698917 (4) Electrolyte imbalance ICD Codes: E87.8 - Other disorders of electrolyte and fluid balance, not elsewhere classified SNOMED: 253276199 Status: progressing, unchanged Assessment/Plan: covid positive sepsis resp insuff lyte abnormlaity seizure none today Zain Mares MD May 12, 2020 22:03
[2020-05-13] VITALS (45 sets, daily range): BP systolic 82–134; BP diastolic 55–79
--- NOTE | 2020-05-13 03:40 | Diagnostic Imaging Report ---
EXAM: XR Chest, 1 View CLINICAL HISTORY: S/P INTUB TECHNIQUE: Frontal view of the chest. COMPARISON: Chest x-ray 05/12/2020 FINDINGS: Lungs: Extensive bilateral airspace opacities which fills the left long and much of the right lung with some sparing at the right apex and base. The appearance has progressed particularly within the right lung. Pleural space: No large pleural effusion. No pneumothorax. Heart: Unremarkable. No cardiomegaly. Bones/joints: Unremarkable. Tubes, lines and devices: Interval placement of an endotracheal tube which terminates 3 cm above the tayler. Esophagogastric tube is unchanged terminating within the gastric body. IMPRESSION: 1. Extensive bilateral airspace opacities which fill the left lung and much of the right lung with some sparing at the right apex and base. The appearance has progressed particularly within the right lung. 2. Interval placement of an endotracheal tube which terminates 3 cm above the tayler. 3. Esophagogastric tube is unchanged terminating within the gastric body.
--- NOTE | 2020-05-13 03:43 | Emergency Room Report ---
History of Present Illness General Chief Complaint: Seizure Source: Medical Record Present Illness HPI This is a 69-year-old male from long-term. He presents with septic shock from Covid pneumonia. He was in ICU on BiPAP. His respiratory status deteriorated and was asked to intubate the patient. I intubated the patient after giving him succinylcholine and etomidate. He had a previous tracheostomy so the area was slightly narrow. I was able to pass a 7.5 endotracheal tube. No complication. 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 COVID-19 Screening: Positive COVID-19 COVID-19 Testing Source: [facility] Nursing Documentation-[facility] Past Medical History Deferred: Pt Cognitively Impaired Past Medical History: No History, Except For Hx Cardiac Problems: Yes - HF Hx Hypertension: Yes Hx COPD: Yes Hx Gastrointestinal Problems: Yes - dysphagia, peptic ulcer, gerd Hx Neurological Problems: Yes - encephalopathy, Hx Seizures: Yes Hx Epilepsy: Yes Hx Dysphasia: Yes Physical Exam Vital Signs Date Time Temp Pulse Resp B/P (MAP) Pulse Ox O2 Delivery O2 Flow Rate FiO2 05/09/20 08:00 102.2 109 22 110/64 (79) 97 05/09/20 09:00 Nasal Cannula 2.0 05/12/20 16:00 100 Procedures Intubation Intubation : Consent: Emergent Intubation Method: orotracheal Tube Size (cm): 7.5 Medications: Etomidate, Succinylcholine Breath Sounds after Intubation: equal Intubation Complications: no complications Post Intubation Xray: Yes Progress/Xray Impression: Endotracheal tube in good position Attempts: One Patient Tolerated: Well Complications: None Medical Decision Making Diagnostic Impression: Primary Impression: Acute febrile illness Additional Impressions: Coronavirus infection Septic shock Seizure disorder Respiratory failure requiring intubation ER Course This patient presents with acute respiratory failure requiring intubation. No complication from intubation. Prognosis poor. Chest X-Ray Diagnostic Results Chest X-Ray Diagnostic Results : Chest X-Ray Ordered: Yes # of Views/Limited/Complete: 1 View Indication: Shortness of Breath EP Interpretation: Yes Interpretation: no effusion, other - Endotracheal tube in good position. Multi lobar infiltrates. ARDS. Impression: Other - status post intubation. Worsening infiltrates. Electronically Signed by: James Gracia MD Last Vital Signs Date Time Temp Pulse Resp B/P (MAP) Pulse Ox O2 Delivery O2 Flow Rate FiO2 05/13/20 02:20 148 15 100 05/13/20 00:00 15.0 05/13/20 00:00 99.5 134/74 (94) 80 05/12/20 20:21 Non-Rebreather Non-Rebreather Disposition: ADMITTED INPATIENT Condition: Critical Referrals: Zain Mares MD (PCP) James Gracia MD May 13, 2020 03:43
[2020-05-13] MEDS: Midodrine 10mg tab GT SCH ×3 (05:21→21:34)
[2020-05-13] MEDS: Norepinephrine 4mg/NS Premix 250 ML IV SCH ×2 (06:42→13:34)
[2020-05-13] MEDS: levETIRAcetam 500mg/NS100ml 100 ML IVPB SCH ×2 (08:27→21:33)
[2020-05-13] MEDS: Cefepime HCl 1 GM in D5W 55 ML IVPB SCH ×2 (08:28→20:31)
[2020-05-13] MEDS: Docusate 100mg cap ORAL SCH (08:28)
[2020-05-13] MEDS: Acetaminophen 500mg (ES) tab ORAL PRN ×2 (09:22→14:18)
--- NOTE | 2020-05-13 10:01 | Nephrology Progress Note ---
Assessment/Plan Problem List: (1) Septic shock (2) Acute febrile illness (3) Suspected 2019 novel coronavirus infection (4) Seizure disorder (5) Electrolyte imbalance Assessment Acute febrile illness most likely benton virus infection Hypotension ( Shock) ,on dopamine Seizure disorder Plan May 13: Patient now in ICU. Intubated on ventilator. Has Knapp catheter. On pressors. Today's labs pending. Bolus of albumin 25% given. Discussed with VELASQUEZ [place]. Continue to monitor electrolytes and renal parameters. May 12: When seen earlier patient had respiratory distress. At this time the patient is transferred to [facility]. In Covid isolation . Transferred to SDU for desaturation and likely needs BIPAP. Has NG tube in. PEG is pending consent Labs reviewed. K-Phos replacement ordered. Continue to monitor renal parameters. May 11: Today's labs not drawn. Will check labs tomorrow. Continue per consultants May 10: No labs drawn today. Will check lab tomorrow. Continue per consultants. May 09: No labs drawn today. Remains stable from renal standpoint review. Continue to monitor her electrolytes and renal parameters. Continue per consultants. May 08: Labs reviewed. Abnormal electrolytes addressed. Leukocytosis down from 20,000-16,000. Continue per consultants. May 07: Labs reviewed. Potassium phosphorus replaced. White blood cells up to 20,000. Continue per consultants. May 06: No labs drawn today. Continue per consultants. Check labs in a.m. May 05: Labs reviewed. Stable renal parameters. Continue per consultants. May 04: No labs drawn today. Stable from renal standpoint of view. Medication list reviewed. Started on midodrine for low blood pressure. Patient on tube feeding. May 03: Labs reviewed. Potassium replaced. Continue per consultants. May 02: Labs reviewed. Potassium and phosphorus were replaced. Continue per consultants. May 01: No labs drawn today. Stable from renal standpoint of view. We will continue to monitor renal parameters and electrolytes. April 30: Patient seen earlier in ICU. Abnormal electrolytes noted and addressed. Due transfer to telemetry. Continue per consultants. April 29: Patient hemodynamically improved. Urine output improved. Abnormal electrolytes reviewed and addressed. Continue per consultants. April 28: Keppra changed to IV. POA is held until speech therapy evaluation. Potassium phosphate IV. Ordered. Discussed with Beth ENG. Remains stable from renal standpoint of view. Albumin 5% 500 cc challenge ordered. Fluid challenge Monitor renal parameters Monitor electrolytes Per consultants Per orders Subjective ROS Limited/Unobtainable: Yes Objective Objective Last 24 Hour Vital Signs Date Time Temp Pulse Resp B/P (MAP) Pulse Ox O2 Delivery O2 Flow Rate FiO2 05/13/20 09:00 110 32 88/64 (72) 95 05/13/20 08:45 116 31 97/66 (76) 91 05/13/20 08:30 115 33 82/57 (65) 94 05/13/20 08:15 123 31 85/62 (70) 93 05/13/20 08:00 100 05/13/20 08:00 125 05/13/20 08:00 101.2 116 29 88/56 (67) 94 05/13/20 07:00 125 26 86/59 (68) 94 05/13/20 06:45 131 25 89/63 (72) 93 05/13/20 06:42 87/58 05/13/20 06:30 130 26 87/59 (68) 94 05/13/20 06:15 131 25 85/60 (68) 95 05/13/20 06:00 128 26 100/55 (70) 95 05/13/20 05:00 133 24 85/61 (69) 05/13/20 04:00 100 05/13/20 04:00 98.6 136 29 85/58 (67) 96 05/13/20 04:00 137 05/13/20 03:00 153 32 83/55 (64) 91 05/13/20 02:20 148 15 100 05/13/20 02:00 166 28 98/65 (76) 90 05/13/20 00:00 134 05/13/20 00:00 15.0 100 05/13/20 00:00 99.5 140 40 134/74 (94) 80 05/13/20 00:00 145 05/12/20 20:21 Non-Rebreather 15.0 Non-Rebreather 15.0 05/12/20 20:00 15.0 100 05/12/20 20:00 99.4 102 26 102/64 (77) 91 05/12/20 20:00 102 05/12/20 16:10 101.4 05/12/20 16:00 101.6 125 34 97/57 (70) 92 05/12/20 16:00 15.0 100 05/12/20 16:00 129 05/12/20 16:00 Non-Rebreather 15.0 Non-Rebreather 05/12/20 12:48 101.8 152 34 105/56 (72) 86 05/12/20 12:00 99.6 130 26 105/56 (72) 81 05/12/20 10:50 99.5 115 26 106/56 (73) 75 Intake and Output 0 05/12/20 05/13/20 19:00 07:00 Intake Total 780 ml 935 ml Output Total 1100 ml 1300 ml Balance -320 ml -365 ml Intake Oral 480 ml Free Water 60 ml IV Total 495 ml Tube Feeding 240 ml 440 ml Output Urine Total 1100 ml 1300 ml Laboratory Tests 05/12/20 11:05: Arterial Blood pH 7.431, Arterial Blood Partial Pressure CO2 47.5H, Arterial Blood Partial Pressure O2 35.9*L, Arterial Blood HCO3 30.9H, Arterial Blood Oxygen Saturation 75.2*L, Arterial Blood Base Excess 5.7H, Kobi Test Positive 05/12/20 22:19: Arterial Blood pH 7.377, Arterial Blood Partial Pressure CO2 53.1H, Arterial Blood Partial Pressure O2 40.7*L, Arterial Blood HCO3 30.5H, Arterial Blood Oxygen Saturation 77.5*L, Arterial Blood Base Excess 4.2H, Kobi Test Positive 05/13/20 03:39: Arterial Blood pH 7.386, Arterial Blood Partial Pressure CO2 48.9H, Arterial Blood Partial Pressure O2 50.7L, Arterial Blood HCO3 28.7H, Arterial Blood Oxygen Saturation 86.8*L, Arterial Blood Base Excess 2.9H, Kobi Test Positive Height (Feet): 5 Height (Inches): 8.00 Weight (Pounds): 130 General Appearance: no apparent distress EENT: other - Intubated on ventilator Cardiovascular: tachycardia Respiratory/Chest: decreased breath sounds Abdomen: distended Objective No change Abhilash Clark MD May 13, 2020 10:01
[2020-05-13 11:20] LABS: HEMATOCRIT 34.3 % (42.0-52.0); HEMOGLOBIN 11.1 G/DL (14.2-18.0); MEAN CORPUSCULAR VOLUME 92 FL (80-99); PLATELET COUNT 246 K/UL (150-450); RED BLOOD COUNT 3.74 M/UL (4.70-6.10); RED CELL DISTRIBUTION WIDTH 16.1 % (11.6-14.8); WHITE BLOOD COUNT 18.6 K/UL (4.8-10.8)
[2020-05-13] MEDS: D5NS 1,000 ML IV SCH (11:21)
[2020-05-13 12:11] LABS: ANION GAP 7 mmol/L (5-15); BLOOD UREA NITROGEN 17 mg/dL (7-18); CARBON DIOXIDE 30 MMOL/L (21-32); CHLORIDE 108 MMOL/L (98-107); CREATININE 0.7 MG/DL (0.55-1.30); POTASSIUM 2.8 MMOL/L (3.5-5.1); SODIUM 145 MMOL/L (136-145)
[2020-05-13 12:21] LABS: ALANINE AMINOTRANSFERASE 17 U/L (12-78); ALBUMIN/GLOBULIN RATIO 0.3 (1.0-2.7); ALKALINE PHOSPHATASE 104 U/L (46-116); ASPARTATE AMINO TRANSFERASE 38 U/L (15-37); BILIRUBIN,TOTAL 1.1 MG/DL (0.2-1.0); PHOSPHORUS 2.5 MG/DL (2.5-4.9)
[2020-05-13 12:23] LABS: BILIRUBIN,DIRECT 0.8 MG/DL (0.0-0.3)
--- NOTE | 2020-05-13 13:02 | Infectious Diseases Prog Note ---
Assessment/Plan Assessment/Plan IMPRESSION: Sepsis pneumonia with COVID19 Acute respiratory failure Hypoxemia COPD, Seizure disorder, Lactic acidosis, Encephalopathy. RECOMMENDATIONS: Finished Dexamethasone course Continue Cefepime Add IV Vancomycin Sputum culture COVID19 positive since04/14 Subjective ROS Limited/Unobtainable: Yes Constitutional: Reports: fever, other - Ot=302.2, transferred to ICU Respiratory: Reports: other - intubated today Allergies: Coded Allergies: No Known Allergies (Unverified , 04/14/20) Objective Last 24 Hour Vital Signs Date Time Temp Pulse Resp B/P (MAP) Pulse Ox O2 Delivery O2 Flow Rate FiO2 05/13/20 12:00 100 05/13/20 12:00 94 30 116/74 (88) 95 05/13/20 12:00 93 05/13/20 11:30 93 31 117/73 (88) 96 05/13/20 11:00 101 25 87/58 (68) 95 05/13/20 10:30 102 32 86/60 (69) 95 05/13/20 10:15 103 30 93/67 (76) 96 05/13/20 10:00 116 34 94/61 (72) 92 05/13/20 09:52 100.0 05/13/20 09:45 104 29 89/66 (74) 96 05/13/20 09:30 106 31 90/60 (70) 95 05/13/20 09:00 110 32 88/64 (72) 95 05/13/20 08:45 116 31 97/66 (76) 91 05/13/20 08:30 115 33 82/57 (65) 94 05/13/20 08:15 123 31 85/62 (70) 93 05/13/20 08:00 100 05/13/20 08:00 125 05/13/20 08:00 101.2 116 29 88/56 (67) 94 05/13/20 08:00 Endotracheal Tube 05/13/20 07:10 123 29 100 05/13/20 07:00 125 26 86/59 (68) 94 05/13/20 06:45 131 25 89/63 (72) 93 05/13/20 06:42 87/58 05/13/20 06:30 130 26 87/59 (68) 94 05/13/20 06:15 131 25 85/60 (68) 95 05/13/20 06:00 128 26 100/55 (70) 95 05/13/20 05:00 133 24 85/61 (69) 05/13/20 04:00 100 05/13/20 04:00 98.6 136 29 85/58 (67) 96 05/13/20 04:00 137 05/13/20 03:00 153 32 83/55 (64) 91 05/13/20 02:20 148 15 100 05/13/20 02:00 166 28 98/65 (76) 90 05/13/20 00:00 134 05/13/20 00:00 15.0 100 05/13/20 00:00 99.5 140 40 134/74 (94) 80 05/13/20 00:00 145 05/12/20 20:21 Non-Rebreather 15.0 Non-Rebreather 15.0 05/12/20 20:00 15.0 100 05/12/20 20:00 99.4 102 26 102/64 (77) 91 05/12/20 20:00 102 05/12/20 16:10 101.4 05/12/20 16:00 101.6 125 34 97/57 (70) 92 05/12/20 16:00 15.0 100 05/12/20 16:00 129 05/12/20 16:00 Non-Rebreather 15.0 Non-Rebreather Height (Feet): 5 Height (Inches): 8.00 Weight (Pounds): 130 HEENT: other - orally intubated Cardiovascular: tachycardia Abdomen: soft, non tender, other - NG tube Extremities: no edema Neurologic/Psychiatric: other - opens eyes Laboratory Tests Test 05/12/20 22:19 05/13/20 03:39 05/13/20 10:30 Arterial Blood pH 7.377 (7.350-7.450) 7.386 (7.350-7.450) Arterial Blood Partial Pressure CO2 53.1 mmHg (35.0-45.0) H 48.9 mmHg (35.0-45.0) H Arterial Blood Partial Pressure O2 40.7 mmHg (75.0-100.0) 50.7 mmHg (75.0-100.0) L Arterial Blood HCO3 30.5 mmol/L (22.0-26.0) H 28.7 mmol/L (22.0-26.0) H Arterial Blood Oxygen Saturation 77.5 % (95-100) *L 86.8 % (95-100) *L Arterial Blood Base Excess 4.2 (-2-2) H 2.9 (-2-2) H Kobi Test Positive Positive White Blood Count 18.6 K/UL (4.8-10.8) H Red Blood Count 3.74 M/UL (4.70-6.10) L Hemoglobin 11.1 G/DL (14.2-18.0) L Hematocrit 34.3 % (42.0-52.0) L Mean Corpuscular Volume 92 FL (80-99) Mean Corpuscular Hemoglobin 29.5 PG (27.0-31.0) Mean Corpuscular Hemoglobin Concent 32.2 G/DL (32.0-36.0) Red Cell Distribution Width 16.1 % (11.6-14.8) H Platelet Count 246 K/UL (150-450) Mean Platelet Volume 6.6 FL (6.5-10.1) Neutrophils (%) (Auto) % (45.0-75.0) Lymphocytes (%) (Auto) % (20.0-45.0) Monocytes (%) (Auto) % (1.0-10.0) Eosinophils (%) (Auto) % (0.0-3.0) Basophils (%) (Auto) % (0.0-2.0) Neutrophils % (Manual) Pending Lymphocytes % (Manual) Pending Platelet Estimate Pending Platelet Morphology Pending Sodium Level 145 MMOL/L (136-145) Potassium Level 2.8 MMOL/L (3.5-5.1) L Chloride Level 108 MMOL/L (98-107) H Carbon Dioxide Level 30 MMOL/L (21-32) Anion Gap 7 mmol/L (5-15) Blood Urea Nitrogen 17 mg/dL (7-18) Creatinine 0.7 MG/DL (0.55-1.30) Estimat Glomerular Filtration Rate > 60 mL/min (>60) Glucose Level 127 MG/DL (74-106) H Calcium Level 7.0 MG/DL (8.5-10.1) L Phosphorus Level 2.5 MG/DL (2.5-4.9) Magnesium Level 1.6 MG/DL (1.8-2.4) L Total Bilirubin 1.1 MG/DL (0.2-1.0) H Direct Bilirubin 0.8 MG/DL (0.0-0.3) H Aspartate Amino Transf (AST/SGOT) 38 U/L (15-37) H Alanine Aminotransferase (ALT/SGPT) 17 U/L (12-78) Alkaline Phosphatase 104 U/L (46-116) C-Reactive Protein, Quantitative > 70.0 mg/dL (0.00-0.90) H Total Protein 3.9 G/DL (6.4-8.2) L Albumin 1.0 G/DL (3.4-5.0) L Globulin 2.9 g/dL Albumin/Globulin Ratio 0.3 (1.0-2.7) L Current Medications Medications (Trade) Dose Ordered Sig/[place] Route PRN Reason Start Time Stop Time Status Last Admin Dose Admin Acetaminophen (Tylenol) 500 mg Q4HR PRN ORAL Temp >100.5 04/27/20 00:15 05/27/20 00:14 05/13/20 09:22 Cefepime HCl 1 gm/ Dextrose 55 ml @ 110 mls/hr EVERY 12 HOURS IVPB 05/10/20 13:15 05/17/20 13:14 05/13/20 08:28 Chlorhexidine Gluconate (Anjali-Hex 2%) 1 applic DAILY@2000 TOPIC 04/29/20 20:00 07/28/20 19:59 05/12/20 20:46 Dextrose/Sodium Chloride 1,000 ml @ 75 mls/hr [id number] IV 05/04/20 14:30 06/03/20 14:29 05/13/20 11:21 Docusate Sodium (Colace) 100 mg Q12HR ORAL 04/27/20 21:00 05/27/20 20:59 05/13/20 08:28 Famotidine (Pepcid) 20 mg BID GT 05/04/20 18:00 08/02/20 17:59 05/13/20 08:28 Levetiracetam 100 ml @ 400 mls/hr Q12HR IVPB 04/28/20 21:00 07/27/20 20:59 05/13/20 08:27 Midodrine (Pro-Amatine) 10 mg Q8HR GT 05/04/20 14:00 08/02/20 13:59 05/13/20 05:21 Norepinephrine Bitartrate 250 ml @ 7.5 mls/hr Q24H IV 05/13/20 06:30 05/16/20 06:21 05/13/20 06:42 Narendra Garcia MD May 13, 2020 13:01
--- NOTE | 2020-05-13 13:06 | Pulmonology Progress Note ---
Subjective ROS Limited/Unobtainable: Yes Interval Events: Intubated overnight; on pressors HEENT: Repors: no symptoms Respiratory: Reports: no symptoms Cardiovascular: Reports: no symptoms Gastrointestinal/Abdominal: Denies: nausea, vomiting, diarrhea Genitourinary: Reports: no symptoms Neurologic: Reports: no symptoms Musculoskeletal: Denies: pain Allergies: Coded Allergies: No Known Allergies (Unverified , 04/14/20) Objective Last 24 Hour Vital Signs Date Time Temp Pulse Resp B/P (MAP) Pulse Ox O2 Delivery O2 Flow Rate FiO2 05/13/20 12:00 100 05/13/20 12:00 94 30 116/74 (88) 95 05/13/20 12:00 93 05/13/20 11:30 93 31 117/73 (88) 96 05/13/20 11:00 101 25 87/58 (68) 95 05/13/20 10:30 102 32 86/60 (69) 95 05/13/20 10:15 103 30 93/67 (76) 96 05/13/20 10:00 116 34 94/61 (72) 92 05/13/20 09:52 100.0 05/13/20 09:45 104 29 89/66 (74) 96 05/13/20 09:30 106 31 90/60 (70) 95 05/13/20 09:00 110 32 88/64 (72) 95 05/13/20 08:45 116 31 97/66 (76) 91 05/13/20 08:30 115 33 82/57 (65) 94 05/13/20 08:15 123 31 85/62 (70) 93 05/13/20 08:00 100 05/13/20 08:00 125 05/13/20 08:00 101.2 116 29 88/56 (67) 94 05/13/20 08:00 Endotracheal Tube 05/13/20 07:10 123 29 100 05/13/20 07:00 125 26 86/59 (68) 94 05/13/20 06:45 131 25 89/63 (72) 93 05/13/20 06:42 87/58 05/13/20 06:30 130 26 87/59 (68) 94 05/13/20 06:15 131 25 85/60 (68) 95 05/13/20 06:00 128 26 100/55 (70) 95 05/13/20 05:00 133 24 85/61 (69) 05/13/20 04:00 100 05/13/20 04:00 98.6 136 29 85/58 (67) 96 05/13/20 04:00 137 05/13/20 03:00 153 32 83/55 (64) 91 05/13/20 02:20 148 15 100 05/13/20 02:00 166 28 98/65 (76) 90 05/13/20 00:00 134 05/13/20 00:00 15.0 100 05/13/20 00:00 99.5 140 40 134/74 (94) 80 05/13/20 00:00 145 05/12/20 20:21 Non-Rebreather 15.0 Non-Rebreather 15.0 05/12/20 20:00 15.0 100 05/12/20 20:00 99.4 102 26 102/64 (77) 91 05/12/20 20:00 102 05/12/20 16:10 101.4 05/12/20 16:00 101.6 125 34 97/57 (70) 92 05/12/20 16:00 15.0 100 05/12/20 16:00 129 05/12/20 16:00 Non-Rebreather 15.0 Non-Rebreather Intake and Output 05/12/20 05/13/20 19:00 07:00 Intake Total 780 ml 935 ml Output Total 1100 ml 1300 ml Balance -320 ml -365 ml Intake Oral 480 ml Free Water 60 ml IV Total 495 ml Tube Feeding 240 ml 440 ml Output Urine Total 1100 ml 1300 ml General Appearance: no acute distress HEENT: normocephalic, other - NGT Respiratory: chest wall non-tender, other - coarse rhonchi Cardiovascular: normal peripheral pulses Abdomen: normal bowel sounds Extremities: other - 1+ pitting edema Laboratory Tests 05/12/20 22:19: Arterial Blood pH 7.377, Arterial Blood Partial Pressure CO2 53.1H, Arterial Blood Partial Pressure O2 40.7*L, Arterial Blood HCO3 30.5H, Arterial Blood Oxygen Saturation 77.5*L, Arterial Blood Base Excess 4.2H, Kobi Test Positive 05/13/20 03:39: Arterial Blood pH 7.386, Arterial Blood Partial Pressure CO2 48.9H, Arterial Blood Partial Pressure O2 50.7L, Arterial Blood HCO3 28.7H, Arterial Blood Oxygen Saturation 86.8*L, Arterial Blood Base Excess 2.9H, Kobi Test Positive 05/13/20 10:30: White Blood Count 18.6H, Red Blood Count 3.74L, Hemoglobin 11.1L, Hematocrit 34.3L, Mean Corpuscular Volume 92, Mean Corpuscular Hemoglobin 29.5, Mean Corpuscular Hemoglobin Concent 32.2, Red Cell Distribution Width 16.1H, Platelet Count 246, Mean Platelet Volume 6.6, Neutrophils (%) (Auto) , Lymphocytes (%) (Auto) , Monocytes (%) (Auto) , Eosinophils (%) (Auto) , Basophils (%) (Auto) , Neutrophils % (Manual) [Pending], Lymphocytes % (Manual) [Pending], Platelet Estimate [Pending], Platelet Morphology [Pending], Sodium Level 145, Potassium Level 2.8L, Chloride Level 108H, Carbon Dioxide Level 30, Anion Gap 7, Blood Urea Nitrogen 17, Creatinine 0.7, Estimat Glomerular Filtration Rate > 60, Glucose Level 127H, Calcium Level 7.0L, Phosphorus Level 2.5, Magnesium Level 1.6L, Total Bilirubin 1.1H, Direct Bilirubin 0.8H, Aspartate Amino Transf (AST/SGOT) 38H, Alanine Aminotransferase (ALT/SGPT) 17, Alkaline Phosphatase 104, C-Reactive Protein, Quantitative > 70.0H, Total Protein 3.9L, Albumin 1.0L, Globulin 2.9, Albumin/Globulin Ratio 0.3L Current Medications Medications (Trade) Dose Ordered Sig/[place] Route PRN Reason Start Time Stop Time Status Last Admin Dose Admin Acetaminophen (Tylenol) 500 mg Q4HR PRN ORAL Temp >100.5 04/27/20 00:15 05/27/20 00:14 05/13/20 09:22 Cefepime HCl 1 gm/ Dextrose 55 ml @ 110 mls/hr EVERY 12 HOURS IVPB 05/10/20 13:15 05/17/20 13:14 05/13/20 08:28 Chlorhexidine Gluconate (Anjali-Hex 2%) 1 applic DAILY@1999 TOPIC 04/29/20 20:00 07/28/20 19:59 05/12/20 20:46 Dextrose/Sodium Chloride 1,000 ml @ 75 mls/hr [id number] IV 05/04/20 14:30 06/03/20 14:29 05/13/20 11:21 Docusate Sodium (Colace) 100 mg Q12HR ORAL 04/27/20 21:00 05/27/20 20:59 05/13/20 08:28 Famotidine (Pepcid) 20 mg BID GT 05/04/20 18:00 08/02/20 17:59 05/13/20 08:28 Levetiracetam 100 ml @ 400 mls/hr Q12HR IVPB 04/28/20 21:00 07/27/20 20:59 05/13/20 08:27 Midodrine (Pro-Amatine) 10 mg Q8HR GT 05/04/20 14:00 08/02/20 13:59 05/13/20 05:21 Norepinephrine Bitartrate 250 ml @ 7.5 mls/hr Q24H IV 05/13/20 06:30 05/16/20 06:21 05/13/20 06:42 Vancomycin HCl (Vanco pharmacy to dose) 1 ea DAILY PRN MISC Per rx protocol 05/13/20 13:00 06/12/20 12:59 UNV Assessment/Plan Assessment/Plan 1. COVID-19 pneumonia, diagnosed approximately on 04/14/2020. - CXR 04/30 Slightly improved bilateral infiltrates, possible small right pleural effusion - on Decadron - Cont broad-spectrum antibiotics. 2. Seizure disorder. - on antiepileptics 3. Hypotension. On pressors 4. Respiratory failure; now intubated - continue AC mode Radhames Jc MD May 13, 2020 13:06
[2020-05-13] MEDS ORDERED: Vancomycin 1gm/D5W 275ml IVPB ONE ×2 (14:00)
--- NOTE | 2020-05-13 16:42 | General Progress Note ---
Subjective ROS Limited/Unobtainable: Yes Allergies: Coded Allergies: No Known Allergies (Unverified , 04/14/20) Objective Last 24 Hour Vital Signs Date Time Temp Pulse Resp B/P (MAP) Pulse Ox O2 Delivery O2 Flow Rate FiO2 05/13/20 16:00 93 05/13/20 16:00 94 34 107/69 (82) 100 05/13/20 15:15 105 32 106/66 (79) 99 05/13/20 15:00 113 31 113/70 (84) 98 05/13/20 14:00 125 28 121/70 (87) 96 05/13/20 13:34 95/45 05/13/20 13:00 121 26 111/79 (90) 93 05/13/20 12:30 124 27 113/69 (84) 93 05/13/20 12:00 100 05/13/20 12:00 94 30 116/74 (88) 95 05/13/20 12:00 93 05/13/20 11:30 93 31 117/73 (88) 96 05/13/20 11:00 101 25 87/58 (68) 95 05/13/20 10:30 102 32 86/60 (69) 95 05/13/20 10:15 103 30 93/67 (76) 96 05/13/20 10:00 116 34 94/61 (72) 92 05/13/20 09:52 100.0 05/13/20 09:45 104 29 89/66 (74) 96 05/13/20 09:30 106 31 90/60 (70) 95 05/13/20 09:00 110 32 88/64 (72) 95 05/13/20 08:45 116 31 97/66 (76) 91 05/13/20 08:30 115 33 82/57 (65) 94 05/13/20 08:15 123 31 85/62 (70) 93 05/13/20 08:00 100 05/13/20 08:00 125 05/13/20 08:00 101.2 116 29 88/56 (67) 94 05/13/20 08:00 Endotracheal Tube 05/13/20 07:10 123 29 100 05/13/20 07:00 125 26 86/59 (68) 94 05/13/20 06:45 131 25 89/63 (72) 93 05/13/20 06:42 87/58 05/13/20 06:30 130 26 87/59 (68) 94 05/13/20 06:15 131 25 85/60 (68) 95 05/13/20 06:00 128 26 100/55 (70) 95 05/13/20 05:00 133 24 85/61 (69) 05/13/20 04:00 100 05/13/20 04:00 98.6 136 29 85/58 (67) 96 05/13/20 04:00 137 05/13/20 03:00 153 32 83/55 (64) 91 05/13/20 02:20 148 15 100 05/13/20 02:00 166 28 98/65 (76) 90 05/13/20 00:00 134 05/13/20 00:00 15.0 100 05/13/20 00:00 99.5 140 40 134/74 (94) 80 05/13/20 00:00 145 05/12/20 20:21 Non-Rebreather 15.0 Non-Rebreather 15.0 05/12/20 20:00 15.0 100 05/12/20 20:00 99.4 102 26 102/64 (77) 91 05/12/20 20:00 102 Intake and Output 05/12/20 05/13/20 19:00 07:00 Intake Total 780 ml 935 ml Output Total 1100 ml 1300 ml Balance -320 ml -365 ml Intake Oral 480 ml Free Water 60 ml IV Total 495 ml Tube Feeding 240 ml 440 ml Output Urine Total 1100 ml 1300 ml Laboratory Tests 05/12/20 22:19: Arterial Blood pH 7.377, Arterial Blood Partial Pressure CO2 53.1H, Arterial Blood Partial Pressure O2 40.7*L, Arterial Blood HCO3 30.5H, Arterial Blood Oxygen Saturation 77.5*L, Arterial Blood Base Excess 4.2H, Kobi Test Positive 05/13/20 03:39: Arterial Blood pH 7.386, Arterial Blood Partial Pressure CO2 48.9H, Arterial Blood Partial Pressure O2 50.7L, Arterial Blood HCO3 28.7H, Arterial Blood Oxygen Saturation 86.8*L, Arterial Blood Base Excess 2.9H, Kobi Test Positive 05/13/20 10:30: White Blood Count 18.6H, Red Blood Count 3.74L, Hemoglobin 11.1L, Hematocrit 34.3L, Mean Corpuscular Volume 92, Mean Corpuscular Hemoglobin 29.5, Mean Corpuscular Hemoglobin Concent 32.2, Red Cell Distribution Width 16.1H, Platelet Count 246, Mean Platelet Volume 6.6, Neutrophils (%) (Auto) , Lymphocytes (%) (Auto) , Monocytes (%) (Auto) , Eosinophils (%) (Auto) , Basophils (%) (Auto) , Differential Total Cells Counted 100, Neutrophils % (Manual) 85H, Lymphocytes % (Manual) 4L, Monocytes % (Manual) 4, Eosinophils % (Manual) 0, Basophils % (Manual) 0, Band Neutrophils 7, Platelet Estimate Adequate, Platelet Morphology Normal, Anisocytosis 1+, Sodium Level 145, Potassium Level 2.8L, Chloride Level 108H, Carbon Dioxide Level 30, Anion Gap 7, Blood Urea Nitrogen 17, Creatinine 0.7, Estimat Glomerular Filtration Rate > 60, Glucose Level 127H, Calcium Level 7.0L, Phosphorus Level 2.5, Magnesium Level 1.6L, Total Bilirubin 1.1H, Direct Bilirubin 0.8H, Aspartate Amino Transf (AST/SGOT) 38H, Alanine Aminotransferase (ALT/SGPT) 17, Alkaline Phosphatase 104, C-Reactive Protein, Quantitative > 70.0H, Total Protein 3.9L, Albumin 1.0L, Globulin 2.9, Albumin/Globulin Ratio 0.3L Height (Feet): 5 Height (Inches): 8.00 Weight (Pounds): 130 Assessment/Plan Problem List: (1) Coronavirus infection ICD Codes: B34.2 - Coronavirus infection, unspecified SNOMED: 676870571 (2) Septic shock ICD Codes: A41.9 - Sepsis, unspecified organism; R65.21 - Severe sepsis with septic shock SNOMED: 49893047 (3) Seizure disorder ICD Codes: G40.909 - Epilepsy, unspecified, not intractable, without status epilepticus SNOMED: 069685386 (4) Electrolyte imbalance ICD Codes: E87.8 - Other disorders of electrolyte and fluid balance, not elsewhere classified SNOMED: 036856065 Status: progressing, unchanged Assessment/Plan: covid positive sepsis respiratory failure poor prognosis anemia lyte abnormality no improving Zain Mares MD May 13, 2020 16:42
--- NOTE | 2020-05-13 19:24 | Cardiac Electrophysiology PN ---
Assessment/Plan Assessment/Plan 1. Septic shock on Levophed 10 mcg and IV antibiotic. Echo Nl EF 2. Respiratory failure due to COVID pneumonia, on dexamethasone On the Vent now 3. Seizure disorder and altered level of consciousness on Keppra. 4. NPO as failed swallow eval on iv fluid NGT is in. Consent pending for PEG DW RN Subjective Subjective In Covid isolation intubated at 2 am.On 100% Fio2 and PEEP 15. Tmax 101 Objective Last 24 Hour Vital Signs Date Time Temp Pulse Resp B/P (MAP) Pulse Ox O2 Delivery O2 Flow Rate FiO2 05/13/20 18:00 96 33 111/66 (81) 100 05/13/20 17:15 95 32 111/71 (84) 100 05/13/20 17:00 95 33 115/70 (85) 100 05/13/20 16:45 96 33 115/72 (86) 100 05/13/20 16:30 94 31 121/78 (92) 100 05/13/20 16:15 100.0 95 32 112/68 (83) 100 05/13/20 16:00 100 05/13/20 16:00 Endotracheal Tube 05/13/20 16:00 93 05/13/20 16:00 94 34 107/69 (82) 100 05/13/20 15:15 105 32 106/66 (79) 99 05/13/20 15:00 113 31 113/70 (84) 98 05/13/20 14:48 99.0 05/13/20 14:00 125 28 121/70 (87) 96 05/13/20 13:34 95/45 05/13/20 13:00 91 31 100 05/13/20 13:00 121 26 111/79 (90) 93 05/13/20 12:30 124 27 113/69 (84) 93 05/13/20 12:00 100 05/13/20 12:00 94 30 116/74 (88) 95 05/13/20 12:00 Endotracheal Tube 05/13/20 12:00 93 05/13/20 11:30 93 31 117/73 (88) 96 05/13/20 11:00 101 25 87/58 (68) 95 05/13/20 10:30 102 32 86/60 (69) 95 05/13/20 10:15 103 30 93/67 (76) 96 05/13/20 10:00 116 34 94/61 (72) 92 05/13/20 09:52 100.0 05/13/20 09:45 104 29 89/66 (74) 96 05/13/20 09:30 106 31 90/60 (70) 95 05/13/20 09:00 110 32 88/64 (72) 95 05/13/20 08:45 116 31 97/66 (76) 91 05/13/20 08:30 115 33 82/57 (65) 94 05/13/20 08:15 123 31 85/62 (70) 93 05/13/20 08:00 100 05/13/20 08:00 125 05/13/20 08:00 101.2 116 29 88/56 (67) 94 05/13/20 08:00 Endotracheal Tube 05/13/20 07:10 123 29 100 05/13/20 07:00 125 26 86/59 (68) 94 05/13/20 06:45 131 25 89/63 (72) 93 05/13/20 06:42 87/58 05/13/20 06:30 130 26 87/59 (68) 94 05/13/20 06:15 131 25 85/60 (68) 95 05/13/20 06:00 128 26 100/55 (70) 95 05/13/20 05:00 133 24 85/61 (69) 05/13/20 04:00 100 05/13/20 04:00 98.6 136 29 85/58 (67) 96 05/13/20 04:00 137 05/13/20 03:00 153 32 83/55 (64) 91 05/13/20 02:20 148 15 100 05/13/20 02:00 166 28 98/65 (76) 90 05/13/20 00:00 134 05/13/20 00:00 15.0 100 05/13/20 00:00 99.5 140 40 134/74 (94) 80 05/13/20 00:00 145 05/12/20 20:21 Non-Rebreather 15.0 Non-Rebreather 15.0 05/12/20 20:00 15.0 100 05/12/20 20:00 99.4 102 26 102/64 (77) 91 05/12/20 20:00 102 Intake and Output 12/30/20 12/31/20 19:00 07:00 Intake Total 780 ml 1005 ml Output Total 1100 ml 1330 ml Balance -320 ml -325 ml Intake Oral 480 ml Free Water 60 ml IV Total 495 ml Tube Feeding 240 ml 480 ml Other 30 ml Output Urine Total 1100 ml 1330 ml Laboratory Tests Test 05/12/20 22:19 05/13/20 03:39 05/13/20 10:30 Arterial Blood pH 7.377 (7.350-7.450) 7.386 (7.350-7.450) Arterial Blood Partial Pressure CO2 53.1 mmHg (35.0-45.0) H 48.9 mmHg (35.0-45.0) H Arterial Blood Partial Pressure O2 40.7 mmHg (75.0-100.0) 50.7 mmHg (75.0-100.0) L Arterial Blood HCO3 30.5 mmol/L (22.0-26.0) H 28.7 mmol/L (22.0-26.0) H Arterial Blood Oxygen Saturation 77.5 % (95-100) *L 86.8 % (95-100) *L Arterial Blood Base Excess 4.2 (-2-2) H 2.9 (-2-2) H Kobi Test Positive Positive White Blood Count 18.6 K/UL (4.8-10.8) H Red Blood Count 3.74 M/UL (4.70-6.10) L Hemoglobin 11.1 G/DL (14.2-18.0) L Hematocrit 34.3 % (42.0-52.0) L Mean Corpuscular Volume 92 FL (80-99) Mean Corpuscular Hemoglobin 29.5 PG (27.0-31.0) Mean Corpuscular Hemoglobin Concent 32.2 G/DL (32.0-36.0) Red Cell Distribution Width 16.1 % (11.6-14.8) H Platelet Count 246 K/UL (150-450) Mean Platelet Volume 6.6 FL (6.5-10.1) Neutrophils (%) (Auto) % (45.0-75.0) Lymphocytes (%) (Auto) % (20.0-45.0) Monocytes (%) (Auto) % (1.0-10.0) Eosinophils (%) (Auto) % (0.0-3.0) Basophils (%) (Auto) % (0.0-2.0) Differential Total Cells Counted 100 Neutrophils % (Manual) 85 % (45-75) H Lymphocytes % (Manual) 4 % (20-45) L Monocytes % (Manual) 4 % (1-10) Eosinophils % (Manual) 0 % (0-3) Basophils % (Manual) 0 % (0-2) Band Neutrophils 7 % (0-8) Platelet Estimate Adequate Platelet Morphology Normal Anisocytosis 1+ Sodium Level 145 MMOL/L (136-145) Potassium Level 2.8 MMOL/L (3.5-5.1) L Chloride Level 108 MMOL/L (98-107) H Carbon Dioxide Level 30 MMOL/L (21-32) Anion Gap 7 mmol/L (5-15) Blood Urea Nitrogen 17 mg/dL (7-18) Creatinine 0.7 MG/DL (0.55-1.30) Estimat Glomerular Filtration Rate > 60 mL/min (>60) Glucose Level 127 MG/DL (74-106) H Calcium Level 7.0 MG/DL (8.5-10.1) L Phosphorus Level 2.5 MG/DL (2.5-4.9) Magnesium Level 1.6 MG/DL (1.8-2.4) L Total Bilirubin 1.1 MG/DL (0.2-1.0) H Direct Bilirubin 0.8 MG/DL (0.0-0.3) H Aspartate Amino Transf (AST/SGOT) 38 U/L (15-37) H Alanine Aminotransferase (ALT/SGPT) 17 U/L (12-78) Alkaline Phosphatase 104 U/L (46-116) C-Reactive Protein, Quantitative > 70.0 mg/dL (0.00-0.90) H Total Protein 3.9 G/DL (6.4-8.2) L Albumin 1.0 G/DL (3.4-5.0) L Globulin 2.9 g/dL Albumin/Globulin Ratio 0.3 (1.0-2.7) L Objective HEAD AND NECK: No JVD. Orally intubated. LUNGS: Coarse rhonchi. CARDIOVASCULAR: Regular S1 and S2. Mildly tachycardic. ABDOMEN: Soft. EXTREMITIES: 1+ pitting edema. Shady Sorto MD May 13, 2020 19:24
[2020-05-13] MEDS: Dyna-Hex 2% Top Sol 2oz TOPIC SCH (19:37)
[2020-05-13] MEDS: Docusate 100mg/10ml Liq GT SCH (20:30)
--- NOTE | 2020-05-13 22:20 | Psychiatric Progress Note ---
Psychiatry Progress Note Psychiatry Progress Note Medications Current Medications Medications (Trade) Dose Ordered Sig/[place]ora Route PRN Reason Start Time Stop Time Status Last Admin Dose Admin Acetaminophen (Tylenol) 500 mg Q4HR PRN ORAL Temp >100.5 04/27/20 00:15 05/27/20 00:14 05/13/20 14:18 Cefepime HCl 1 gm/ Dextrose 55 ml @ 110 mls/hr EVERY 12 HOURS IVPB 05/10/20 13:15 05/17/20 13:14 05/13/20 20:31 Chlorhexidine Gluconate (Anjali-Hex 2%) 1 applic DAILY@2000 TOPIC 04/29/20 20:00 07/28/20 19:59 05/13/20 19:37 Dextrose/Sodium Chloride 1,000 ml @ 75 mls/hr [id number] IV 05/04/20 14:30 06/03/20 14:29 05/13/20 11:21 Docusate Sodium (Colace) 100 mg TWICE A DAY GT 05/13/20 21:00 06/12/20 20:59 05/13/20 20:30 Famotidine (Pepcid) 20 mg BID GT 05/04/20 18:00 08/02/20 17:59 05/13/20 18:12 Levetiracetam 100 ml @ 400 mls/hr Q12HR IVPB 04/28/20 21:00 07/27/20 20:59 05/13/20 21:33 Midodrine (Pro-Amatine) 10 mg Q8HR GT 05/04/20 14:00 08/02/20 13:59 05/13/20 21:34 Norepinephrine Bitartrate 250 ml @ 7.5 mls/hr Q24H IV 05/13/20 06:30 05/16/20 06:21 05/13/20 13:34 Vancomycin HCl (Vanco pharmacy to dose) 1 ea DAILY PRN MISC Per rx protocol 05/13/20 13:00 06/12/20 12:59 Vancomycin HCl 750 mg/Sodium Chloride 275 ml @ 183.333 mls/hr Q12H IVPB 05/14/20 02:00 05/19/20 01:59 Neurological/Psychiatric: Reports: anxiety, depressed, emotional problems Allergies: Coded Allergies: No Known Allergies (Unverified , 04/14/20) Objective Data Height (Feet): 5 Height (Inches): 8.00 Weight (Pounds): 130 General Appearance: no apparent distress Additional Comments: having waxing and waning consciousness. Mood is anxious. Affect is blunted, congruent with mood. Thought process is concrete. Thought content, no suicidal or homicidal ideation. Cognition is impaired. Insight and judgment is impaired. ASSESSMENT: [place] I Acute metabolic encephalopathy. Dementia. [place] II Deferred. [place] III As above. [place] IV Low. [place] V 20. PLAN: 1. We will start patient on Haldol p.r.n. 2. Bilateral soft restraints. Assessment/Plan Status: progressing, unchanged Davion Camacho MD May 13, 2020 22:20
[2020-05-14] VITALS (51 sets, daily range): BP systolic 80–130; BP diastolic 53–78
[2020-05-14] MEDS: D5NS 1,000 ML IV SCH ×2 (00:23→13:58)
[2020-05-14] MEDS: Norepinephrine 4mg/NS Premix 250 ML IV SCH (00:43)
[2020-05-14] MEDS: Vancomycin 750mg/NS 275ml IVPB SCH ×4 (01:33→13:58)
[2020-05-14] MEDS: Midodrine 10mg tab GT SCH ×3 (05:40→21:24)
[2020-05-14] MEDS: Acetaminophen 650mg/20.3ml NG PRN (05:41)
[2020-05-14 05:54] LABS: HEMATOCRIT 32.9 % (42.0-52.0); HEMOGLOBIN 10.5 G/DL (14.2-18.0); MEAN CORPUSCULAR VOLUME 94 FL (80-99); PLATELET COUNT 159 K/UL (150-450); RED CELL DISTRIBUTION WIDTH 15.7 % (11.6-14.8); WHITE BLOOD COUNT 14.6 K/UL (4.8-10.8)
[2020-05-14 06:07] LABS: ANION GAP 5 mmol/L (5-15); BLOOD UREA NITROGEN 12 mg/dL (7-18); CALCIUM 7.6 MG/DL (8.5-10.1); CARBON DIOXIDE 32 MMOL/L (21-32); CHLORIDE 109 MMOL/L (98-107); CREATININE 0.5 MG/DL (0.55-1.30); POTASSIUM 2.8 MMOL/L (3.5-5.1); SODIUM 146 MMOL/L (136-145)
--- NOTE | 2020-05-14 08:20 | Diagnostic Imaging Report ---
EXAM: XR Chest, 1 View CLINICAL HISTORY: ABN CHST TECHNIQUE: Frontal view of the chest. COMPARISON: Chest radiograph May 13, 2020 FINDINGS/IMPRESSION: Endotracheal tube terminates 3.8 cm above the tayler. Check feeding tube terminates below the stomach. EKG leads overlie the patient. Extensive bilateral airspace consolidations, consistent with multifocal infiltrate. There is mild improvement in aeration of the left lung. Continued follow-up recommended. Small bilateral pleural effusions, unchanged. No pneumothorax. Cardiomegaly.
[2020-05-14] MEDS: Docusate 100mg/10ml Liq GT SCH ×2 (08:32→17:19)
[2020-05-14] MEDS: Cefepime HCl 1 GM in D5W 55 ML IVPB SCH ×2 (08:32→21:24)
[2020-05-14] MEDS: levETIRAcetam 500mg/NS100ml 100 ML IVPB SCH ×2 (08:32→20:12)
[2020-05-14] MEDS ORDERED: LORazepam Inj 2mg/ml 1ml IV PRN ×2 (09:45)
--- NOTE | 2020-05-14 13:01 | Infectious Diseases Prog Note ---
Assessment/Plan Assessment/Plan IMPRESSION: Sepsis pneumonia with COVID19 Acute respiratory failure Hypoxemia COPD, Seizure disorder, Lactic acidosis, Encephalopathy. RECOMMENDATIONS: Finished Dexamethasone course Continue Cefepime & IV Vancomycin Will f/u cultures COVID19 positive since04/14 Subjective ROS Limited/Unobtainable: Yes Cardiovascular: Reports: other - on Levophed Allergies: Coded Allergies: No Known Allergies (Unverified , 04/14/20) Objective Last 24 Hour Vital Signs Date Time Temp Pulse Resp B/P (MAP) Pulse Ox O2 Delivery O2 Flow Rate FiO2 05/14/20 12:30 100 21 102/63 (76) 97 05/14/20 12:00 Mechanical Ventilator 05/14/20 12:00 97.1 102 24 103/62 (76) 98 05/14/20 12:00 108 05/14/20 12:00 100 05/14/20 11:30 109 28 105/62 (76) 97 05/14/20 11:00 106 20 92/67 (75) 96 05/14/20 10:30 108 20 96/60 (72) 95 05/14/20 10:00 117 22 90/53 (65) 95 05/14/20 09:30 132 32 107/65 (79) 95 05/14/20 09:00 135 30 104/68 (80) 95 05/14/20 08:30 137 30 102/66 (78) 100 05/14/20 08:00 Mechanical Ventilator 05/14/20 08:00 99.7 139 29 105/65 (78) 99 05/14/20 08:00 100 05/14/20 08:00 143 05/14/20 07:30 141 27 116/63 (80) 99 05/14/20 07:00 138 30 95/67 (76) 97 05/14/20 06:30 139 28 95/66 (76) 98 05/14/20 06:00 138 29 92/67 (75) 97 05/14/20 05:30 137 28 105/63 (77) 97 05/14/20 05:00 138 29 99/67 (78) 98 05/14/20 04:30 138 30 107/68 (81) 99 05/14/20 04:00 98.0 138 30 103/68 (80) 99 05/14/20 04:00 137 05/14/20 04:00 100 05/14/20 04:00 Mechanical Ventilator 05/14/20 03:30 134 28 99/66 (77) 100 05/14/20 03:00 133 27 111/64 (80) 98 05/14/20 03:00 131 26 100 05/14/20 02:30 134 26 105/68 (80) 98 05/14/20 02:00 135 43 110/60 (77) 99 05/14/20 01:30 126 29 107/70 (82) 99 05/14/20 01:00 129 29 119/72 (88) 99 05/14/20 00:43 119/71 05/14/20 00:30 128 28 119/71 (87) 100 05/14/20 00:00 100 05/14/20 00:00 129 05/14/20 00:00 97.8 127 27 106/66 (79) 100 05/14/20 00:00 Mechanical Ventilator 05/13/20 23:41 132 31 100 05/13/20 23:30 131 30 111/69 (83) 100 05/13/20 23:00 133 30 110/69 (83) 99 05/13/20 22:30 136 30 112/66 (81) 99 05/13/20 22:00 141 30 106/66 (79) 99 05/13/20 21:30 142 30 116/66 (83) 99 05/13/20 21:00 144 31 110/62 (78) 98 05/13/20 20:30 140 30 127/74 (91) 99 05/13/20 20:00 98.8 136 31 117/78 (91) 99 05/13/20 20:00 Mechanical Ventilator 05/13/20 20:00 100 05/13/20 20:00 138 05/13/20 19:30 130 25 126/73 (90) 98 05/13/20 19:18 127 34 100 05/13/20 19:00 111 32 123/69 (87) 99 05/13/20 18:00 96 33 111/66 (81) 100 05/13/20 17:15 95 32 111/71 (84) 100 05/13/20 17:00 95 33 115/70 (85) 100 05/13/20 16:45 96 33 115/72 (86) 100 05/13/20 16:30 94 31 121/78 (92) 100 05/13/20 16:15 100.0 95 32 112/68 (83) 100 05/13/20 16:00 100 05/13/20 16:00 Endotracheal Tube 05/13/20 16:00 93 05/13/20 16:00 94 34 107/69 (82) 100 05/13/20 15:15 105 32 106/66 (79) 99 05/13/20 15:00 113 31 113/70 (84) 98 05/13/20 14:48 99.0 05/13/20 14:00 125 28 121/70 (87) 96 05/13/20 13:34 95/45 05/13/20 13:00 91 31 100 05/13/20 13:00 121 26 111/79 (90) 93 Height (Feet): 5 Height (Inches): 8.00 Weight (Pounds): 130 HEENT: other - orally intubated Respiratory/Chest: other - on ventilator Cardiovascular: tachycardia Abdomen: other - NG tube Extremities: no edema Neurologic/Psychiatric: unresponsiveness Laboratory Tests Test 05/14/20 03:50 05/14/20 09:18 White Blood Count 14.6 K/UL (4.8-10.8) H Red Blood Count 3.50 M/UL (4.70-6.10) L Hemoglobin 10.5 G/DL (14.2-18.0) L Hematocrit 32.9 % (42.0-52.0) L Mean Corpuscular Volume 94 FL (80-99) Mean Corpuscular Hemoglobin 30.1 PG (27.0-31.0) Mean Corpuscular Hemoglobin Concent 31.9 G/DL (32.0-36.0) L Red Cell Distribution Width 15.7 % (11.6-14.8) H Platelet Count 159 K/UL (150-450) Mean Platelet Volume 7.4 FL (6.5-10.1) Neutrophils (%) (Auto) % (45.0-75.0) Lymphocytes (%) (Auto) % (20.0-45.0) Monocytes (%) (Auto) % (1.0-10.0) Eosinophils (%) (Auto) % (0.0-3.0) Basophils (%) (Auto) % (0.0-2.0) Differential Total Cells Counted 100 Neutrophils % (Manual) 90 % (45-75) H Lymphocytes % (Manual) 6 % (20-45) L Monocytes % (Manual) 3 % (1-10) Eosinophils % (Manual) 0 % (0-3) Basophils % (Manual) 0 % (0-2) Band Neutrophils 1 % (0-8) Platelet Estimate Adequate Platelet Morphology Normal Hypochromasia 1+ Anisocytosis 1+ Sodium Level 146 MMOL/L (136-145) H Potassium Level 2.8 MMOL/L (3.5-5.1) L Chloride Level 109 MMOL/L (98-107) H Carbon Dioxide Level 32 MMOL/L (21-32) Anion Gap 5 mmol/L (5-15) Blood Urea Nitrogen 12 mg/dL (7-18) Creatinine 0.5 MG/DL (0.55-1.30) L Estimat Glomerular Filtration Rate > 60 mL/min (>60) Glucose Level 119 MG/DL (74-106) H Calcium Level 7.6 MG/DL (8.5-10.1) L Magnesium Level 2.1 MG/DL (1.8-2.4) Arterial Blood pH 7.333 (7.350-7.450) Arterial Blood Partial Pressure CO2 64.3 mmHg (35.0-45.0) *H Arterial Blood Partial Pressure O2 73.9 mmHg (75.0-100.0) L Arterial Blood HCO3 33.4 mmol/L (22.0-26.0) H Arterial Blood Oxygen Saturation 94.8 % (95-100) L Arterial Blood Base Excess 5.9 (-2-2) H Kobi Test Positive Current Medications Medications (Trade) Dose Ordered Sig/Aurora Route PRN Reason Start Time Stop Time Status Last Admin Dose Admin Acetaminophen (Tylenol) 500 mg Q4HR PRN ORAL Temp >100.5 04/27/20 00:15 05/27/20 00:14 05/13/20 14:18 Acetaminophen (Tylenol) 650 mg Q4H PRN NG Mild Pain (Pain Scale 1-3) 05/14/20 01:30 06/13/20 01:29 05/14/20 05:41 Cefepime HCl 1 gm/ Dextrose 55 ml @ 110 mls/hr EVERY 12 HOURS IVPB 05/10/20 13:15 1//21 13:14 05/14/20 08:32 Chlorhexidine Gluconate (Anjali-Hex 2%) 1 applic DAILY@2000 TOPIC 04/29/20 20:00 07/28/20 19:59 05/13/20 19:37 Dextrose/Sodium Chloride 1,000 ml @ 75 mls/hr [id number] IV 05/04/20 14:30 06/03/20 14:29 05/14/20 00:23 Docusate Sodium (Colace) 100 mg TWICE A DAY GT 05/13/20 21:00 06/12/20 20:59 05/14/20 08:32 Famotidine (Pepcid) 20 mg BID GT 05/04/20 18:00 08/02/20 17:59 05/14/20 08:31 Levetiracetam 100 ml @ 400 mls/hr Q12HR IVPB 04/28/20 21:00 07/27/20 20:59 05/14/20 08:32 Lorazepam (Ativan 2mg/ml 1ml) 2 mg Q3H PRN IV Agitation 05/14/20 09:45 05/21/20 09:44 Lorazepam (Ativan 2mg/ml 1ml) 2 mg Q3H PRN IV For Anxiety 05/14/20 09:45 05/21/20 09:44 Lorazepam (Ativan 2mg/ml 1ml) 2 mg Q3H PRN IV Seziure 05/14/20 09:45 05/21/20 09:44 Midodrine (Pro-Amatine) 10 mg Q8HR GT 05/04/20 14:00 08/02/20 13:59 05/14/20 05:40 Norepinephrine Bitartrate 250 ml @ 7.5 mls/hr Q24H IV 05/13/20 06:30 05/16/20 06:21 05/14/20 00:43 Vancomycin HCl (Vanco pharmacy to dose) 1 ea DAILY PRN MISC Per rx protocol 05/13/20 13:00 06/12/20 12:59 Vancomycin HCl 750 mg/Sodium Chloride 275 ml @ 183.333 mls/hr Q12H IVPB 05/14/20 02:00 05/19/20 01:59 05/14/20 01:33 Narendra Garcia MD May 14, 2020 13:01
--- NOTE | 2020-05-14 13:35 | Pulmonology Progress Note ---
Subjective ROS Limited/Unobtainable: Yes Interval Events: s/p intubation HEENT: Repors: no symptoms Respiratory: Reports: no symptoms Cardiovascular: Reports: no symptoms Gastrointestinal/Abdominal: Denies: nausea, vomiting, diarrhea Genitourinary: Reports: no symptoms Neurologic: Reports: no symptoms Musculoskeletal: Denies: pain Allergies: Coded Allergies: No Known Allergies (Unverified , 04/14/20) Objective Last 24 Hour Vital Signs Date Time Temp Pulse Resp B/P (MAP) Pulse Ox O2 Delivery O2 Flow Rate FiO2 05/14/20 12:30 100 21 102/63 (76) 97 05/14/20 12:00 Mechanical Ventilator 05/14/20 12:00 97.1 102 24 103/62 (76) 98 05/14/20 12:00 108 05/14/20 12:00 100 05/14/20 11:30 109 28 105/62 (76) 97 05/14/20 11:00 106 20 92/67 (75) 96 05/14/20 10:30 108 20 96/60 (72) 95 05/14/20 10:00 117 22 90/53 (65) 95 05/14/20 09:30 132 32 107/65 (79) 95 05/14/20 09:00 135 30 104/68 (80) 95 05/14/20 08:30 137 30 102/66 (78) 100 05/14/20 08:00 Mechanical Ventilator 05/14/20 08:00 99.7 139 29 105/65 (78) 99 05/14/20 08:00 100 05/14/20 08:00 143 05/14/20 07:30 141 27 116/63 (80) 99 05/14/20 07:00 138 30 95/67 (76) 97 05/14/20 06:30 139 28 95/66 (76) 98 05/14/20 06:00 138 29 92/67 (75) 97 05/14/20 05:30 137 28 105/63 (77) 97 05/14/20 05:00 138 29 99/67 (78) 98 05/14/20 04:30 138 30 107/68 (81) 99 05/14/20 04:00 98.0 138 30 103/68 (80) 99 05/14/20 04:00 137 05/14/20 04:00 100 05/14/20 04:00 Mechanical Ventilator 05/14/20 03:30 134 28 99/66 (77) 100 05/14/20 03:00 133 27 111/64 (80) 98 05/14/20 03:00 131 26 100 05/14/20 02:30 134 26 105/68 (80) 98 05/14/20 02:00 135 43 110/60 (77) 99 05/14/20 01:30 126 29 107/70 (82) 99 05/14/20 01:00 129 29 119/72 (88) 99 05/14/20 00:43 119/71 05/14/20 00:30 128 28 119/71 (87) 100 05/14/20 00:00 100 05/14/20 00:00 129 05/14/20 00:00 97.8 127 27 106/66 (79) 100 05/14/20 00:00 Mechanical Ventilator 05/13/20 23:41 132 31 100 05/13/20 23:30 131 30 111/69 (83) 100 05/13/20 23:00 133 30 110/69 (83) 99 05/13/20 22:30 136 30 112/66 (81) 99 05/13/20 22:00 141 30 106/66 (79) 99 05/13/20 21:30 142 30 116/66 (83) 99 05/13/20 21:00 144 31 110/62 (78) 98 05/13/20 20:30 140 30 127/74 (91) 99 05/13/20 20:00 98.8 136 31 117/78 (91) 99 05/13/20 20:00 Mechanical Ventilator 05/13/20 20:00 100 05/13/20 20:00 138 05/13/20 19:30 130 25 126/73 (90) 98 05/13/20 19:18 127 34 100 05/13/20 19:00 111 32 123/69 (87) 99 05/13/20 18:00 96 33 111/66 (81) 100 05/13/20 17:15 95 32 111/71 (84) 100 05/13/20 17:00 95 33 115/70 (85) 100 05/13/20 16:45 96 33 115/72 (86) 100 05/13/20 16:30 94 31 121/78 (92) 100 05/13/20 16:15 100.0 95 32 112/68 (83) 100 05/13/20 16:00 100 05/13/20 16:00 Endotracheal Tube 05/13/20 16:00 93 05/13/20 16:00 94 34 107/69 (82) 100 05/13/20 15:15 105 32 106/66 (79) 99 05/13/20 15:00 113 31 113/70 (84) 98 05/13/20 14:48 99.0 05/13/20 14:00 125 28 121/70 (87) 96 Intake and Output 05/13/20 05/14/20 19:00 07:00 Intake Total 2994.916 ml 1858.125 ml Output Total 805 ml 890 ml Balance 2189.916 ml 968.125 ml IV Total 2079.916 ml 1378.125 ml Tube Feeding 880 ml 480 ml Other 35 ml Output Urine Total 805 ml 890 ml Objective 05/14 s/p intubation 05/12 no change 05/11 remains on 15L NRB 05/10 saturating 95% on 15L NRB 05/07 no change 05/06 s/p NGT; saturating 93% on 2L NC 05/05 no change 05/04 saturations stable with 2L NC 05/03 no change; PICC line 05/02 saturating 93% on 2 lpm NC 05/01 saturating well on 2 lpm NC General Appearance: no acute distress HEENT: normocephalic, other - NGT Respiratory: chest wall non-tender, other - coarse rhonchi Cardiovascular: normal peripheral pulses Abdomen: normal bowel sounds Extremities: other - 1+ pitting edema Laboratory Tests 05/14/20 03:50: White Blood Count 14.6H, Red Blood Count 3.50L, Hemoglobin 10.5L, Hematocrit 32.9L, Mean Corpuscular Volume 94, Mean Corpuscular Hemoglobin 30.1, Mean Corpuscular Hemoglobin Concent 31.9L, Red Cell Distribution Width 15.7H, Platelet Count 159, Mean Platelet Volume 7.4, Neutrophils (%) (Auto) , Lymphocytes (%) (Auto) , Monocytes (%) (Auto) , Eosinophils (%) (Auto) , Basophils (%) (Auto) , Differential Total Cells Counted 100, Neutrophils % (Manual) 90H, Lymphocytes % (Manual) 6L, Monocytes % (Manual) 3, Eosinophils % (Manual) 0, Basophils % (Manual) 0, Band Neutrophils 1, Platelet Estimate Adequate, Platelet Morphology Normal, Hypochromasia 1+, Anisocytosis 1+, Sodium Level 146H, Potassium Level 2.8L, Chloride Level 109H, Carbon Dioxide Level 32, Anion Gap 5, Blood Urea Nitrogen 12, Creatinine 0.5L, Estimat Glomerular Filtration Rate > 60, Glucose Level 119H, Calcium Level 7.6L, Magnesium Level 2.1 05/14/20 09:18: Arterial Blood pH 7.333L, Arterial Blood Partial Pressure CO2 64.3*H, Arterial Blood Partial Pressure O2 73.9L, Arterial Blood HCO3 33.4H, Arterial Blood Oxygen Saturation 94.8L, Arterial Blood Base Excess 5.9H, Kobi Test Positive Current Medications Medications (Trade) Dose Ordered Sig/Aurora Route PRN Reason Start Time Stop Time Status Last Admin Dose Admin Acetaminophen (Tylenol) 500 mg Q4HR PRN ORAL Temp >100.5 04/27/20 00:15 05/27/20 00:14 05/13/20 14:18 Acetaminophen (Tylenol) 650 mg Q4H PRN NG Mild Pain (Pain Scale 1-3) 05/14/20 01:30 06/13/20 01:29 05/14/20 05:41 Cefepime HCl 1 gm/ Dextrose 55 ml @ 110 mls/hr EVERY 12 HOURS IVPB 05/10/20 13:15 05/17/20 13:14 05/14/20 08:32 Chlorhexidine Gluconate (Anjali-Hex 2%) 1 applic DAILY@2000 TOPIC 04/29/20 20:00 07/28/20 19:59 05/13/20 19:37 Dextrose/Sodium Chloride 1,000 ml @ 75 mls/hr [id number] IV 05/04/20 14:30 06/03/20 14:29 05/14/20 00:23 Docusate Sodium (Colace) 100 mg TWICE A DAY GT 05/13/20 21:00 06/12/20 20:59 05/14/20 08:32 Famotidine (Pepcid) 20 mg BID GT 05/04/20 18:00 08/02/20 17:59 05/14/20 08:31 Levetiracetam 100 ml @ 400 mls/hr Q12HR IVPB 04/28/20 21:00 07/27/20 20:59 05/14/20 08:32 Lorazepam (Ativan 2mg/ml 1ml) 2 mg Q3H PRN IV Agitation 05/14/20 09:45 05/21/20 09:44 Lorazepam (Ativan 2mg/ml 1ml) 2 mg Q3H PRN IV For Anxiety 05/14/20 09:45 05/21/20 09:44 Lorazepam (Ativan 2mg/ml 1ml) 2 mg Q3H PRN IV Seziure 05/14/20 09:45 05/21/20 09:44 Midodrine (Pro-Amatine) 10 mg Q8HR GT 05/04/20 14:00 08/02/20 13:59 05/14/20 05:40 Norepinephrine Bitartrate 250 ml @ 7.5 mls/hr Q24H IV 05/13/20 06:30 05/16/20 06:21 05/14/20 00:43 Vancomycin HCl (Vanco pharmacy to dose) 1 ea DAILY PRN MISC Per rx protocol 05/13/20 13:00 06/12/20 12:59 Vancomycin HCl 750 mg/Sodium Chloride 275 ml @ 183.333 mls/hr Q12H IVPB 05/14/20 02:00 05/19/20 01:59 05/14/20 01:33 Assessment/Plan Assessment/Plan 1. COVID-19 pneumonia, diagnosed approximately on 04/14/2020. - CXR 04/30 Slightly improved bilateral infiltrates, possible small right pleural effusion - CXR 05/08 improving - CXR 05/11 worsening - s/p completed Decadron - s/p ceftriaxone and azithromycin per ID - now intubated, saturating well on current setting; however respiratory acidosis 2. Seizure disorder. - on antiepileptics 3. Hypotension. Now resolved 4. possible aspiration pneumonia with new onset fever (Tmax 101.1) - CXR shows left lung infiltrates - on Cefepime per ID - d/w ID 5. DVT ppx - on SCD 6. Septic shock - ID following - on cefepime and IV Vanco per ID 7. Respiratory acidosis - monitor ABG s/p NG tube placement off fluid boluses and dopamine seen in ICU The care for this patient was discussed with my supervising physician Time spent for this case was approximately 31 minutes Brett Shore May 14, 2020 13:35 Radhames Jc MD May 14, 2020 15:39
[2020-05-14] MEDS ORDERED: Potassium Chloride 40 MEQ in D5W 275 ML IV SCH (15:00)
--- NOTE | 2020-05-14 15:01 | Cardiac Electrophysiology PN ---
Assessment/Plan Assessment/Plan 1. Septic shock on Levophed 1 mcg and IV antibiotic. Echo Nl EF 2. Respiratory failure due to COVID pneumonia, on dexamethasone On the Vent now 3. Sinus tachycardia due to fever and sepsis and respiratory failure 4. Seizure disorder and altered level of consciousness on Keppra. 5. NPO as failed swallow eval on iv fluid NGT is in. Consent pending for PEG DW RN Subjective Subjective In Covid isolation intubated at 2 am. On 100% Fio2 and PEEP 15 and on Levophed. Objective Last 24 Hour Vital Signs Date Time Temp Pulse Resp B/P (MAP) Pulse Ox O2 Delivery O2 Flow Rate FiO2 05/14/20 14:30 102 31 102/59 (73) 95 05/14/20 14:00 99 30 97/66 (76) 95 05/14/20 13:30 99 32 102/66 (78) 94 05/14/20 13:00 104 28 112/64 (80) 97 05/14/20 12:30 100 21 102/63 (76) 97 05/14/20 12:00 Mechanical Ventilator 05/14/20 12:00 97.1 102 24 103/62 (76) 98 05/14/20 12:00 108 05/14/20 12:00 100 05/14/20 11:30 109 28 105/62 (76) 97 05/14/20 11:00 106 20 92/67 (75) 96 05/14/20 11:00 108 31 100 05/14/20 10:30 108 20 96/60 (72) 95 05/14/20 10:00 117 22 90/53 (65) 95 05/14/20 09:30 132 32 107/65 (79) 95 05/14/20 09:00 135 30 104/68 (80) 95 05/14/20 08:30 137 30 102/66 (78) 100 05/14/20 08:00 Mechanical Ventilator 05/14/20 08:00 99.7 139 29 105/65 (78) 99 05/14/20 08:00 100 05/14/20 08:00 143 05/14/20 07:30 141 27 116/63 (80) 99 05/14/20 07:00 138 30 95/67 (76) 97 05/14/20 06:30 139 28 95/66 (76) 98 05/14/20 06:30 141 24 100 05/14/20 06:00 138 29 92/67 (75) 97 05/14/20 05:30 137 28 105/63 (77) 97 05/14/20 05:00 138 29 99/67 (78) 98 05/14/20 04:30 138 30 107/68 (81) 99 05/14/20 04:00 98.0 138 30 103/68 (80) 99 05/14/20 04:00 137 05/14/20 04:00 100 05/14/20 04:00 Mechanical Ventilator 05/14/20 03:30 134 28 99/66 (77) 100 05/14/20 03:00 133 27 111/64 (80) 98 05/14/20 03:00 131 26 100 05/14/20 02:30 134 26 105/68 (80) 98 05/14/20 02:00 135 43 110/60 (77) 99 05/14/20 01:30 126 29 107/70 (82) 99 05/14/20 01:00 129 29 119/72 (88) 99 05/14/20 00:43 119/71 05/14/20 00:30 128 28 119/71 (87) 100 05/14/20 00:00 100 05/14/20 00:00 129 05/14/20 00:00 97.8 127 27 106/66 (79) 100 05/14/20 00:00 Mechanical Ventilator 05/13/20 23:41 132 31 100 05/13/20 23:30 131 30 111/69 (83) 100 05/13/20 23:00 133 30 110/69 (83) 99 05/13/20 22:30 136 30 112/66 (81) 99 05/13/20 22:00 141 30 106/66 (79) 99 05/13/20 21:30 142 30 116/66 (83) 99 05/13/20 21:00 144 31 110/62 (78) 98 05/13/20 20:30 140 30 127/74 (91) 99 05/13/20 20:00 98.8 136 31 117/78 (91) 99 05/13/20 20:00 Mechanical Ventilator 05/13/20 20:00 100 05/13/20 20:00 138 05/13/20 19:30 130 25 126/73 (90) 98 05/13/20 19:18 127 34 100 05/13/20 19:00 111 32 123/69 (87) 99 05/13/20 18:00 96 33 111/66 (81) 100 05/13/20 17:15 95 32 111/71 (84) 100 05/13/20 17:00 95 33 115/70 (85) 100 05/13/20 16:45 96 33 115/72 (86) 100 05/13/20 16:30 94 31 121/78 (92) 100 05/13/20 16:15 100.0 95 32 112/68 (83) 100 05/13/20 16:00 100 05/13/20 16:00 Endotracheal Tube 05/13/20 16:00 93 05/13/20 16:00 94 34 107/69 (82) 100 05/13/20 15:15 105 32 106/66 (79) 99 05/13/20 15:00 113 31 113/70 (84) 98 Intake and Output 05/13/20 05/14/20 19:00 07:00 Intake Total 2994.916 ml 1858.125 ml Output Total 805 ml 890 ml Balance 2189.916 ml 968.125 ml IV Total 2079.916 ml 1378.125 ml Tube Feeding 880 ml 480 ml Other 35 ml Output Urine Total 805 ml 890 ml Laboratory Tests Test 05/14/20 03:50 05/14/20 09:18 White Blood Count 14.6 K/UL (4.8-10.8) H Red Blood Count 3.50 M/UL (4.70-6.10) L Hemoglobin 10.5 G/DL (14.2-18.0) L Hematocrit 32.9 % (42.0-52.0) L Mean Corpuscular Volume 94 FL (80-99) Mean Corpuscular Hemoglobin 30.1 PG (27.0-31.0) Mean Corpuscular Hemoglobin Concent 31.9 G/DL (32.0-36.0) L Red Cell Distribution Width 15.7 % (11.6-14.8) H Platelet Count 159 K/UL (150-450) Mean Platelet Volume 7.4 FL (6.5-10.1) Neutrophils (%) (Auto) % (45.0-75.0) Lymphocytes (%) (Auto) % (20.0-45.0) Monocytes (%) (Auto) % (1.0-10.0) Eosinophils (%) (Auto) % (0.0-3.0) Basophils (%) (Auto) % (0.0-2.0) Differential Total Cells Counted 100 Neutrophils % (Manual) 90 % (45-75) H Lymphocytes % (Manual) 6 % (20-45) L Monocytes % (Manual) 3 % (1-10) Eosinophils % (Manual) 0 % (0-3) Basophils % (Manual) 0 % (0-2) Band Neutrophils 1 % (0-8) Platelet Estimate Adequate Platelet Morphology Normal Hypochromasia 1+ Anisocytosis 1+ Sodium Level 146 MMOL/L (136-145) H Potassium Level 2.8 MMOL/L (3.5-5.1) L Chloride Level 109 MMOL/L (98-107) H Carbon Dioxide Level 32 MMOL/L (21-32) Anion Gap 5 mmol/L (5-15) Blood Urea Nitrogen 12 mg/dL (7-18) Creatinine 0.5 MG/DL (0.55-1.30) L Estimat Glomerular Filtration Rate > 60 mL/min (>60) Glucose Level 119 MG/DL (74-106) H Calcium Level 7.6 MG/DL (8.5-10.1) L Magnesium Level 2.1 MG/DL (1.8-2.4) Arterial Blood pH 7.333 (7.350-7.450) Arterial Blood Partial Pressure CO2 64.3 mmHg (35.0-45.0) *H Arterial Blood Partial Pressure O2 73.9 mmHg (75.0-100.0) L Arterial Blood HCO3 33.4 mmol/L (22.0-26.0) H Arterial Blood Oxygen Saturation 94.8 % (95-100) L Arterial Blood Base Excess 5.9 (-2-2) H Kobi Test Positive Objective HEAD AND NECK: No JVD. Orally intubated. LUNGS: Coarse rhonchi. CARDIOVASCULAR: Regular S1 and S2. Mildly tachycardic. ABDOMEN: Soft. EXTREMITIES: 1+ pitting edema. Shady Sorto MD May 14, 2020 15:01
[2020-05-14] MEDS ORDERED: Tubing IV Secondary IV ONE (15:58)
--- NOTE | 2020-05-14 16:32 | Nephrology Progress Note ---
Assessment/Plan Problem List: (1) Septic shock (2) Acute febrile illness (3) Suspected 2019 novel coronavirus infection (4) Seizure disorder (5) Electrolyte imbalance Assessment Acute febrile illness most likely benton virus infection Hypotension ( Shock) ,on dopamine Seizure disorder Plan May 14: Patient remains intubated on ventilator. Potassium low. Potassium IV ordered. Continue per consultants. May 13: Patient now in ICU. Intubated on ventilator. Has Knapp catheter. On pressors. Today's labs pending. Bolus of albumin 25% given. Discussed with VELASQUEZ [place]. Continue to monitor electrolytes and renal parameters. May 12: When seen earlier patient had respiratory distress. At this time the patient is transferred to [facility]. In Covid isolation . Transferred to SDU for desaturation and likely needs BIPAP. Has NG tube in. PEG is pending consent Labs reviewed. K-Phos replacement ordered. Continue to monitor renal parameters. May 11: Today's labs not drawn. Will check labs tomorrow. Continue per consultants May 10: No labs drawn today. Will check lab tomorrow. Continue per consultants. May 09: No labs drawn today. Remains stable from renal standpoint review. Continue to monitor her electrolytes and renal parameters. Continue per consultants. May 08: Labs reviewed. Abnormal electrolytes addressed. Leukocytosis down from 20,000-16,000. Continue per consultants. May 07: Labs reviewed. Potassium phosphorus replaced. White blood cells up to 20,000. Continue per consultants. May 06: No labs drawn today. Continue per consultants. Check labs in a.m. May 05: Labs reviewed. Stable renal parameters. Continue per consultants. May 04: No labs drawn today. Stable from renal standpoint of view. Medication list reviewed. Started on midodrine for low blood pressure. Patient on tube feeding. May 03: Labs reviewed. Potassium replaced. Continue per consultants. May 02: Labs reviewed. Potassium and phosphorus were replaced. Continue per consultants. May 01: No labs drawn today. Stable from renal standpoint of view. We will continue to monitor renal parameters and electrolytes. April 30: Patient seen earlier in ICU. Abnormal electrolytes noted and addressed. Due transfer to telemetry. Continue per consultants. April 29: Patient hemodynamically improved. Urine output improved. Abnormal electrolytes reviewed and addressed. Continue per consultants. April 28: Keppra changed to IV. POA is held until speech therapy evaluation. Potassium phosphate IV. Ordered. Discussed with Beth ENG. Remains stable from renal standpoint of view. Albumin 5% 500 cc challenge ordered. Fluid challenge Monitor renal parameters Monitor electrolytes Per consultants Per orders Subjective ROS Limited/Unobtainable: Yes Objective Objective Last 24 Hour Vital Signs Date Time Temp Pulse Resp B/P (MAP) Pulse Ox O2 Delivery O2 Flow Rate FiO2 05/14/20 16:00 100 05/14/20 15:30 107 35 116/68 (84) 92 05/14/20 15:00 101 30 114/64 (81) 95 05/14/20 14:30 102 31 102/59 (73) 95 05/14/20 14:00 99 30 97/66 (76) 95 05/14/20 13:30 99 32 102/66 (78) 94 05/14/20 13:00 104 28 112/64 (80) 97 05/14/20 12:30 100 21 102/63 (76) 97 05/14/20 12:00 Mechanical Ventilator 05/14/20 12:00 97.1 102 24 103/62 (76) 98 05/14/20 12:00 108 05/14/20 12:00 100 05/14/20 11:30 109 28 105/62 (76) 97 05/14/20 11:00 106 20 92/67 (75) 96 05/14/20 11:00 108 31 100 05/14/20 10:30 108 20 96/60 (72) 95 05/14/20 10:00 117 22 90/53 (65) 95 05/14/20 09:30 132 32 107/65 (79) 95 05/14/20 09:00 135 30 104/68 (80) 95 05/14/20 08:30 137 30 102/66 (78) 100 05/14/20 08:00 Mechanical Ventilator 05/14/20 08:00 99.7 139 29 105/65 (78) 99 05/14/20 08:00 100 05/14/20 08:00 143 05/14/20 07:30 141 27 116/63 (80) 99 05/14/20 07:00 138 30 95/67 (76) 97 05/14/20 06:30 139 28 95/66 (76) 98 05/14/20 06:30 141 24 100 05/14/20 06:00 138 29 92/67 (75) 97 05/14/20 05:30 137 28 105/63 (77) 97 05/14/20 05:00 138 29 99/67 (78) 98 05/14/20 04:30 138 30 107/68 (81) 99 05/14/20 04:00 98.0 138 30 103/68 (80) 99 05/14/20 04:00 137 05/14/20 04:00 100 05/14/20 04:00 Mechanical Ventilator 05/14/20 03:30 134 28 99/66 (77) 100 05/14/20 03:00 133 27 111/64 (80) 98 05/14/20 03:00 131 26 100 05/14/20 02:30 134 26 105/68 (80) 98 05/14/20 02:00 135 43 110/60 (77) 99 05/14/20 01:30 126 29 107/70 (82) 99 05/14/20 01:00 129 29 119/72 (88) 99 05/14/20 00:43 119/71 05/14/20 00:30 128 28 119/71 (87) 100 05/14/20 00:00 100 05/14/20 00:00 129 05/14/20 00:00 97.8 127 27 106/66 (79) 100 05/14/20 00:00 Mechanical Ventilator 05/13/20 23:41 132 31 100 05/13/20 23:30 131 30 111/69 (83) 100 05/13/20 23:00 133 30 110/69 (83) 99 05/13/20 22:30 136 30 112/66 (81) 99 05/13/20 22:00 141 30 106/66 (79) 99 05/13/20 21:30 142 30 116/66 (83) 99 05/13/20 21:00 144 31 110/62 (78) 98 05/13/20 20:30 140 30 127/74 (91) 99 05/13/20 20:00 98.8 136 31 117/78 (91) 99 05/13/20 20:00 Mechanical Ventilator 05/13/20 20:00 100 05/13/20 20:00 138 05/13/20 19:30 130 25 126/73 (90) 98 05/13/20 19:18 127 34 100 05/13/20 19:00 111 32 123/69 (87) 99 05/13/20 18:00 96 33 111/66 (81) 100 05/13/20 17:15 95 32 111/71 (84) 100 05/13/20 17:00 95 33 115/70 (85) 100 05/13/20 16:45 96 33 115/72 (86) 100 Intake and Output 05/13/20 05/14/20 19:00 07:00 Intake Total 2994.916 ml 1858.125 ml Output Total 805 ml 890 ml Balance 2189.916 ml 968.125 ml IV Total 2079.916 ml 1378.125 ml Tube Feeding 880 ml 480 ml Other 35 ml Output Urine Total 805 ml 890 ml Laboratory Tests 05/14/20 03:50: White Blood Count 14.6H, Red Blood Count 3.50L, Hemoglobin 10.5L, Hematocrit 32.9L, Mean Corpuscular Volume 94, Mean Corpuscular Hemoglobin 30.1, Mean Corpuscular Hemoglobin Concent 31.9L, Red Cell Distribution Width 15.7H, Platelet Count 159, Mean Platelet Volume 7.4, Neutrophils (%) (Auto) , Lymphocy arabella (%) (Auto) , Monocytes (%) (Auto) , Eosinophils (%) (Auto) , Basophils (%) (Auto) , Differential Total Cells Counted 100, Neutrophils % (Manual) 90H, Lymphocytes % (Manual) 6L, Monocytes % (Manual) 3, Eosinophils % (Manual) 0, Basophils % (Manual) 0, Band Neutrophils 1, Platelet Estimate Adequate, Platelet Morphology Normal, Hypochromasia 1+, Anisocytosis 1+, Sodium Level 146H, Potassium Level 2.8L, Chloride Level 109H, Carbon Dioxide Level 32, Anion Gap 5, Blood Urea Nitrogen 12, Creatinine 0.5L, Estimat Glomerular Filtration Rate > 60, Glucose Level 119H, Calcium Level 7.6L, Magnesium Level 2.1 05/14/20 09:18: Arterial Blood pH 7.333L, Arterial Blood Partial Pressure CO2 64.3*H, Arterial Blood Partial Pressure O2 73.9L, Arterial Blood HCO3 33.4H, Arterial Blood Oxygen Saturation 94.8L, Arterial Blood Base Excess 5.9H, Kobi Test Positive Height (Feet): 5 Height (Inches): 8.00 Weight (Pounds): 130 General Appearance: no apparent distress EENT: other - Intubated on mechanical ventilator Cardiovascular: tachycardia Respiratory/Chest: decreased breath sounds Abdomen: distended Objective No change Abhilash Clark MD May 14, 2020 16:32
[2020-05-14] MEDS: LORazepam Inj 2mg/ml 1ml IV PRN ×2 (17:32→20:13)
[2020-05-14] MEDS: Dyna-Hex 2% Top Sol 2oz TOPIC SCH (19:49)
--- NOTE | 2020-05-14 20:28 | General Progress Note ---
Subjective ROS Limited/Unobtainable: Yes Allergies: Coded Allergies: No Known Allergies (Unverified , 04/14/20) Objective Last 24 Hour Vital Signs Date Time Temp Pulse Resp B/P (MAP) Pulse Ox O2 Delivery O2 Flow Rate FiO2 05/14/20 20:13 130 39 114/70 90 05/14/20 19:47 128 35 100 05/14/20 19:00 130 36 103/62 (76) 95 05/14/20 18:02 138 38 106/67 92 05/14/20 18:00 138 38 106/67 (80) 92 05/14/20 17:32 132 46 105/56 92 05/14/20 17:00 130 39 130/72 (91) 91 05/14/20 16:30 118 36 118/71 (87) 91 05/14/20 16:00 Mechanical Ventilator 05/14/20 16:00 100 05/14/20 16:00 98.4 112 35 120/65 (83) 91 05/14/20 16:00 104 05/14/20 15:30 107 35 116/68 (84) 92 05/14/20 15:00 101 30 114/64 (81) 95 05/14/20 15:00 119 38 100 05/14/20 14:30 102 31 102/59 (73) 95 05/14/20 14:00 99 30 97/66 (76) 95 05/14/20 13:30 99 32 102/66 (78) 94 05/14/20 13:00 104 28 112/64 (80) 97 05/14/20 12:30 100 21 102/63 (76) 97 05/14/20 12:00 Mechanical Ventilator 05/14/20 12:00 97.1 102 24 103/62 (76) 98 05/14/20 12:00 108 05/14/20 12:00 100 05/14/20 11:30 109 28 105/62 (76) 97 05/14/20 11:00 106 20 92/67 (75) 96 05/14/20 11:00 108 31 100 05/14/20 10:30 108 20 96/60 (72) 95 05/14/20 10:00 117 22 90/53 (65) 95 05/14/20 09:30 132 32 107/65 (79) 95 05/14/20 09:00 135 30 104/68 (80) 95 05/14/20 08:30 137 30 102/66 (78) 100 05/14/20 08:00 Mechanical Ventilator 05/14/20 08:00 99.7 139 29 105/65 (78) 99 05/14/20 08:00 100 05/14/20 08:00 143 05/14/20 07:30 141 27 116/63 (80) 99 05/14/20 07:00 138 30 95/67 (76) 97 05/14/20 06:30 139 28 95/66 (76) 98 05/14/20 06:30 141 24 100 05/14/20 06:00 138 29 92/67 (75) 97 05/14/20 05:30 137 28 105/63 (77) 97 05/14/20 05:00 138 29 99/67 (78) 98 05/14/20 04:30 138 30 107/68 (81) 99 05/14/20 04:00 98.0 138 30 103/68 (80) 99 05/14/20 04:00 137 05/14/20 04:00 100 05/14/20 04:00 Mechanical Ventilator 05/14/20 03:30 134 28 99/66 (77) 100 05/14/20 03:00 133 27 111/64 (80) 98 05/14/20 03:00 131 26 100 05/14/20 02:30 134 26 105/68 (80) 98 05/14/20 02:00 135 43 110/60 (77) 99 05/14/20 01:30 126 29 107/70 (82) 99 05/14/20 01:00 129 29 119/72 (88) 99 05/14/20 00:43 119/71 05/14/20 00:30 128 28 119/71 (87) 100 05/14/20 00:00 100 05/14/20 00:00 129 05/14/20 00:00 97.8 127 27 106/66 (79) 100 05/14/20 00:00 Mechanical Ventilator 05/13/20 23:41 132 31 100 05/13/20 23:30 131 30 111/69 (83) 100 05/13/20 23:00 133 30 110/69 (83) 99 05/13/20 22:30 136 30 112/66 (81) 99 05/13/20 22:00 141 30 106/66 (79) 99 05/13/20 21:30 142 30 116/66 (83) 99 05/13/20 21:00 144 31 110/62 (78) 98 05/13/20 20:30 140 30 127/74 (91) 99 Intake and Output 05/13/20 05/14/20 19:00 07:00 Intake Total 2994.916 ml 1858.125 ml Output Total 805 ml 890 ml Balance 2189.916 ml 968.125 ml IV Total 2079.916 ml 1378.125 ml Tube Feeding 880 ml 480 ml Other 35 ml Output Urine Total 805 ml 890 ml Laboratory Tests 05/14/20 03:50: White Blood Count 14.6H, Red Blood Count 3.50L, Hemoglobin 10.5L, Hematocrit 32.9L, Mean Corpuscular Volume 94, Mean Corpuscular Hemoglobin 30.1, Mean Corpuscular Hemoglobin Concent 31.9L, Red Cell Distribution Width 15.7H, Platelet Count 159, Mean Platelet Volume 7.4, Neutrophils (%) (Auto) , Lymphocytes (%) (Auto) , Monocytes (%) (Auto) , Eosinophils (%) (Auto) , Basophils (%) (Auto) , Differential Total Cells Counted 100, Neutrophils % (Manual) 90H, Lymphocytes % (Manual) 6L, Monocytes % (Manual) 3, Eosinophils % (Manual) 0, Basophils % (Manual) 0, Band Neutrophils 1, Platelet Estimate Adequate, Platelet Morphology Normal, Hypochromasia 1+, Anisocytosis 1+, Sodium Level 146H, Potassium Level 2.8L, Chloride Level 109H, Carbon Dioxide Level 32, Anion Gap 5, Blood Urea Nitrogen 12, Creatinine 0.5L, Estimat Glomerular Filtration Rate > 60, Glucose Level 119H, Calcium Level 7.6L, Magnesium Level 2.1 05/14/20 09:18: Arterial Blood pH 7.333L, Arterial Blood Partial Pressure CO2 64.3*H, Arterial Blood Partial Pressure O2 73.9L, Arterial Blood HCO3 33.4H, Arterial Blood Oxygen Saturation 94.8L, Arterial Blood Base Excess 5.9H, Kobi Test Positive Height (Feet): 5 Height (Inches): 8.00 Weight (Pounds): 130 Assessment/Plan Problem List: (1) Coronavirus infection ICD Codes: B34.2 - Coronavirus infection, unspecified SNOMED: 911794823 (2) Septic shock ICD Codes: A41.9 - Sepsis, unspecified organism; R65.21 - Severe sepsis with septic shock SNOMED: 24004585 (3) Seizure disorder ICD Codes: G40.909 - Epilepsy, unspecified, not intractable, without status epilepticus SNOMED: 125988433 (4) Electrolyte imbalance ICD Codes: E87.8 - Other disorders of electrolyte and fluid balance, not elsewhere classified SNOMED: 958961813 Status: progressing, unchanged Assessment/Plan: covid positive sepsis respiratory failure supportive oxygen prn intermittent fever anemia Zain Mares MD May 14, 2020 20:28
--- NOTE | 2020-05-14 20:30 | General Progress Note ---
Subjective Allergies: Coded Allergies: No Known Allergies (Unverified , 04/14/20) Subjective Above noted seen in ICU d/w RN tolerating TF Objective Last 24 Hour Vital Signs Date Time Temp Pulse Resp B/P (MAP) Pulse Ox O2 Delivery O2 Flow Rate FiO2 05/14/20 20:13 130 39 114/70 90 05/14/20 19:47 128 35 100 05/14/20 19:00 130 36 103/62 (76) 95 05/14/20 18:02 138 38 106/67 92 05/14/20 18:00 138 38 106/67 (80) 92 05/14/20 17:32 132 46 105/56 92 05/14/20 17:00 130 39 130/72 (91) 91 05/14/20 16:30 118 36 118/71 (87) 91 05/14/20 16:00 Mechanical Ventilator 05/14/20 16:00 100 05/14/20 16:00 98.4 112 35 120/65 (83) 91 05/14/20 16:00 104 05/14/20 15:30 107 35 116/68 (84) 92 05/14/20 15:00 101 30 114/64 (81) 95 05/14/20 15:00 119 38 100 05/14/20 14:30 102 31 102/59 (73) 95 05/14/20 14:00 99 30 97/66 (76) 95 05/14/20 13:30 99 32 102/66 (78) 94 05/14/20 13:00 104 28 112/64 (80) 97 05/14/20 12:30 100 21 102/63 (76) 97 05/14/20 12:00 Mechanical Ventilator 05/14/20 12:00 97.1 102 24 103/62 (76) 98 05/14/20 12:00 108 05/14/20 12:00 100 05/14/20 11:30 109 28 105/62 (76) 97 05/14/20 11:00 106 20 92/67 (75) 96 05/14/20 11:00 108 31 100 05/14/20 10:30 108 20 96/60 (72) 95 05/14/20 10:00 117 22 90/53 (65) 95 05/14/20 09:30 132 32 107/65 (79) 95 05/14/20 09:00 135 30 104/68 (80) 95 05/14/20 08:30 137 30 102/66 (78) 100 05/14/20 08:00 Mechanical Ventilator 05/14/20 08:00 99.7 139 29 105/65 (78) 99 05/14/20 08:00 100 05/14/20 08:00 143 05/14/20 07:30 141 27 116/63 (80) 99 05/14/20 07:00 138 30 95/67 (76) 97 05/14/20 06:30 139 28 95/66 (76) 98 05/14/20 06:30 141 24 100 05/14/20 06:00 138 29 92/67 (75) 97 05/14/20 05:30 137 28 105/63 (77) 97 05/14/20 05:00 138 29 99/67 (78) 98 05/14/20 04:30 138 30 107/68 (81) 99 05/14/20 04:00 98.0 138 30 103/68 (80) 99 05/14/20 04:00 137 05/14/20 04:00 100 05/14/20 04:00 Mechanical Ventilator 05/14/20 03:30 134 28 99/66 (77) 100 05/14/20 03:00 133 27 111/64 (80) 98 05/14/20 03:00 131 26 100 05/14/20 02:30 134 26 105/68 (80) 98 05/14/20 02:00 135 43 110/60 (77) 99 05/14/20 01:30 126 29 107/70 (82) 99 05/14/20 01:00 129 29 119/72 (88) 99 05/14/20 00:43 119/71 05/14/20 00:30 128 28 119/71 (87) 100 05/14/20 00:00 100 05/14/20 00:00 129 05/14/20 00:00 97.8 127 27 106/66 (79) 100 05/14/20 00:00 Mechanical Ventilator 05/13/20 23:41 132 31 100 05/13/20 23:30 131 30 111/69 (83) 100 05/13/20 23:00 133 30 110/69 (83) 99 12/31/20 22:30 136 30 112/66 (81) 99 05/13/20 22:00 141 30 106/66 (79) 99 05/13/20 21:30 142 30 116/66 (83) 99 05/13/20 21:00 144 31 110/62 (78) 98 05/13/20 20:30 140 30 127/74 (91) 99 Intake and Output 05/13/20 05/14/20 19:00 07:00 Intake Total 2994.916 ml 1858.125 ml Output Total 805 ml 890 ml Balance 2189.916 ml 968.125 ml IV Total 2079.916 ml 1378.125 ml Tube Feeding 880 ml 480 ml Other 35 ml Output Urine Total 805 ml 890 ml Laboratory Tests 05/14/20 03:50: White Blood Count 14.6H, Red Blood Count 3.50L, Hemoglobin 10.5L, Hematocrit 32.9L, Mean Corpuscular Volume 94, Mean Corpuscular Hemoglobin 30.1, Mean Co rpuscular Hemoglobin Concent 31.9L, Red Cell Distribution Width 15.7H, Platelet Count 159, Mean Platelet Volume 7.4, Neutrophils (%) (Auto) , Lymphocytes (%) (Auto) , Monocytes (%) (Auto) , Eosinophils (%) (Auto) , Basophils (%) (Auto) , Differential Total Cells Counted 100, Neutrophils % (Manual) 90H, Lymphocytes % (Manual) 6L, Monocytes % (Manual) 3, Eosinophils % (Manual) 0, Basophils % (Manual) 0, Band Neutrophils 1, Platelet Estimate Adequate, Platelet Morphology Normal, Hypochromasia 1+, Anisocytosis 1+, Sodium Level 146H, Potassium Level 2.8L, Chloride Level 109H, Carbon Dioxide Level 32, Anion Gap 5, Blood Urea Nitrogen 12, Creatinine 0.5L, Estimat Glomerular Filtration Rate > 60, Glucose Level 119H, Calcium Level 7.6L, Magnesium Level 2.1 05/14/20 09:18: Arterial Blood pH 7.333L, Arterial Blood Partial Pressure CO2 64.3*H, Arterial Blood Partial Pressure O2 73.9L, Arterial Blood HCO3 33.4H, Arterial Blood Oxygen Saturation 94.8L, Arterial Blood Base Excess 5.9H, Kobi Test Positive Height (Feet): 5 Height (Inches): 8.00 Weight (Pounds): 130 Objective Elderly man on vent NCAT supple Coarse BS RR abd soft flat no edema Assessment/Plan Status: progressing, unchanged Assessment/Plan: Assessment Resp failure Seizure d/o HTN Dysphagia COVID (+) CHF GERD poor prognosis Recommendations Continue tube feeds Elevate HOB follow labs and exam ICU care need to locate family - PROBATION AND PATROL AGENT to help Екатерина Whalen MD May 14, 2020 20:30
--- NOTE | 2020-05-14 20:56 | Psychiatric Progress Note ---
Psychiatry Progress Note Psychiatry Progress Note Medications Current Medications Medications (Trade) Dose Ordered Sig/[place] Route PRN Reason Start Time Stop Time Status Last Admin Dose Admin Acetaminophen (Tylenol) 500 mg Q4HR PRN ORAL Temp >100.5 04/27/20 00:15 05/27/20 00:14 05/13/20 14:18 Acetaminophen (Tylenol) 650 mg Q4H PRN NG Mild Pain (Pain Scale 1-3) 05/14/20 01:30 06/13/20 01:29 05/14/20 05:41 Cefepime HCl 1 gm/ Dextrose 55 ml @ 110 mls/hr EVERY 12 HOURS IVPB 05/10/20 13:15 05/17/20 13:14 05/14/20 08:32 Chlorhexidine Gluconate (Anjali-Hex 2%) 1 applic DAILY@2000 TOPIC 04/29/20 20:00 07/28/20 19:59 05/14/20 19:49 Dextrose/Sodium Chloride 1,000 ml @ 75 mls/hr [id number] IV 05/04/20 14:30 06/03/20 14:29 05/14/20 13:58 Docusate Sodium (Colace) 100 mg TWICE A DAY GT 05/13/20 21:00 06/12/20 20:59 05/14/20 17:19 Famotidine (Pepcid) 20 mg BID GT 05/04/20 18:00 08/02/20 17:59 05/14/20 17:19 Levetiracetam 100 ml @ 400 mls/hr Q12HR IVPB 04/28/20 21:00 07/27/20 20:59 05/14/20 20:12 Lorazepam (Ativan 2mg/ml 1ml) 1 mg Q2H PRN IV For Anxiety 05/14/20 13:45 05/21/20 09:44 05/14/20 20:13 Lorazepam (Ativan 2mg/ml 1ml) 1 mg Q2H PRN IV Agitation 05/14/20 13:45 05/21/20 09:44 Lorazepam (Ativan 2mg/ml 1ml) 2 mg Q3H PRN IV Seziure 05/14/20 09:45 05/21/20 09:44 Midodrine (Pro-Amatine) 10 mg Q8HR GT 05/04/20 14:00 08/02/20 13:59 05/14/20 13:58 Norepinephrine Bitartrate 250 ml @ 7.5 mls/hr Q24H IV 05/13/20 06:30 05/16/20 06:21 05/14/20 00:43 Vancomycin HCl ([facility] pharmacy to dose) 1 ea DAILY PRN MISC Per rx protocol 05/13/20 13:00 06/12/20 12:59 Vancomycin HCl 750 mg/Sodium Chloride 275 ml @ 183.333 mls/hr Q12H IVPB 05/14/20 02:00 05/19/20 01:59 05/14/20 13:58 Neurological/Psychiatric: Reports: anxiety, depressed, emotional problems Allergies: Coded Allergies: No Known Allergies (Unverified , 04/14/20) Objective Data Height (Feet): 5 Height (Inches): 8.00 Weight (Pounds): 130 General Appearance: no apparent distress Additional Comments: having waxing and waning consciousness. Mood is anxious. Affect is blunted, congruent with mood. Thought process is concrete. Thought content, no suicidal or homicidal ideation. Cognition is impaired. Insight and judgment is impaired. ASSESSMENT: [place] I Acute metabolic encephalopathy. Dementia. [place] II Deferred. [place] III As above. [place] IV Low. [place] V 20. PLAN: 1. We will start patient on Haldol p.r.n. 2. Bilateral soft restraints. Assessment/Plan Status: progressing, unchanged Davion Camacho MD May 14, 2020 20:56
[2020-05-15] VITALS (47 sets, daily range): BP systolic 86–121; BP diastolic 52–80
[2020-05-15] MEDS: LORazepam Inj 2mg/ml 1ml IV PRN ×7 (00:54→22:46)
[2020-05-15] MEDS: Acetaminophen 500mg (ES) tab ORAL PRN ×2 (01:02→13:51)
[2020-05-15] MEDS: Norepinephrine 4mg/NS Premix 250 ML IV SCH ×4 (01:56→20:33)
[2020-05-15] MEDS: Vancomycin 1.25gm/Ns 275 ML IVPB SCH ×6 (02:33→18:04)
[2020-05-15] MEDS: D5NS 1,000 ML IV SCH ×2 (03:48→16:00)
[2020-05-15 04:49] LABS: HEMATOCRIT 32.7 % (42.0-52.0); HEMOGLOBIN 10.5 G/DL (14.2-18.0); MEAN CORPUSCULAR VOLUME 94 FL (80-99); PLATELET COUNT 100 K/UL (150-450); RED CELL DISTRIBUTION WIDTH 15.5 % (11.6-14.8); WHITE BLOOD COUNT 16.9 K/UL (4.8-10.8)
[2020-05-15 05:14] LABS: ALANINE AMINOTRANSFERASE 20 U/L (12-78); ALBUMIN 1.3 G/DL (3.4-5.0); ALBUMIN/GLOBULIN RATIO 0.3 (1.0-2.7); ALKALINE PHOSPHATASE 128 U/L (46-116); ASPARTATE AMINO TRANSFERASE 42 U/L (15-37); BILIRUBIN,TOTAL 1.6 MG/DL (0.2-1.0); BLOOD UREA NITROGEN 14 mg/dL (7-18); CALCIUM 7.6 MG/DL (8.5-10.1); CARBON DIOXIDE 32 MMOL/L (21-32); CREATININE 0.6 MG/DL (0.55-1.30); POTASSIUM 3.1 MMOL/L (3.5-5.1); SODIUM 144 MMOL/L (136-145)
[2020-05-15] MEDS: Midodrine 10mg tab GT SCH ×3 (05:30→21:19)
[2020-05-15 05:48] LABS: BILIRUBIN,DIRECT 1.1 MG/DL (0.0-0.3)
[2020-05-15 06:16] LABS: CHLORIDE 106 MMOL/L (98-107); PHOSPHORUS 1.4 MG/DL (2.5-4.9)
[2020-05-15] MEDS: Docusate 100mg/10ml Liq GT SCH ×2 (08:43→18:03)
[2020-05-15] MEDS: levETIRAcetam 500mg/NS100ml 100 ML IVPB SCH ×2 (08:44→20:17)
[2020-05-15] MEDS: Cefepime HCl 1 GM in D5W 55 ML IVPB SCH ×2 (08:44→21:13)
[2020-05-15] MEDS ORDERED: D5NS 1000ml IV ONE (09:29)
--- NOTE | 2020-05-15 09:37 | Pulmonology Progress Note ---
Subjective ROS Limited/Unobtainable: Yes Interval Events: None new Constitutional: Reports: no symptoms HEENT: Repors: no symptoms Respiratory: Reports: no symptoms Cardiovascular: Reports: no symptoms Gastrointestinal/Abdominal: Denies: nausea, vomiting, diarrhea Genitourinary: Reports: no symptoms Neurologic: Reports: no symptoms Musculoskeletal: Denies: pain Allergies: Coded Allergies: No Known Allergies (Unverified , 04/14/20) Objective Last 24 Hour Vital Signs Date Time Temp Pulse Resp B/P (MAP) Pulse Ox O2 Delivery O2 Flow Rate FiO2 05/15/20 08:43 99 33 121/78 97 05/15/20 08:00 116 05/15/20 07:02 121/78 05/15/20 07:00 99 33 121/78 (92) 97 05/15/20 06:30 98 33 110/72 (85) 97 05/15/20 06:00 98 33 108/69 (82) 97 05/15/20 05:30 98 31 94/64 (74) 98 05/15/20 05:00 97 32 104/71 (82) 98 05/15/20 04:30 93 26 109/72 (84) 98 05/15/20 04:00 98.9 100 31 103/65 (78) 98 05/15/20 04:00 Mechanical Ventilator 05/15/20 04:00 100 05/15/20 04:00 109 05/15/20 03:30 109 22 98/64 (75) 97 05/15/20 03:00 111 30 96/65 (75) 98 05/15/20 02:30 126 34 92/60 (71) 97 05/15/20 02:00 146 33 90/60 (70) 96 05/15/20 01:56 81/59 05/15/20 01:45 145 35 86/61 (69) 96 05/15/20 01:32 101.0 05/15/20 01:30 147 35 92/65 (74) 95 05/15/20 01:24 147 34 92/65 95 05/15/20 01:00 109 29 100 05/15/20 01:00 101.5 150 35 92/63 (73) 94 05/15/20 00:54 149 30 100/68 96 05/15/20 00:30 149 35 100/69 (79) 95 05/15/20 00:00 Mechanical Ventilator 05/15/20 00:00 100 05/15/20 00:00 143 05/15/20 00:00 100.4 141 36 101/71 (81) 93 05/14/20 23:30 134 30 98/62 (74) 96 05/14/20 23:00 133 31 112/69 (83) 96 05/14/20 22:45 129 33 81/60 (67) 96 05/14/20 22:30 136 35 101/61 (74) 94 05/14/20 22:15 136 36 105/67 (80) 94 05/14/20 22:00 130 34 104/70 (81) 94 05/14/20 21:45 133 35 112/73 (86) 92 05/14/20 21:30 128 35 103/78 (86) 95 05/14/20 21:15 126 34 88/62 (71) 96 05/14/20 21:00 128 34 86/57 (67) 96 05/14/20 20:45 132 34 80/54 (63) 95 05/14/20 20:43 129 34 90/58 96 05/14/20 20:30 140 37 99/73 (82) 92 05/14/20 20:13 130 39 114/70 90 05/14/20 20:00 100 05/14/20 20:00 141 05/14/20 20:00 Mechanical Ventilator 05/14/20 20:00 95.0 146 35 114/70 (85) 89 05/14/20 19:47 128 35 100 05/14/20 19:30 136 36 108/74 (85) 94 05/14/20 19:00 130 36 103/62 (76) 95 05/14/20 18:02 138 38 106/67 92 05/14/20 18:00 138 38 106/67 (80) 92 05/14/20 17:32 132 46 105/56 92 05/14/20 17:00 130 39 130/72 (91) 91 05/14/20 16:30 118 36 118/71 (87) 91 05/14/20 16:00 Mechanical Ventilator 05/14/20 16:00 100 05/14/20 16:00 98.4 112 35 120/65 (83) 91 05/14/20 16:00 104 05/14/20 15:30 107 35 116/68 (84) 92 05/14/20 15:00 101 30 114/64 (81) 95 05/14/20 15:00 119 38 100 05/14/20 14:30 102 31 102/59 (73) 95 05/14/20 14:00 99 30 97/66 (76) 95 05/14/20 13:30 99 32 102/66 (78) 94 05/14/20 13:00 104 28 112/64 (80) 97 05/14/20 12:30 100 21 102/63 (76) 97 05/14/20 12:00 Mechanical Ventilator 05/14/20 12:00 97.1 102 24 103/62 (76) 98 05/14/20 12:00 108 05/14/20 12:00 100 05/14/20 11:30 109 28 105/62 (76) 97 05/14/20 11:00 106 20 92/67 (75) 96 05/14/20 11:00 108 31 100 05/14/20 10:30 108 20 96/60 (72) 95 05/14/20 10:00 117 22 90/53 (65) 95 Intake and Output 05/14/20 05/15/20 19:00 07:00 Intake Total 2143.250 ml 1921.435 ml Output Total 650 ml 600 ml Balance 1493.250 ml 1321.435 ml Free Water 30 ml IV Total 1633.250 ml 1671.435 ml Tube Feeding 480 ml 250 ml Output Urine Total 650 ml 600 ml General Appearance: no acute distress HEENT: normocephalic, other - NGT Respiratory: chest wall non-tender, other - coarse rhonchi Cardiovascular: normal peripheral pulses Abdomen: normal bowel sounds Extremities: other - 1+ pitting edema Microbiology Date/Time Source Procedure Growth Status 05/14/20 01:00 Sputum Expectorated Gram Stain - Final Resulted 05/14/20 01:00 Sputum Culture - Preliminary Staphylococcus Aureus Resulted Laboratory Tests 05/15/20 01:00: Vancomycin Level Trough 3.3L 05/15/20 04:00: White Blood Count 16.9H, Red Blood Count 3.50L, Hemoglobin 10.5L, Hematocrit 32.7L, Mean Corpuscular Volume 94, Mean Corpuscular Hemoglobin 29.9, Mean Corpuscular Hemoglobin Concent 31.9L, Red Cell Distribution Width 15.5H, Platelet Count 100L, Mean Platelet Volume 7.2, Neutrophils (%) (Auto) , Lymphocytes (%) (Auto) , Monocytes (%) (Auto) , Eosinophils (%) (Auto) , Basoph ils (%) (Auto) , Differential Total Cells Counted 100, Neutrophils % (Manual) 94H, Lymphocytes % (Manual) 4L, Monocytes % (Manual) 2, Eosinophils % (Manual) 0, Basophils % (Manual) 0, Band Neutrophils 0, Platelet Estimate DecreasedL, Platelet Morphology Normal, Anisocytosis 1+, Sodium Level 144, Potassium Level 3.1L, Chloride Level 106, Carbon Dioxide Level 32, Blood Urea Nitrogen 14, Creatinine 0.6, Estimat Glomerular Filtration Rate > 60, Glucose Level 116H, Calcium Level 7.6L, Phosphorus Level 1.4L, Magnesium Level 2.0, Total Bilirubin 1.6H, Direct Bilirubin 1.1H, Aspartate Amino Transf (AST/SGOT) 42H, Alanine Aminotransferase (ALT/SGPT) 20, Alkaline Phosphatase 128H, C-Reactive Protein, Quantitative 34.3H, Pro-B-Type Natriuretic Peptide 2146H, Total Protein 5.2L, Albumin 1.3L, Globulin 3.9, Albumin/Globulin Ratio 0.3L Current Medications Medications (Trade) Dose Ordered Sig/Aurora Route PRN Reason Start Time Stop Time Status Last Admin Dose Admin Acetaminophen (Tylenol) 500 mg Q4HR PRN ORAL Temp >100.5 04/27/20 00:15 05/27/20 00:14 05/15/20 01:02 Acetaminophen (Tylenol) 650 mg Q4H PRN NG Mild Pain (Pain Scale 1-3) 05/14/20 01:30 06/13/20 01:29 05/14/20 05:41 Cefepime HCl 1 gm/ Dextrose 55 ml @ 110 mls/hr EVERY 12 HOURS IVPB 05/10/20 13:15 05/17/20 13:14 05/15/20 08:44 Chlorhexidine Gluconate (Anjali-Hex 2%) 1 applic DAILY@2000 TOPIC 04/29/20 20:00 07/28/20 19:59 05/14/20 19:49 Dextrose/Sodium Chloride 1,000 ml @ 75 mls/hr [id number] IV 05/04/20 14:30 06/03/20 14:29 05/15/20 03:48 Docusate Sodium (Colace) 100 mg TWICE A DAY GT 05/13/20 21:00 06/12/20 20:59 05/15/20 08:43 Famotidine (Pepcid) 20 mg BID GT 05/04/20 18:00 08/02/20 17:59 05/15/20 08:44 Levetiracetam 100 ml @ 400 mls/hr Q12HR IVPB 04/28/20 21:00 07/27/20 20:59 05/15/20 08:44 Lorazepam (Ativan 2mg/ml 1ml) 1 mg Q2H PRN IV For Anxiety 05/14/20 13:45 05/21/20 09:44 05/15/20 00:54 Lorazepam (Ativan 2mg/ml 1ml) 1 mg Q2H PRN IV Agitation 05/14/20 13:45 05/21/20 09:44 Lorazepam (Ativan 2mg/ml 1ml) 2 mg Q3H PRN IV Seziure 05/14/20 09:45 05/21/20 09:44 05/15/20 08:43 Midodrine (Pro-Amatine) 10 mg Q8HR GT 05/04/20 14:00 08/02/20 13:59 05/15/20 05:30 Norepinephrine Bitartrate 250 ml @ 7.5 mls/hr Q24H IV 05/13/20 06:30 05/16/20 06:21 05/15/20 07:02 Vancomycin HCl ([facility] pharmacy to dose) 1 ea DAILY PRN MISC Per rx protocol 05/13/20 13:00 06/12/20 12:59 Vancomycin HCl 1.25 gm/Sodium Chloride 275 ml @ 183.333 mls/hr Q8H IVPB 05/15/20 03:00 05/20/20 02:59 05/15/20 02:33 Assessment/Plan Assessment/Plan 1. COVID-19 pneumonia, - CXR 04/30 Slightly improved bilateral infiltrates, possible small right pleural effusion - CXR 05/08 improving - CXR 05/11 worsening - s/p completed Decadron - s/p ceftriaxone and azithromycin per ID - now intubated, saturating well on current setting; on 100% FiO2 2. Seizure disorder. - on antiepileptics 3. Hypotension. Now resolved 4. possible aspiration pneumonia with new onset fever (Tmax 101.1) - CXR shows left lung infiltrates - on Cefepime per ID - d/w ID 5. DVT ppx - on SCD 6. Septic shock - ID following - on cefepime and IV Vanco per ID 7. Respiratory acidosis - monitor ABG s/p NG tube placement off fluid boluses and dopamine seen in ICU May 14, 2020 13:35 Radhames Jc MD May 14, 2020 15:39 Radhames Jc MD May 15, 2020 09:37
--- NOTE | 2020-05-15 10:56 | Infectious Diseases Prog Note ---
Assessment/Plan Assessment/Plan IMPRESSION: Sepsis Staph aureus pneumonia pneumonia with COVID19 Acute respiratory failure Hypoxemia COPD, Seizure disorder, Lactic acidosis, Encephalopathy. RECOMMENDATIONS: Finished Dexamethasone course Continue Cefepime & IV Vancomycin Will f/u cultures COVID19 positive since04/14 Subjective ROS Limited/Unobtainable: Yes Constitutional: Reports: fever, other - Co=389.5 Allergies: Coded Allergies: No Known Allergies (Unverified , 04/14/20) Objective Last 24 Hour Vital Signs Date Time Temp Pulse Resp B/P (MAP) Pulse Ox O2 Delivery O2 Flow Rate FiO2 05/15/20 09:13 99 33 121/78 97 05/15/20 08:43 99 33 121/78 97 05/15/20 08:00 116 05/15/20 07:02 121/78 05/15/20 07:00 99 33 121/78 (92) 97 05/15/20 06:30 98 33 110/72 (85) 97 05/15/20 06:00 98 33 108/69 (82) 97 05/15/20 05:30 98 31 94/64 (74) 98 05/15/20 05:00 97 32 104/71 (82) 98 05/15/20 04:30 93 26 109/72 (84) 98 05/15/20 04:00 98.9 100 31 103/65 (78) 98 05/15/20 04:00 Mechanical Ventilator 05/15/20 04:00 100 05/15/20 04:00 109 05/15/20 03:30 109 22 98/64 (75) 97 05/15/20 03:00 111 30 96/65 (75) 98 05/15/20 02:30 126 34 92/60 (71) 97 05/15/20 02:00 146 33 90/60 (70) 96 05/15/20 01:56 81/59 05/15/20 01:45 145 35 86/61 (69) 96 05/15/20 01:32 101.0 05/15/20 01:30 147 35 92/65 (74) 95 05/15/20 01:24 147 34 92/65 95 05/15/20 01:00 109 29 100 05/15/20 01:00 101.5 150 35 92/63 (73) 94 05/15/20 00:54 149 30 100/68 96 05/15/20 00:30 149 35 100/69 (79) 95 05/15/20 00:00 Mechanical Ventilator 05/15/20 00:00 100 05/15/20 00:00 143 05/15/20 00:00 100.4 141 36 101/71 (81) 93 05/14/20 23:30 134 30 98/62 (74) 96 05/14/20 23:00 133 31 112/69 (83) 96 05/14/20 22:45 129 33 81/60 (67) 96 05/14/20 22:30 136 35 101/61 (74) 94 05/14/20 22:15 136 36 105/67 (80) 94 05/14/20 22:00 130 34 104/70 (81) 94 05/14/20 21:45 133 35 112/73 (86) 92 05/14/20 21:30 128 35 103/78 (86) 95 05/14/20 21:15 126 34 88/62 (71) 96 05/14/20 21:00 128 34 86/57 (67) 96 05/14/20 20:45 132 34 80/54 (63) 95 05/14/20 20:43 129 34 90/58 96 05/14/20 20:30 140 37 99/73 (82) 92 05/14/20 20:13 130 39 114/70 90 05/14/20 20:00 100 05/14/20 20:00 141 05/14/20 20:00 Mechanical Ventilator 05/14/20 20:00 95.0 146 35 114/70 (85) 89 05/14/20 19:47 128 35 100 05/14/20 19:30 136 36 108/74 (85) 94 05/14/20 19:00 130 36 103/62 (76) 95 05/14/20 18:02 138 38 106/67 92 05/14/20 18:00 138 38 106/67 (80) 92 05/14/20 17:32 132 46 105/56 92 05/14/20 17:00 130 39 130/72 (91) 91 05/14/20 16:30 118 36 118/71 (87) 91 05/14/20 16:00 Mechanical Ventilator 05/14/20 16:00 100 05/14/20 16:00 98.4 112 35 120/65 (83) 91 05/14/20 16:00 104 05/14/20 15:30 107 35 116/68 (84) 92 05/14/20 15:00 101 30 114/64 (81) 95 05/14/20 15:00 119 38 100 05/14/20 14:30 102 31 102/59 (73) 95 05/14/20 14:00 99 30 97/66 (76) 95 05/14/20 13:30 99 32 102/66 (78) 94 05/14/20 13:00 104 28 112/64 (80) 97 05/14/20 12:30 100 21 102/63 (76) 97 05/14/20 12:00 Mechanical Ventilator 05/14/20 12:00 97.1 102 24 103/62 (76) 98 05/14/20 12:00 108 05/14/20 12:00 100 05/14/20 11:30 109 28 105/62 (76) 97 05/14/20 11:00 106 20 92/67 (75) 96 05/14/20 11:00 108 31 100 Height (Feet): 5 Height (Inches): 8.00 Weight (Pounds): 130 HEENT: mucous membranes moist, other - orally intubated Respiratory/Chest: other - on ventilator Cardiovascular: tachycardia Abdomen: soft, non tender, other - NG tube Extremities: other - pedal edema Neurologic/Psychiatric: aphasia Microbiology Date/Time Source Procedure Growth Status 05/14/20 01:00 Sputum Expectorated Gram Stain - Final Resulted 05/14/20 01:00 Sputum Culture - Preliminary Staphylococcus Aureus Resulted Laboratory Tests Test 05/15/20 01:00 05/15/20 04:00 Vancomycin Level Trough 3.3 ug/mL (5.0-12.0) L White Blood Count 16.9 K/UL (4.8-10.8) H Red Blood Count 3.50 M/UL (4.70-6.10) L Hemoglobin 10.5 G/DL (14.2-18.0) L Hematocrit 32.7 % (42.0-52.0) L Mean Corpuscular Volume 94 FL (80-99) Mean Corpuscular Hemoglobin 29.9 PG (27.0-31.0) Mean Corpuscular Hemoglobin Concent 31.9 G/DL (32.0-36.0) L Red Cell Distribution Width 15.5 % (11.6-14.8) H Platelet Count 100 K/UL (150-450) L Mean Platelet Volume 7.2 FL (6.5-10.1) Neutrophils (%) (Auto) % (45.0-75.0) Lymphocytes (%) (Auto) % (20.0-45.0) Monocytes (%) (Auto) % (1.0-10.0) Eosinophils (%) (Auto) % (0.0-3.0) Basophils (%) (Auto) % (0.0-2.0) Differential Total Cells Counted 100 Neutrophils % (Manual) 94 % (45-75) H Lymphocytes % (Manual) 4 % (20-45) L Monocytes % (Manual) 2 % (1-10) Eosinophils % (Manual) 0 % (0-3) Basophils % (Manual) 0 % (0-2) Band Neutrophils 0 % (0-8) Platelet Estimate Decreased L Platelet Morphology Normal Anisocytosis 1+ Sodium Level 144 MMOL/L (136-145) Potassium Level 3.1 MMOL/L (3.5-5.1) L Chloride Level 106 MMOL/L (98-107) Carbon Dioxide Level 32 MMOL/L (21-32) Blood Urea Nitrogen 14 mg/dL (7-18) Creatinine 0.6 MG/DL (0.55-1.30) Estimat Glomerular Filtration Rate > 60 mL/min (>60) Glucose Level 116 MG/DL (74-106) H Calcium Level 7.6 MG/DL (8.5-10.1) L Phosphorus Level 1.4 MG/DL (2.5-4.9) L Magnesium Level 2.0 MG/DL (1.8-2.4) Total Bilirubin 1.6 MG/DL (0.2-1.0) H Direct Bilirubin 1.1 MG/DL (0.0-0.3) H Aspartate Amino Transf (AST/SGOT) 42 U/L (15-37) H Alanine Aminotransferase (ALT/SGPT) 20 U/L (12-78) Alkaline Phosphatase 128 U/L (46-116) H C-Reactive Protein, Quantitative 34.3 mg/dL (0.00-0.90) H Pro-B-Type Natriuretic Peptide 2146 pg/mL (0-125) H Total Protein 5.2 G/DL (6.4-8.2) L Albumin 1.3 G/DL (3.4-5.0) L Globulin 3.9 g/dL Albumin/Globulin Ratio 0.3 (1.0-2.7) L Current Medications Medications (Trade) Dose Ordered Sig/Aurora Route PRN Reason Start Time Stop Time Status Last Admin Dose Admin Acetaminophen (Tylenol) 500 mg Q4HR PRN ORAL Temp >100.5 04/27/20 00:15 05/27/20 00:14 05/15/20 01:02 Acetaminophen (Tylenol) 650 mg Q4H PRN NG Mild Pain (Pain Scale 1-3) 05/14/20 01:30 06/13/20 01:29 05/14/20 05:41 Cefepime HCl 1 gm/ Dextrose 55 ml @ 110 mls/hr EVERY 12 HOURS IVPB 05/10/20 13:15 05/17/20 13:14 05/15/20 08:44 Chlorhexidine Gluconate (Anjali-Hex 2%) 1 applic DAILY@2000 TOPIC 04/29/20 20:00 07/28/20 19:59 05/14/20 19:49 Dextrose/Sodium Chloride 1,000 ml @ 75 mls/hr [id number] IV 05/04/20 14:30 06/03/20 14:29 05/15/20 03:48 Docusate Sodium (Colace) 100 mg TWICE A DAY GT 05/13/20 21:00 06/12/20 20:59 05/15/20 08:43 Famotidine (Pepcid) 20 mg BID GT 05/04/20 18:00 08/02/20 17:59 05/15/20 08:44 Levetiracetam 100 ml @ 400 mls/hr Q12HR IVPB 04/28/20 21:00 07/27/20 20:59 05/15/20 08:44 Lorazepam (Ativan 2mg/ml 1ml) 1 mg Q2H PRN IV For Anxiety 05/14/20 13:45 05/21/20 09:44 05/15/20 00:54 Lorazepam (Ativan 2mg/ml 1ml) 1 mg Q2H PRN IV Agitation 05/14/20 13:45 05/21/20 09:44 Lorazepam (Ativan 2mg/ml 1ml) 2 mg Q3H PRN IV Seziure 05/14/20 09:45 05/21/20 09:44 05/15/20 08:43 Midodrine (Pro-Amatine) 10 mg Q8HR GT 05/04/20 14:00 08/02/20 13:59 05/15/20 05:30 Norepinephrine Bitartrate 250 ml @ 7.5 mls/hr Q24H IV 05/13/20 06:30 05/16/20 06:21 05/15/20 07:02 Vancomycin HCl ([facility] pharmacy to dose) 1 ea DAILY PRN MISC Per rx protocol 05/13/20 13:00 06/12/20 12:59 Vancomycin HCl 1.25 gm/Sodium Chloride 275 ml @ 183.333 mls/hr Q8H IVPB 05/15/20 03:00 05/20/20 02:59 05/15/20 02:33 Narendra Garcia MD May 15, 2020 10:56
--- NOTE | 2020-05-15 15:01 | General Progress Note ---
Subjective Allergies: Coded Allergies: No Known Allergies (Unverified , 04/14/20) Subjective Above noted seen in ICU d/w RN TF held due to residuls patient now on pressors Objective Last 24 Hour Vital Signs Date Time Temp Pulse Resp B/P (MAP) Pulse Ox O2 Delivery O2 Flow Rate FiO2 05/15/20 13:46 110 34 95/68 95 05/15/20 13:16 118 40 113/76 93 05/15/20 12:30 118 40 113/76 (88) 93 05/15/20 12:00 Mechanical Ventilator 05/15/20 12:00 100 05/15/20 12:00 124 34 112/77 (89) 94 05/15/20 12:00 121 05/15/20 11:30 120 38 107/80 (89) 94 05/15/20 11:00 126 38 112/77 (89) 93 05/15/20 10:30 119 37 113/72 (86) 93 05/15/20 10:00 120 35 103/71 (82) 93 05/15/20 09:30 115 38 106/64 (78) 94 05/15/20 09:13 110 34 95/68 95 05/15/20 09:13 99 33 121/78 97 05/15/20 09:00 117 39 117/75 (89) 94 05/15/20 08:43 118 40 95/68 93 05/15/20 08:30 112 37 117/78 (91) 94 05/15/20 08:00 98.6 111 32 107/69 (82) 91 05/15/20 08:00 116 05/15/20 08:00 Mechanical Ventilator 05/15/20 08:00 100 05/15/20 07:03 100 36 100 05/15/20 07:02 121/78 05/15/20 07:00 99 33 121/78 (92) 97 05/15/20 06:30 98 33 110/72 (85) 97 05/15/20 06:00 98 33 108/69 (82) 97 05/15/20 05:30 98 31 94/64 (74) 98 05/15/20 05:00 97 32 104/71 (82) 98 05/15/20 04:30 93 26 109/72 (84) 98 05/15/20 04:00 98.9 100 31 103/65 (78) 98 05/15/20 04:00 Mechanical Ventilator 05/15/20 04:00 100 05/15/20 04:00 109 05/15/20 03:30 109 22 98/64 (75) 97 05/15/20 03:00 111 30 96/65 (75) 98 05/15/20 02:30 126 34 92/60 (71) 97 05/15/20 02:00 146 33 90/60 (70) 96 05/15/20 01:56 81/59 05/15/20 01:45 145 35 86/61 (69) 96 05/15/20 01:32 101.0 05/15/20 01:30 147 35 92/65 (74) 95 05/15/20 01:24 147 34 92/65 95 05/15/20 01:00 109 29 100 05/15/20 01:00 101.5 150 35 92/63 (73) 94 05/15/20 00:54 149 30 100/68 96 05/15/20 00:30 149 35 100/69 (79) 95 05/15/20 00:00 Mechanical Ventilator 05/15/20 00:00 100 05/15/20 00:00 143 05/15/20 00:00 100.4 141 36 101/71 (81) 93 05/14/20 23:30 134 30 98/62 (74) 96 05/14/20 23:00 133 31 112/69 (83) 96 05/14/20 22:45 129 33 81/60 (67) 96 05/14/20 22:30 136 35 101/61 (74) 94 05/14/20 22:15 136 36 105/67 (80) 94 05/14/20 22:00 130 34 104/70 (81) 94 05/14/20 21:45 133 35 112/73 (86) 92 05/14/20 21:30 128 35 103/78 (86) 95 05/14/20 21:15 126 34 88/62 (71) 96 05/14/20 21:00 128 34 86/57 (67) 96 05/14/20 20:45 132 34 80/54 (63) 95 05/14/20 20:43 129 34 90/58 96 05/14/20 20:30 140 37 99/73 (82) 92 05/14/20 20:13 130 39 114/70 90 05/14/20 20:00 100 05/14/20 20:00 141 05/14/20 20:00 Mechanical Ventilator 05/14/20 20:00 95.0 146 35 114/70 (85) 89 05/14/20 19:47 128 35 100 05/14/20 19:30 136 36 108/74 (85) 94 05/14/20 19:00 130 36 103/62 (76) 95 05/14/20 18:02 138 38 106/67 92 05/14/20 18:00 138 38 106/67 (80) 92 05/14/20 17:32 132 46 105/56 92 05/14/20 17:00 130 39 130/72 (91) 91 05/14/20 16:30 118 36 118/71 (87) 91 05/14/20 16:00 Mechanical Ventilator 05/14/20 16:00 100 05/14/20 16:00 98.4 112 35 120/65 (83) 91 05/14/20 16:00 104 05/14/20 15:30 107 35 116/68 (84) 92 Intake and Output 05/14/20 05/15/20 18:59 06:59 Intake Total 2143.250 ml 1900.185 ml Output Total 650 ml 600 ml Balance 1493.250 ml 1300.185 ml Free Water 30 ml IV Total 1633.250 ml 1630.185 ml Tube Feeding 480 ml 270 ml Output Urine Total 650 ml 600 ml Laboratory Tests 05/15/20 01:00: Vancomycin Level Trough 3.3L 05/15/20 04:00: White Blood Count 16.9H, Red Blood Count 3.50L, Hemoglobin 10.5L, Hematocrit 3 2.7L, Mean Corpuscular Volume 94, Mean Corpuscular Hemoglobin 29.9, Mean Corpuscular Hemoglobin Concent 31.9L, Red Cell Distribution Width 15.5H, Platelet Count 100L, Mean Platelet Volume 7.2, Neutrophils (%) (Auto) , Lymphocytes (%) (Auto) , Monocytes (%) (Auto) , Eosinophils (%) (Auto) , Basophils (%) (Auto) , Differential Total Cells Counted 100, Neutrophils % (Manual) 94H, Lymphocytes % (Manual) 4L, Monocytes % (Manual) 2, Eosinophils % (Manual) 0, Basophils % (Manual) 0, Band Neutrophils 0, Platelet Estimate DecreasedL, Platelet Morphology Normal, Anisocytosis 1+, Sodium Level 144, Potassium Level 3.1L, Chloride Level 106, Carbon Dioxide Level 32, Blood Urea Nitrogen 14, Creatinine 0.6, Estimat Glomerular Filtration Rate > 60, Glucose Level 116H, Calcium Level 7.6L, Phosphorus Level 1.4L, Magnesium Level 2.0, Total Bilirubin 1.6H, Direct Bilirubin 1.1H, Aspartate Amino Transf (AST/SGOT) 42H, Alanine Aminotransferase (ALT/SGPT) 20, Alkaline Phosphatase 128H, C- Reactive Protein, Quantitative 34.3H, Pro-B-Type Natriuretic Peptide 2146H, Total Protein 5.2L, Albumin 1.3L, Globulin 3.9, Albumin/Globulin Ratio 0.3L Height (Feet): 5 Height (Inches): 8.00 Weight (Pounds): 130 Objective Elderly man on vent Examination limited due to COVID isolation Assessment/Plan Status: progressing, unchanged Assessment/Plan: Assessment Resp failure Seizure d/o HTN Dysphagia COVID (+) CHF GERD hypotension, on pressors TF intolerance poor prognosis Recommendations Continue tube feeds as tolerated Pressors, ICU care Elevate HOB follow labs and exam ICU care need to locate family - HYPOID GEAR TESTER to help Екатерина Whalen MD May 15, 2020 15:01
--- NOTE | 2020-05-15 15:19 | General Progress Note ---
Subjective ROS Limited/Unobtainable: Yes Allergies: Coded Allergies: No Known Allergies (Unverified , 04/14/20) Objective Last 24 Hour Vital Signs Date Time Temp Pulse Resp B/P (MAP) Pulse Ox O2 Delivery O2 Flow Rate FiO2 05/15/20 13:46 110 34 95/68 95 05/15/20 13:16 118 40 113/76 93 05/15/20 12:30 118 40 113/76 (88) 93 05/15/20 12:00 Mechanical Ventilator 05/15/20 12:00 100 05/15/20 12:00 124 34 112/77 (89) 94 05/15/20 12:00 121 05/15/20 11:30 120 38 107/80 (89) 94 05/15/20 11:00 126 38 112/77 (89) 93 05/15/20 10:30 119 37 113/72 (86) 93 05/15/20 10:00 120 35 103/71 (82) 93 05/15/20 09:30 115 38 106/64 (78) 94 05/15/20 09:13 110 34 95/68 95 05/15/20 09:13 99 33 121/78 97 05/15/20 09:00 117 39 117/75 (89) 94 05/15/20 08:43 118 40 95/68 93 05/15/20 08:30 112 37 117/78 (91) 94 05/15/20 08:00 98.6 111 32 107/69 (82) 91 05/15/20 08:00 116 05/15/20 08:00 Mechanical Ventilator 05/15/20 08:00 100 05/15/20 07:03 100 36 100 05/15/20 07:02 121/78 05/15/20 07:00 99 33 121/78 (92) 97 05/15/20 06:30 98 33 110/72 (85) 97 05/15/20 06:00 98 33 108/69 (82) 97 05/15/20 05:30 98 31 94/64 (74) 98 05/15/20 05:00 97 32 104/71 (82) 98 05/15/20 04:30 93 26 109/72 (84) 98 05/15/20 04:00 98.9 100 31 103/65 (78) 98 05/15/20 04:00 Mechanical Ventilator 05/15/20 04:00 100 05/15/20 04:00 109 05/15/20 03:30 109 22 98/64 (75) 97 05/15/20 03:00 111 30 96/65 (75) 98 05/15/20 02:30 126 34 92/60 (71) 97 05/15/20 02:00 146 33 90/60 (70) 96 05/15/20 01:56 81/59 05/15/20 01:45 145 35 86/61 (69) 96 05/15/20 01:32 101.0 05/15/20 01:30 147 35 92/65 (74) 95 05/15/20 01:24 147 34 92/65 95 05/15/20 01:00 109 29 100 05/15/20 01:00 101.5 150 35 92/63 (73) 94 05/15/20 00:54 149 30 100/68 96 05/15/20 00:30 149 35 100/69 (79) 95 05/15/20 00:00 Mechanical Ventilator 05/15/20 00:00 100 05/15/20 00:00 143 05/15/20 00:00 100.4 141 36 101/71 (81) 93 05/14/20 23:30 134 30 98/62 (74) 96 05/14/20 23:00 133 31 112/69 (83) 96 05/14/20 22:45 129 33 81/60 (67) 96 05/14/20 22:30 136 35 101/61 (74) 94 05/14/20 22:15 136 36 105/67 (80) 94 05/14/20 22:00 130 34 104/70 (81) 94 05/14/20 21:45 133 35 112/73 (86) 92 05/14/20 21:30 128 35 103/78 (86) 95 05/14/20 21:15 126 34 88/62 (71) 96 05/14/20 21:00 128 34 86/57 (67) 96 05/14/20 20:45 132 34 80/54 (63) 95 05/14/20 20:43 129 34 90/58 96 05/14/20 20:30 140 37 99/73 (82) 92 05/14/20 20:13 130 39 114/70 90 05/14/20 20:00 100 05/14/20 20:00 141 05/14/20 20:00 Mechanical Ventilator 05/14/20 20:00 95.0 146 35 114/70 (85) 89 05/14/20 19:47 128 35 100 05/14/20 19:30 136 36 108/74 (85) 94 05/14/20 19:00 130 36 103/62 (76) 95 05/14/20 18:02 138 38 106/67 92 05/14/20 18:00 138 38 106/67 (80) 92 05/14/20 17:32 132 46 105/56 92 05/14/20 17:00 130 39 130/72 (91) 91 05/14/20 16:30 118 36 118/71 (87) 91 05/14/20 16:00 Mechanical Ventilator 05/14/20 16:00 100 05/14/20 16:00 98.4 112 35 120/65 (83) 91 05/14/20 16:00 104 05/14/20 15:30 107 35 116/68 (84) 92 Intake and Output 05/14/20 05/15/20 19:00 07:00 Intake Total 2143.250 ml 1901.435 ml Output Total 650 ml 600 ml Balance 1493.250 ml 1301.435 ml Free Water 30 ml IV Total 1633.250 ml 1671.435 ml Tube Feeding 480 ml 230 ml Output Urine Total 650 ml 600 ml Laboratory Tests 05/15/20 01:00: Vancomycin Level Trough 3.3L 05/15/20 04:00: White Blood Count 16.9H, Red Blood Count 3.50L, Hemoglobin 10.5L, Hematocrit 32.7L, Mean Corpuscular Volume 94, Mean Corpuscular Hemoglobin 29.9, Mean Corpuscular Hemoglobin Concent 31.9L, Red Cell Distribution Width 15.5H, Platelet Count 100L, Mean Platelet Volume 7.2, Neutrophils (%) (Auto) , Lymphocytes (%) (Auto) , Monocytes (%) (Auto) , Eosinophils (%) (Auto) , Basophils (%) (Auto) , Differential Total Cells Counted 100, Neutrophils % (Manual) 94H, Lymphocytes % (Manual) 4L, Monocytes % (Manual) 2, Eosinophils % (Manual) 0, Basophils % (Manual) 0, Band Neutrophils 0, Platelet Estimate DecreasedL, Platelet Morphology Normal, Anisocytosis 1+, Sodium Level 144, Potassium Level 3.1L, Chloride Level 106, Carbon Dioxide Level 32, Blood Urea Nitrogen 14, Creatinine 0.6, Estimat Glomerular Filtration Rate > 60, Glucose Level 116H, Calcium Level 7.6L, Phosphorus Level 1.4L, Magnesium Level 2.0, Total Bilirubin 1.6H, Direct Bilirubin 1.1H, Aspartate Amino Transf (AST/SGOT) 42H, Alanine Aminotransferase (ALT/SGPT) 20, Alkaline Phosphatase 128H, C- Reactive Protein, Quantitative 34.3H, Pro-B-Type Natriuretic Peptide 2146H, Total Protein 5.2L, Albumin 1.3L, Globulin 3.9, Albumin/Globulin Ratio 0.3L Height (Feet): 5 Height (Inches): 8.00 Weight (Pounds): 130 Assessment/Plan Problem List: (1) Coronavirus infection ICD Codes: B34.2 - Coronavirus infection, unspecified SNOMED: 849161547 (2) Septic shock ICD Codes: A41.9 - Sepsis, unspecified organism; R65.21 - Severe sepsis with septic shock SNOMED: 26495802 (3) Seizure disorder ICD Codes: G40.909 - Epilepsy, unspecified, not intractable, without status epilepticus SNOMED: 853119338 (4) Electrolyte imbalance ICD Codes: E87.8 - Other disorders of electrolyte and fluid balance, not elsewhere classified SNOMED: 623105206 Status: progressing, unchanged Assessment/Plan: covid positive sepsis check lytes afebrile check h/h anemia Zain Mares MD May 15, 2020 15:19
[2020-05-15] MEDS: Potassium Phosphate 15mm/250ml 250 ML IVPB SCH ×2 (15:52→18:04)
--- NOTE | 2020-05-15 16:32 | Nephrology Progress Note ---
Assessment/Plan Problem List: (1) Septic shock (2) Acute febrile illness (3) Suspected 2019 novel coronavirus infection (4) Seizure disorder (5) Electrolyte imbalance Assessment Acute febrile illness most likely benton virus infection Hypotension ( Shock) ,on dopamine Seizure disorder Plan May 15: Labs reviewed. Abnormal electrolytes addressed. Continue per current management. Discussed with RN. May 14: Patient remains intubated on ventilator. Potassium low. Potassium IV ordered. Continue per consultants. May 13: Patient now in ICU. Intubated on ventilator. Has Knapp catheter. On pressors. Today's labs pending. Bolus of albumin 25% given. Discussed with VELASQUEZ [place]. Continue to monitor electrolytes and renal parameters. May 12: When seen earlier patient had respiratory distress. At this time the patient is transferred to [facility]. In Covid isolation . Transferred to SDU for desaturation and likely needs BIPAP. Has NG tube in. PEG is pending consent Labs reviewed. K-Phos replacement ordered. Continue to monitor renal parameters. May 11: Today's labs not drawn. Will check labs tomorrow. Continue per consultants May 10: No labs drawn today. Will check lab tomorrow. Continue per consultants. May 09: No labs drawn today. Remains stable from renal standpoint review. Continue to monitor her electrolytes and renal parameters. Continue per consultants. May 08: Labs reviewed. Abnormal electrolytes addressed. Leukocytosis down from 20,000-16,000. Continue per consultants. May 07: Labs reviewed. Potassium phosphorus replaced. White blood cells up to 20,000. Continue per consultants. May 06: No labs drawn today. Continue per consultants. Check labs in a.m. May 05: Labs reviewed. Stable renal parameters. Continue per consultants. May 04: No labs drawn today. Stable from renal standpoint of view. Medication list reviewed. Started on midodrine for low blood pressure. Patient on tube feeding. May 03: Labs reviewed. Potassium replaced. Continue per consultants. May 02: Labs reviewed. Potassium and phosphorus were replaced. Continue per consultants. May 01: No labs drawn today. Stable from renal standpoint of view. We will continue to monitor renal parameters and electrolytes. April 30: Patient seen earlier in ICU. Abnormal electrolytes noted and addressed. Due transfer to telemetry. Continue per consultants. April 29: Patient hemodynamically improved. Urine output improved. Abnormal electrolytes reviewed and addressed. Continue per consultants. April 28: Keppra changed to IV. POA is held until speech therapy evaluation. Potassium phosphate IV. Ordered. Discussed with Beth ENG. Remains stable from renal standpoint of view. Albumin 5% 500 cc challenge ordered. Fluid challenge Monitor renal parameters Monitor electrolytes Per consultants Per orders Subjective ROS Limited/Unobtainable: Yes Objective Objective Last 24 Hour Vital Signs Date Time Temp Pulse Resp B/P (MAP) Pulse Ox O2 Delivery O2 Flow Rate FiO2 05/15/20 14:30 96 33 95/67 (76) 95 05/15/20 14:21 100.0 05/15/20 14:00 108 34 113/67 (82) 96 05/15/20 13:46 110 34 95/68 95 05/15/20 13:30 94 35 95/72 (80) 95 05/15/20 13:16 118 40 113/76 93 05/15/20 13:00 95 35 113/76 (88) 88 05/15/20 12:30 118 40 113/76 (88) 93 05/15/20 12:00 Mechanical Ventilator 05/15/20 12:00 100 05/15/20 12:00 124 34 112/77 (89) 94 05/15/20 12:00 121 05/15/20 11:30 120 38 107/80 (89) 94 05/15/20 11:00 126 38 112/77 (89) 93 05/15/20 10:30 119 37 113/72 (86) 93 05/15/20 10:00 120 35 103/71 (82) 93 05/15/20 09:30 115 38 106/64 (78) 94 05/15/20 09:13 110 34 95/68 95 05/15/20 09:13 99 33 121/78 97 05/15/20 09:00 117 39 117/75 (89) 94 05/15/20 08:43 118 40 95/68 93 05/15/20 08:30 112 37 117/78 (91) 94 05/15/20 08:00 98.6 111 32 107/69 (82) 91 05/15/20 08:00 116 05/15/20 08:00 Mechanical Ventilator 05/15/20 08:00 100 05/15/20 07:03 100 36 100 05/15/20 07:02 121/78 05/15/20 07:00 99 33 121/78 (92) 97 05/15/20 06:30 98 33 110/72 (85) 97 05/15/20 06:00 98 33 108/69 (82) 97 05/15/20 05:30 98 31 94/64 (74) 98 05/15/20 05:00 97 32 104/71 (82) 98 05/15/20 04:30 93 26 109/72 (84) 98 05/15/20 04:00 98.9 100 31 103/65 (78) 98 05/15/20 04:00 Mechanical Ventilator 05/15/20 04:00 100 05/15/20 04:00 109 05/15/20 03:30 109 22 98/64 (75) 97 05/15/20 03:00 111 30 96/65 (75) 98 05/15/20 02:30 126 34 92/60 (71) 97 05/15/20 02:00 146 33 90/60 (70) 96 05/15/20 01:56 81/59 05/15/20 01:45 145 35 86/61 (69) 96 05/15/20 01:32 101.0 05/15/20 01:30 147 35 92/65 (74) 95 05/15/20 01:24 147 34 92/65 95 05/15/20 01:00 109 29 100 05/15/20 01:00 101.5 150 35 92/63 (73) 94 05/15/20 00:54 149 30 100/68 96 05/15/20 00:30 149 35 100/69 (79) 95 05/15/20 00:00 Mechanical Ventilator 05/15/20 00:00 100 05/15/20 00:00 143 05/15/20 00:00 100.4 141 36 101/71 (81) 93 05/14/20 23:30 134 30 98/62 (74) 96 05/14/20 23:00 133 31 112/69 (83) 96 05/14/20 22:45 129 33 81/60 (67) 96 05/14/20 22:30 136 35 101/61 (74) 94 05/14/20 22:15 136 36 105/67 (80) 94 05/14/20 22:00 130 34 104/70 (81) 94 05/14/20 21:45 133 35 112/73 (86) 92 05/14/20 21:30 128 35 103/78 (86) 95 05/14/20 21:15 126 34 88/62 (71) 96 05/14/20 21:00 128 34 86/57 (67) 96 05/14/20 20:45 132 34 80/54 (63) 95 05/14/20 20:43 129 34 90/58 96 05/14/20 20:30 140 37 99/73 (82) 92 05/14/20 20:13 130 39 114/70 90 05/14/20 20:00 100 05/14/20 20:00 141 05/14/20 20:00 Mechanical Ventilator 05/14/20 20:00 95.0 146 35 114/70 (85) 89 05/14/20 19:47 128 35 100 05/14/20 19:30 136 36 108/74 (85) 94 05/14/20 19:00 130 36 103/62 (76) 95 05/14/20 18:02 138 38 106/67 92 05/14/20 18:00 138 38 106/67 (80) 92 05/14/20 17:32 132 46 105/56 92 05/14/20 17:00 130 39 130/72 (91) 91 Intake and Output 05/14/20 05/15/20 19:00 07:00 Intake Total 2143.250 ml 1901.435 ml Output Total 650 ml 600 ml Balance 1493.250 ml 1301.435 ml Free Water 30 ml IV Total 1633.250 ml 1671.435 ml Tube Feeding 480 ml 230 ml Output Urine Total 650 ml 600 ml Laboratory Tests 05/15/20 01:00: Vancomycin Level Trough 3.3L 05/15/20 04:00: White Blood Count 16.9H, Red Blood Count 3.50L, Hemoglobin 10.5L, Hematocrit 32. 7L, Mean Corpuscular Volume 94, Mean Corpuscular Hemoglobin 29.9, Mean Corpuscular Hemoglobin Concent 31.9L, Red Cell Distribution Width 15.5H, Platelet Count 100L, Mean Platelet Volume 7.2, Neutrophils (%) (Auto) , Lymphocytes (%) (Auto) , Monocytes (%) (Auto) , Eosinophils (%) (Auto) , Basophils (%) (Auto) , Differential Total Cells Counted 100, Neutrophils % (Manual) 94H, Lymphocytes % (Manual) 4L, Monocytes % (Manual) 2, Eosinophils % (Manual) 0, Basophils % (Manual) 0, Band Neutrophils 0, Platelet Estimate DecreasedL, Platelet Morphology Normal, Anisocytosis 1+, Sodium Level 144, Potassium Level 3.1L, Chloride Level 106, Carbon Dioxide Level 32, Blood Urea Nitrogen 14, Creatinine 0.6, Estimat Glomerular Filtration Rate > 60, Glucose Level 116H, Calcium Level 7.6L, Phosphorus Level 1.4L, Magnesium Level 2.0, Total Bilirubin 1.6H, Direct Bilirubin 1.1H, Aspartate Amino Transf (AST/SGOT) 42H, Alanine Aminotransferase (ALT/SGPT) 20, Alkaline Phosphatase 128H, C- Reactive Protein, Quantitative 34.3H, Pro-B-Type Natriuretic Peptide 2146H, Total Protein 5.2L, Albumin 1.3L, Globulin 3.9, Albumin/Globulin Ratio 0.3L Height (Feet): 5 Height (Inches): 8.00 Weight (Pounds): 130 General Appearance: no apparent distress EENT: other - Intubated on ventilator Cardiovascular: tachycardia Respiratory/Chest: decreased breath sounds Abdomen: distended Objective No change Abhilash Clark MD May 15, 2020 16:32
[2020-05-15] MEDS: Acetaminophen 650mg/20.3ml NG PRN (18:11)
--- NOTE | 2020-05-15 19:48 | Cardiac Electrophysiology PN ---
Assessment/Plan Assessment/Plan 1. Septic shock on Levophed 10 mcg and IV antibiotic. Echo Nl EF 2. Respiratory failure due to COVID pneumonia, on dexamethasone On the Vent 100% fio2 and PEEP 5 and saturating only 84% 3. Sinus tachycardia due to fever and sepsis and respiratory failure 4. Seizure disorder and altered level of consciousness on Keppra. 5. Failed swallow eval on iv fluid NGT is in. Consent pending for PEG DW RN Subjective Subjective In Covid isolation intubated on 100% Fio2 and PEEP 5 and on Levophed 10 mcg. Has drainage from old Tracheostomy site Objective Last 24 Hour Vital Signs Date Time Temp Pulse Resp B/P (MAP) Pulse Ox O2 Delivery O2 Flow Rate FiO2 05/15/20 19:00 99 33 103/65 (78) 86 05/15/20 18:41 110 34 109/69 90 05/15/20 18:41 98.3 05/15/20 18:11 110 34 109/69 90 05/15/20 18:00 114 34 92/52 (65) 83 05/15/20 17:30 110 34 109/69 (82) 88 05/15/20 17:00 113 35 101/68 (79) 87 05/15/20 16:30 96 33 105/69 (81) 88 05/15/20 16:00 98.3 97 34 107/66 (80) 89 05/15/20 16:00 104 05/15/20 16:00 100 05/15/20 16:00 Mechanical Ventilator 05/15/20 15:30 102 25 113/66 (82) 89 05/15/20 15:00 102 34 108/64 (79) 90 05/15/20 14:30 96 33 95/67 (76) 95 05/15/20 14:21 100.0 05/15/20 14:00 108 34 113/67 (82) 96 05/15/20 13:46 110 34 95/68 95 05/15/20 13:30 109/69 05/15/20 13:30 94 35 95/72 (80) 95 05/15/20 13:16 118 40 113/76 93 05/15/20 13:06 91 35 100 05/15/20 13:00 95 35 113/76 (88) 88 05/15/20 12:30 118 40 113/76 (88) 93 05/15/20 12:00 Mechanical Ventilator 05/15/20 12:00 100 05/15/20 12:00 124 34 112/77 (89) 94 05/15/20 12:00 121 05/15/20 11:30 120 38 107/80 (89) 94 05/15/20 11:00 126 38 112/77 (89) 93 05/15/20 10:30 119 37 113/72 (86) 93 05/15/20 10:00 120 35 103/71 (82) 93 05/15/20 09:30 115 38 106/64 (78) 94 05/15/20 09:13 110 34 95/68 95 05/15/20 09:13 99 33 121/78 97 05/15/20 09:00 117 39 117/75 (89) 94 05/15/20 08:43 118 40 95/68 93 05/15/20 08:30 112 37 117/78 (91) 94 05/15/20 08:00 98.6 111 32 107/69 (82) 91 05/15/20 08:00 116 05/15/20 08:00 Mechanical Ventilator 05/15/20 08:00 100 05/15/20 07:03 100 36 100 05/15/20 07:02 121/78 05/15/20 07:00 99 33 121/78 (92) 97 05/15/20 06:30 98 33 110/72 (85) 97 05/15/20 06:00 98 33 108/69 (82) 97 05/15/20 05:30 98 31 94/64 (74) 98 05/15/20 05:00 97 32 104/71 (82) 98 05/15/20 04:30 93 26 109/72 (84) 98 05/15/20 04:00 98.9 100 31 103/65 (78) 98 05/15/20 04:00 Mechanical Ventilator 05/15/20 04:00 100 05/15/20 04:00 109 05/15/20 03:30 109 22 98/64 (75) 97 05/15/20 03:00 111 30 96/65 (75) 98 05/15/20 02:30 126 34 92/60 (71) 97 05/15/20 02:00 146 33 90/60 (70) 96 05/15/20 01:56 81/59 05/15/20 01:45 145 35 86/61 (69) 96 05/15/20 01:32 101.0 05/15/20 01:30 147 35 92/65 (74) 95 05/15/20 01:24 147 34 92/65 95 05/15/20 01:00 109 29 100 05/15/20 01:00 101.5 150 35 92/63 (73) 94 05/15/20 00:54 149 30 100/68 96 05/15/20 00:30 149 35 100/69 (79) 95 05/15/20 00:00 Mechanical Ventilator 05/15/20 00:00 100 05/15/20 00:00 143 05/15/20 00:00 100.4 141 36 101/71 (81) 93 05/14/20 23:30 134 30 98/62 (74) 96 05/14/20 23:00 133 31 112/69 (83) 96 05/14/20 22:45 129 33 81/60 (67) 96 05/14/20 22:30 136 35 101/61 (74) 94 05/14/20 22:15 136 36 105/67 (80) 94 05/14/20 22:00 130 34 104/70 (81) 94 05/14/20 21:45 133 35 112/73 (86) 92 05/14/20 21:30 128 35 103/78 (86) 95 05/14/20 21:15 126 34 88/62 (71) 96 05/14/20 21:00 128 34 86/57 (67) 96 05/14/20 20:45 132 34 80/54 (63) 95 05/14/20 20:43 129 34 90/58 96 05/14/20 20:30 140 37 99/73 (82) 92 05/14/20 20:13 130 39 114/70 90 05/14/20 20:00 100 05/14/20 20:00 141 05/14/20 20:00 Mechanical Ventilator 05/14/20 20:00 95.0 146 35 114/70 (85) 89 05/14/20 19:47 128 35 100 Intake and Output 05/14/20 05/15/20 19:00 07:00 Intake Total 2143.250 ml 1901.435 ml Output Total 650 ml 600 ml Balance 1493.250 ml 1301.435 ml Free Water 30 ml IV Total 1633.250 ml 1671.435 ml Tube Feeding 480 ml 230 ml Output Urine Total 650 ml 600 ml Laboratory Tests Test 05/15/20 01:00 05/15/20 04:00 Vancomycin Level Trough 3.3 ug/mL (5.0-12.0) L White Blood Count 16.9 K/UL (4.8-10.8) H Red Blood Count 3.50 M/UL (4.70-6.10) L Hemoglobin 10.5 G/DL (14.2-18.0) L Hematocrit 32.7 % (42.0-52.0) L Mean Corpuscular Volume 94 FL (80-99) Mean Corpuscular Hemoglobin 29.9 PG (27.0-31.0) Mean Corpuscular Hemoglobin Concent 31.9 G/DL (32.0-36.0) L Red Cell Distribution Width 15.5 % (11.6-14.8) H Platelet Count 100 K/UL (150-450) L Mean Platelet Volume 7.2 FL (6.5-10.1) Neutrophils (%) (Auto) % (45.0-75.0) Lymphocytes (%) (Auto) % (20.0-45.0) Monocytes (%) (Auto) % (1.0-10.0) Eosinophils (%) (Auto) % (0.0-3.0) Basophils (%) (Auto) % (0.0-2.0) Differential Total Cells Counted 100 Neutrophils % (Manual) 94 % (45-75) H Lymphocytes % (Manual) 4 % (20-45) L Monocytes % (Manual) 2 % (1-10) Eosinophils % (Manual) 0 % (0-3) Basophils % (Manual) 0 % (0-2) Band Neutrophils 0 % (0-8) Platelet Estimate Decreased L Platelet Morphology Normal Anisocytosis 1+ Sodium Level 144 MMOL/L (136-145) Potassium Level 3.1 MMOL/L (3.5-5.1) L Chloride Level 106 MMOL/L (98-107) Carbon Dioxide Level 32 MMOL/L (21-32) Blood Urea Nitrogen 14 mg/dL (7-18) Creatinine 0.6 MG/DL (0.55-1.30) Estimat Glomerular Filtration Rate > 60 mL/min (>60) Glucose Level 116 MG/DL (74-106) H Calcium Level 7.6 MG/DL (8.5-10.1) L Phosphorus Level 1.4 MG/DL (2.5-4.9) L Magnesium Level 2.0 MG/DL (1.8-2.4) Total Bilirubin 1.6 MG/DL (0.2-1.0) H Direct Bilirubin 1.1 MG/DL (0.0-0.3) H Aspartate Amino Transf (AST/SGOT) 42 U/L (15-37) H Alanine Aminotransferase (ALT/SGPT) 20 U/L (12-78) Alkaline Phosphatase 128 U/L (46-116) H C-Reactive Protein, Quantitative 34.3 mg/dL (0.00-0.90) H Pro-B-Type Natriuretic Peptide 2146 pg/mL (0-125) H Total Protein 5.2 G/DL (6.4-8.2) L Albumin 1.3 G/DL (3.4-5.0) L Globulin 3.9 g/dL Albumin/Globulin Ratio 0.3 (1.0-2.7) L Microbiology Date/Time Source Procedure Growth Status 05/14/20 01:00 Sputum Expectorated Gram Stain - Final Resulted 05/14/20 01:00 Sputum Culture - Preliminary Staphylococcus Aureus Resulted Objective HEAD AND NECK: No JVD. Orally intubated.Old trach site has drainage LUNGS: Coarse rhonchi. CARDIOVASCULAR: Regular S1 and S2. Mildly tachycardic. ABDOMEN: Soft. EXTREMITIES: 1+ pitting edema. Shady Sorto MD May 15, 2020 19:48
[2020-05-15] MEDS: Dyna-Hex 2% Top Sol 2oz TOPIC SCH (19:49)
[2020-05-16] VITALS (49 sets, daily range): BP systolic 77–107; BP diastolic 56–74
[2020-05-16] MEDS: Acetaminophen 650mg/20.3ml NG PRN ×3 (01:16→17:32)
[2020-05-16] MEDS: LORazepam Inj 2mg/ml 1ml IV PRN ×4 (02:28→17:31)
[2020-05-16] MEDS: Norepinephrine 4mg/NS Premix 250 ML IV SCH ×5 (03:10→22:20)
[2020-05-16] MEDS: Vancomycin 1.25gm/Ns 275 ML IVPB SCH ×2 (03:44)
[2020-05-16] MEDS: D5NS 1,000 ML IV SCH ×2 (05:00→16:53)
[2020-05-16] MEDS: Midodrine 10mg tab GT SCH ×3 (05:34→22:13)
[2020-05-16 07:54] LABS: ALANINE AMINOTRANSFERASE 21 U/L (12-78); ALBUMIN 1.1 G/DL (3.4-5.0); ALBUMIN/GLOBULIN RATIO 0.3 (1.0-2.7); ALKALINE PHOSPHATASE 144 U/L (46-116); ANION GAP 6 mmol/L (5-15); ASPARTATE AMINO TRANSFERASE 40 U/L (15-37); BILIRUBIN,TOTAL 1.9 MG/DL (0.2-1.0); BLOOD UREA NITROGEN 15 mg/dL (7-18); CALCIUM 7.4 MG/DL (8.5-10.1); CARBON DIOXIDE 28 MMOL/L (21-32); CHLORIDE 110 MMOL/L (98-107); CREATININE 0.7 MG/DL (0.55-1.30); POTASSIUM 2.8 MMOL/L (3.5-5.1); SODIUM 144 MMOL/L (136-145)
[2020-05-16 07:57] LABS: BILIRUBIN,DIRECT 1.3 MG/DL (0.0-0.3)
[2020-05-16] MEDS: levETIRAcetam 500mg/NS100ml 100 ML IVPB SCH ×2 (08:22→20:32)
[2020-05-16] MEDS: Docusate 100mg/10ml Liq GT SCH ×2 (08:23→16:52)
[2020-05-16] MEDS: Cefepime HCl 1 GM in D5W 55 ML IVPB SCH ×2 (08:25→20:33)
--- NOTE | 2020-05-16 09:15 | Diagnostic Imaging Report ---
EXAM: XR Chest, 1 View CLINICAL HISTORY: SOB TECHNIQUE: Frontal view of the chest. COMPARISON: Chest radiograph May 14, 2020. FINDINGS/IMPRESSION: Endotracheal tube terminates approximately 4.5 cm above the tayler. Enteric feeding tube terminates in the stomach. EKG leads overlie the patient. Extensive airspace consolidations within the bilateral lung crowe, right greater than left. This is increased when compared to previous study. Small left effusion, which is mildly increased. Stable, small left effusion. No pneumothorax. Cardiomegaly.
[2020-05-16] MEDS ORDERED: SODIUM CHLORIDE IV SCH (11:30)
[2020-05-16] MEDS ORDERED: POTASSIUM CHLORIDE IV SCH (11:30)
--- NOTE | 2020-05-16 12:22 | Nephrology Progress Note ---
Assessment/Plan Problem List: (1) Septic shock (2) Acute febrile illness (3) Suspected 2019 novel coronavirus infection (4) Seizure disorder (5) Electrolyte imbalance Assessment Acute febrile illness most likely benton virus infection Hypotension ( Shock) ,on dopamine Seizure disorder Plan May 16: Labs reviewed. Potassium low. 60 M EQ potassium chloride IV ordered. Discussed with RN. Albumin bolus 25% 100 cc IV ordered May 15: Labs reviewed. Abnormal electrolytes addressed. Continue per current management. Discussed with RN. May 14: Patient remains intubated on ventilator. Potassium low. Potassium IV ordered. Continue per consultants. May 13: Patient now in ICU. Intubated on ventilator. Has Knapp catheter. On pressors. Today's labs pending. Bolus of albumin 25% given. Discussed with RN Tran. Continue to monitor electrolytes and renal parameters. May 12: When seen earlier patient had respiratory distress. At this time the patient is transferred to [facility]. In Covid isolation . Transferred to SDU for desaturation and likely needs BIPAP. Has NG tube in. PEG is pending consent Labs reviewed. K-Phos replacement ordered. Continue to monitor renal para meters. May 11: Today's labs not drawn. Will check labs tomorrow. Continue per consultants May 10: No labs drawn today. Will check lab tomorrow. Continue per consultants. May 09: No labs drawn today. Remains stable from renal standpoint review. Continue to monitor her electrolytes and renal parameters. Continue per consultants. May 08: Labs reviewed. Abnormal electrolytes addressed. Leukocytosis down from 20,000-16,000. Continue per consultants. May 07: Labs reviewed. Potassium phosphorus replaced. White blood cells up to 20,000. Continue per consultants. May 06: No labs drawn today. Continue per consultants. Check labs in a.m. May 05: Labs reviewed. Stable renal parameters. Continue per consultants. May 04: No labs drawn today. Stable from renal standpoint of view. Medication list reviewed. Started on midodrine for low blood pressure. Patient on tube feeding. May 03: Labs reviewed. Potassium replaced. Continue per consultants. May 02: Labs reviewed. Potassium and phosphorus were replaced. Continue per consultants. May 01: No labs drawn today. Stable from renal standpoint of view. We will continue to monitor renal parameters and electrolytes. April 30: Patient seen earlier in ICU. Abnormal electrolytes noted and addressed. Due transfer to telemetry. Continue per consultants. April 29: Patient hemodynamically improved. Urine output improved. Abnormal electrolytes reviewed and addressed. Continue per consultants. April 28: Keppra changed to IV. POA is held until speech therapy evaluation. Potassium phosphate IV. Ordered. Discussed with Beth ENG. Remains stable from renal standpoint of view. Albumin 5% 500 cc challenge ordered. Fluid challenge Monitor renal parameters Monitor electrolytes Per consultants Per orders Subjective ROS Limited/Unobtainable: Yes Objective Objective Last 24 Hour Vital Signs Date Time Temp Pulse Resp B/P (MAP) Pulse Ox O2 Delivery O2 Flow Rate FiO2 05/16/20 11:00 118 23 105/69 (81) 92 05/16/20 10:30 119 22 87/58 (68) 85 05/16/20 10:00 89/52 05/16/20 10:00 121 22 88/63 (71) 85 05/16/20 09:30 116 21 101/56 (71) 84 05/16/20 09:00 115 23 92/70 (77) 89 05/16/20 08:59 113 21 90/66 90 05/16/20 08:59 98.3 05/16/20 08:30 118 23 93/63 (73) 89 05/16/20 08:29 113 21 90/66 90 05/16/20 08:00 116 05/16/20 08:00 100 05/16/20 08:00 Mechanical Ventilator 05/16/20 08:00 113 23 99/72 (81) 88 05/16/20 07:30 116 23 107/66 (80) 90 05/16/20 07:00 113 21 90/66 (74) 90 05/16/20 06:30 113 24 100/63 (75) 89 05/16/20 06:00 110 24 96/67 (77) 88 05/16/20 05:30 107 22 99/68 (78) 90 05/16/20 05:00 108 21 99/65 (76) 92 05/16/20 04:30 112 24 98/66 (77) 94 05/16/20 04:00 98.3 118 19 96/66 (76) 94 05/16/20 04:00 112 05/16/20 04:00 100 05/16/20 04:00 Mechanical Ventilator 05/16/20 03:30 125 19 98/70 (79) 94 05/16/20 03:10 96/69 05/16/20 03:00 137 22 90/68 (75) 93 05/16/20 02:58 129 20 90/65 93 05/16/20 02:30 133 24 101/65 (77) 93 05/16/20 02:28 132 24 96/69 92 05/16/20 02:00 139 38 100/69 (79) 89 05/16/20 01:30 141 27 93/74 (80) 88 05/16/20 01:27 94 35 100 05/16/20 01:00 137 24 106/70 (82) 88 05/16/20 00:30 133 26 103/65 (78) 89 05/16/20 00:00 121 05/16/20 00:00 100 05/16/20 00:00 Mechanical Ventilator 05/16/20 00:00 99.0 126 29 102/68 (79) 89 05/15/20 23:30 127 42 106/63 (77) 75 05/15/20 23:16 124 39 110/64 78 05/15/20 23:00 121 41 105/65 (78) 79 05/15/20 22:46 121 40 107/75 80 05/15/20 22:30 113 42 104/72 (83) 83 05/15/20 22:00 105 35 104/73 (83) 84 05/15/20 21:30 108 35 102/67 (79) 77 05/15/20 21:00 98 34 109/68 (82) 82 05/15/20 20:47 95 34 107/67 86 05/15/20 20:33 109/59 05/15/20 20:30 100 27 109/69 (82) 83 05/15/20 20:17 98 28 105/58 83 05/15/20 20:00 Mechanical Ventilator 05/15/20 20:00 100 05/15/20 20:00 98.8 94 33 107/66 (80) 85 05/15/20 20:00 95 05/15/20 19:30 99 34 104/67 (79) 86 05/15/20 19:00 99 33 103/65 (78) 86 05/15/20 19:00 94 35 100 05/15/20 18:41 110 34 109/69 90 05/15/20 18:41 98.3 05/15/20 18:11 110 34 109/69 90 05/15/20 18:00 114 34 92/52 (65) 83 05/15/20 17:30 110 34 109/69 (82) 88 05/15/20 17:00 113 35 101/68 (79) 87 05/15/20 16:30 96 33 105/69 (81) 88 05/15/20 16:00 98.3 97 34 107/66 (80) 89 05/15/20 16:00 104 05/15/20 16:00 100 05/15/20 16:00 Mechanical Ventilator 05/15/20 15:30 102 25 113/66 (82) 89 05/15/20 15:00 102 34 108/64 (79) 90 05/15/20 14:30 96 33 95/67 (76) 95 05/15/20 14:21 100.0 05/15/20 14:00 108 34 113/67 (82) 96 05/15/20 13:46 110 34 95/68 95 05/15/20 13:30 109/69 05/15/20 13:30 94 35 95/72 (80) 95 05/15/20 13:16 118 40 113/76 93 05/15/20 13:06 91 35 100 05/15/20 13:00 95 35 113/76 (88) 88 05/15/20 12:30 102.0 118 40 113/76 (88) 93 Intake and Output 05/15/20 05/16/20 19:00 07:00 Intake Total 2646.249 ml 2107.242 ml Output Total 480 ml 490 ml Balance 2166.249 ml 1617.242 ml Free Water 180 ml 80 ml IV Total 2306.249 ml 1947.242 ml Tube Feeding 160 ml 80 ml Output Urine Total 480 ml 490 ml Laboratory Tests 05/16/20 01:57: Vancomycin Level Trough 19.8H 05/16/20 04:00: Sodium Level 144, Potassium Level 2.8L, Chloride Level 110H, Carbon Dioxide Level 28, Anion Gap 6, Blood Urea Nitrogen 15, Creatinine 0.7, Estimat Glomerular Filtration Rate > 60, Glucose Level 125H, Calcium Level 7.4L, Phosphorus Level 3.0, Magnesium Level 1.8, Total Bilirubin 1.9H, Direct Bilirubin 1.3H, Aspartate Amino Transf (AST/SGOT) 40H, Alanine Aminotransferase (ALT/SGPT) 21, Alkaline Phosphatase 144H, Total Protein 5.1L, Albumin 1.1L, Globulin 4.0, Albumin/Globulin Ratio 0.3L 05/16/20 08:14: Arterial Blood pH 7.296L, Arterial Blood Partial Pressure CO2 51.3H, Arterial Blood Partial Pressure O2 [Pending], Arterial Blood HCO3 24.4, Arterial Blood Oxygen Saturation 82.1*L, Arterial Blood Base Excess -2.4L, Kobi Test Positive Height (Feet): 5 Height (Inches): 8.00 Weight (Pounds): 130 General Appearance: no apparent distress EENT: other - Intubated on ventilator Cardiovascular: tachycardia Respiratory/Chest: decreased breath sounds Abdomen: distended Objective No change Abhilash Clark MD May 16, 2020 12:22
[2020-05-16] MEDS: Vancomycin 1gm/D5W 275ml IVPB SCH ×4 (14:06→22:12)
--- NOTE | 2020-05-16 14:54 | Pulmonology Progress Note ---
Subjective ROS Limited/Unobtainable: Yes Interval Events: None new Constitutional: Reports: fever, other - Cn=980.5 HEENT: Repors: no symptoms Respiratory: Reports: no symptoms Cardiovascular: Reports: no symptoms Gastrointestinal/Abdominal: Denies: nausea, vomiting, diarrhea Genitourinary: Reports: no symptoms Neurologic: Reports: no symptoms Musculoskeletal: Denies: pain Allergies: Coded Allergies: No Known Allergies (Unverified , 04/14/20) Objective Last 24 Hour Vital Signs Date Time Temp Pulse Resp B/P (MAP) Pulse Ox O2 Delivery O2 Flow Rate FiO2 05/16/20 13:00 140 22 92/69 (77) 90 05/16/20 12:00 134 05/16/20 12:00 Mechanical Ventilator 05/16/20 12:00 130 20 93/68 (76) 89 05/16/20 12:00 100 05/16/20 11:00 118 23 105/69 (81) 92 05/16/20 10:30 119 22 87/58 (68) 85 05/16/20 10:00 89/52 05/16/20 10:00 121 22 88/63 (71) 85 05/16/20 09:30 116 21 101/56 (71) 84 05/16/20 09:00 115 23 92/70 (77) 89 05/16/20 08:59 113 21 90/66 90 05/16/20 08:59 98.3 05/16/20 08:30 118 23 93/63 (73) 89 05/16/20 08:29 113 21 90/66 90 05/16/20 08:00 116 05/16/20 08:00 100 05/16/20 08:00 Mechanical Ventilator 05/16/20 08:00 113 23 99/72 (81) 88 05/16/20 07:38 114 25 100 05/16/20 07:30 116 23 107/66 (80) 90 05/16/20 07:00 113 21 90/66 (74) 90 05/16/20 06:30 113 24 100/63 (75) 89 05/16/20 06:00 110 24 96/67 (77) 88 05/16/20 05:30 107 22 99/68 (78) 90 05/16/20 05:00 108 21 99/65 (76) 92 05/16/20 04:30 112 24 98/66 (77) 94 05/16/20 04:00 98.3 118 19 96/66 (76) 94 05/16/20 04:00 112 05/16/20 04:00 100 05/16/20 04:00 Mechanical Ventilator 05/16/20 03:30 125 19 98/70 (79) 94 05/16/20 03:10 96/69 05/16/20 03:00 137 22 90/68 (75) 93 05/16/20 02:58 129 20 90/65 93 05/16/20 02:30 133 24 101/65 (77) 93 05/16/20 02:28 132 24 96/69 92 05/16/20 02:00 139 38 100/69 (79) 89 05/16/20 01:30 141 27 93/74 (80) 88 05/16/20 01:27 94 35 100 05/16/20 01:00 137 24 106/70 (82) 88 05/16/20 00:30 133 26 103/65 (78) 89 05/16/20 00:00 121 05/16/20 00:00 100 05/16/20 00:00 Mechanical Ventilator 05/16/20 00:00 99.0 126 29 102/68 (79) 89 05/15/20 23:30 127 42 106/63 (77) 75 05/15/20 23:16 124 39 110/64 78 05/15/20 23:00 121 41 105/65 (78) 79 05/15/20 22:46 121 40 107/75 80 05/15/20 22:30 113 42 104/72 (83) 83 05/15/20 22:00 105 35 104/73 (83) 84 05/15/20 21:30 108 35 102/67 (79) 77 05/15/20 21:00 98 34 109/68 (82) 82 05/15/20 20:47 95 34 107/67 86 05/15/20 20:33 109/59 05/15/20 20:30 100 27 109/69 (82) 83 05/15/20 20:17 98 28 105/58 83 05/15/20 20:00 Mechanical Ventilator 05/15/20 20:00 100 05/15/20 20:00 98.8 94 33 107/66 (80) 85 05/15/20 20:00 95 05/15/20 19:30 99 34 104/67 (79) 86 05/15/20 19:00 99 33 103/65 (78) 86 05/15/20 19:00 94 35 100 05/15/20 18:41 110 34 109/69 90 05/15/20 18:41 98.3 05/15/20 18:11 110 34 109/69 90 05/15/20 18:00 114 34 92/52 (65) 83 05/15/20 17:30 110 34 109/69 (82) 88 05/15/20 17:00 113 35 101/68 (79) 87 05/15/20 16:30 96 33 105/69 (81) 88 05/15/20 16:00 98.3 97 34 107/66 (80) 89 05/15/20 16:00 104 05/15/20 16:00 100 05/15/20 16:00 Mechanical Ventilator 05/15/20 15:30 102 25 113/66 (82) 89 05/15/20 15:00 102 34 108/64 (79) 90 Intake and Output 05/15/20 05/16/20 19:00 07:00 Intake Total 2646.249 ml 2107.242 ml Output Total 480 ml 490 ml Balance 2166.249 ml 1617.242 ml Free Water 180 ml 80 ml IV Total 2306.249 ml 1947.242 ml Tube Feeding 160 ml 80 ml Output Urine Total 480 ml 490 ml Objective 05/16 saturating at 85-88% on current vent setting 05/14 s/p intubation 05/12 no change 05/11 remains on 15L NRB 05/10 saturating 95% on 15L NRB 05/07 no change 05/06 s/p NGT; saturating 93% on 2L NC 05/05 no change 05/04 saturations stable with 2L NC 05/03 no change; PICC line 05/02 saturating 93% on 2 lpm NC 05/01 saturating well on 2 lpm NC General Appearance: no acute distress HEENT: normocephalic, other - NGT Respiratory: chest wall non-tender, other - coarse rhonchi Cardiovascular: normal peripheral pulses Abdomen: normal bowel sounds Extremities: other - 1+ pitting edema Microbiology Date/Time Source Procedure Growth Status 05/14/20 01:00 Sputum Expectorated Gram Stain - Final Complete 05/14/20 01:00 Sputum Culture - Final Staphylococcus Aureus - Mrsa Complete Laboratory Tests 05/16/20 01:57: Vancomycin Level Trough 19.8H 05/16/20 04:00: Sodium Level 144, Potassium Level 2.8L, Chloride Level 110H, Carbon Dioxide Level 28, Anion Gap 6, Blood Urea Nitrogen 15, Creatinine 0.7, Estimat Glomerular Filtration Rate > 60, Glucose Level 125H, Calcium Level 7.4L, Phosphorus Level 3.0, Magnesium Level 1.8, Total Bilirubin 1.9H, Direct Bilirubin 1.3H, Aspartate Amino Transf (AST/SGOT) 40H, Alanine Aminotransferase (ALT/SGPT) 21, Alkaline Phosphatase 144H, Total Protein 5.1L, Albumin 1.1L, Globulin 4.0, Albumin/Globulin Ratio 0.3L 05/16/20 08:14: Arterial Blood pH 7.296L, Arterial Blood Partial Pressure CO2 51.3H, Arterial Blood Partial Pressure O2 [Pending], Arterial Blood HCO3 24.4, Arterial Blood Oxygen Saturation 82.1*L, Arterial Blood Base Excess -2.4L, Kobi Test Positive Current Medications Medications (Trade) Dose Ordered Sig/[place] Route PRN Reason Start Time Stop Time Status Last Admin Dose Admin Acetaminophen (Tylenol) 500 mg Q4HR PRN ORAL Temp >100.5 04/27/20 00:15 05/27/20 00:14 05/15/20 13:51 Acetaminophen (Tylenol) 650 mg Q4H PRN NG Mild Pain (Pain Scale 1-3) 05/14/20 01:30 06/13/20 01:29 05/16/20 08:29 Cefepime HCl 1 gm/ Dextrose 55 ml @ 110 mls/hr EVERY 12 HOURS IVPB 05/10/20 13:15 05/17/20 13:14 05/16/20 08:25 Chlorhexidine Gluconate (Anjali-Hex 2%) 1 applic DAILY@1999 TOPIC 04/29/20 20:00 07/28/20 19:59 05/15/20 19:49 Dextrose/Sodium Chloride 1,000 ml @ 75 mls/hr [id number] IV 05/04/20 14:30 06/03/20 14:29 05/16/20 05:00 Docusate Sodium (Colace) 100 mg TWICE A DAY GT 05/13/20 21:00 06/12/20 20:59 05/16/20 08:23 Famotidine (Pepcid) 20 mg BID GT 05/04/20 18:00 08/02/20 17:59 05/16/20 08:24 Levetiracetam 100 ml @ 400 mls/hr Q12HR IVPB 04/28/20 21:00 07/27/20 20:59 05/16/20 08:22 Lorazepam (Ativan 2mg/ml 1ml) 1 mg Q2H PRN IV For Anxiety 05/14/20 13:45 05/21/20 09:44 05/15/20 08:43 Lorazepam (Ativan 2mg/ml 1ml) 1 mg Q2H PRN IV Agitation 05/14/20 13:45 05/21/20 09:44 05/16/20 02:28 Lorazepam (Ativan 2mg/ml 1ml) 2 mg Q3H PRN IV Seziure 05/14/20 09:45 05/21/20 09:44 05/16/20 08:29 Midodrine (Pro-Amatine) 10 mg Q8HR GT 05/04/20 14:00 08/02/20 13:59 05/16/20 14:06 Norepinephrine Bitartrate 250 ml @ 0 mls/hr Q24H IV 05/16/20 06:22 05/18/20 06:21 05/16/20 10:00 Potassium Chloride 60 meq/ Sodium Chloride 580 ml @ 96.667 mls/ hr ONCE IV 05/16/20 11:30 05/16/20 18:00 05/16/20 11:22 Vancomycin HCl (Vanco pharmacy to dose) 1 ea DAILY PRN MISC Per rx protocol 05/13/20 13:00 06/12/20 12:59 Vancomycin HCl 1 gm/Dextrose 275 ml @ 183.708 mls/hr Q8H IVPB 05/16/20 14:00 05/21/20 13:59 05/16/20 14:06 Assessment/Plan Assessment/Plan 1. COVID-19 pneumonia, - CXR 04/30 Slightly improved bilateral infiltrates, possible small right pleural effusion - CXR 05/08 improving - CXR 05/11 worsening - CXR 05/16 worse - s/p completed Decadron - s/p ceftriaxone and azithromycin per ID - s/p intubated, saturating at 85-88%; AC 15, VT 500, 100% FiO2, PEEP 5 2. Seizure disorder. - on antiepileptics 3. Hypotension 4. possible aspiration pneumonia with new onset fever (Tmax 101.1) - CXR shows left lung infiltrates - on Cefepime per ID - d/w ID 5. DVT ppx - on SCD 6. Septic shock - ID following - on cefepime and IV Vanco per ID 7. Respiratory acidosis - monitor ABG s/p NG tube placement off fluid boluses and dopamine seen in ICU The care for this patient was discussed with my supervising physician Time spent for this case was approximately 31 minutes Brett Shore May 16, 2020 14:54
--- NOTE | 2020-05-16 16:21 | General Progress Note ---
Subjective Allergies: Coded Allergies: No Known Allergies (Unverified , 04/14/20) Subjective Above noted seen in ICU d/w RN still on pressors intermittent residuals Objective Last 24 Hour Vital Signs Date Time Temp Pulse Resp B/P (MAP) Pulse Ox O2 Delivery O2 Flow Rate FiO2 05/16/20 14:30 92/69 05/16/20 13:00 140 22 92/69 (77) 90 05/16/20 12:00 134 05/16/20 12:00 Mechanical Ventilator 05/16/20 12:00 130 20 93/68 (76) 89 05/16/20 12:00 100 05/16/20 11:00 118 23 105/69 (81) 92 05/16/20 10:30 119 22 87/58 (68) 85 05/16/20 10:00 89/52 05/16/20 10:00 121 22 88/63 (71) 85 05/16/20 09:30 116 21 101/56 (71) 84 05/16/20 09:00 115 23 92/70 (77) 89 05/16/20 08:59 113 21 90/66 90 05/16/20 08:59 98.3 05/16/20 08:30 118 23 93/63 (73) 89 05/16/20 08:29 113 21 90/66 90 05/16/20 08:00 116 05/16/20 08:00 100 05/16/20 08:00 Mechanical Ventilator 05/16/20 08:00 113 23 99/72 (81) 88 05/16/20 07:38 114 25 100 05/16/20 07:30 116 23 107/66 (80) 90 05/16/20 07:00 113 21 90/66 (74) 90 05/16/20 06:30 113 24 100/63 (75) 89 05/16/20 06:00 110 24 96/67 (77) 88 05/16/20 05:30 107 22 99/68 (78) 90 05/16/20 05:00 108 21 99/65 (76) 92 05/16/20 04:30 112 24 98/66 (77) 94 05/16/20 04:00 98.3 118 19 96/66 (76) 94 05/16/20 04:00 112 05/16/20 04:00 100 05/16/20 04:00 Mechanical Ventilator 05/16/20 03:30 125 19 98/70 (79) 94 05/16/20 03:10 96/69 05/16/20 03:00 137 22 90/68 (75) 93 05/16/20 02:58 129 20 90/65 93 05/16/20 02:30 133 24 101/65 (77) 93 05/16/20 02:28 132 24 96/69 92 05/16/20 02:00 139 38 100/69 (79) 89 05/16/20 01:30 141 27 93/74 (80) 88 05/16/20 01:27 94 35 100 05/16/20 01:00 137 24 106/70 (82) 88 05/16/20 00:30 133 26 103/65 (78) 89 05/16/20 00:00 121 05/16/20 00:00 100 05/16/20 00:00 Mechanical Ventilator 05/16/20 00:00 99.0 126 29 102/68 (79) 89 05/15/20 23:30 127 42 106/63 (77) 75 05/15/20 23:16 124 39 110/64 78 05/15/20 23:00 121 41 105/65 (78) 79 05/15/20 22:46 121 40 107/75 80 05/15/20 22:30 113 42 104/72 (83) 83 05/15/20 22:00 105 35 104/73 (83) 84 05/15/20 21:30 108 35 102/67 (79) 77 05/15/20 21:00 98 34 109/68 (82) 82 05/15/20 20:47 95 34 107/67 86 05/15/20 20:33 109/59 05/15/20 20:30 100 27 109/69 (82) 83 05/15/20 20:17 98 28 105/58 83 05/15/20 20:00 Mechanical Ventilator 05/15/20 20:00 100 05/15/20 20:00 98.8 94 33 107/66 (80) 85 05/15/20 20:00 95 05/15/20 19:30 99 34 104/67 (79) 86 05/15/20 19:00 99 33 103/65 (78) 86 05/15/20 19:00 94 35 100 05/15/20 18:41 110 34 109/69 90 05/15/20 18:41 98.3 05/15/20 18:11 110 34 109/69 90 05/15/20 18:00 114 34 92/52 (65) 83 05/15/20 17:30 110 34 109/69 (82) 88 05/15/20 17:00 113 35 101/68 (79) 87 05/15/20 16:30 96 33 105/69 (81) 88 l Intake and Output 05/15/20 05/16/20 19:00 07:00 Intake Total 2646.249 ml 2107.242 ml Output Total 480 ml 490 ml Balance 2166.249 ml 1617.242 ml Free Water 180 ml 80 ml IV Total 2306.249 ml 1947.242 ml Tube Feeding 160 ml 80 ml Output Urine Total 480 ml 490 ml Laboratory Tests 05/16/20 01:57: Vancomycin Level Trough 19.8H 05/16/20 04:00: Sodium Level 144, Potassium Level 2.8L, Chloride Level 110H, Carbon Dioxide Level 28, Anion Gap 6, Blood Urea Nitrogen 15, Creatinine 0.7, Estimat Glomerular Filtration Rate > 60, Glucose Level 125H, Calcium Level 7.4L, Phosphorus Level 3.0, Magnesium Level 1.8, Total Bilirubin 1.9H, Direct Bilirubin 1.3H, Aspartate Amino Transf (AST/SGOT) 40H, Alanine Aminotransferase (ALT/SGPT) 21, Alkaline Phosphatase 144H, Total Protein 5.1L, Albumin 1.1L, Globulin 4.0, Albumin/Globulin Ratio 0.3L 05/16/20 08:14: Arterial Blood pH 7.296L, Arterial Blood Partial Pressure CO2 51.3H, Arterial Blood Partial Pressure O2 [Pending], Arterial Blood HCO3 24.4, Arterial Blood Oxygen Saturation 82.1*L, Arterial Blood Base Excess -2.4L, Kobi Test Positive Height (Feet): 5 Height (Inches): 8.00 Weight (Pounds): 130 Objective Elderly man on vent NCAT supple Coarse ronchi RR abd soft, (+) anterior abd wall hernia no edema Assessment/Plan Status: progressing, unchanged Assessment/Plan: Assessment Rising LFT noted, possibly due to COVID hypokalemia leukocytosis Resp failure Seizure d/o HTN Dysphagia COVID (+) CHF GERD hypotension, on pressors TF intolerance due to hypotension poor prognosis Recommendations Continue tube feeds as tolerated check abd ultrasound Pressors, ICU care Elevate HOB follow labs and exam ICU care need to locate family - [employer]OSS to help Екатерина Whalen MD May 16, 2020 16:21
--- NOTE | 2020-05-16 18:01 | Cardiac Electrophysiology PN ---
Assessment/Plan Assessment/Plan 1. Septic shock on Levophed 16 mcg and IV antibiotic. Echo Nl EF 2. Respiratory failure due to COVID pneumonia, on dexamethasone On the Vent 100% fio2 and PEEP 10 3. Sinus tachycardia due to fever and sepsis and respiratory failure 4. Seizure disorder and altered level of consciousness on Keppra. 5. Failed swallow eval on iv fluid. NGT is in. DW RN Subjective Subjective In Covid isolation intubated on 100% Fio2 and PEEP 10 and on Levophed 16 mcg. Has drainage from old Tracheostomy site HR 140s in sinus tach Objective Last 24 Hour Vital Signs Date Time Temp Pulse Resp B/P (MAP) Pulse Ox O2 Delivery O2 Flow Rate FiO2 05/16/20 17:31 140 39 92/69 90 05/16/20 17:30 146 36 97/62 (74) 87 05/16/20 17:00 142 34 89/61 (70) 86 05/16/20 16:00 100 05/16/20 16:00 136 37 99/70 (80) 86 05/16/20 16:00 146 05/16/20 15:00 132 31 104/70 (81) 87 05/16/20 14:30 92/69 05/16/20 14:00 143 34 97/62 (74) 87 05/16/20 13:02 140 39 100 05/16/20 13:00 140 22 92/69 (77) 90 05/16/20 12:00 134 05/16/20 12:00 Mechanical Ventilator 05/16/20 12:00 130 20 93/68 (76) 89 05/16/20 12:00 100 05/16/20 11:00 118 23 105/69 (81) 92 05/16/20 10:30 119 22 87/58 (68) 85 05/16/20 10:00 89/52 05/16/20 10:00 121 22 88/63 (71) 85 05/16/20 09:30 116 21 101/56 (71) 84 05/16/20 09:00 115 23 92/70 (77) 89 05/16/20 08:59 140 39 92/69 90 05/16/20 08:59 113 21 90/66 90 05/16/20 08:59 98.3 05/16/20 08:30 118 23 93/63 (73) 89 05/16/20 08:29 140 39 92/69 90 05/16/20 08:00 116 05/16/20 08:00 100 05/16/20 08:00 Mechanical Ventilator 05/16/20 08:00 113 23 99/72 (81) 88 05/16/20 07:38 114 25 100 05/16/20 07:30 116 23 107/66 (80) 90 05/16/20 07:00 113 21 90/66 (74) 90 05/16/20 06:30 113 24 100/63 (75) 89 05/16/20 06:00 110 24 96/67 (77) 88 05/16/20 05:30 107 22 99/68 (78) 90 05/16/20 05:00 108 21 99/65 (76) 92 05/16/20 04:30 112 24 98/66 (77) 94 05/16/20 04:00 98.3 118 19 96/66 (76) 94 05/16/20 04:00 112 05/16/20 04:00 100 05/16/20 04:00 Mechanical Ventilator 05/16/20 03:30 125 19 98/70 (79) 94 05/16/20 03:10 96/69 05/16/20 03:00 137 22 90/68 (75) 93 05/16/20 02:58 129 20 90/65 93 05/16/20 02:30 133 24 101/65 (77) 93 05/16/20 02:28 132 24 96/69 92 05/16/20 02:00 139 38 100/69 (79) 89 05/16/20 01:30 141 27 93/74 (80) 88 05/16/20 01:27 94 35 100 05/16/20 01:00 137 24 106/70 (82) 88 05/16/20 00:30 133 26 103/65 (78) 89 05/16/20 00:00 121 05/16/20 00:00 100 05/16/20 00:00 Mechanical Ventilator 05/16/20 00:00 99.0 126 29 102/68 (79) 89 05/15/20 23:30 127 42 106/63 (77) 75 05/15/20 23:16 124 39 110/64 78 05/15/20 23:00 121 41 105/65 (78) 79 05/15/20 22:46 121 40 107/75 80 05/15/20 22:30 113 42 104/72 (83) 83 05/15/20 22:00 105 35 104/73 (83) 84 05/15/20 21:30 108 35 102/67 (79) 77 05/15/20 21:00 98 34 109/68 (82) 82 05/15/20 20:47 95 34 107/67 86 05/15/20 20:33 109/59 05/15/20 20:30 100 27 109/69 (82) 83 05/15/20 20:17 98 28 105/58 83 05/15/20 20:00 Mechanical Ventilator 05/15/20 20:00 100 05/15/20 20:00 98.8 94 33 107/66 (80) 85 05/15/20 20:00 95 05/15/20 19:30 99 34 104/67 (79) 86 05/15/20 19:00 99 33 103/65 (78) 86 05/15/20 19:00 94 35 100 05/15/20 18:41 110 34 109/69 90 05/15/20 18:41 98.3 05/15/20 18:11 110 34 109/69 90 Intake and Output 05/15/20 05/16/20 19:00 07:00 Intake Total 2646.249 ml 2107.242 ml Output Total 480 ml 490 ml Balance 2166.249 ml 1617.242 ml Free Water 180 ml 80 ml IV Total 2306.249 ml 1947.242 ml Tube Feeding 160 ml 80 ml Output Urine Total 480 ml 490 ml Laboratory Tests Test 05/16/20 01:57 05/16/20 04:00 05/16/20 08:14 Vancomycin Level Trough 19.8 ug/mL (5.0-12.0) H Sodium Level 144 MMOL/L (136-145) Potassium Level 2.8 MMOL/L (3.5-5.1) L Chloride Level 110 MMOL/L (98-107) H Carbon Dioxide Level 28 MMOL/L (21-32) Anion Gap 6 mmol/L (5-15) Blood Urea Nitrogen 15 mg/dL (7-18) Creatinine 0.7 MG/DL (0.55-1.30) Estimat Glomerular Filtration Rate > 60 mL/min (>60) Glucose Level 125 MG/DL (74-106) H Calcium Level 7.4 MG/DL (8.5-10.1) L Phosphorus Level 3.0 MG/DL (2.5-4.9) Magnesium Level 1.8 MG/DL (1.8-2.4) Total Bilirubin 1.9 MG/DL (0.2-1.0) H Direct Bilirubin 1.3 MG/DL (0.0-0.3) H Aspartate Amino Transf (AST/SGOT) 40 U/L (15-37) H Alanine Aminotransferase (ALT/SGPT) 21 U/L (12-78) Alkaline Phosphatase 144 U/L (46-116) H Total Protein 5.1 G/DL (6.4-8.2) L Albumin 1.1 G/DL (3.4-5.0) L Globulin 4.0 g/dL Albumin/Globulin Ratio 0.3 (1.0-2.7) L Arterial Blood pH 7.296 (7.350-7.450) Arterial Blood Partial Pressure CO2 51.3 mmHg (35.0-45.0) H Arterial Blood Partial Pressure O2 Pending Arterial Blood HCO3 24.4 mmol/L (22.0-26.0) Arterial Blood Oxygen Saturation 82.1 % (95-100) *L Arterial Blood Base Excess -2.4 (-2-2) L Kobi Test Positive Microbiology Date/Time Source Procedure Growth Status 05/14/20 01:00 Sputum Expectorated Gram Stain - Final Complete 05/14/20 01:00 Sputum Culture - Final Staphylococcus Aureus - Mrsa Complete Objective HEAD AND NECK: No JVD. Orally intubated.Old trach site has drainage LUNGS: Coarse rhonchi. CARDIOVASCULAR: Regular S1 and S2. Mildly tachycardic. ABDOMEN: Soft. EXTREMITIES: 1+ pitting edema. Shady Sorto MD May 16, 2020 18:01
[2020-05-16] MEDS: Dyna-Hex 2% Top Sol 2oz TOPIC SCH (20:31)
--- NOTE | 2020-05-16 22:39 | General Progress Note ---
Subjective ROS Limited/Unobtainable: Yes Allergies: Coded Allergies: No Known Allergies (Unverified , 04/14/20) Objective Last 24 Hour Vital Signs Date Time Temp Pulse Resp B/P (MAP) Pulse Ox O2 Delivery O2 Flow Rate FiO2 05/16/20 22:20 90/64 05/16/20 21:00 152 31 93/65 (74) 85 05/16/20 21:00 100 05/16/20 20:30 155 32 82/61 (68) 94 05/16/20 20:00 Mechanical Ventilator 05/16/20 20:00 155 05/16/20 20:00 98.0 159 36 89/61 (70) 90 05/16/20 19:30 149 24 85/67 (73) 92 05/16/20 19:00 156 37 89/67 (74) 87 05/16/20 18:33 151 36 100 05/16/20 18:30 140 34 80/65 (70) 82 05/16/20 18:30 90/65 05/16/20 18:02 98.3 05/16/20 18:01 140 39 92/69 90 05/16/20 18:00 98.4 150 34 88/65 (73) 84 05/16/20 17:31 140 39 92/69 90 05/16/20 17:30 146 36 97/62 (74) 87 05/16/20 17:00 142 34 89/61 (70) 86 05/16/20 16:00 Mechanical Ventilator 05/16/20 16:00 100 05/16/20 16:00 136 37 99/70 (80) 86 05/16/20 16:00 146 05/16/20 15:00 132 31 104/70 (81) 87 05/16/20 14:30 92/69 05/16/20 14:00 143 34 97/62 (74) 87 05/16/20 13:02 140 39 100 05/16/20 13:00 140 22 92/69 (77) 90 05/16/20 12:00 134 05/16/20 12:00 Mechanical Ventilator 05/16/20 12:00 130 20 93/68 (76) 89 05/16/20 12:00 100 05/16/20 11:00 118 23 105/69 (81) 92 05/16/20 10:30 119 22 87/58 (68) 85 05/16/20 10:00 89/52 05/16/20 10:00 121 22 88/63 (71) 85 05/16/20 09:30 116 21 101/56 (71) 84 05/16/20 09:00 115 23 92/70 (77) 89 05/16/20 08:59 140 39 92/69 90 05/16/20 08:59 113 21 90/66 90 05/16/20 08:59 98.3 05/16/20 08:30 118 23 93/63 (73) 89 05/16/20 08:29 140 39 92/69 90 05/16/20 08:00 116 05/16/20 08:00 100 05/16/20 08:00 Mechanical Ventilator 05/16/20 08:00 113 23 99/72 (81) 88 05/16/20 07:38 114 25 100 05/16/20 07:30 116 23 107/66 (80) 90 05/16/20 07:00 113 21 90/66 (74) 90 05/16/20 06:30 113 24 100/63 (75) 89 05/16/20 06:00 110 24 96/67 (77) 88 05/16/20 05:30 107 22 99/68 (78) 90 05/16/20 05:00 108 21 99/65 (76) 92 05/16/20 04:30 112 24 98/66 (77) 94 05/16/20 04:00 98.3 118 19 96/66 (76) 94 05/16/20 04:00 112 05/16/20 04:00 100 05/16/20 04:00 Mechanical Ventilator 05/16/20 03:30 125 19 98/70 (79) 94 05/16/20 03:10 96/69 05/16/20 03:00 137 22 90/68 (75) 93 05/16/20 02:58 129 20 90/65 93 05/16/20 02:30 133 24 101/65 (77) 93 05/16/20 02:28 132 24 96/69 92 05/16/20 02:00 139 38 100/69 (79) 89 05/16/20 01:30 141 27 93/74 (80) 88 05/16/20 01:27 94 35 100 05/16/20 01:00 137 24 106/70 (82) 88 05/16/20 00:30 133 26 103/65 (78) 89 05/16/20 00:00 121 05/16/20 00:00 100 05/16/20 00:00 Mechanical Ventilator 05/16/20 00:00 99.0 126 29 102/68 (79) 89 05/15/20 23:30 127 42 106/63 (77) 75 05/15/20 23:16 124 39 110/64 78 05/15/20 23:00 121 41 105/65 (78) 79 05/15/20 22:46 121 40 107/75 80 Intake and Output 05/15/20 05/16/20 18:59 06:59 Intake Total 2387.916 ml 2373.125 ml Output Total 490 ml 480 ml Balance 1897.916 ml 1893.125 ml Free Water 180 ml 80 ml IV Total 2067.916 ml 2193.125 ml Tube Feeding 140 ml 100 ml Output Urine Total 490 ml 480 ml Laboratory Tests 05/16/20 01:57: Vancomycin Level Trough 19.8H 05/16/20 04:00: Sodium Level 144, Potassium Level 2.8L, Chloride Level 110H, Carbon Dioxide Level 28, Anion Gap 6, Blood Urea Nitrogen 15, Creatinine 0.7, Estimat Glomerular Filtration Rate > 60, Glucose Level 125H, Calcium Level 7.4L, Phosphorus Level 3.0, Magnesium Level 1.8, Total Bilirubin 1.9H, Direct Bilirubin 1.3H, Aspartate Amino Transf (AST/SGOT) 40H, Alanine Aminotransferase (ALT/SGPT) 21, Alkaline Phosphatase 144H, Total Protein 5.1L, Albumin 1.1L, Globulin 4.0, Albumin/Globulin Ratio 0.3L 05/16/20 08:14: Arterial Blood pH 7.296L, Arterial Blood Partial Pressure CO2 51.3H, Arterial Blood Partial Pressure O2 [Pending], Arterial Blood HCO3 24.4, Arterial Blood Oxygen Saturation 82.1*L, Arterial Blood Base Excess -2.4L, Kobi Test Positive Height (Feet): 5 Height (Inches): 8.00 Weight (Pounds): 130 Assessment/Plan Problem List: (1) Coronavirus infection ICD Codes: B34.2 - Coronavirus infection, unspecified SNOMED: 076528166 (2) Septic shock ICD Codes: A41.9 - Sepsis, unspecified organism; R65.21 - Severe sepsis with septic shock SNOMED: 54553475 (3) Seizure disorder ICD Codes: G40.909 - Epilepsy, unspecified, not intractable, without status epilepticus SNOMED: 634449830 (4) Electrolyte imbalance ICD Codes: E87.8 - Other disorders of electrolyte and fluid balance, not elsewhere classified SNOMED: 391655936 Status: progressing, unchanged, deteriorating Assessment/Plan: covid positive sepstic shock on pressors very poor prognosis no seizure resp failure anemia Zain Mares MD May 16, 2020 22:39
[2020-05-17] VITALS (48 sets, daily range): BP systolic 35–98; BP diastolic 21–75
[2020-05-17] MEDS: Norepinephrine 4mg/NS Premix 250 ML IV SCH ×7 (01:46→16:18)
[2020-05-17] MEDS: Midodrine 10mg tab GT SCH ×3 (06:02→14:43)
[2020-05-17] MEDS: Vancomycin 1gm/D5W 275ml IVPB SCH ×4 (06:03→14:43)
[2020-05-17] MEDS: D5NS 1,000 ML IV SCH (06:28)
[2020-05-17 07:04] LABS: HEMATOCRIT 31.6 % (42.0-52.0); HEMOGLOBIN 9.9 G/DL (14.2-18.0); MEAN CORPUSCULAR VOLUME 97 FL (80-99); PLATELET COUNT 43 K/UL (150-450); RED BLOOD COUNT 3.25 M/UL (4.70-6.10); RED CELL DISTRIBUTION WIDTH 16.7 % (11.6-14.8)
[2020-05-17 07:36] LABS: ALANINE AMINOTRANSFERASE 27 U/L (12-78); ALBUMIN 1.5 G/DL (3.4-5.0); ALBUMIN/GLOBULIN RATIO 0.4 (1.0-2.7); ALKALINE PHOSPHATASE 162 U/L (46-116); ANION GAP 10 mmol/L (5-15); ASPARTATE AMINO TRANSFERASE 76 U/L (15-37); BILIRUBIN,TOTAL 1.6 MG/DL (0.2-1.0); BLOOD UREA NITROGEN 22 mg/dL (7-18); CALCIUM 7.2 MG/DL (8.5-10.1); CARBON DIOXIDE 22 MMOL/L (21-32); CHLORIDE 112 MMOL/L (98-107); CREATININE 0.9 MG/DL (0.55-1.30); PHOSPHORUS 3.9 MG/DL (2.5-4.9); POTASSIUM 4.1 MMOL/L (3.5-5.1); SODIUM 144 MMOL/L (136-145)
[2020-05-17 08:23] LABS: BILIRUBIN,DIRECT 1.1 MG/DL (0.0-0.3)
[2020-05-17] MEDS: levETIRAcetam 500mg/NS100ml 100 ML IVPB SCH (08:36)
[2020-05-17] MEDS: Docusate 100mg/10ml Liq GT SCH (08:37)
[2020-05-17] MEDS: Cefepime HCl 1 GM in D5W 55 ML IVPB SCH (08:37)
[2020-05-17] MEDS ORDERED: Phenylephrine 50 MG in D5W 245 ML IV SCH (09:00)
[2020-05-17] MEDS: EPINEPHrine 1mg/1ml Amp 1 MG in D5W 249 ML IV SCH ×2 (11:03→15:00)
--- NOTE | 2020-05-17 11:18 | Diagnostic Imaging Report ---
Indication: Shortness of breath Technique: One view of the chest Comparison: 05/16/2020 Findings: Bilateral right greater than left infiltrates are unchanged. Bilateral pleural effusions are again demonstrated, probably unchanged. Consolidation in the right lung appears equivocally minimally improved but still extensive. Left lung consolidation is unchanged. Orogastric tube tip projects barely within the stomach, proximal sidehole above the expected level gastric esophageal junction. Impression: High position of orogastric tube. Advancement recommended. This critical value finding was phoned to ICU charge nurse Temitope at the time of interpretation Extensive bilateral infiltrates, overall mostly stable but may be slightly improved on the right
--- NOTE | 2020-05-17 11:23 | Diagnostic Imaging Report ---
Indication: Abnormal liver function tests, Covid positive Technique: Limited grayscale and duplex images of the right upper quadrant Comparison: none Findings: Liver demonstrates normal echogenicity. No focal abnormality. There is a small right pleural effusion. The abdominal aorta is obscured by bowel gas. The gallbladder is nonvisualized, presumably absent as surgical clips are seen in the right upper quadrant on prior abdominal radiograph. Common bile duct measures 5 mm in diameter. The right kidney measures 9.1 cm in length. No hydroureter. No focal abnormality. The pancreas could not be imaged Impression: Absent and presumably surgically removed gallbladder Negative for dilated bile ducts Right pleural effusion incidentally noted Note inability to visualize the pancreas and abdominal aorta
--- NOTE | 2020-05-17 12:04 | Nephrology Progress Note ---
Assessment/Plan Problem List: (1) Septic shock (2) Acute febrile illness (3) Suspected 2019 novel coronavirus infection (4) Seizure disorder (5) Electrolyte imbalance Assessment Acute febrile illness most likely benton virus infection Hypotension ( Shock) ,on dopamine Seizure disorder Plan May 17: Labs reviewed. White blood cells up to 20,000. Remains intubated on ventilator. Full code. Clinically deteriorating. Renal parameters stable. Electrolyte within normal limits. May 16: Labs reviewed. Potassium low. 60 M EQ potassium chloride IV order ed. Discussed with RN. Albumin bolus 25% 100 cc IV ordered May 15: Labs reviewed. Abnormal electrolytes addressed. Continue per current management. Discussed with RN. May 14: Patient remains intubated on ventilator. Potassium low. Potassium IV ordered. Continue per consultants. May 13: Patient now in ICU. Intubated on ventilator. Has Knapp catheter. On pressors. Today's labs pending. Bolus of albumin 25% given. Discussed with RN Tran. Continue to monitor electrolytes and renal parameters. May 12: When seen earlier patient had respiratory distress. At this time the patient is transferred to [facility]. In Covid isolation . Transferred to SDU for desaturation and likely needs BIPAP. Has NG tube in. PEG is pending consent Labs reviewed. K-Phos replacement ordered. Continue to monitor renal parameters. May 11: Today's labs not drawn. Will check labs tomorrow. Continue per consultants May 10: No labs drawn today. Will check lab tomorrow. Continue per consultants. May 09: No labs drawn today. Remains stable from renal standpoint review. Continue to monitor her electrolytes and renal parameters. Continue per consultants. May 08: Labs reviewed. Abnormal electrolytes addressed. Leukocytosis down from 20,000-16,000. Continue per consultants. May 07: Labs reviewed. Potassium phosphorus replaced. White blood cells up to 20,000. Continue per consultants. May 06: No labs drawn today. Continue per consultants. Check labs in a.m. May 05: Labs reviewed. Stable renal parameters. Continue per consultants. May 04: No labs drawn today. Stable from renal standpoint of view. Medication list reviewed. Started on midodrine for low blood pressure. Patient on tube feeding. May 03: Labs reviewed. Potassium replaced. Continue per consultants. May 02: Labs reviewed. Potassium and phosphorus were replaced. Continue per consultants. May 01: No labs drawn today. Stable from renal standpoint of view. We will continue to monitor renal parameters and electrolytes. April 30: Patient seen earlier in ICU. Abnormal electrolytes noted and addressed. Due transfer to telemetry. Continue per consultants. April 29: Patient hemodynamically improved. Urine output improved. Abnormal electrolytes reviewed and addressed. Continue per consultants. April 28: Keppra changed to IV. POA is held until speech therapy evaluation. Potassium phosphate IV. Ordered. Discussed with Beth ENG. Remains stable from renal standpoint of view. Albumin 5% 500 cc challenge ordered. Fluid challenge Monitor renal parameters Monitor electrolytes Per consultants Per orders Subjective ROS Limited/Unobtainable: Yes Objective Objective Last 24 Hour Vital Signs Date Time Temp Pulse Resp B/P (MAP) Pulse Ox O2 Delivery O2 Flow Rate FiO2 05/17/20 10:59 86/56 05/17/20 10:00 150 35 86/56 (66) 86 05/17/20 09:30 141 34 98/60 (73) 94 05/17/20 09:00 143 32 93/58 (70) 88 05/17/20 08:46 138 62/46 05/17/20 08:45 142 32 54/39 (44) 86 05/17/20 08:45 62/46 05/17/20 08:30 143 34 62/46 (51) 88 05/17/20 08:00 Mechanical Ventilator 05/17/20 08:00 100 05/17/20 08:00 145 05/17/20 08:00 98.0 147 35 84/62 (69) 88 05/17/20 08:00 149 05/17/20 07:30 146 35 88/58 (68) 90 05/17/20 07:30 146 35 88/58 (68) 90 05/17/20 07:00 146 35 83/65 (71) 87 05/17/20 06:30 146 34 80/58 (65) 88 05/17/20 06:15 146 33 82/58 (66) 88 05/17/20 06:06 75/50 05/17/20 06:00 147 34 84/56 (65) 87 05/17/20 05:30 148 43 83/65 (71) 88 05/17/20 05:00 143 34 82/49 (60) 90 05/17/20 04:45 155 35 83/60 (68) 90 05/17/20 04:30 155 34 84/65 (71) 89 05/17/20 04:30 155 33 89/62 (71) 89 05/17/20 04:15 155 34 82/62 (69) 90 05/17/20 04:00 145 05/17/20 04:00 155 34 86/58 (67) 89 05/17/20 04:00 Mechanical Ventilator 05/17/20 04:00 100 05/17/20 04:00 98.5 155 35 83/66 (72) 90 05/17/20 03:45 154 35 83/65 (71) 90 05/17/20 03:31 86/56 05/17/20 03:30 154 35 83/65 (71) 90 05/17/20 03:30 153 33 77/60 (66) 91 05/17/20 03:15 153 36 82/66 (71) 90 05/17/20 03:00 153 35 82/66 (71) 91 05/17/20 03:00 151 36 91/62 (72) 91 05/17/20 02:47 149 32 91/64 (73) 92 05/17/20 02:45 148 34 86/62 (70) 92 05/17/20 02:30 152 35 94/65 (75) 76 05/17/20 02:15 150 35 90/63 (72) 78 05/17/20 02:00 150 36 94/59 (71) 81 05/17/20 01:46 50/30 05/17/20 01:45 145 35 97/65 (76) 83 05/17/20 01:30 142 35 92/69 (77) 86 05/17/20 01:15 148 35 86/61 (69) 73 05/17/20 01:14 149 35 75/59 (64) 75 05/17/20 01:00 149 35 68/51 (57) 81 05/17/20 00:45 98.0 145 35 82/58 (66) 88 05/17/20 00:31 136 38 100 05/17/20 00:30 150 35 94/75 (81) 83 05/17/20 00:15 152 36 91/69 (76) 83 05/17/20 00:00 Mechanical Ventilator 05/17/20 00:00 151 37 95/71 (79) 82 05/17/20 00:00 146 05/17/20 00:00 100 05/16/20 23:45 150 36 91/71 (78) 84 05/16/20 23:30 149 35 86/70 (75) 85 05/16/20 23:15 150 38 94/70 (78) 84 05/16/20 23:00 147 36 89/68 (75) 86 05/16/20 22:45 151 36 77/56 (63) 83 05/16/20 22:30 154 34 90/65 (73) 84 05/16/20 22:20 90/64 05/16/20 22:15 155 34 90/64 (73) 90 05/16/20 22:00 156 35 88/64 (72) 85 05/16/20 21:45 156 34 88/66 (73) 84 05/16/20 21:30 155 34 85/66 (72) 83 05/16/20 21:15 152 35 92/64 (73) 86 05/16/20 21:00 152 31 93/65 (74) 85 05/16/20 21:00 100 05/16/20 20:30 155 32 82/61 (68) 94 05/16/20 20:00 Mechanical Ventilator 05/16/20 20:00 155 05/16/20 20:00 98.0 159 36 89/61 (70) 90 05/16/20 19:30 149 24 85/67 (73) 92 05/16/20 19:00 156 37 89/67 (74) 87 05/16/20 18:33 151 36 100 05/16/20 18:30 140 34 80/65 (70) 82 05/16/20 18:30 90/65 05/16/20 18:02 98.3 05/16/20 18:01 140 39 92/69 90 05/16/20 18:00 98.4 150 34 88/65 (73) 84 05/16/20 17:31 140 39 92/69 90 05/16/20 17:30 146 36 97/62 (74) 87 05/16/20 17:00 142 34 89/61 (70) 86 05/16/20 16:00 Mechanical Ventilator 05/16/20 16:00 100 05/16/20 16:00 136 37 99/70 (80) 86 05/16/20 16:00 146 05/16/20 15:00 132 31 104/70 (81) 87 05/16/20 14:30 92/69 05/16/20 14:00 143 34 97/62 (74) 87 05/16/20 13:02 140 39 100 05/16/20 13:00 140 22 92/69 (77) 90 Intake and Output 05/16/20 05/17/20 19:00 07:00 Intake Total 2991.252 ml 2744.958 ml Output Total 550 ml 320 ml Balance 2441.252 ml 2424.958 ml Free Water 70 ml IV Total 2871.252 ml 2574.958 ml Tube Feeding 120 ml 100 ml Output Urine Total 550 ml 320 ml Laboratory Tests 05/17/20 05:42: White Blood Count 20.0H, Red Blood Count 3.25L, Hemoglobin 9.9L, Hematocrit 31.6L, Mean Corpuscular Volume 97, Mean Corpuscular Hemoglobin 30.4, Mean Corpuscular Hemoglobin Concent 31.3L, Red Cell Distribution Width 16.7H, Platelet Count 43L, Mean Platelet Volume 17.0H, Neutrophils (%) (Auto) , Lymphocytes (%) (Auto) , Monocytes (%) (Auto) , Eosinophils (%) (Auto) , Basophils (%) (Auto) , Differential Total Cells Counted 100, Neutrophils % (Manual) 90H, Lymphocytes % (Manual) 4L, Monocytes % (Manual) 3, Eosinophils % (Manual) 0, Basophils % (Manual) 0, Myelocytes % 3H, Band Neutrophils 0, Platelet Estimate DecreasedL, Platelet Morphology Normal, Polychromasia 1+, Hypochromasia 1+, Anisocytosis 1+, Sodium Level 144, Potassium Level 4.1, Chloride Level 112H, Carbon Dioxide Level 22, Anion Gap 10, Blood Urea Nitrogen 22H, Creatinine 0.9, Estimat Glomerular Filtration Rate > 60, Glucose Level 165H , Calcium Level 7.2L, Phosphorus Level 3.9, Magnesium Level 2.0, Total Bilirubin 1.6H, Direct Bilirubin 1.1H, Aspartate Amino Transf (AST/SGOT) 76H, Alanine Aminotransferase (ALT/SGPT) 27, Alkaline Phosphatase 162H, Total Protein 4.9L, Albumin 1.5L, Globulin 3.4, Albumin/Globulin Ratio 0.4L Height (Feet): 5 Height (Inches): 8.00 Weight (Pounds): 130 General Appearance: no apparent distress Cardiovascular: tachycardia Respiratory/Chest: decreased breath sounds Abdomen: distended Objective No change Abhilash Clark MD May 17, 2020 12:04
[2020-05-17] MEDS ORDERED: Phenylephrine 100 MG in D5W 500ml 490 ML IV SCH (12:50)
--- NOTE | 2020-05-17 15:55 | Cardiac Electrophysiology PN ---
Assessment/Plan Assessment/Plan 1. Septic shock maxed out on 3 pressors and IV antibiotic. Echo Nl EF Give NS 1 liter bolus and increase Midodrine to 15 tid 2. Respiratory failure due to COVID pneumonia, on dexamethasone On the Vent 100% fio2 and PEEP 10 3. Sinus tachycardia due to fever and sepsis and respiratory failure 4. Seizure disorder and altered level of consciousness on Keppra. 5. Failed swallow eval on iv fluid. NGT is in. DW RN Subjective Subjective In Covid isolation intubated on 100% Fio2 and PEEP 10 Maxed out on Levophed, Subhash and Epi. Has drainage from old Tracheostomy site HR 150s in sinus tach Objective Last 24 Hour Vital Signs Date Time Temp Pulse Resp B/P (MAP) Pulse Ox O2 Delivery O2 Flow Rate FiO2 05/17/20 15:00 154 31 69/46 (54) 76 05/17/20 14:30 161 33 77/55 (62) 78 05/17/20 14:00 163 34 84/61 (69) 85 05/17/20 13:30 149 32 71/50 (57) 85 05/17/20 13:13 86/56 05/17/20 13:12 150 86/56 05/17/20 13:00 82 34 77/54 (62) 82 05/17/20 12:30 81 34 81/54 (63) 88 05/17/20 12:00 148 05/17/20 12:00 Mechanical Ventilator 05/17/20 12:00 153 34 71/32 (45) 88 05/17/20 12:00 100 05/17/20 11:30 155 34 85/62 (70) 89 05/17/20 11:00 154 34 75/59 (64) 89 05/17/20 10:59 86/56 05/17/20 10:30 151 34 83/63 (70) 90 05/17/20 10:00 150 35 86/56 (66) 86 05/17/20 09:30 141 34 98/60 (73) 94 05/17/20 09:00 143 32 93/58 (70) 88 05/17/20 08:46 138 62/46 05/17/20 08:45 142 32 54/39 (44) 86 05/17/20 08:45 62/46 05/17/20 08:30 143 34 62/46 (51) 88 05/17/20 08:00 Mechanical Ventilator 05/17/20 08:00 100 05/17/20 08:00 145 05/17/20 08:00 98.0 147 35 84/62 (69) 88 05/17/20 08:00 149 05/17/20 07:30 146 35 88/58 (68) 90 05/17/20 07:30 146 35 88/58 (68) 90 05/17/20 07:00 146 35 83/65 (71) 87 05/17/20 06:30 146 34 80/58 (65) 88 05/17/20 06:15 146 33 82/58 (66) 88 05/17/20 06:06 75/50 05/17/20 06:00 147 34 84/56 (65) 87 05/17/20 05:30 148 43 83/65 (71) 88 05/17/20 05:00 143 34 82/49 (60) 90 05/17/20 04:45 155 35 83/60 (68) 90 05/17/20 04:30 155 34 84/65 (71) 89 05/17/20 04:30 155 33 89/62 (71) 89 05/17/20 04:15 155 34 82/62 (69) 90 05/17/20 04:00 145 05/17/20 04:00 155 34 86/58 (67) 89 05/17/20 04:00 Mechanical Ventilator 05/17/20 04:00 100 05/17/20 04:00 98.5 155 35 83/66 (72) 90 05/17/20 03:45 154 35 83/65 (71) 90 05/17/20 03:31 86/56 05/17/20 03:30 154 35 83/65 (71) 90 05/17/20 03:30 153 33 77/60 (66) 91 05/17/20 03:15 153 36 82/66 (71) 90 05/17/20 03:00 153 35 82/66 (71) 91 05/17/20 03:00 151 36 91/62 (72) 91 05/17/20 02:47 149 32 91/64 (73) 92 05/17/20 02:45 148 34 86/62 (70) 92 05/17/20 02:30 152 35 94/65 (75) 76 05/17/20 02:15 150 35 90/63 (72) 78 05/17/20 02:00 150 36 94/59 (71) 81 05/17/20 01:46 50/30 05/17/20 01:45 145 35 97/65 (76) 83 05/17/20 01:30 142 35 92/69 (77) 86 05/17/20 01:15 148 35 86/61 (69) 73 05/17/20 01:14 149 35 75/59 (64) 75 05/17/20 01:00 149 35 68/51 (57) 81 05/17/20 00:45 98.0 145 35 82/58 (66) 88 05/17/20 00:31 136 38 100 05/17/20 00:30 150 35 94/75 (81) 83 05/17/20 00:15 152 36 91/69 (76) 83 05/17/20 00:00 Mechanical Ventilator 05/17/20 00:00 151 37 95/71 (79) 82 05/17/20 00:00 146 05/17/20 00:00 100 05/16/20 23:45 150 36 91/71 (78) 84 05/16/20 23:30 149 35 86/70 (75) 85 05/16/20 23:15 150 38 94/70 (78) 84 05/16/20 23:00 147 36 89/68 (75) 86 05/16/20 22:45 151 36 77/56 (63) 83 05/16/20 22:30 154 34 90/65 (73) 84 05/16/20 22:20 90/64 05/16/20 22:15 155 34 90/64 (73) 90 05/16/20 22:00 156 35 88/64 (72) 85 05/16/20 21:45 156 34 88/66 (73) 84 05/16/20 21:30 155 34 85/66 (72) 83 05/16/20 21:15 152 35 92/64 (73) 86 05/16/20 21:00 152 31 93/65 (74) 85 05/16/20 21:00 100 05/16/20 20:30 155 32 82/61 (68) 94 05/16/20 20:00 Mechanical Ventilator 05/16/20 20:00 155 05/16/20 20:00 98.0 159 36 89/61 (70) 90 05/16/20 19:30 149 24 85/67 (73) 92 05/16/20 19:00 156 37 89/67 (74) 87 05/16/20 18:33 151 36 100 05/16/20 18:30 140 34 80/65 (70) 82 05/16/20 18:30 90/65 05/16/20 18:02 98.3 05/16/20 18:01 140 39 92/69 90 05/16/20 18:00 98.4 150 34 88/65 (73) 84 05/16/20 17:31 140 39 92/69 90 05/16/20 17:30 146 36 97/62 (74) 87 05/16/20 17:00 142 34 89/61 (70) 86 05/16/20 16:00 Mechanical Ventilator 05/16/20 16:00 100 05/16/20 16:00 136 37 99/70 (80) 86 05/16/20 16:00 146 Intake and Output 05/16/20 05/17/20 19:00 07:00 Intake Total 2991.252 ml 2744.958 ml Output Total 550 ml 320 ml Balance 2441.252 ml 2424.958 ml Free Water 70 ml IV Total 2871.252 ml 2574.958 ml Tube Feeding 120 ml 100 ml Output Urine Total 550 ml 320 ml Laboratory Tests Test 05/17/20 05:42 05/17/20 14:25 White Blood Count 20.0 K/UL (4.8-10.8) H Red Blood Count 3.25 M/UL (4.70-6.10) L Hemoglobin 9.9 G/DL (14.2-18.0) L Hematocrit 31.6 % (42.0-52.0) L Mean Corpuscular Volume 97 FL (80-99) Mean Corpuscular Hemoglobin 30.4 PG (27.0-31.0) Mean Corpuscular Hemoglobin Concent 31.3 G/DL (32.0-36.0) L Red Cell Distribution Width 16.7 % (11.6-14.8) H Platelet Count 43 K/UL (150-450) L Mean Platelet Volume 17.0 FL (6.5-10.1) H Neutrophils (%) (Auto) % (45.0-75.0) Lymphocytes (%) (Auto) % (20.0-45.0) Monocytes (%) (Auto) % (1.0-10.0) Eosinophils (%) (Auto) % (0.0-3.0) Basophils (%) (Auto) % (0.0-2.0) Differential Total Cells Counted 100 Neutrophils % (Manual) 90 % (45-75) H Lymphocytes % (Manual) 4 % (20-45) L Monocytes % (Manual) 3 % (1-10) Eosinophils % (Manual) 0 % (0-3) Basophils % (Manual) 0 % (0-2) Myelocytes % 3 % (0-0) H Band Neutrophils 0 % (0-8) Platelet Estimate Decreased L Platelet Morphology Normal Polychromasia 1+ Hypochromasia 1+ Anisocytosis 1+ Sodium Level 144 MMOL/L (136-145) Potassium Level 4.1 MMOL/L (3.5-5.1) Chloride Level 112 MMOL/L (98-107) H Carbon Dioxide Level 22 MMOL/L (21-32) Anion Gap 10 mmol/L (5-15) Blood Urea Nitrogen 22 mg/dL (7-18) H Creatinine 0.9 MG/DL (0.55-1.30) Estimat Glomerular Filtration Rate > 60 mL/min (>60) Glucose Level 165 MG/DL (74-106) H Calcium Level 7.2 MG/DL (8.5-10.1) L Phosphorus Level 3.9 MG/DL (2.5-4.9) Magnesium Level 2.0 MG/DL (1.8-2.4) Total Bilirubin 1.6 MG/DL (0.2-1.0) H Direct Bilirubin 1.1 MG/DL (0.0-0.3) H Aspartate Amino Transf (AST/SGOT) 76 U/L (15-37) H Alanine Aminotransferase (ALT/SGPT) 27 U/L (12-78) Alkaline Phosphatase 162 U/L (46-116) H Total Protein 4.9 G/DL (6.4-8.2) L Albumin 1.5 G/DL (3.4-5.0) L Globulin 3.4 g/dL Albumin/Globulin Ratio 0.4 (1.0-2.7) L Vancomycin Level Trough 29.8 ug/mL (5.0-12.0) H Objective HEAD AND NECK: No JVD. Orally intubated.Old trach site has drainage LUNGS: Coarse rhonchi. CARDIOVASCULAR: Regular S1 and S2. Mildly tachycardic. ABDOMEN: Soft. EXTREMITIES: 1+ pitting edema. Shady Sorto MD May 17, 2020 15:55
--- NOTE | 2020-05-17 16:18 | Emergency Room Report ---
Physical Exam Vital Signs Date Time Temp Pulse Resp B/P (MAP) Pulse Ox O2 Delivery O2 Flow Rate FiO2 05/13/20 07:00 125 26 86/59 (68) 94 05/13/20 07:10 100 05/13/20 08:00 Endotracheal Tube 05/13/20 08:00 101.2 Medical Decision Making Diagnostic Impression: Primary Impression: Acute febrile illness Additional Impressions: Coronavirus infection Septic shock Respiratory failure requiring intubation Seizure disorder ER Course Called to patient's bedside in ICU for CODE BLUE. The patient lost pulses and was in PEA arrest. Patient had been on 3 pressors maxed out and previously intubated for respiratory failure.Prior to my arrival CPR was started by ICU team and patient received epinephrine and bicarb per ACLS protocol. Patient failed to regain pulses. Initial rhythms were PEA and then proceeded to asystole. Patient was pronounced at 1605. Admitting team notified. Last Vital Signs Date Time Temp Pulse Resp B/P (MAP) Pulse Ox O2 Delivery O2 Flow Rate FiO2 05/17/20 15:00 154 31 69/46 (54) 76 05/17/20 12:00 Mechanical Ventilator 05/17/20 12:00 100 05/17/20 08:00 98.0 Disposition: ADMITTED INPATIENT Condition: Critical Referrals: Zain Mares MD (PCP) Procedures CPR/Code Blue CPR/Code Blue Narrative See MDM section of this note for narrative Arturo Hernandez MD May 17, 2020 16:18
--- NOTE | 2020-05-17 17:36 | Pulmonology Progress Note ---
Subjective ROS Limited/Unobtainable: Yes Interval Events: None new Constitutional: Reports: fever, other - Oj=952.5 HEENT: Repors: no symptoms Respiratory: Reports: no symptoms Cardiovascular: Reports: no symptoms Gastrointestinal/Abdominal: Denies: nausea, vomiting, diarrhea Genitourinary: Reports: no symptoms Neurologic: Reports: no symptoms Musculoskeletal: Denies: pain Allergies: Coded Allergies: No Known Allergies (Unverified , 04/14/20) Objective Last 24 Hour Vital Signs Date Time Temp Pulse Resp B/P (MAP) Pulse Ox O2 Delivery O2 Flow Rate FiO2 05/17/20 16:18 69/46 05/17/20 15:50 43 17 35/21 (26) 05/17/20 15:30 116 19 51/42 (45) 05/17/20 15:00 154 31 69/46 (54) 76 05/17/20 14:30 161 33 77/55 (62) 78 05/17/20 14:00 163 34 84/61 (69) 85 05/17/20 13:30 149 32 71/50 (57) 85 05/17/20 13:13 86/56 05/17/20 13:12 150 86/56 05/17/20 13:00 82 34 77/54 (62) 82 05/17/20 12:30 81 34 81/54 (63) 88 05/17/20 12:30 150 33 100 05/17/20 12:00 148 05/17/20 12:00 Mechanical Ventilator 05/17/20 12:00 153 34 71/32 (45) 88 05/17/20 12:00 100 05/17/20 11:30 155 34 85/62 (70) 89 05/17/20 11:00 154 34 75/59 (64) 89 05/17/20 10:59 86/56 05/17/20 10:30 151 34 83/63 (70) 90 05/17/20 10:00 150 35 86/56 (66) 86 05/17/20 09:30 141 34 98/60 (73) 94 05/17/20 09:00 143 32 93/58 (70) 88 05/17/20 08:46 138 62/46 05/17/20 08:45 142 32 54/39 (44) 86 05/17/20 08:45 62/46 05/17/20 08:30 143 34 62/46 (51) 88 05/17/20 08:00 Mechanical Ventilator 05/17/20 08:00 100 05/17/20 08:00 145 05/17/20 08:00 98.0 147 35 84/62 (69) 88 05/17/20 08:00 149 05/17/20 07:30 146 35 88/58 (68) 90 05/17/20 07:30 146 35 88/58 (68) 90 05/17/20 07:00 146 35 83/65 (71) 87 05/17/20 07:00 141 32 100 05/17/20 06:30 146 34 80/58 (65) 88 05/17/20 06:15 146 33 82/58 (66) 88 05/17/20 06:06 75/50 05/17/20 06:00 147 34 84/56 (65) 87 05/17/20 05:30 148 43 83/65 (71) 88 05/17/20 05:00 143 34 82/49 (60) 90 05/17/20 04:45 155 35 83/60 (68) 90 05/17/20 04:30 155 34 84/65 (71) 89 05/17/20 04:30 155 33 89/62 (71) 89 05/17/20 04:15 155 34 82/62 (69) 90 05/17/20 04:00 145 05/17/20 04:00 155 34 86/58 (67) 89 05/17/20 04:00 Mechanical Ventilator 05/17/20 04:00 100 05/17/20 04:00 98.5 155 35 83/66 (72) 90 05/17/20 03:45 154 35 83/65 (71) 90 05/17/20 03:31 86/56 05/17/20 03:30 154 35 83/65 (71) 90 05/17/20 03:30 153 33 77/60 (66) 91 05/17/20 03:15 153 36 82/66 (71) 90 05/17/20 03:00 153 35 82/66 (71) 91 05/17/20 03:00 151 36 91/62 (72) 91 05/17/20 02:47 149 32 91/64 (73) 92 05/17/20 02:45 148 34 86/62 (70) 92 05/17/20 02:30 152 35 94/65 (75) 76 05/17/20 02:15 150 35 90/63 (72) 78 05/17/20 02:00 150 36 94/59 (71) 81 05/17/20 01:46 50/30 05/17/20 01:45 145 35 97/65 (76) 83 05/17/20 01:30 142 35 92/69 (77) 86 05/17/20 01:15 148 35 86/61 (69) 73 05/17/20 01:14 149 35 75/59 (64) 75 05/17/20 01:00 149 35 68/51 (57) 81 05/17/20 00:45 98.0 145 35 82/58 (66) 88 05/17/20 00:31 136 38 100 05/17/20 00:30 150 35 94/75 (81) 83 05/17/20 00:15 152 36 91/69 (76) 83 05/17/20 00:00 Mechanical Ventilator 05/17/20 00:00 151 37 95/71 (79) 82 05/17/20 00:00 146 05/17/20 00:00 100 05/16/20 23:45 150 36 91/71 (78) 84 05/16/20 23:30 149 35 86/70 (75) 85 05/16/20 23:15 150 38 94/70 (78) 84 05/16/20 23:00 147 36 89/68 (75) 86 05/16/20 22:45 151 36 77/56 (63) 83 05/16/20 22:30 154 34 90/65 (73) 84 05/16/20 22:20 90/64 05/16/20 22:15 155 34 90/64 (73) 90 05/16/20 22:00 156 35 88/64 (72) 85 05/16/20 21:45 156 34 88/66 (73) 84 05/16/20 21:30 155 34 85/66 (72) 83 05/16/20 21:15 152 35 92/64 (73) 86 05/16/20 21:00 152 31 93/65 (74) 85 05/16/20 21:00 100 05/16/20 20:30 155 32 82/61 (68) 94 05/16/20 20:00 Mechanical Ventilator 05/16/20 20:00 155 05/16/20 20:00 98.0 159 36 89/61 (70) 90 05/16/20 19:30 149 24 85/67 (73) 92 05/16/20 19:00 156 37 89/67 (74) 87 05/16/20 18:33 151 36 100 05/16/20 18:30 140 34 80/65 (70) 82 05/16/20 18:30 90/65 05/16/20 18:02 98.3 05/16/20 18:01 140 39 92/69 90 05/16/20 18:00 98.4 150 34 88/65 (73) 84 Intake and Output 05/16/20 05/17/20 19:00 07:00 Intake Total 2991.252 ml 2744.958 ml Output Total 550 ml 320 ml Balance 2441.252 ml 2424.958 ml Free Water 70 ml IV Total 2871.252 ml 2574.958 ml Tube Feeding 120 ml 100 ml Output Urine Total 550 ml 320 ml General Appearance: no acute distress HEENT: normocephalic, other - NGT Respiratory: chest wall non-tender, other - coarse rhonchi Cardiovascular: normal peripheral pulses Abdomen: normal bowel sounds Extremities: other - 1+ pitting edema Laboratory Tests 05/17/20 05:42: White Blood Count 20.0H, Red Blood Count 3.25L, Hemoglobin 9.9L, Hematocrit 31.6L, Mean Corpuscular Volume 97, Mean Corpuscular Hemoglobin 30.4, Mean Corpuscular Hemoglobin Concent 31.3L, Red Cell Distribution Width 16.7H, Platelet Count 43L, Mean Platelet Volume 17.0H, Neutrophils (%) (Auto) , Lymphocytes (%) (Auto) , Monocytes (%) (Auto) , Eosinophils (%) (Auto) , Basophils (%) (Auto) , Differential Total Cells Counted 100, Neutrophils % (Manual) 90H, Lymphocytes % (Manual) 4L, Monocytes % (Manual) 3, Eosinophils % (Manual) 0, Basophils % (Manual) 0, Myelocytes % 3H, Band Neutrophils 0, Platelet Estimate DecreasedL, Platelet Morphology Normal, Polychromasia 1+, Hypochromasia 1+, Anisocytosis 1+, Sodium Level 144, Potassium Level 4.1, Chloride Level 112H, Carbon Dioxide Level 22, Anion Gap 10, Blood Urea Nitrogen 22H, Creatinine 0.9, Estimat Glomerular Filtration Rate > 60, Glucose Level 165H , Calcium Level 7.2L, Phosphorus Level 3.9, Magnesium Level 2.0, Total Bilirubin 1.6H, Direct Bilirubin 1.1H, Aspartate Amino Transf (AST/SGOT) 76H, Alanine Aminotransferase (ALT/SGPT) 27, Alkaline Phosphatase 162H, Total Protein 4.9L, Albumin 1.5L, Globulin 3.4, Albumin/Globulin Ratio 0.4L 05/17/20 14:25: Vancomycin Level Trough 29.8H Current Medications Medications (Trade) Dose Ordered Sig/[place] Route PRN Reason Start Time Stop Time Status Last Admin Dose Admin Acetaminophen (Tylenol) 500 mg Q4HR PRN ORAL Temp >100.5 04/27/20 00:15 05/27/20 00:14 05/15/20 13:51 Acetaminophen (Tylenol) 650 mg Q4H PRN NG Mild Pain (Pain Scale 1-3) 05/14/20 01:30 06/13/20 01:29 05/16/20 17:32 Chlorhexidine Gluconate (Anjali-Hex 2%) 1 applic DAILY@2000 TOPIC 04/29/20 20:00 07/28/20 19:59 05/16/20 20:31 Dextrose/Sodium Chloride 1,000 ml @ 75 mls/hr [id number] IV 05/04/20 14:30 06/03/20 14:29 05/17/20 06:28 Docusate Sodium (Colace) 100 mg TWICE A DAY GT 05/13/20 21:00 06/12/20 20:59 05/17/20 08:37 Epinephrine 1 mg/ Dextrose 250 ml @ 0 mls/hr Q24H IV 05/17/20 10:30 05/20/20 10:29 05/17/20 15:00 Famotidine (Pepcid) 20 mg BID GT 05/04/20 18:00 08/02/20 17:59 05/17/20 08:37 Levetiracetam 100 ml @ 400 mls/hr Q12HR IVPB 04/28/20 21:00 07/27/20 20:59 1/4/21 08:36 Lorazepam (Ativan 2mg/ml 1ml) 1 mg Q2H PRN IV Agitation 05/14/20 13:45 05/21/20 09:44 05/16/20 02:28 Lorazepam (Ativan 2mg/ml 1ml) 1 mg Q2H PRN IV For Anxiety 05/14/20 13:45 05/21/20 09:44 05/16/20 17:31 Lorazepam (Ativan 2mg/ml 1ml) 2 mg Q3H PRN IV Seziure 05/14/20 09:45 05/21/20 09:44 Midodrine (Pro-Amatine) 15 mg Q8HR GT 05/16/20 22:00 08/02/20 13:59 05/17/20 06:02 Norepinephrine Bitartrate 250 ml @ 0 mls/hr Q24H IV 05/16/20 06:22 05/18/20 06:21 05/17/20 16:18 Phenylephrine HCl 100 mg/Dextrose 500 ml @ 0 mls/hr Q24H IV 05/17/20 12:50 06/16/20 12:49 05/17/20 13:12 Vancomycin HCl (Vanco pharmacy to dose) 1 ea DAILY PRN MISC Per rx protocol 05/13/20 13:00 06/12/20 12:59 Assessment/Plan Assessment/Plan 1. COVID-19 pneumonia, - CXR 04/30 Slightly improved bilateral infiltrates, possible small right pleural effusion - CXR 05/08 improving - CXR 05/11 worsening - CXR 05/16 worse - s/p completed Decadron - s/p ceftriaxone and azithromycin per ID - s/p intubation, saturating at 85-88%; AC 15, VT 500, 100% FiO2, PEEP 5 2. Seizure disorder. - on antiepileptics 3. Hypotension; on max pressors 4. possible aspiration pneumonia with new onset fever (Tmax 101.1) - CXR shows left lung infiltrates - on Cefepime per ID - d/w ID 5. DVT ppx - on SCD 6. Septic shock - ID following - on cefepime and IV Vanco per ID 7. Respiratory acidosis - monitor ABG s/p NG tube placement Grave prognosis No family available to discuss code status seen in ICU May 14, 2020 15:39 Radhames Jc MD May 17, 2020 17:36
[2020-05-17] MEDS ORDERED: D5W 275ml ONE (18:59)
[2020-05-17] MEDS ORDERED: Sterile Water Irrig 1000ml IRRIG ONE (18:59)
[2020-05-17] MEDS ORDERED: Tubing IV Secondary IV ONE ×2 (18:59)
[2020-05-17] MEDS ORDERED: Sodium Bicarbonate 8.4% 50ml Inj ONE (18:59)
[2020-05-17] MEDS ORDERED: NS 275ml ONE ×3 (18:59)
[2020-05-17] MEDS ORDERED: D5NS 1000ml IV ONE ×2 (18:59)
--- NOTE | 2020-05-18 15:18 | Discharge Summary ---
Discharge Summary Discharge Summary _ Date of admission: 04/26/2020 Date of expiration: 05/17/2020 History of Present Illness and Brief Hospital Course Mr. Betancur was a 69-year-old male with history of seizure disorder, and COPD with previous history of tracheostomy, who presented to the ER for evaluation of increased seizure activity from convalescent home. Patient was noted to have decreased level of consciousness on arrival. He was also hypoxic and was provi ded with oxygen via nonrebreather mask. His EKG showed normal sinus rhythm. Chest x-ray showed bilateral basilar infiltrates. Patient was given IV fluids, and IV Keppra and was admitted to the hospital for further management. Due to suspected septic shock with hypotension, patient was given dopamine through a central line. Patient was admitted to ICU. His electrolytes were rep laced as needed. Given his hypoxia on presentation, patient was continued on supplemental oxygen and the oxygen saturation was monitored closely. Patient received broad- spectrum antibiotics for pneumonia coverage and dexamethasone for hypoxia. Repeat chest x-ray on 04/30/2020 showed slightly improved bilateral infiltrates with possible small right pleural effusion. At one point his oxygen saturation was stable on 2 L of oxygen via nasal cannula. However within a few days he desaturated and was back on 15 L nonrebreather mask. Patient also developed new onset fever with a T-max of 101.1. It was suspected that he may have developed aspiration pneumonia at this point and was started on cefepime. Repeat chest x- ray on 05/11/2020 showed worsening infiltrates. By 05/14/2020, patient was intubated and was found to have respiratory acidosis. His ABG was closely monitored. Patient failed swallow evaluation and was put on n.p.o. Because of his malnutrition complicated by dysphagia, patient required percutaneous endoscopic gastrotomy tube placement. However, his family was unreachable for consent. NG tube was placed and NG tube feeding started in the meantime. Patient showed waxing and waning consciousness with anxious mood. Due to suspected acute metabolic encephalopathy, patient was put on Haldol as needed. His prognosis remained grave and no family was available to discuss CODE STATUS. On 05/17/2020 patient desaturated down to the 30s with blood pressure dropping to 50s on IV drip pressor. Patient was unconscious at this time. Unfortunately KALEB PIPER was called on 05/17/2020; however, patient at 16: 05. Cause of : cardiopulmonary arrest. Consultants: Cardiology Dr. Sorto Infectious disease Dr. Garcia Nephrology Dr. Field Psychiatry Dr. Camacho Pulmonology Dr. Jc Final diagnoses Septic shock Acute respiratory failure Sinus tachycardia Seizure disorder Altered level of consciousness Dysphagia Staff aureus pneumonia Pneumonia with COVID-19 History of COPD Lactic acidosis Encephalopathy Electrolyte imbalance Hypotension I have been assigned to dictate discharge summary for this account. Brett Shore May 18, 2020 15:18
--- NOTE | 2020-05-19 02:17 | Cardiology Report ---
APPROVED REPORT EXAM: Two-dimensional and M-mode echocardiogram with Doppler and color Doppler. INDICATION Cardiac Disease: CAD M-Mode DIMENSIONS IVSd1.2 (0.7-1.1cm)Left Atrium (MM)3.7 (1.6-4.0cm) LVDd3.4 (3.5-5.6cm)Aortic Root3.5 (2.0-3.7cm) PWd1.4 (0.7-1.1cm)Aortic Cusp Exc.2.0 (1.5-2.0cm) IVSs1.8 cmEPSS1.0 (>1.0cm) LVDs2.1 (2.5-4.0cm) PWs1.5 cm Other Information Technically limited study due to poor parasternal acoustical windows. <Conclusion> Normal left ventricular chamber size, systolic function to extent visualized. Left ventricular ejection fraction estimated to 65-70% Study quality precludes accurate assessment of regional wall motion. No evidence of left ventricular hypertrophy. No evidence of pericardial effusion. All other cardiac chamber sizes appear to be within normal limits. Focal aortic valve sclerosis with adequate cusp excursion. Thickened mitral valve leaflets with normal excursion. Mitral annulus and aortic root calcification. Normal tricuspid valve structure. Subcostal view not well visualized. IVC unobtainable. A color flow and spectral Doppler study was performed and revealed: No aortic regurgitation. Trace mitral regurgitation. Mitral diastolic velocities suggest reduced left ventricular relaxation c/w mild LV diastolic dysfunction (Grade I ). Trace tricuspid regurgitation. Tricuspid systolic velocities suggests peak right ventricular systolic pressure of 7 mmHg.
--- NOTE | 2020-05-19 02:22 | Cardiology Report ---
APPROVED REPORT EKG Measurement Heart [id number] <Conclusion> Normal sinus rhythm Left axis deviation Inferior infarct, age undetermined Abnormal ECG
== END 2020-05-17 19:00 | disposition expired | DRG 720 ==
LOC: EDBD 14:57 → EMR 16:00 → ICU 18:21 → EDBEDREQSVC 04-27 04:27 → EDBEDREQ 04-27 04:27 → ICU 04-28 04:31 → 2E 04-30 09:30 → 4E 05-01 18:50 → 2W 05-12 12:33 → ICU 05-13 01:44 → UNDODISIN 05-17 19:00 → 2W 05-18 13:14 → ICU 05-18 13:14
PROC: 06HM33Z Insertion of Infusion Device into Right Femoral Vein, Percutaneous Approach (ICD-10-PCS; 2020-04-27)
PROC: 5A1945Z Respiratory Ventilation, 24-96 Consecutive Hours (ICD-10-PCS; principal; 2020-05-13)
PROC: 0BH17EZ Insertion of Endotracheal Airway into Trachea, Via Natural or Artificial Opening (ICD-10-PCS; 2020-05-13)
DX: A41.89 Other specified sepsis (principal); U07.1 COVID-19; J12.82 Pneumonia due to coronavirus disease 2019; R65.21 Severe sepsis with septic shock; J96.01 Acute respiratory failure with hypoxia; G40.909 Epilepsy, unspecified, not intractable, without status epilepticus; K21.9 Gastro-esophageal reflux disease without esophagitis; G93.41 Metabolic encephalopathy; R13.10 Dysphagia, unspecified; J15.211 Pneumonia due to Methicillin susceptible Staphylococcus aureus; E87.8 Other disorders of electrolyte and fluid balance, not elsewhere classified; D64.9 Anemia, unspecified; E46 Unspecified protein-calorie malnutrition; Z68.1 Body mass index [BMI] 19.9 or less, adult
CPT/HCPCS: 36415; 71045; 74018; 76705; 80048; 80053; 80202; 81003; 82248; 82550; 82553; 82728; 82803; 82962; 83605; 83615; 83690; 83735; 83880; 84100; 84443; 84484; 84550; 85007; 85025; 85379; 85610; 85730; 86140; 87040; 87070; 87181; 87205; 92610; 92950; 93005; 93306; 94002; 94003; 96361; 96374; 99285; J0171; J1815; J2370; J7030